=== PATIENT | female | born 1955 | race Caucasian/White ===

== ENCOUNTER 2020-12-24 19:51 | Inpatient (IN) | payer OTHER, SELFPAY ==
[2020-12-24] VITALS (30 sets, daily range): BP systolic 90–188; BP diastolic 47–128; PULSE 80–137; RESP 12–35; TEMP 36.3–36.5; O2SAT 90–100
--- NOTE | ~2020-12-24 | CT_ITS ---
EXAMINATION: CT diagnostic chest wo con DATE: 12/25/2020 03:49 INDICATION: SOB TECHNIQUE: Computed tomography (CT) of the chest was performed without intravenous contrast. Addition al 3D reconstructions utilizing coronal maximum intensity projection (MIP) were performed. Automated exposure control and iterative reconstruction technique were employed. The dose-length product was 76 8.26 mGy-cm. COMPARISON: None FINDINGS: Small bilateral pleural effusions with dependent compressive atelectasis in the bilateral lower lobes .. Subtle bilateral scattered groundglass opacities which could represent additional atelectasis vers us mild pulmonary edema. Cardiomegaly. Small amount of scattered atherosclerotic coronary artery calc ification. There is also aortic valve and mitral annular calcification. No pericardial effusion. 8 mm low-attenuation likely cystic right thyroid nodule with peripheral punctate calcification. No pathol ogically enlarged thoracic lymphadenopathy. 1.3 x 0.7 cm right thyroid nodule statistically most like ly to represent an adenoma. Mild thoracic dextrocurvature with severe spondylosis. Dense bone island at the T4 vertebral body. IMPRESSION: 1. Mild bilateral groundglass opacities which could represent atelectasis or mild pulmonary edema. 2. Small bilateral pleural effusions. 3. Cardiomegaly. Reviewed, dictated and finalized at location A. IMPRESSION: 1. Mild bilateral groundglass opacities which could represent atelectasis or mi ld pulmonary edema. 2. Small bilateral pleural effusions. 3. Cardiomegaly.
--- NOTE | ~2020-12-24 | XR_ITS ---
XR chest 1V portable 12/24/2020 20:30 Indication: Shortness of breath Procedure: AP portable chest Comparison: No prior studies for comparison. Findings: Diffuse bilateral airspace disease. Heart size normal. No significant pleural effusion or p neumothorax. Impression: 1: Diffuse bilateral airspace disease which may represent edema or pneumonia. Reviewed, dictated and finalized at location A. Impression: 1: Diffuse bilateral airspace disease which may represent edema or pneumonia.
--- NOTE | ~2020-12-24 | CT_ITS ---
EXAMINATION: CT brain wo con DATE: 12/25/2020 03:49 INDICATION: Altered mental status. Recent fall. TECHNIQUE: Computed tomography (CT) of the head was performed without intravenous contrast. The dose- length product was 681.00 mGy-cm. Automated exposure control and iterative reconstruction technique w ere employed. COMPARISON: None FINDINGS: Generalized atrophy. There are scattered mild periventricular and subcortical white matter changes, most likely related to small vessel ischemic disease (microangiopathy). No acute intracrania l hemorrhage, infarction, mass or mass effect. No ventriculomegaly or midline shift. Basilar cisterns are patent paranasal sinuses and mastoids are pneumatized. IMPRESSION: 1. No acute intracranial abnormality. 2: Chronic age-related findings. Reviewed, dictated and finalized at location A.
[2020-12-24] MEDS: IPRATROPIUM BR 0.02% INH SOLN 0.5 MG/2.5 ML VIAL 1.5 MG INHALATION (20:06)
--- NOTE | 2020-12-24 20:07 | PC.NURSE ---
bipap placed per respiratory at 16/8, rate 14 @ 50%. Preparing to initiate udt inline.
[2020-12-24 20:21] LABS: Basophils Absolute Auto 0.1 K/mm3 (0.0-0.1); Basophils Percent Auto 0.7 % (0.2-1.2); Hematocrit 40.9 % (37.0-47.0); Hemoglobin 13.1 g/dL (12.0-15.0); Immature Granulocyte Absolute 0.13 K/mm3 (0.00-0.031); Immature Granulocyte Percent A 0.7 % (0-0.5); Lymphocytes Percent Auto 16.4 % (18.3-44.2); Mean Corpuscular Hemoglobin 26.5 pg (26-34); Mean Corpuscular Volume 82.8 fl (80-100); Mean Platelet Volume 11.2 fl (7.4-10.4); Monocytes Absolute Auto 1.1 K/mm3 (0.1-0.6); Monocytes Percent Auto 6.4 % (2.6-8.5); Neutrophils Absolute Auto 13.4 K/mm3 (1.3-6.7); Neutrophils Percent Auto 75.8 % (45.5-73.1); Platelet Count Result 476 k/mm3 (150-375); Red Blood Count 4.94 M/mm3 (4.2-5.4); Red Cell Distribution Width 16.3 % (11.5-14.5); White Blood Count 17.7 K/mm3 (4.5-10.0)
[2020-12-24 21:00] LABS: Prothrombin Time 14.2 Seconds (11.1-14.7)
[2020-12-24 21:02] LABS: Partial Thromboplastin Time 29.5 SECONDS (22.3-36.8)
[2020-12-24 21:05] LABS: Anion Gap 10 mmol/L (8-16); Blood Urea Nitrogen 12 mg/dL (7-17); Calcium 8.7 mg/dL (8.4-10.2); Carbon Dioxide 28 mmol/L (22-30); Chloride 96 mmol/L (98-107); Estimated Glomerular Filt Rate > 60; Glucose 216 mg/dL (65-105); Potassium 3.5 mmol/L (3.4-5.0); Sodium 134 mmol/L (137-145)
[2020-12-24 21:07] LABS: Lactic Acid Reflex 1.4 mmol/L (0.7-2.1)
--- NOTE | 2020-12-24 21:07 | ED.SOB ---
HPI - SOB/Dyspnea General Chief Complaint: Shortness of Breath/Dyspnea Stated Complaint: 2nd covid shot yesterday not feeling good yet Time Seen by Provider: 12/24/20 19:54 History of Present Illness HPI Narrative: Patient is a 65-year-old female who presents from her assisted living with shortness of breath. Staff unsure when patient dyspnea began but patient reports this was sudden onset today. She has history of COPD as well as CHF. No fevers or chills or sweats. Denies productive cough but has had a cough. Has not found any alleviating factors. No chest pain or chest pressure. Patient has no new edema in her lower extremities. Patient received her second Covid vaccination yesterday. Related Data Home Medications Medication Instructions Recorded Confirmed Humalog U-100 Insulin See Rx Instructions .ROUTE .COMPLEX 12/24/20 12/25/20 Lantus Solostar U-100 Insulin 50 units SUBCUT DAILY 12/24/20 12/25/20 albuterol sulfate [ProAir HFA] See Rx Instructions .ROUTE 12/24/20 12/25/20 .COMPLEX PRN alprazolam 1 mg PO BID PRN 12/24/20 12/25/20 atenolol 25 mg PO DAILY 12/24/20 12/24/20 atorvastatin 40 mg PO HS 12/24/20 12/25/20 clopidogrel 75 mg PO DAILY 12/24/20 12/25/20 furosemide 80 mg PO DAILY 12/24/20 12/25/20 gabapentin 800 mg PO TID 12/24/20 12/25/20 lisinopril 2.5 mg PO DAILY 12/24/20 12/25/20 losartan 100 mg PO DAILY 12/24/20 12/24/20 methocarbamol 1,500 mg PO TID PRN 12/24/20 12/25/20 morphine 15 mg PO Q6H PRN 12/24/20 12/25/20 morphine [MS Contin] 30 mg PO Q12H 12/24/20 12/24/20 nystatin See Rx Instructions .ROUTE .COMPLEX 12/24/20 12/25/20 venlafaxine [Effexor XR] 112.5 mg PO DAILY 12/24/20 12/25/20 gabapentin 400 mg PO HS 12/25/20 12/25/20 pantoprazole 40 mg PO QAM 12/25/20 12/25/20 Allergies Allergy/AdvReac Type Severity Reaction Status Date / Time metformin Allergy Unknown Verified 12/24/20 21:11 Sulfa (Sulfonamide Allergy Unknown Verified 12/24/20 21:11 Antibiotics) Review of Systems Review of Systems: All systems reviewed & are unremarkable except as noted in HPI and below Constitutional: Constitutional: Denies chills, Denies fever(s) and Reports weakness ENT: Denies nasal congestion and Denies sore throat Cardiovascular: Cardiovascular: Denies chest pain, Denies rapid heart rate and Denies radiating jaw, neck or arm pain Respiratory: Respiratory: Reports cough, Reports dyspnea and Reports wheezing Gastrointestinal: Gastrointestinal: Denies abdominal pain, Denies nausea and Denies vomiting PMFSH Past Medical History Medical History (Updated 12/25/20 @ 04:59 by Srinivas Vergara MD) Chronic pain COPD (chronic obstructive pulmonary disease) Depression Essential hypertension Fibromyalgia GERD (gastroesophageal reflux disease) Hyperlipidemia Insulin dependent diabetes mellitus Peripheral neuropathy Systolic CHF Surgical History Surgical History (Updated 12/25/20 @ 02:07 by Cassia Sanderson DO) S/P AKA (above knee amputation) bilateral Family History Family History Other Unknown family medical history Social History Social History (Updated 12/25/20 @ 02:27 by Cassia Sanderson DO) Social History: She resides at [facility]. Primary care provider: Yamileth Perez NP Code status: Full code (per retirement records) Surrogate decision maker: Ariana Addison (daughter) Smoking status: Unknown if ever smoked Alcohol intake: never Substance use: never Gender identity (if verbalized by the patient): Female Spiritual care concerns: No Exam Narrative: Exam Narrative: GENERAL: Ill-appearing, well-nourished, and in moderate distress. HEAD: Normocephalic, atraumatic. EYES: PERRL and EOMI. ENT: Mucous membranes moist. CHEST: Diminished air movement with coarse lung sounds and expiratory wheezing. Moderate respiratory distress. HEART: Tachycardic and regular. Normal peripheral pulses. ABDO
--- NOTE | 2020-12-24 21:09 | PC.NURSE ---
Pt states is feeling much better at present.
[2020-12-24 21:15] LABS: NT Pro B Type Natriuretic Pept 13600 pg/mL (5-100)
[2020-12-24 21:24] LABS: Glucose Point of Care 231 mg/dl (65-105)
--- NOTE | 2020-12-24 21:46 | PC.NURSE ---
bipap pressures decreased to 12/6 per v.oTorres Vergara.
--- NOTE | 2020-12-24 21:48 | ECG_ITS ---
Measurements Intervals [place] Rate: 131 P: 62 UT: 130 QRS: 14 QRSD: 98 T: 84 QT: 363 QTc: 536 Interpretive Statements SINUS TACHYCARDIA LOW QRS VOLTAGE IN PRECORDIAL LEADS [QRS DEFLECTION < 1.0 mV IN CHEST LEADS] NONSPECIFIC ST & T-WAVE ABNORMALITY- INF/HIGH LAT LEADS BASELINE ARTIFACT- I, II, III, AVR, AVL, AVF, V1-V6 ABNORMAL ECG Electronically Signed On 12-25-2020 8:19:52 CDT by Yousuf Villasenor D.O.
[2020-12-24] MEDS: FUROSEMIDE INJ 40 MG/4 ML VIAL IV PUSH (21:56)
--- NOTE | 2020-12-24 22:05 | PC.NURSE ---
Bipap pressures again decreased to 10/5.
[2020-12-24 22:22] LABS: Alveolar/Arterial O2 Gradient 177.8 mmHg; Base Excess ABG 2.9 mEq/l (+/-2.0); Carboxyhemoglobin 0.3 % THb (0-2.0); Fractional Inspired Oxygen 40 %; HCO3 ABG 27.2 mEq/l (22.0-26.0); Methemoglobin ABG 0.4 %THb (0-1.5); Oxygen Saturation ABG 92.3 % (95.0-100.0); Oxyhemoglobin 90.3 % THb (90.0-100.0); PCO2 ABG 40.4 mmHg (35.0-45.0); PO2 ABG 60.9 mmHg (80.0-100.0); PO2 FiO2 Ratio Arterial Blood 1.52 %; Total Hemoglobin 12.6 g/dL (12.0-18.0); pH ABG 7.446 (7.350-7.450)
[2020-12-24 22:23] LABS: Device NON-INVASIVE VENT; Modified Allen's Test Pass; Non-Invasive Expiratory Pressure 5 CMH2O; Non-Invasive Inspiratory Pressure 10 CMH2O; Non-Invasive Vent Rate 14 /MIN; Site Drawn RIGHT RADIAL
[2020-12-25] VITALS (28 sets, daily range): BP systolic 91–148; BP diastolic 48–54; PULSE 77–130; RESP 18–24; TEMP 36.4–38.3; O2SAT 95–98
--- NOTE | 2020-12-25 | ADMGEN ---
This patient, Isabel Jorgensen, was admitted to IMU Room 205-02 on 12/24/2020 at 2335. Patient/family oriented to hospital policies and general routines including ID bracelet, bed and alarms, visiting hours, pain management, procedures, bathroom and other care routines, personal items, smoking policy, room service/diet, and visiting hours. Information on how to activate the Rapid Response Team has been discussed. Patient/Family are encouraged to report perceived risks to care and to ask questions if they do not understand what they are told or what they should do.
[2020-12-25 00:23] LABS: Troponin I 0.466 ng/mL (0.000-0.034)
--- NOTE | 2020-12-25 00:53 | PM.IMHP ---
H&P: HPI History of Present Illness Date/Time: 12/25/20 00:53 Chief Complaint: ?I can't breathe? Narrative: 65-year-old female with past medical history of insulin-dependent diabetes, bilateral [id number] amputations, systolic congestive heart failure, COPD and coronary artery disease who presented to the ER via EMS from [facility] due to shortness of breath. Source of information is assisted living records and ER records. Patient is alert oriented to person, place and month but will not stay awake long enough to answer other questions. The patient arrived to the ER in overt respiratory distress. She was found at home with oxygen saturations in the mid 70s. At the time of arrival to the ER the patient had a non-rebreather in place and was satting 89%. She had labored respirations with wheezing and rhonchi. The patient reported that her symptoms had started in the morning and acutely worsened before EMS was called. She reported to the ER staff that she was having a cough but her cough was nonproductive. At the time of my evaluation the patient's skin with hot to touch and she was diaphoretic. A temperature checked at that time demonstrated a fever of 100.9. The patient's daughter reported that she had taken the patient to get her 2nd Covid vaccine on . The patient fell during that time in patient was taken to urgent care. The daughter was unable to stay with the patient in asked his sister living staff to keep an eye on the patient. The patient is unable to tell me if she was having any dysuria or urinary symptoms. The patient was evidently incontinent of urine down in the ER. The patient told nursing staff that she usually transfers herself to her wheelchair and makes it to her bathroom without assistance. Since the patient is arrived on the medical floor she has become more encephalopathic and more difficult to arouse. When not on BiPAP patient has had episodes of witnessed apnea. She denies a history of obstructive sleep apnea. The patient is intermittently answering questions but at times she answers the same question with opposite responses. She has no obvious evidence of head trauma. Review of Systems Review of Systems: ROS unobtainable: Yes unobtainable due to mental status [facility] Past Medical History Medical History (Updated 12/25/20 @ 02:41 by Cassia Sanderson DO) Chronic pain COPD (chronic obstructive pulmonary disease) Depression Essential hypertension Fibromyalgia GERD (gastroesophageal reflux disease) Hyperlipidemia Insulin dependent diabetes mellitus Peripheral neuropathy Systolic CHF Surgical History Surgical History (Updated 12/25/20 @ 02:07 by Cassia Sanderson DO) S/P AKA (above knee amputation) bilateral Family History Family History Other Unknown family medical history Social History Social History (Updated 12/25/20 @ 02:27 by Cassia Sanderson DO) Social History: She resides at [facility]. Primary care provider: Yamileth Perez NP Code status: Full code (per penitentiary records) Surrogate decision maker: Ariana Addison (daughter) Smoking status: Unknown if ever smoked Alcohol intake: never Substance use: never Gender identity (if verbalized by the patient): Female Spiritual care concerns: No Meds Home Medications and Allergies Home Medications Medication Instructions Recorded Confirmed Type Humalog U-100 Insulin See Rx Instructions .ROUTE .COMPLEX 12/24/20 12/25/20 History Lantus Solostar U-100 Insulin 50 units SUBCUT DAILY 12/24/20 12/25/20 History albuterol sulfate [ProAir HFA] See Rx Instructions .ROUTE 12/24/20 12/25/20 History .COMPLEX PRN alprazolam 1 mg PO BID PRN 12/24/20 12/25/20 History atenolol 25 mg PO DAILY 12/24/20 12/24/20 History atorvastatin 40 mg PO HS 12/24/20 12/25/20 History clopidogrel 75 mg PO DAILY 12/24/20 12/25/20 His
[2020-12-25 01:52] LABS: Glucose Point of Care 242 mg/dl (65-105)
[2020-12-25 02:42] LABS: D Dimer 1.41 ug/mL (<0.48)
--- NOTE | 2020-12-25 02:45 | PC.NURSE ---
Nurse called emergency contact listed Daughter (Ariana Addison) and was unable to reach and left message for consent for Ct with contrast due to patient to drowsy to answer questions. Nurse was also unable to get a second contact from [facility].
[2020-12-25 02:57] LABS: Bacteria Urine Trace /hpf; Mucus Urine Rare /lpf; Squamous Epithelial Cell Urine Rare /hpf (Few); WBC Urine 0-3 /hpf
[2020-12-25 03:01] LABS: Color Urine Yellow (Yellow)
[2020-12-25 03:02] LABS: Appearance Urine Clear (Clear); Glucose Urine UA Negative (Negative); Protein Urine 3+ mg/dL (Negative); Specific Grav Ur 1.025 (1.001-1.035)
[2020-12-25 03:04] LABS: Add Urine Microscopic? YES
[2020-12-25 03:17] LABS: Bilirubin Urine Negative (Negative)
[2020-12-25 03:18] LABS: Ketones Urine Negative (Negative)
[2020-12-25 03:19] LABS: Leukocyte Esterase Ur Negative LEU/UL (Negative); Nitrate Urine Negative (Negative)
[2020-12-25 03:24] LABS: Troponin I 0.583 ng/mL (0.000-0.034)
[2020-12-25 03:26] LABS: Blood Urine 1+ (Negative); Urobilinogen Urine 0.2 mg/dL (<2.0)
--- NOTE | 2020-12-25 03:30 | PC.NURSE ---
Nurse took patient down via bed to cT scan and back to room 205-1.
[2020-12-25] MEDS: ENOXAPARIN 80 MG/0.8 ML SYRINGE 75 MG SUB-Q ×2 (04:52→16:08)
[2020-12-25 05:52] LABS: Basophils Absolute Auto 0.1 K/mm3 (0.0-0.1); Basophils Percent Auto 0.6 % (0.2-1.2); Eosinophils Absolute Auto 0.4 K/mm3 (0-0.3); Eosinophils Percent Auto 4.3 % (0-4.4); Hematocrit 34.8 % (37.0-47.0); Immature Granulocyte Absolute 0.05 K/mm3 (0.00-0.031); Immature Granulocyte Percent A 0.6 % (0-0.5); Lymphocytes Absolute Auto 1.14 K/mm3 (0.9-3.2); Lymphocytes Percent Auto 12.8 % (18.3-44.2); Mean Corpuscular HGB Conc 31.6 g/dl (32-36); Mean Corpuscular Hemoglobin 26.1 pg (26-34); Mean Corpuscular Volume 82.7 fl (80-100); Mean Platelet Volume 9.8 fl (7.4-10.4); Monocytes Absolute Auto 0.7 K/mm3 (0.1-0.6); Monocytes Percent Auto 8.2 % (2.6-8.5); Neutrophils Absolute Auto 6.6 K/mm3 (1.3-6.7); Neutrophils Percent Auto 73.5 % (45.5-73.1); Platelet Count Result 222 k/mm3 (150-375); Red Blood Count 4.21 M/mm3 (4.2-5.4); Red Cell Distribution Width 16.2 % (11.5-14.5); White Blood Count 8.9 K/mm3 (4.5-10.0)
[2020-12-25 06:01] LABS: Hemoglobin A1C 10.2 % (<5.7)
[2020-12-25 06:02] LABS: Alanine Aminotransferase 17 U/L (4-35); Albumin Level 3.1 g/dL (3.5-5.1); Alkaline Phosphatase 158 U/L (38-126); Anion Gap 7 mmol/L (8-16); Aspartate Amino Transferase 28 U/L (14-36); Bilirubin,Total 0.5 mg/dL (0.2-1.3); Blood Urea Nitrogen 16 mg/dL (7-17); Calcium 8.1 mg/dL (8.4-10.2); Carbon Dioxide 31 mmol/L (22-30); Chloride 97 mmol/L (98-107); Estimated Glomerular Filt Rate > 60; Glucose 256 mg/dL (65-105); Potassium 3.2 mmol/L (3.4-5.0); Sodium 135 mmol/L (137-145)
[2020-12-25 06:17] LABS: Troponin I 0.503 ng/mL (0.000-0.034)
[2020-12-25 07:39] LABS: Glucose Point of Care 285 mg/dl (65-105)
[2020-12-25] MEDS: IPRATROPIUM BR 0.02% INH SOLN 0.5 MG/2.5 ML VIAL INHALATION ×3 (07:56→21:20)
[2020-12-25] MEDS: MORPHINE SULFATE (*CRX) 30 MG TABCR PO ×2 (08:24→20:56)
[2020-12-25] MEDS: ALPRAZolam (*CRX) 0.5 MG TABLET 1 MG PO ×2 (08:24→20:56)
[2020-12-25] MEDS: FUROSEMIDE INJ 40 MG/4 ML VIAL IV PUSH ×2 (08:25→16:07)
[2020-12-25] MEDS: methocarbamoL 750 MG TABLET 1500 MG PO ×2 (08:25→22:15)
[2020-12-25] MEDS: INSULIN GLARGINE (*BKC) 100 UNITS/ML 50 UNITS SUB-Q (08:27)
[2020-12-25] MEDS: INSULIN ASPART (*BKC) 100 UNITS/ML SUB-Q (08:28)
[2020-12-25] MEDS: INSULIN ASPART (*BKC) 100 UNITS/ML 6 UNITS SUB-Q ×2 (08:29→11:52)
[2020-12-25] MEDS: PANTOPRAZOLE 40 MG TABLET PO (11:46)
[2020-12-25] MEDS: LOSARTAN POTASSIUM 100 MG TABLET PO (11:46)
[2020-12-25] MEDS: atenoloL 25 MG TABLET PO (11:46)
[2020-12-25] MEDS: CLOPIDOGREL BISULFATE 75 MG TABLET PO (11:46)
[2020-12-25] MEDS: GABAPENTIN 400 MG CAPSULE 800 MG PO ×3 (11:46→18:53)
[2020-12-25] MEDS: MORPHINE SULFATE (*CRX) 15 MG TAB IR PO ×3 (11:46→22:15)
[2020-12-25 12:11] LABS: Glucose Point of Care 163 mg/dl (65-105)
--- NOTE | 2020-12-25 14:35 | PM.IMPN ---
Progress Note: A&P Assessment and Plan (1) Sepsis: Qualifiers: Sepsis type: sepsis due to unspecified organism Sepsis acute organ dysfunction status: with acute organ dysfunction Severe sepsis acute organ dysfunction type: acute respiratory failure Acute respiratory failure type: with hypoxia Severe sepsis shock status: without septic shock Qualified Code(s): A41.9 - Sepsis, unspecified organism; R65.20 - Severe sepsis without septic shock; J96.01 - Acute respiratory failure with hypoxia Code(s): A41.9 - Sepsis, unspecified organism Status: Acute Assessment and Plan: ALTERED MENTAL STATUS LIKELY PNEUMONIA SOURCE OF INFECTION Ruling out COVID-19 Currently on ceftriaxone and Zithromax Await cultures (2) Acute respiratory failure with hypoxia: Code(s): J96.01 - Acute respiratory failure with hypoxia Status: Acute Assessment and Plan: SUPPLEMENTAL OXYGEN NEEDED Patient was on room air at the time of my visit Supportive care BiPAP p.r.n. (3) Elevated troponin: Code(s): R77.8 - Other specified abnormalities of plasma proteins Status: Acute Assessment and Plan: LIKELY TO BE TYPE 2 [place] (4) Type 2 diabetes mellitus with hyperglycemia: Qualifiers: Diabetes mellitus penitentiary insulin use: with penitentiary use Qualified Code(s): E11.65 - Type 2 diabetes mellitus with hyperglycemia; Z79.4 - skilled nursing (current) use of insulin Code(s): E11.65 - Type 2 diabetes mellitus with hyperglycemia Status: Acute Assessment and Plan: INSULIN SLIDING SCALE NEEDED CONTINUE LANTUS (5) Witnessed apneic spells: Code(s): R06.81 - Apnea, not elsewhere classified Status: Acute Assessment and Plan: BIPAP AT NIGHTTIME Additional Plan The patient presented with acute respiratory failure to the ER. Initially given her sudden onset of respiratory symptoms and history of CHF it was felt that she likely had flash pulmonary edema. Patient was placed on BiPAP given Lasix and admitted to the IMU. However after arrival to the IMU the patient spiked a fever of 100.9. Subsequently blood cultures and UA and urine culture have been ordered. The patient's fever could simply be due to receiving the 2nd Covid vaccine 24 hours ago however currently she meet sepsis criteria and will be treated as such. Patient's abnormal x-ray could be due to pulmonary edema versus pneumonia. The patient received Lasix in the ER. Will continue 40 of Lasix IV b.i.d.. Will place Gómez catheter for accurate I&O's as the patient is incontinent. Will check daily weights. The patient will remain on BiPAP especially given witnessed episodes of apnea. There is no evidence of CO2 retention on her ABG. A stat D-dimer was obtained which was elevated. I wanted to obtain a CT of the chest but the patient's family did not answer the phone to give consent. Patient will be treated with empiric Lovenox therapy. Will still obtain CT of the chest without contrast to further delineate the patient's lung pathology. Patient will be started on empiric antibiotic therapy with Rocephin and azithromycin. Given her leukocytosis bacterial pneumonia is suspected more than COVID. The patient has already received her 2nd Covid vaccine within the last 24 hours. Diuretic lesion may not have a complete immune response to Covid get. Will check COVID PCR and placed on isolation. The patient's fever could simply be due to immunization reaction. Given her history of COPD will place patient on scheduled nebulizer treatments. Patient's elevated troponin could be due to non STEMI verses type 2 infarct due to acute hypoxic event. Will monitor serial troponins. Will check echocardiogram in a.m. given the patient's significant murmur. Will continue b.i.d. IV Lasix. Patient's glucoses are running in the 200s. Will resume the patient's home Lantus and had mealtime bolus insulin and sliding scale insulin. Accu-Mally
[2020-12-25 18:14] LABS: SARS-CoV-2 RNA PCR Negative
[2020-12-25 18:53] LABS: Glucose Point of Care 73 mg/dl (65-105)
[2020-12-25 20:20] LABS: Glucose Point of Care 229 mg/dl (65-105)
[2020-12-25] MEDS: ATORVASTATIN 40 MG TABLET PO (20:54)
[2020-12-25] MEDS: GABAPENTIN 400 MG CAPSULE PO (20:55)
--- NOTE | 2020-12-25 22:41 | ECG_ITS ---
Measurements Intervals [place] Rate: 131 P: [place]: 0 QRS: 10 QRSD: 93 T: 124 QT: 301 QTc: 446 Interpretive Statements SINUS RHYTHM SHORT RUNS OF ATRIAL TACHYCARDIA NONSPECIFIC ST & T-WAVE ABNORMALITY- ANTEROLAT/HIGH LAT LEADS BASELINE ARTIFACT- III, AVF, V5 ABNORMAL ECG Electronically Signed On 12-26-2020 8:49:36 CDT by Yousuf Villasenor D.O.
[2020-12-26] VITALS (22 sets, daily range): BP systolic 90–136; BP diastolic 50–67; PULSE 77–156; RESP 16–20; TEMP 35.9–36.6; O2SAT 92–100
--- NOTE | 2020-12-26 | ECHO_ITS ---
Patient Info Name: Isabel Jorgensen Age: 65 years : 1955 Gender: Female Ht: 48 in Wt: 165 lbs BSA: 1.66 m2 HR: 100 bpm BP: 148 / 49 mmHg Heart Rhythm: Sinus Rhythm Technical Quality: Good Exam Date: 12/26/2020 8:18 AM Exam Location: [facility] Patient Status: Inpatient Admit Date: 12/25/2020 Staff Ordering Physician: Cassia Sanderson DO Pen Ruler Operator: Sravan Dixon RDCS, RT Attending Provider: Cassia Sanderson DO Referring Physician: Maria E JONES; Exam Type: CA echo doppler color flow Study Info Indications R01.1 - Cardiac murmur, unspecified Complete two-dimensional, color flow and Doppler transthoracic echocardiogram is performed. Summary 1. Complete two-dimensional, color flow and Doppler transthoracic echocardiogram is performed. 2. Left ventricular chamber dimension is mildly enlarged. 3. Left ventricular systolic function is moderately reduced, estimated at 35-40%. 4. There is severely increased left ventricular wall thickness. 5. The left ventricular diastolic function is grade I diastolic dysfunction. 6. Left atrial chamber dimension is mildly enlarged. 7. There is mild mitral valve regurgitation. Left Ventricle Left ventricular chamber dimension is mildly enlarged. Left ventricular systolic function is moderately reduced, estimated at 35-40%. There is severely increased left ventricular wall thickness. The left ventricular diastolic function is grade I diastolic dysfunction. Right Ventricle Right ventricular chamber dimension is normal. Right ventricular systolic function is normal. Left Atria Left atrial chamber dimension is mildly enlarged. Right Atria Right atrial chamber dimension is normal. Atrial Septum Intact interatrial septum visualized by color flow imaging. Aortic Valve The aortic valve is trileaflet. There is mild aortic valve sclerosis. There is no aortic valve stenosis. There is trace aortic valve regurgitation. Pulmonic Valve The pulmonic valve is normal. There is no pulmonic valve stenosis. There is trace pulmonic regurgitation. Mitral Valve The mitral valve has calcified annulus. There is no mitral valve stenosis. There is mild mitral valve regurgitation. Tricuspid Valve The tricuspid valve leaflets are normal. There is no significant tricuspid valve stenosis. There is trace tricuspid valve regurgitation. Pericardium/Pleural The pericardium appears normal. There is trivial pericardial effusion. Inferior Vena Cava Dilated inferior vena cava with <50% collapse upon inspiration consistent with elevated right atrial pressure, 15 mmHg. Aorta The aortic root size at the sinus of Valsalva is normal. The prox ascending aorta size is normal. There is mild aortic atherosclerosis. Left Ventricular Outflow Tract Name Value Normal LVOT 2D LVOT Diameter 2.2 cm LVOT Doppler LVOT Peak Gradient 2 mmHg LVOT Mean Gradient 1 mmHg LVOT VTI 15 cm LVOT VTI/AV VTI Ratio 0.5 LVOT Stroke Volume
[2020-12-26] MEDS: HYDROcodone/acetaminophen (*CRX) 5-325 MG TABLET 1 TAB PO (01:21)
[2020-12-26] MEDS: IPRATROPIUM BR 0.02% INH SOLN 0.5 MG/2.5 ML VIAL INHALATION ×4 (02:12→20:46)
[2020-12-26] MEDS: MORPHINE SULFATE (*CRX) 15 MG TAB IR PO ×3 (04:09→20:30)
[2020-12-26] MEDS: ENOXAPARIN 80 MG/0.8 ML SYRINGE 75 MG SUB-Q ×2 (04:10→17:18)
[2020-12-26 09:05] LABS: Glucose Point of Care 254 mg/dl (65-105)
--- NOTE | 2020-12-26 09:12 | PM.IMPN ---
Progress Note: A&P Assessment and Plan (1) Sepsis: Qualifiers: Sepsis type: sepsis due to unspecified organism Sepsis acute organ dysfunction status: with acute organ dysfunction Severe sepsis acute organ dysfunction type: acute respiratory failure Acute respiratory failure type: with hypoxia Severe sepsis shock status: without septic shock Qualified Code(s): A41.9 - Sepsis, unspecified organism; R65.20 - Severe sepsis without septic shock; J96.01 - Acute respiratory failure with hypoxia Code(s): A41.9 - Sepsis, unspecified organism Status: Acute Assessment and Plan: ALTERED MENTAL STATUS LIKELY PNEUMONIA SOURCE OF INFECTION Ruling out COVID-19 Currently on ceftriaxone and Zithromax Await cultures (2) Acute respiratory failure with hypoxia: Code(s): J96.01 - Acute respiratory failure with hypoxia Status: Acute Assessment and Plan: SUPPLEMENTAL OXYGEN NEEDED Patient remains on room air at the time of my visit Supportive care BiPAP p.r.n. (3) Elevated troponin: Code(s): R77.8 - Other specified abnormalities of plasma proteins Status: Acute Assessment and Plan: LIKELY TO BE TYPE 2 [place], but pt vasculopath consult cardio (4) Type 2 diabetes mellitus with hyperglycemia: Qualifiers: Diabetes mellitus shelter insulin use: with shelter use Qualified Code(s): E11.65 - Type 2 diabetes mellitus with hyperglycemia; Z79.4 - retirement (current) use of insulin Code(s): E11.65 - Type 2 diabetes mellitus with hyperglycemia Status: Acute Assessment and Plan: INSULIN SLIDING SCALE NEEDED CONTINUE LANTUS (5) Witnessed apneic spells: Code(s): R06.81 - Apnea, not elsewhere classified Status: Acute Assessment and Plan: BIPAP AT NIGHTTIME Additional Plan The patient presented with acute respiratory failure to the ER. Initially given her sudden onset of respiratory symptoms and history of CHF it was felt that she likely had flash pulmonary edema. Patient was placed on BiPAP given Lasix and admitted to the IMU. However after arrival to the IMU the patient spiked a fever of 100.9. Subsequently blood cultures and UA and urine culture have been ordered. The patient's fever could simply be due to receiving the 2nd Covid vaccine 24 hours ago however currently she meet sepsis criteria and will be treated as such. Patient's abnormal x-ray could be due to pulmonary edema versus pneumonia. The patient received Lasix in the ER. Will continue 40 of Lasix IV b.i.d.. Will place Gómez catheter for accurate I&O's as the patient is incontinent. Will check daily weights. The patient will remain on BiPAP especially given witnessed episodes of apnea. There is no evidence of CO2 retention on her ABG. A stat D-dimer was obtained which was elevated. I wanted to obtain a CT of the chest but the patient's family did not answer the phone to give consent. Patient will be treated with empiric Lovenox therapy. Will still obtain CT of the chest without contrast to further delineate the patient's lung pathology. Patient will be started on empiric antibiotic therapy with Rocephin and azithromycin. Given her leukocytosis bacterial pneumonia is suspected more than COVID. The patient has already received her 2nd Covid vaccine within the last 24 hours. Diuretic lesion may not have a complete immune response to Covid get. Will check COVID PCR and placed on isolation. The patient's fever could simply be due to immunization reaction. Given her history of COPD will place patient on scheduled nebulizer treatments. Patient's elevated troponin could be due to non STEMI verses type 2 infarct due to acute hypoxic event. Will monitor serial troponins. Will check echocardiogram in a.m. given the patient's significant murmur. Will continue b.i.d. IV Lasix. Patient's glucoses are running in the 200s. Will resume the patient's home Lantus and had mealtime bolus ins
[2020-12-26] MEDS: INSULIN GLARGINE (*BKC) 100 UNITS/ML 50 UNITS SUB-Q (09:19)
[2020-12-26] MEDS: INSULIN ASPART (*BKC) 100 UNITS/ML SUB-Q (09:20)
[2020-12-26] MEDS: INSULIN ASPART (*BKC) 100 UNITS/ML 6 UNITS SUB-Q (09:20)
[2020-12-26] MEDS: MORPHINE SULFATE (*CRX) 30 MG TABCR PO ×2 (09:21→20:30)
[2020-12-26] MEDS: ALPRAZolam (*CRX) 0.5 MG TABLET 1 MG PO ×2 (09:21→20:31)
[2020-12-26] MEDS: METOPROLOL TARTRATE INJ 5 MG/5 ML VIAL IV PUSH (09:21)
[2020-12-26] MEDS: GABAPENTIN 400 MG CAPSULE 800 MG PO ×3 (09:22→17:16)
[2020-12-26] MEDS: PANTOPRAZOLE 40 MG TABLET PO (09:22)
[2020-12-26] MEDS: CLOPIDOGREL BISULFATE 75 MG TABLET PO (09:22)
[2020-12-26] MEDS: methocarbamoL 750 MG TABLET 1500 MG PO ×2 (09:22→20:29)
[2020-12-26 09:51] LABS: Basophils Absolute Auto 0.1 K/mm3 (0.0-0.1); Basophils Percent Auto 1.2 % (0.2-1.2); Eosinophils Absolute Auto 0.1 K/mm3 (0-0.3); Eosinophils Percent Auto 2.5 % (0-4.4); Hematocrit 31.8 % (37.0-47.0); Hemoglobin 9.9 g/dL (12.0-15.0); Immature Granulocyte Absolute 0.02 K/mm3 (0.00-0.031); Immature Granulocyte Percent A 0.4 % (0-0.5); Lymphocytes Absolute Auto 1.54 K/mm3 (0.9-3.2); Mean Corpuscular HGB Conc 31.1 g/dl (32-36); Mean Corpuscular Hemoglobin 25.9 pg (26-34); Mean Corpuscular Volume 83.2 fl (80-100); Mean Platelet Volume 10.4 fl (7.4-10.4); Monocytes Absolute Auto 0.6 K/mm3 (0.1-0.6); Monocytes Percent Auto 11.2 % (2.6-8.5); Neutrophils Absolute Auto 3.3 K/mm3 (1.3-6.7); Neutrophils Percent Auto 57.7 % (45.5-73.1); Platelet Count Result 215 k/mm3 (150-375); Red Blood Count 3.82 M/mm3 (4.2-5.4); Red Cell Distribution Width 16.2 % (11.5-14.5); White Blood Count 5.7 K/mm3 (4.5-10.0)
--- NOTE | 2020-12-26 10:02 | PM.CNCAR ---
Assessment and Plan Additional Plan this is a 65-year-old lady presenting after falling in the parking lot outside of [facility] and then reporting some dyspnea. She just earlier than this received her 2nd Coronavirus shot and also had a low-grade fever upon arrival here. She is not reporting any obvious cardiac symptoms but was given the diagnosis of congestive heart failure and has been given some IV furosemide. Her cardiac rhythm is interesting in that she has obvious sinus beats alternating with a rapid atrial tachycardia in the setting am not sure that this is atrial fibrillation. She has received some intravenous metoprolol a short time ago which seems appropriate in this situation. There is also some discrepancy in the history in that she was reported on the admission notes is having a history of congestive heart failure although the patient seems to have no recollection of that at this time. This morning I would recommend transitioning her from atenolol to a moderate dose of oral metoprolol. An echocardiogram has been requested which is appropriate and at this time I am not going to recommend systemic anticoagulation as I am not sure that this is atrial fibrillation. Since her blood pressure is been a little bit soft this morning I am going to stop her vasodilators for the time being, her echocardiogram will be reviewed and further recommendations will be forthcoming the response to a metoprolol and review of her ultrasound. given the history that I received in her room I do not think it is obvious that she is presenting with congestive heart failure since that does not appear to be the symptoms complex that was reported upon admission. Josiah Dejesus MD [facility] History of Present Illness History of Present Illness Consult date/time: 12/26/20 10:02 Reason For Visit: Acute Respiratory Failure, CHF Exacerbation Narrative: this is a 65-year-old woman we are consulted to see this morning by the hospitalist because of congestive heart failure, atrial fibrillation, elevated troponin. The patient is unknown to me prior to this encounter she is seated in room 205 bed to a and appears to be comfortable and does not offer any complaints currently. 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 She states she was in her usual state of reasonable health otherwise when yesterday she was out getting her 2nd cano virus vaccine and when she came back to her assisted living facility she had a fall in the parking lot. She is a double amputee and was transferring from the car to her wheelchair and somewhere in that situation she had a fall on to the parking lot. She was helped up into the wheelchair and into the assisted living facility. When she will arrive she was reporting some shortness of breath this staff was assessed her condition and I am a bit appears had her transported to the emergency room for further evaluation. She was not reporting any sense of chest pain pressure or heaviness. She has not been having any orthopnea or PND leading up to this. She has no sense of palpitations or history of syncope. The patient tells me that she is not aware of any history of previous cardiac problems although it says in the chart that she has a history of congestive heart failure. The patient is unaware of this. She states she has a history of diabetes as I mentioned above hypertension and dyslipidemia which are being managed by her primary physician. Upon arrival here she did have a temperature of 100.5? as well. The patient is in IMU on telemetry she has an interesting cardiac rhythm were she will have 1 or 2 sinus beats followed by rapid atrial tachycardia that seems to be interpreted as atrial fibrillation with RVR. Patient has been receiving some intravenous metoprolol this morning at times she has obvious sinus complexes fo
[2020-12-26 10:04] LABS: Anion Gap 6 mmol/L (8-16); Blood Urea Nitrogen 25 mg/dL (7-17); Calcium 7.9 mg/dL (8.4-10.2); Carbon Dioxide 33 mmol/L (22-30); Chloride 95 mmol/L (98-107); Estimated Glomerular Filt Rate > 60; Glucose 234 mg/dL (65-105); Magnesium 1.8 mg/dL (1.6-2.3); Potassium 2.9 mmol/L (3.4-5.0); Sodium 134 mmol/L (137-145)
[2020-12-26] MEDS: METOPROLOL TARTRATE 25 MG TABLET PO ×2 (11:37→20:30)
[2020-12-26] MEDS: FUROSEMIDE INJ 40 MG/4 ML VIAL IV PUSH ×2 (11:37→17:16)
[2020-12-26 12:34] LABS: Glucose Point of Care 115 mg/dl (65-105)
[2020-12-26 14:47] LABS: Glucose Point of Care 61 mg/dl (65-105)
[2020-12-26] MEDS: POTASSIUM CHLORIDE 20 MEQ TABLET.ER PO (17:16)
[2020-12-26 17:34] LABS: Glucose Point of Care 118 mg/dl (65-105)
[2020-12-26 20:10] LABS: Glucose Point of Care 181 mg/dl (65-105)
[2020-12-26] MEDS: ACETAMINOPHEN 325 MG TABLET 650 MG PO (20:30)
[2020-12-26] MEDS: GABAPENTIN 400 MG CAPSULE PO (20:31)
[2020-12-26] MEDS: ATORVASTATIN 40 MG TABLET PO (20:31)
[2020-12-27] VITALS (20 sets, daily range): BP systolic 115–135; BP diastolic 55–95; PULSE 70–89; RESP 12–20; TEMP 36.5–36.8; O2SAT 94–98
[2020-12-27] MEDS: IPRATROPIUM BR 0.02% INH SOLN 0.5 MG/2.5 ML VIAL INHALATION ×4 (02:14→17:53)
[2020-12-27] MEDS: MORPHINE SULFATE (*CRX) 15 MG TAB IR PO ×3 (02:40→18:29)
[2020-12-27 04:40] LABS: Basophils Absolute Auto 0.1 K/mm3 (0.0-0.1); Basophils Percent Auto 1.1 % (0.2-1.2); Eosinophils Absolute Auto 0.3 K/mm3 (0-0.3); Eosinophils Percent Auto 5.6 % (0-4.4); Immature Granulocyte Absolute 0.02 K/mm3 (0.00-0.031); Immature Granulocyte Percent A 0.4 % (0-0.5); Lymphocytes Absolute Auto 1.96 K/mm3 (0.9-3.2); Lymphocytes Percent Auto 34.6 % (18.3-44.2); Mean Corpuscular HGB Conc 30.3 g/dl (32-36); Mean Corpuscular Hemoglobin 25.9 pg (26-34); Mean Corpuscular Volume 85.5 fl (80-100); Monocytes Absolute Auto 0.6 K/mm3 (0.1-0.6); Monocytes Percent Auto 10.1 % (2.6-8.5); Neutrophils Absolute Auto 2.7 K/mm3 (1.3-6.7); Neutrophils Percent Auto 48.2 % (45.5-73.1); Platelet Count Result 235 k/mm3 (150-375); Red Blood Count 3.86 M/mm3 (4.2-5.4); Red Cell Distribution Width 16.2 % (11.5-14.5); White Blood Count 5.7 K/mm3 (4.5-10.0)
[2020-12-27] MEDS: ENOXAPARIN 80 MG/0.8 ML SYRINGE 75 MG SUB-Q ×2 (04:56→16:06)
[2020-12-27] MEDS: methocarbamoL 750 MG TABLET 1500 MG PO ×2 (04:56→18:29)
[2020-12-27 04:58] LABS: Anion Gap 8 mmol/L (8-16); Blood Urea Nitrogen 25 mg/dL (7-17); CRP 3.8 mg/dL (<1.0); Calcium 8.5 mg/dL (8.4-10.2); Carbon Dioxide 31 mmol/L (22-30); Chloride 93 mmol/L (98-107); Estimated Glomerular Filt Rate 50; Glucose 248 mg/dL (65-105); Magnesium 1.9 mg/dL (1.6-2.3); Potassium 4.1 mmol/L (3.4-5.0); Sodium 132 mmol/L (137-145)
[2020-12-27 05:35] LABS: Atypical Lymphocytes Present; Platelet Estimate Adequate (Adequate)
[2020-12-27 07:52] LABS: Glucose Point of Care 173 mg/dl (65-105)
[2020-12-27] MEDS: FUROSEMIDE INJ 40 MG/4 ML VIAL IV PUSH (09:12)
[2020-12-27] MEDS: CLOPIDOGREL BISULFATE 75 MG TABLET PO (09:13)
[2020-12-27] MEDS: METOPROLOL TARTRATE 25 MG TABLET PO (09:13)
[2020-12-27] MEDS: GABAPENTIN 400 MG CAPSULE 800 MG PO ×3 (09:13→16:05)
[2020-12-27] MEDS: POTASSIUM CHLORIDE 20 MEQ TABLET.ER PO ×2 (09:13→16:06)
[2020-12-27] MEDS: MORPHINE SULFATE (*CRX) 30 MG TABCR PO (09:13)
[2020-12-27] MEDS: PANTOPRAZOLE 40 MG TABLET PO (09:13)
[2020-12-27] MEDS: ALPRAZolam (*CRX) 0.5 MG TABLET 1 MG PO (09:13)
[2020-12-27] MEDS: INSULIN ASPART (*BKC) 100 UNITS/ML 6 UNITS SUB-Q (09:14)
[2020-12-27] MEDS: INSULIN GLARGINE (*BKC) 100 UNITS/ML 50 UNITS SUB-Q (09:15)
[2020-12-27 11:43] LABS: Glucose Point of Care 82 mg/dl (65-105)
--- NOTE | 2020-12-27 13:36 | PM.PNCARD ---
Progress Note: A&P Assessment and Plan (1) Systolic CHF: Code(s): I50.20 - Unspecified systolic (congestive) heart failure Status: Inactive Assessment and Plan: Her presentation to the hospital is a little unclear but apparently she was having shortness of breath following fall from her wheelchair. Patient admitted with CHF diagnosis and started on IV diuresis but no prior records available to confirm that diagnosis. Echocardiogram yesterday showed moderately reduced systolic function with an EF of 35 - 40%, severely increased left ventricular wall thickness, grade I LV diastolic dysfunction, mild MR. Patient is unaware of any prior heart failure diagnosis. According to the patient's daughter, she did have an echo last year at an outside hospital (possibly [facility]), but does not think she had a left heart cath at that time. Discussed with patient that if her reduced EF is a new finding, we would consider ischemic evaluation. The patient states that she is not interested in invasive testing at this time and would like to proceed with medical management. Awaiting records outside hospital specifically echocardiogram other cardiac workup that may have been completed at that time. Current plan to have the patient follow up as an outpatient and possibility of left heart catheterization can be discussed and/or coordinator that time. In the interim we will start the patient on Entresto. Will also transition her Lasix from IV to oral at a decreased dose as she appears adequately diuresed and had a slight increase in her creatinine. Subjective Date/time seen: 12/27/20 13:36 Interval history: Cardiology follow up for CHF Date of service 12/27/2020: The patient is sitting comfortably in bed today does not have any complaints of any kind. She denies any shortness of breath, chest pain, palpitations. She states that she feels very well and is ready to go home today. Review of Systems Constitutional: Constitutional: Reports no additional constitutional complaints Eyes: Eyes: Reports no additional eye complaints ENT: Reports system reviewed and no additional complaints, except as documented Cardiovascular: Cardiovascular: Reports as per HPI and Reports dyspnea Respiratory: Respiratory: Reports dyspnea Gastrointestinal: Gastrointestinal: Reports no additional gastrointestinal complaints Musculoskeletal: Musculoskeletal: Reports no additional musculoskeletal complaints Integumentary/Breasts: Skin/Breast: Reports system reviewed and no additional complaints, except as docu Neurologic: Reports system reviewed and no additional complaints, except as documented Hematologic/Lymphatic: Hematologic/Lymphatic: Reports no additional hematologic/lymphatic complaints Allergic/Immunologic: Allergic/Immunologic: Reports no additional allergic/immunologic complaints Exam Narrative: Exam Narrative: female sitting comfortably in bed. Lower extremity amputee. Alert and oriented, poor memory. Appears older than stated age. Const: General: comfortable and no acute distress HENMT: Mouth: Yes moist mucous membranes Eyes: Sclera: sclerae normal Pupils: Equal, round and reactive pupils present Neck: Neck: supple and no JVD Resp: Effort & Inspection: normal respiratory effort Auscultation: crackles (fine) diffuse Cardio: Rate: regular rate Heart sounds: Murmur heart sound present (II/) systolic Other: has frequent bigeminy GI: GI Palp: Yes Soft to palpation Auscultation: normal bowel sounds Skin: General skin exam: normal color Neuro: Cranial nerves: Yes Equal, round and reactive pupils present Cognition (Neuro): normal cognition Speech: normal speech Extrem: Other: Bilateral lower extremity amputee Psych: Affect: normal affect Objective Data Vital Signs Vital Signs: Vital Signs - 24 hr 12/26/20 14:00 12/26/20 15:29 12/26/20 15:37 Temperature Pulse Rate 124 H 119
--- NOTE | 2020-12-27 16:00 | PM.DS ---
DS: Admitting Diagnosis Admitting Diagnosis Admitting Diagnosis: (1) Sepsis: Qualifiers: Acute respiratory failure type: with hypoxia Sepsis acute organ dysfunction status: with acute organ dysfunction Sepsis type: sepsis due to unspecified organism Severe sepsis acute organ dysfunction type: acute respiratory failure Severe sepsis shock status: without septic shock Qualified Code(s): A41.9 - Sepsis, unspecified organism; R65.20 - Severe sepsis without septic shock; J96.01 - Acute respiratory failure with hypoxia Code(s): A41.9 - Sepsis, unspecified organism Status: Acute (2) Acute respiratory failure with hypoxia: Code(s): J96.01 - Acute respiratory failure with hypoxia Status: Acute (3) Elevated troponin: Code(s): R77.8 - Other specified abnormalities of plasma proteins Status: Acute (4) Type 2 diabetes mellitus with hyperglycemia: Qualifiers: Diabetes mellitus mcc insulin use: with manager intermediate use Qualified Code(s): E11.65 - Type 2 diabetes mellitus with hyperglycemia; Z79.4 - manager intermediate (current) use of insulin Code(s): E11.65 - Type 2 diabetes mellitus with hyperglycemia Status: Acute (5) Witnessed apneic spells: Code(s): R06.81 - Apnea, not elsewhere classified Status: Acute DS: Discharge Diagnosis Discharge Diagnosis (1) Sepsis: Qualifiers: Sepsis type: sepsis due to unspecified organism Sepsis acute organ dysfunction status: with acute organ dysfunction Severe sepsis acute organ dysfunction type: acute respiratory failure Acute respiratory failure type: with hypoxia Severe sepsis shock status: without septic shock Qualified Code(s): A41.9 - Sepsis, unspecified organism; R65.20 - Severe sepsis without septic shock; J96.01 - Acute respiratory failure with hypoxia Code(s): A41.9 - Sepsis, unspecified organism Status: Acute (2) Witnessed apneic spells: Code(s): R06.81 - Apnea, not elsewhere classified Status: Acute (3) Acute respiratory failure with hypoxia: Code(s): J96.01 - Acute respiratory failure with hypoxia Status: Acute (4) Type 2 diabetes mellitus with hyperglycemia: Qualifiers: Diabetes mellitus mcc insulin use: with mcc use Qualified Code(s): E11.65 - Type 2 diabetes mellitus with hyperglycemia; Z79.4 - snf (current) use of insulin Code(s): E11.65 - Type 2 diabetes mellitus with hyperglycemia Status: Acute (5) Elevated troponin: Code(s): R77.8 - Other specified abnormalities of plasma proteins Status: Acute (6) Flash pulmonary edema: Code(s): J81.0 - Acute pulmonary edema Status: Acute (7) Systolic heart failure: Code(s): I50.20 - Unspecified systolic (congestive) heart failure Status: Acute (8) PNA (pneumonia): Code(s): J18.9 - Pneumonia, unspecified organism Status: Acute DS: Summary Hospital Course Reason for hospitalization: fall from wheelchair SOB Hospital Course: 65 yo F w known systolic HF presented to ER w c/o weakness and SOB that resulted in a fall from her wheelchair. Pt was found to have flash pulmonary edema and acute exacerbation of her CHF. She had a benign clinical course and was efficiently diuresed under consult with Cardiology. Pt is discharged back to her NH facility in stable condition. She is given abx at discharge to treat PNA, as this was the admitting physicians diagnosis, and has been started on Entresto. First dose received in hospital and card provided to her pending insurance authorization. Time Spent with Patient Time attestation: Total time spent providing and/or coordinating discharge services: >35min Exam Narrative: Exam Narrative: LAYING IN BED Const: General: comfortable, ill appearing and other (BILATERAL AKA) Nutritional Appearance: obese Orientation/consciousness: patient oriented x3 HENMT: Head: normocephalic Ears: hearing gr
[2020-12-27 16:20] LABS: Glucose Point of Care 130 mg/dl (65-105)
== END 2020-12-27 19:30 | DRG 871 ==
LOC: ANHED 22:16 → ANHIMU 22:28
PROVIDERS: Admitting Provider Internal Medicine; Emergency Provider Emergency Medicine; PCP Nurse Practitioner Adult Health; Visit Provider Hospitalist
DX: A41.9 Sepsis, unspecified organism (principal); J96.01 Acute respiratory failure with hypoxia; I50.23 Acute on chronic systolic (congestive) heart failure; J18.9 Pneumonia, unspecified organism; J44.0 Chronic obstructive pulmonary disease with (acute) lower respiratory infection; R65.20 Severe sepsis without septic shock; Z20.822 Contact with and (suspected) exposure to COVID-19; R77.8 Other specified abnormalities of plasma proteins; I11.0 Hypertensive heart disease with heart failure; R06.81 Apnea, not elsewhere classified; E11.42 Type 2 diabetes mellitus with diabetic polyneuropathy; E11.65 Type 2 diabetes mellitus with hyperglycemia; K21.9 Gastro-esophageal reflux disease without esophagitis; M79.7 Fibromyalgia; E78.5 Hyperlipidemia, unspecified; W05.0XXA Fall from non-moving wheelchair, initial encounter; Z79.4 Long term (current) use of insulin; Z79.899 Other long term (current) drug therapy; Z89.612 Acquired absence of left leg above knee; Z89.611 Acquired absence of right leg above knee
CPT/HCPCS: 36415; 36600; 70450; 71045; 71250; 80048; 80053; 81001; 82375; 82805; 82948; 83036; 83050; 83605; 83735; 83880; 84484; 85025; 85380; 85610; 85730; 86140; 87040; 93005; 93306; 94640; 96374; 99291; A9270; C9803; J0456; J0696; J1650; J1815; J1940; J3480; U0003; U0005

== ENCOUNTER 2021-03-02 03:27 | Inpatient (IN) | payer OTHER, SELFPAY ==
[2021-03-02] VITALS (28 sets, daily range): BP systolic 95–171; BP diastolic 47–120; PULSE 77–100; RESP 12–34; TEMP 36.6–36.8; O2SAT 95–100; BMI 30.6
--- NOTE | ~2021-03-02 | XR_ITS ---
EXAMINATION: XR chest 2V DATE: 03/04/2021 15:20 INDICATION: Congestive heart failure TECHNIQUE: frontal and lateral views of the chest were obtained. COMPARISON: Chest radiograph dated 03/02/2021 FINDINGS: Mild residual interstitial pattern at the lung bases with resolution in the mid and upper lung zones consistent with improving now minimal basilar pulmonary edema. No pneumothorax or pleural effusion. B orderline heart size accounting for AP technique. Severe thoracic spondylosis. IMPRESSION: 1. Improvement in now minimal bibasilar pulmonary edema versus less likely atelectasis or pneumonia. Reviewed, dictated and finalized at location A. IMPRESSION: 1. Improvement in now minimal bibasilar pulmonary edema versus less likely atel ectasis or pneumonia.
--- NOTE | ~2021-03-02 | XR_ITS ---
XR chest 1V portable 03/02/2021 04:26 Indication: Respiratory failure Procedure: AP portable chest Comparison: Comparison to multiple prior studies sequentially, with oldest reviewed study dated 12/24. Findings: Cardiomegaly with mild interstitial edema. No pleural effusion or pneumothorax. There is a catheter overlying the right chest. No acute osseous abnormality. Impression: 1: Cardiomegaly with mild interstitial edema. Pneumonia less favored. Reviewed, dictated and finalized at location A. Impression: 1: Cardiomegaly with mild interstitial edema. Pneumonia less favored.
--- NOTE | 2021-03-02 03:26 | ECG_ITS ---
Measurements Intervals [place] Rate: 93 P: 39 IN: 132 QRS: 33 QRSD: 102 T: 93 QT: 382 QTc: 476 Interpretive Statements SINUS RHYTHM POSSIBLE LEFT ATRIAL ENLARGEMENT DELAYED PRECORDIAL R/S TRANSITION NONSPECIFIC ST & T-WAVE ABNORMALITY- DIFFUSE LEADS BASELINE WANDER- I, III, AVL BORDERLINE ECG Electronically Signed On 03-02-2021 8:07:18 CDT by Yousuf Villasenor D.O.
--- NOTE | 2021-03-02 03:31 | ED.SOB ---
HPI - SOB/Dyspnea General Chief Complaint: Shortness of Breath/Dyspnea Stated Complaint: Sob History of Present Illness HPI Narrative: 65 yo female brought in by EMS for respiratory distress. She was reportedly found unresponsive. EMS began to assist with ventilation and mental status improved. She arrives still in respiratory distress. Histroy limited by medical condition. Related Data Home Medications Medication Instructions Recorded Confirmed Humalog U-100 Insulin See Rx Instructions .ROUTE .COMPLEX 12/24/20 12/25/20 Lantus Solostar U-100 Insulin 50 units SUBCUT DAILY 12/24/20 12/25/20 albuterol sulfate [ProAir HFA] See Rx Instructions .ROUTE 12/24/20 12/25/20 .COMPLEX PRN alprazolam 1 mg PO BID PRN 12/24/20 12/25/20 atorvastatin 40 mg PO HS 12/24/20 12/25/20 clopidogrel 75 mg PO DAILY 12/24/20 12/25/20 gabapentin 800 mg PO TID 12/24/20 12/25/20 methocarbamol 1,500 mg PO TID PRN 12/24/20 12/25/20 morphine 15 mg PO Q6H PRN 12/24/20 12/25/20 morphine [MS Contin] 30 mg PO Q12H 12/24/20 12/24/20 nystatin See Rx Instructions .ROUTE .COMPLEX 12/24/20 12/25/20 venlafaxine [Effexor XR] 112.5 mg PO DAILY 12/24/20 12/25/20 gabapentin 400 mg PO HS 12/25/20 12/25/20 pantoprazole 40 mg PO QAM 12/25/20 12/25/20 Allergies Allergy/AdvReac Type Severity Reaction Status Date / Time metformin Allergy Unknown Verified 03/02/21 03:42 Sulfa (Sulfonamide Allergy Unknown Verified 03/02/21 03:42 Antibiotics) Review of Systems Review of Systems: ROS unobtainable: Yes unobtainable due to medical condition and unobtainable due to mental status PMFSH Past Medical History Medical History Chronic pain COPD (chronic obstructive pulmonary disease) Depression Essential hypertension Fibromyalgia GERD (gastroesophageal reflux disease) Hyperlipidemia Insulin dependent diabetes mellitus Peripheral neuropathy Systolic CHF Surgical History Surgical History (Updated 12/25/20 @ 02:07 by Cassia Sanderson DO) S/P AKA (above knee amputation) bilateral Family History Family History (Updated 12/25/20 @ 07:59 by Anisa Joyner RN) Mother Lung cancer Father Heart disease Other Unknown family medical history Social History Social History (Updated 12/25/20 @ 02:27 by Cassia Sanderson DO) Social History: She resides at [facility]. Primary care provider: Yamileth Perez NP Code status: Full code (per alf records) Surrogate decision maker: Ariana Addison (daughter) Smoking packs per day: 0.5 Smoking cigarettes per day: 10.0 Years smoked: 50 Smoking pack-years: 25.00 Smoking status: Unknown if ever smoked Tobacco type: cigarettes Alcohol intake: never Substance use: never Gender identity (if verbalized by the patient): Female Spiritual care concerns: No Exam Const: General: ill appearing acutely Other: Severe respiratory distress. obtunded. HENMT: Head: normal to inspection Eyes: Pupils: Equal, round and reactive pupils present Neck: Neck: normal visual inspection Resp: Effort & Inspection: tachypneic Auscultation: crackles, wheezes and diminished lung sounds Cardio: Rate: regular rate Rhythm: regular rhythm GI: GI Palp: Yes Soft to palpation Skin: General skin exam: pallor Other: diaphoretic Neuro: Other: arousable to voice Extrem: Other: bilateral AKA Course Vital Signs Vital signs: Vital Signs Temperature 36.8 C 03/02/21 03:25 Pulse Rate 97 03/02/21 03:25 Respiratory Rate 34 H 03/02/21 03:25 Blood Pressure 159/120 H 03/02/21 03:25 Pulse Oximetry 100 03/02/21 03:25 Temperature 36.8 C 03/02/21 03:25 Pulse Rate 96 03/02/21 06:33 Respiratory Rate 26 H 03/02/21 06:33 Blood Pressure 152/64 H 03/02/21 06:33 Pulse Oximetry 98 03/02/21 06:33 MDM - SOB/Dyspnea MDM Narrative Medical decision making narrative: Severe respiratory distress.
[2021-03-02 03:34] LABS: Glucose Point of Care 407 mg/dl (65-105)
[2021-03-02] MEDS: ALBUTEROL SULFATE NEB 2.5 MG/0.5 ML INH 10 MG INHALATION (03:36)
[2021-03-02] MEDS: IPRATROPIUM BR 0.02% INH SOLN 0.5 MG/2.5 ML VIAL 1 MG INHALATION (03:36)
[2021-03-02 03:58] LABS: Basophils Absolute Auto 0.2 K/mm3 (0.0-0.1); Basophils Percent Auto 0.9 % (0.2-1.2); Eosinophils Absolute Auto 0.5 K/mm3 (0-0.3); Eosinophils Percent Auto 2.6 % (0-4.4); Hematocrit 45.7 % (37.0-47.0); Hemoglobin 13.2 g/dL (12.0-15.0); Immature Granulocyte Absolute 0.12 K/mm3 (0.00-0.031); Immature Granulocyte Percent A 0.7 % (0-0.5); Lymphocytes Absolute Auto 7.23 K/mm3 (0.9-3.2); Lymphocytes Percent Auto 42.4 % (18.3-44.2); Mean Corpuscular HGB Conc 28.9 g/dl (32-36); Mean Corpuscular Hemoglobin 24.6 pg (26-34); Mean Corpuscular Volume 85.1 fl (80-100); Mean Platelet Volume 9.9 fl (7.4-10.4); Monocytes Absolute Auto 0.9 K/mm3 (0.1-0.6); Monocytes Percent Auto 5.2 % (2.6-8.5); Neutrophils Absolute Auto 8.2 K/mm3 (1.3-6.7); Neutrophils Percent Auto 48.2 % (45.5-73.1); Platelet Count Result 510 k/mm3 (150-375); Red Blood Count 5.37 M/mm3 (4.2-5.4); Red Cell Distribution Width 15.9 % (11.5-14.5); White Blood Count 17.1 K/mm3 (4.5-10.0)
[2021-03-02 03:59] LABS: Alveolar/Arterial O2 Gradient 365.3 mmHg; Base Excess ABG -0.7 mEq/l (+/-2.0); Fractional Inspired Oxygen 100 %; HCO3 ABG 26.1 mEq/l (22.0-26.0); Oxygen Content ABG 18.7 %vol (16.0-22.0); Oxygen Saturation ABG 99.6 % (95.0-100.0); Oxyhemoglobin 95.2 % THb (90.0-100.0); PCO2 ABG 52.2 mmHg (35.0-45.0); PO2 ABG 295.5 mmHg (80.0-100.0); PO2 FiO2 Ratio Arterial Blood 2.95 %; Total Hemoglobin 13.4 g/dL (12.0-18.0); pH ABG 7.317 (7.350-7.450)
[2021-03-02 04:00] LABS: Device NON-INVASIVE VENT; Modified Allen's Test Pass; Site Drawn LEFT RADIAL
[2021-03-02 04:01] LABS: Non-Invasive Expiratory Pressure 10 CMH2O; Non-Invasive Inspiratory Pressure 20 CMH2O; Non-Invasive Vent Rate 14 /MIN
[2021-03-02 04:08] LABS: INR 0.9; Prothrombin Time 12.3 Seconds (11.1-14.7)
[2021-03-02 04:09] LABS: Hypochromasia 1+ (NORMAL); Ovalocytes 1+ (NORMAL); Partial Thromboplastin Time 27.2 SECONDS (22.3-36.8); Platelet Estimate Increased (Adequate)
[2021-03-02 04:15] LABS: Alanine Aminotransferase 14 U/L (4-35); Albumin Level 4.1 g/dL (3.5-5.1); Alkaline Phosphatase 204 U/L (38-126); Anion Gap 10 mmol/L (8-16); Aspartate Amino Transferase 18 U/L (14-36); Bilirubin,Total 0.3 mg/dL (0.2-1.3); Blood Urea Nitrogen 10 mg/dL (7-17); Calcium 9.2 mg/dL (8.4-10.2); Carbon Dioxide 28 mmol/L (22-30); Chloride 103 mmol/L (98-107); Estimated Glomerular Filt Rate > 60; Glucose 433 mg/dL (65-110); Potassium 3.3 mmol/L (3.4-5.0); Sodium 141 mmol/L (137-145)
[2021-03-02 04:16] LABS: Lactic Acid Reflex 4.6 mmol/L (0.7-2.1)
[2021-03-02 04:22] LABS: NT Pro B Type Natriuretic Pept 4670 pg/mL (5-100)
[2021-03-02] MEDS: methylPREDNISolone SOD SUCC 125 MG VIAL IV PUSH (04:25)
[2021-03-02] MEDS: MAGNESIUM SULF 2 GM/WATER 50ML 2 GM/50 ML BAG IVPB (04:25)
[2021-03-02] MEDS: FUROSEMIDE INJ 40 MG/4 ML VIAL IV PUSH ×2 (04:26→18:25)
[2021-03-02] MEDS: SODIUM CHLORIDE 0.9% IV 1,000 ML 999 ML IV CONT (04:33)
[2021-03-02 04:47] LABS: Add Urine Microscopic? YES; Appearance Urine Clear (Clear); Bilirubin Urine Negative (Negative); Blood Urine Negative (Negative); Color Urine Yellow (Yellow); Glucose Urine UA 3+ mg/dL (Negative); Ketones Urine Negative (Negative); Leukocyte Esterase Ur Negative LEU/UL (Negative); Mucus Urine Rare /lpf; Nitrate Urine Negative (Negative); Protein Urine 3+ mg/dL (Negative); Specific Grav Ur 1.016 (1.001-1.035); Squamous Epithelial Cell Urine Rare /hpf (Few); Urobilinogen Urine Negative mg/dL (<2.0); WBC Urine 0-3 /hpf
[2021-03-02] MEDS: INSULIN HUMAN REGULAR (*BKC) 100 UNITS/ML 10 UNITS IV PUSH (06:30)
[2021-03-02 06:56] LABS: Reflex Lactic Acid Yes or No Add Lactic
--- NOTE | 2021-03-02 07:30 | PC.NURSE ---
CALLED TWICE TO GIVE REPORT ,AWAITING FOR IMU TO CALL BACK FOR REPORT.
--- NOTE | 2021-03-02 08:08 | ADMGEN ---
This patient, Isabel Jorgensen, was admitted to IMU Room 200-01. Patient/family oriented to hospital policies and general routines including ID bracelet, bed and alarms, visiting hours, pain management, procedures, bathroom and other care routines, personal items, smoking policy, room service/diet, and visiting hours. Information on how to activate the Rapid Response Team has been discussed. Patient/Family are encouraged to report perceived risks to care and to ask questions if they do not understand what they are told or what they should do.
[2021-03-02 08:26] LABS: Glucose Point of Care 357 mg/dl (65-105)
--- NOTE | 2021-03-02 08:59 | PM.IMHP ---
H&P: HPI History of Present Illness Date/Time: 03/02/21 08:59 Chief Complaint: Shortness of breath with altered mental status Narrative: Guillermo patient is a resident of [facility]. Was found by staff to be confused and poorly responsive [place] brought to emergency department by EMS with noninvasive ventilation. Her catheter was abnormal. White count was elevated. Improved with diuresis antibiotics and 1 dose of steroids. Patient has poor recollection of these events. Currently she is feeling better. Only complaint is her chronic pain. She does use chronic extended-release and immediate release morphine as well as p.r.n. benzodiazepines (Xanax). And last discharge patient was to be taking Entresto and metoprolol. Her pharmacy records indicate the metoprolol was filled since discharge but Entresto was not. Medication list sent by the [facility] living facility has neither medication listed. Review of Systems Review of Systems: All systems reviewed & are unremarkable except as noted in HPI and below PMFSH Past Medical History Medical History Chronic pain COPD (chronic obstructive pulmonary disease) Depression Essential hypertension Fibromyalgia GERD (gastroesophageal reflux disease) Hyperlipidemia Insulin dependent diabetes mellitus Peripheral neuropathy Systolic CHF Surgical History Surgical History S/P AKA (above knee amputation) bilateral Family History Family History Mother Lung cancer Father Heart disease Other Unknown family medical history Social History Social History Social History: She resides at [facility]. Primary care provider: Yamileth Perez NP Code status: Full code (per senior care records) Surrogate decision maker: Ariana Addison (daughter) Smoking packs per day: 1 Smoking cigarettes per day: 20.0 Years smoked: 40 Smoking pack-years: 40.00 Smoking status: Current every day smoker Tobacco type: cigarettes Alcohol intake: never Substance use: never Living arrangements: assisted living Gender identity (if verbalized by the patient): Female Spiritual care concerns: No Meds Home Medications and Allergies Home Medications Medication Instructions Recorded Confirmed Type Humalog U-100 Insulin See Rx Instructions .ROUTE .COMPLEX 12/24/20 03/02/21 History Lantus Solostar U-100 Insulin 50 units SUBCUT DAILY 12/24/20 03/02/21 History albuterol sulfate [ProAir HFA] 2 puff INHALATION Q6H PRN 12/24/20 03/02/21 History alprazolam 1 mg PO BID PRN 12/24/20 03/02/21 History atorvastatin 40 mg PO HS 12/24/20 03/02/21 History clopidogrel 75 mg PO DAILY 12/24/20 03/02/21 History gabapentin 800 mg PO TID 12/24/20 03/02/21 History methocarbamol 1,500 mg PO TID PRN 12/24/20 03/02/21 History morphine 15 mg PO Q6H PRN 12/24/20 03/02/21 History morphine [MS Contin] 30 mg PO Q12H 12/24/20 03/02/21 History nystatin See Rx Instructions .ROUTE .COMPLEX 12/24/20 03/02/21 History venlafaxine [Effexor XR] 112.5 mg PO DAILY 12/24/20 03/02/21 History gabapentin 400 mg PO HS 12/25/20 03/02/21 History pantoprazole 40 mg PO QAM 12/25/20 03/02/21 History atenolol 25 mg PO DAILY 03/02/21 03/02/21 History furosemide 80 mg PO DAILY 03/02/21 03/02/21 History Allergies Allergy/AdvReac Type Severity Reaction Status Date / Time metformin Allergy Unknown Verified 03/02/21 03:42 Sulfa (Sulfonamide Allergy Unknown Verified 03/02/21 03:42 Antibiotics) Vital Signs Vital Signs - 24 hr 03/02/21 03:25 03/02/21 03:39 03/02/21 03:46 Temperature 98.3 F Pulse Rate 97 Respiratory Rate 34 H Blood Pressure 159/120 H 138/73 Pulse Oximetry 100 100 03/02/21 04:09 03/02/21 04:43 03/02/21 04:56 Temperature Pulse Rate 87
[2021-03-02] MEDS: IPRATROPIUM BR 0.02% INH SOLN 0.5 MG/2.5 ML VIAL INHALATION ×3 (09:07→21:08)
[2021-03-02] MEDS: ALBUTEROL SULFATE NEB 2.5 MG/0.5 ML INH 5 MG INHALATION ×3 (09:07→21:07)
[2021-03-02] MEDS: CLOPIDOGREL BISULFATE 75 MG TABLET PO (11:54)
[2021-03-02] MEDS: VENLAFAXINE HCL XR 75 MG CAP.ER.24H PO (11:55)
[2021-03-02] MEDS: VENLAFAXINE HCL XR 37.5 MG CAP PO (11:55)
[2021-03-02] MEDS: MORPHINE SULFATE (*CRX) 15 MG TAB IR PO ×2 (11:56→18:28)
[2021-03-02] MEDS: SACUBITRIL/VALSARTAN 49-51 MG TABLET 1 TABLET PO ×2 (11:56→21:51)
[2021-03-02] MEDS: PANTOPRAZOLE 40 MG TABLET PO (11:56)
[2021-03-02] MEDS: GABAPENTIN 400 MG CAPSULE 800 MG PO ×3 (11:57→18:25)
[2021-03-02 12:24] LABS: Glucose Point of Care 443 mg/dl (65-105)
[2021-03-02 12:51] LABS: Magnesium 1.9 mg/dL (1.6-2.3)
[2021-03-02] MEDS: INSULIN ASPART (*BKC) 100 UNITS/ML SUB-Q ×2 (13:37→19:10)
[2021-03-02] MEDS: INSULIN GLARGINE (*BKC) 100 UNITS/ML 30 UNITS SUB-Q (13:38)
[2021-03-02] MEDS: ENOXAPARIN 40 MG/0.4 ML SYRINGE SUB-Q (14:01)
[2021-03-02] MEDS: MORPHINE SULFATE (*CRX) 30 MG TABCR PO ×2 (14:01→21:51)
[2021-03-02 16:07] LABS: Glucose Point of Care 438 mg/dl (65-105)
[2021-03-02] MEDS: METOPROLOL SUCCINATE EXT REL 50 MG TABCR PO (18:27)
[2021-03-02 21:32] LABS: Glucose Point of Care 353 mg/dl (65-105)
[2021-03-02] MEDS: ATORVASTATIN 40 MG TABLET PO (21:50)
[2021-03-02] MEDS: INSULIN ASPART (*BKC) 100 UNITS/ML 6 UNITS SUB-Q (23:04)
[2021-03-03] VITALS (25 sets, daily range): BP systolic 102–128; BP diastolic 33–82; PULSE 42–88; RESP 18–27; TEMP 36.5–36.8; O2SAT 94–100
[2021-03-03] MEDS: MORPHINE SULFATE (*CRX) 15 MG TAB IR PO ×4 (01:01→17:49)
[2021-03-03 01:54] LABS: Glucose Point of Care 193 mg/dl (65-105)
[2021-03-03] MEDS: IPRATROPIUM BR 0.02% INH SOLN 0.5 MG/2.5 ML VIAL INHALATION ×4 (01:59→20:34)
[2021-03-03] MEDS: ALBUTEROL SULFATE NEB 2.5 MG/0.5 ML INH 5 MG INHALATION ×4 (01:59→20:34)
[2021-03-03 05:43] LABS: Hematocrit 36.8 % (37.0-47.0); Hemoglobin 11.1 g/dL (12.0-15.0); Mean Corpuscular HGB Conc 30.2 g/dl (32-36); Mean Corpuscular Hemoglobin 24.9 pg (26-34); Mean Corpuscular Volume 82.5 fl (80-100); Mean Platelet Volume 9.9 fl (7.4-10.4); Platelet Count Result 351 k/mm3 (150-375); Red Blood Count 4.46 M/mm3 (4.2-5.4); Red Cell Distribution Width 15.9 % (11.5-14.5); White Blood Count 14.4 K/mm3 (4.5-10.0)
[2021-03-03 06:07] LABS: Anion Gap 6 mmol/L (8-16); Blood Urea Nitrogen 17 mg/dL (7-17); Calcium 8.5 mg/dL (8.4-10.2); Carbon Dioxide 29 mmol/L (22-30); Chloride 101 mmol/L (98-107); Estimated CRCL calculation 75 ml/min; Estimated Glomerular Filt Rate > 60; Glucose 175 mg/dL (65-110); Magnesium 1.8 mg/dL (1.6-2.3); Potassium 3.4 mmol/L (3.4-5.0); Sodium 136 mmol/L (137-145)
[2021-03-03] MEDS: INSULIN GLARGINE (*BKC) 100 UNITS/ML 30 UNITS SUB-Q (08:33)
[2021-03-03] MEDS: INSULIN ASPART (*BKC) 100 UNITS/ML SUB-Q ×2 (08:36→14:35)
[2021-03-03 09:11] LABS: Glucose Point of Care 215 mg/dl (65-105)
[2021-03-03] MEDS: MORPHINE SULFATE (*CRX) 30 MG TABCR PO ×2 (09:27→21:31)
[2021-03-03] MEDS: POTASSIUM CHLORIDE 20 MEQ TABLET 40 MEQ PO (09:27)
[2021-03-03] MEDS: CLOPIDOGREL BISULFATE 75 MG TABLET PO (09:28)
[2021-03-03] MEDS: GABAPENTIN 400 MG CAPSULE 800 MG PO ×3 (09:28→17:40)
[2021-03-03] MEDS: ENOXAPARIN 40 MG/0.4 ML SYRINGE SUB-Q (09:30)
[2021-03-03] MEDS: FUROSEMIDE INJ 40 MG/4 ML VIAL IV PUSH ×2 (09:30→17:41)
[2021-03-03] MEDS: lisinopriL 10 MG TABLET PO (09:31)
[2021-03-03] MEDS: PANTOPRAZOLE 40 MG TABLET PO (09:31)
[2021-03-03] MEDS: VENLAFAXINE HCL XR 75 MG CAP.ER.24H PO (09:32)
[2021-03-03] MEDS: SPIRONOLACTONE 25 MG TABLET PO (09:32)
[2021-03-03] MEDS: VENLAFAXINE HCL XR 37.5 MG CAP PO (09:32)
--- NOTE | 2021-03-03 09:57 | P.PNIM_ITS ---
Progress Note: A&P Assessment and Plan (1) Acute respiratory failure with hypoxia and hypercarbia: Code(s): J96.01 - Acute respiratory failure with hypoxia; J96.02 - Acute respiratory failure with hypercapnia Status: Acute Assessment and Plan: * Differential diagnosis includes acute on chronic systolic congestive heart failure and community-acquired pneumonia, although the former seems more likely * 8/ PM weaned from BIPAP to NC * Follow-up sats (unable to get f/u ABG 03/02) * Wean oxygen as possible * Continue azithromycin, ceftriaxone (day 2), diuresis and reassess. * Procalcitonin ordered 03/02 but cancelled by background daemon * 03/04: Repeat CXR (2) Systolic heart failure: Qualifiers: Heart failure chronicity: acute on chronic Qualified Code(s): I50.23 - Acute on chronic systolic (congestive) heart failure Code(s): I50.20 - Unspecified systolic (congestive) heart failure Status: Acute Assessment and Plan: * Furosemide 40 mg IV q.12 hours * Metoprolol succinate 50 mg daily and lisinopril 10mg daily (due to soft BP) and spironolactone * Oxygen and respiratory support as above * Frequent PVC's on tele, mag and K addressed * To medical floor with tele * ON SCHEDULE FOR ELECTIVE LEFT HEART CATH BY DR. EVERETT AT 10 AM 03/04; D/W DR. WALKER AND HE WILL NOTIFY DR. EVERETT OF HER ADMISSION SO THAT HE CAN DETERMINE WHETHER TO PROCEED (patient is aware) (3) Type 2 diabetes mellitus with hyperglycemia: Qualifiers: Diabetes mellitus senior living insulin use: with long term care pharmacist use Qualified Code(s): E11.65 - Type 2 diabetes mellitus with hyperglycemia; Z79.4 - [facility] (current) use of insulin Code(s): E11.65 - Type 2 diabetes mellitus with hyperglycemia Status: Acute Assessment and Plan: * Continue basal and sliding scale insulin with hypoglycemic protocol and diabetic diet (4) Hypokalemia: Code(s): E87.6 - Hypokalemia Status: Acute Assessment and Plan: * Likely due to chronic diuretic use in spite of ACEI and ARB use * P.o. supplementation as well as supplement mag * Follow-up lab Subjective Date/time seen: 03/03/21 09:57 Interval history: Admitted 03/02 with CHF. She was unable to get Entresto as ouptpatient due to insurance 03/03 visit: Feels much better. No sob at rest. No chest pain. Tolerated diet. Off bipap and on nasal cannula. Review of Systems Review of Systems: All systems reviewed & are unremarkable except as noted in HPI and below Exam Narrative: HEENT: PERRL, sclerae nonicteric, pharyngeal mucosa pink and intact NECK: No JVD, adenopathy, or thyromegaly CHEST: Decreased BS. Normal effort. HEART: NL S1/S2, regular, no murmur ABDOMEN: BS+, soft, nontender, no mass, no bruits EXTREMITIES: No cyanosis, edema, or clubbing. Bilateral BKA amputations. NEUROLOGIC: CN intact and symmetric to inspection. MUSCULOSKELETAL: Tone and strength symmetric. PSYCH: Alert. Oriented to person, place, and time (month, year). Objective Data Vital Signs Vital Signs: Vital Signs - 24 hr 03/02/21 10:00 03/02/21 12:00 03/02/21 13:24 Temperature 98.2 F Pulse Rate 95 92 92 Respiratory Rate 14 16 Blood Pressure 171/82 H Pulse Oximetry 100 03/02/21 13:32 03/02/21 14:00 03/02/21 16:00 Temperature 98.2 F Pulse Rate 90 98 93 Respiratory Rate 16 14 Blood Pressure 113/4
--- NOTE | 2021-03-03 09:57 | PM.IMPN ---
Progress Note: A&P Assessment and Plan (1) Acute respiratory failure with hypoxia and hypercarbia: Code(s): J96.01 - Acute respiratory failure with hypoxia; J96.02 - Acute respiratory failure with hypercapnia Status: Acute Assessment and Plan: Differential diagnosis includes acute on chronic systolic congestive heart failure and community-acquired pneumonia, although the former seems more likely 8/7 PM weaned from BIPAP to NC Follow-up sats (unable to get f/u ABG 03/02) Wean oxygen as possible Continue azithromycin, ceftriaxone (day 2), diuresis and reassess. Procalcitonin ordered 03/02 but cancelled by background daemon 03/04: Repeat CXR (2) Systolic heart failure: Qualifiers: Heart failure chronicity: acute on chronic Qualified Code(s): I50.23 - Acute on chronic systolic (congestive) heart failure Code(s): I50.20 - Unspecified systolic (congestive) heart failure Status: Acute Assessment and Plan: Furosemide 40 mg IV q.12 hours Metoprolol succinate 50 mg daily and lisinopril 10mg daily (due to soft BP) and spironolactone Oxygen and respiratory support as above Frequent PVC's on tele, mag and K addressed To medical floor with tele ON SCHEDULE FOR ELECTIVE LEFT HEART CATH BY DR. EVERETT AT 10 AM 03/04; D/W DR. WALKER AND HE WILL NOTIFY DR. EVERETT OF HER ADMISSION SO THAT HE CAN DETERMINE WHETHER TO PROCEED (patient is aware) (3) Type 2 diabetes mellitus with hyperglycemia: Qualifiers: Diabetes mellitus jail insulin use: with jail use Qualified Code(s): E11.65 - Type 2 diabetes mellitus with hyperglycemia; Z79.4 - long-term (current) use of insulin Code(s): E11.65 - Type 2 diabetes mellitus with hyperglycemia Status: Acute Assessment and Plan: Continue basal and sliding scale insulin with hypoglycemic protocol and diabetic diet (4) Hypokalemia: Code(s): E87.6 - Hypokalemia Status: Acute Assessment and Plan: Likely due to chronic diuretic use in spite of ACEI and ARB use P.o. supplementation as well as supplement mag Follow-up lab Subjective Date/time seen: 03/03/21 09:57 Interval history: Admitted 03/02 with CHF. She was unable to get Entresto as ouptpatient due to insurance 03/03 visit: Feels much better. No sob at rest. No chest pain. Tolerated diet. Off bipap and on nasal cannula. Review of Systems Review of Systems: All systems reviewed & are unremarkable except as noted in HPI and below Exam Narrative: HEENT: PERRL, sclerae nonicteric, pharyngeal mucosa pink and intact NECK: No JVD, adenopathy, or thyromegaly CHEST: Decreased BS. Normal effort. HEART: NL S1/S2, regular, no murmur ABDOMEN: BS+, soft, nontender, no mass, no bruits EXTREMITIES: No cyanosis, edema, or clubbing. Bilateral BKA amputations. NEUROLOGIC: CN intact and symmetric to inspection. MUSCULOSKELETAL: Tone and strength symmetric. PSYCH: Alert. Oriented to person, place, and time (month, year). Objective Data Vital Signs Vital Signs: Vital Signs - 24 hr 03/02/21 10:00 03/02/21 12:00 03/02/21 13:24 Temperature 98.2 F Pulse Rate 95 92 92 Respiratory Rate 14 16 Blood Pressure 171/82 H Pulse Oximetry 100 03/02/21 13:32 03/02/21 14:00 03/02/21 16:00 Temperature 98.2 F Pulse Rate 90 98 93 Respiratory Rate 16 14 Blood Pressure 113/47 L Pulse Oximetry 100 03/02/21 18:00 03/02/21 18:27 03/02/21 20:00 Temperature 98.3 F Pulse Rate 90 90 85 Respiratory Rate 16 Blood Pressure 95/60 L Pulse Oximetry 100 03/02/21 21:09 03/02/21 21:18 03/02/21 21:49 Temperature Pulse Rate 84 85 Respiratory Rate 15 13 Blood Pressure 123/64 Pulse Oximetry 100 03/02/21 22:00 03/03/21 00:00 03/03/21 01:56 Temperature 98.3 F Pulse Rate 77 77 75 Respiratory Rate 24 H Blood Pressure 114/33 L Pulse Oximetry 100 03/03/21 02:00 03/03/21 02:08 03/03/21 03:20 Temperature 9
--- NOTE | 2021-03-03 11:09 | PC.NURSE ---
Card[facility] Services flyer was given to patient in admission folder.
[2021-03-03 12:28] LABS: Glucose Point of Care 212 mg/dl (65-105)
[2021-03-03] MEDS: MAGNESIUM SULF 2 GM/WATER 50ML 2 GM/50 ML BAG IVPB (12:47)
--- NOTE | 2021-03-03 15:56 | ADMGEN ---
This patient, Isabel Jorgensen, was admitted to [facility] Surg Room 321-01. Patient/family oriented to hospital policies and general routines including ID bracelet, bed and alarms, visiting hours, pain management, procedures, bathroom and other care routines, personal items, smoking policy, room service/diet, and visiting hours. Information on how to activate the Rapid Response Team has been discussed. Patient/Family are encouraged to report perceived risks to care and to ask questions if they do not understand what they are told or what they should do.
[2021-03-03 17:33] LABS: Glucose Point of Care 169 mg/dl (65-105)
[2021-03-03] MEDS: METOPROLOL SUCCINATE EXT REL 50 MG TABCR PO (17:41)
[2021-03-03] MEDS: ATORVASTATIN 40 MG TABLET PO (21:31)
[2021-03-03 22:13] LABS: Glucose Point of Care 267 mg/dl (65-105)
[2021-03-04] VITALS (12 sets, daily range): BP systolic 106–126; BP diastolic 44–67; PULSE 69–80; RESP 16–20; TEMP 35.7–36.4; O2SAT 93–98
[2021-03-04] MEDS: MORPHINE SULFATE (*CRX) 15 MG TAB IR PO ×3 (00:11→12:43)
[2021-03-04] MEDS: IPRATROPIUM BR 0.02% INH SOLN 0.5 MG/2.5 ML VIAL INHALATION ×3 (02:46→23:50)
[2021-03-04] MEDS: ALBUTEROL SULFATE NEB 2.5 MG/0.5 ML INH 5 MG INHALATION ×3 (02:46→23:50)
[2021-03-04 06:47] LABS: Hematocrit 40.6 % (37.0-47.0); Mean Corpuscular HGB Conc 29.6 g/dl (32-36); Mean Corpuscular Hemoglobin 24.5 pg (26-34); Mean Platelet Volume 9.9 fl (7.4-10.4); Platelet Count Result 359 k/mm3 (150-375); Red Blood Count 4.89 M/mm3 (4.2-5.4); Red Cell Distribution Width 16.1 % (11.5-14.5); White Blood Count 10.7 K/mm3 (4.5-10.0)
[2021-03-04 06:57] LABS: Anion Gap 9 mmol/L (8-16); Blood Urea Nitrogen 22 mg/dL (7-17); Calcium 8.7 mg/dL (8.4-10.2); Carbon Dioxide 27 mmol/L (22-30); Chloride 97 mmol/L (98-107); Estimated CRCL calculation 74 ml/min; Estimated Glomerular Filt Rate > 60; Glucose 186 mg/dL (65-110); Potassium 3.9 mmol/L (3.4-5.0); Sodium 133 mmol/L (137-145)
[2021-03-04] MEDS: FUROSEMIDE INJ 40 MG/4 ML VIAL IV PUSH ×2 (08:49→16:54)
[2021-03-04] MEDS: VENLAFAXINE HCL XR 37.5 MG CAP PO (08:49)
[2021-03-04] MEDS: GABAPENTIN 400 MG CAPSULE 800 MG PO ×3 (08:49→16:54)
[2021-03-04] MEDS: ENOXAPARIN 40 MG/0.4 ML SYRINGE SUB-Q (08:50)
[2021-03-04] MEDS: SPIRONOLACTONE 25 MG TABLET PO (08:50)
[2021-03-04] MEDS: lisinopriL 10 MG TABLET PO (08:50)
[2021-03-04] MEDS: INSULIN GLARGINE (*BKC) 100 UNITS/ML 30 UNITS SUB-Q (08:50)
[2021-03-04] MEDS: PANTOPRAZOLE 40 MG TABLET PO (08:50)
[2021-03-04] MEDS: MORPHINE SULFATE (*CRX) 30 MG TABCR PO ×2 (08:50→21:21)
[2021-03-04] MEDS: VENLAFAXINE HCL XR 75 MG CAP.ER.24H PO (08:50)
[2021-03-04] MEDS: CLOPIDOGREL BISULFATE 75 MG TABLET PO (08:50)
[2021-03-04 09:48] LABS: Procalcitonin 0.2 ng/mL
--- NOTE | 2021-03-04 10:06 | PM.CNCAR ---
Assessment and Plan Additional Plan This is a 65-year-old lady with diabetes dyslipidemia and bilateral lower extremity amputations. She was found to couple of months ago to have systolic left ventricular dysfunction and was admitted with another decompensation and CHF over the weekend. She has improved with medical treatment and seems to be fairly well compensated this morning. Obviously I became aware that she was admitted when I came in this morning and she was scheduled as an outpatient for left heart catheterization this morning. The patient short time ago finished eating her breakfast tray so she is no longer NPO for a procedure today. She also has pressing a preference/desire to have this procedure done from the radial artery approach given bilateral amputee condition. I would recommend continuing her present medical regimen if she is doing well probably shift her to oral furosemide and I will anticipate bringing her to the laborer electroplating on Thursday. One of my partners could potentially do this case tomorrow but the patient expresses desire for me to handle this personally. Josiah Dejesus MD [facility] History of Present Illness History of Present Illness Consult date/time: 03/04/21 10:06 Consult reason: congestive heart failure Reason For Visit: Acute respiratory failure Narrative: This is a 65-year-old woman who I have seen in the hospital here about 2 months ago with concerns regarding left ventricular systolic dysfunction and the possibility of intermittent atrial fibrillation. She was treated medically a.m. was improved and was discharged. The patient has no previous history of known cardiac problems prior to that and is a chronically ill woman with diabetes and a bilateral above the knee amputee who lives in a assisted living facility. Following discharge the patient has been seen a couple of times in my office by the nurse practitioner and she was felt to be stable clinically and a catheterization was scheduled to determine if she has ischemic left ventricular systolic dysfunction. The patient found to have an ejection fraction of 35-40% by echo when she was in the hospital in December. She was discharged from that hospitalization on a medical regimen consisting of diuretics, metoprolol and Entresto. Apparently that was not taken because her insurance would not approve the Entresto and she was for some reason not taking the metoprolol either. She was hospitalized here over the weekend with shortness of breath and felt to have a CHF decompensation. She was then treated medically again with furosemide she has been placed on metoprolol and now on lisinopril she seems to be much better and is no longer short of breath. As it happened she was on the schedule this morning for an outpatient catheterization as I detailed above. When I found she was admitted I came down to see her and assess her condition. She offers no other complaints and is expressing significant anxiety about having an invasive cardiac procedure performed. Because of her condition is a double amputee she has also expressing concern about having this procedure done from a radial artery approach. She finished her breakfast tray a short time ago. Review of Systems Constitutional: Constitutional: Reports no additional constitutional complaints Eyes: Eyes: Reports no additional eye complaints ENT: Reports system reviewed and no additional complaints, except as documented Cardiovascular: Cardiovascular: Reports no additional cardiovascular complaints Respiratory: Respiratory: Reports dyspnea Gastrointestinal: Gastrointestinal: Reports no additional gastrointestinal complaints Musculoskeletal: Musculoskeletal: Reports no additional musculoskeletal complaints Neurologic: Reports system reviewed and no additional complaints, except as documented Psychiatric: Psychiatric: Reports anxiety Endocrine: Endocrine: Reports no additional endocrine complaints Hematologic/Lymphatic:
[2021-03-04 10:50] LABS: Glucose Point of Care 144 mg/dl (65-105)
[2021-03-04 14:10] LABS: Glucose Point of Care 177 mg/dl (65-105)
[2021-03-04] MEDS: ALPRAZolam (*CRX) 0.5 MG TABLET 1 MG PO ×2 (14:12→22:10)
[2021-03-04] MEDS: METOPROLOL SUCCINATE EXT REL 50 MG TABCR PO (16:54)
[2021-03-04 17:16] LABS: Glucose Point of Care 227 mg/dl (65-105)
[2021-03-04] MEDS: INSULIN ASPART (*BKC) 100 UNITS/ML SUB-Q (17:44)
--- NOTE | 2021-03-04 18:14 | PM.IMPN ---
Progress Note: A&P Assessment and Plan (1) Systolic heart failure: Qualifiers: Heart failure chronicity: acute on chronic Qualified Code(s): I50.23 - Acute on chronic systolic (congestive) heart failure Code(s): I50.20 - Unspecified systolic (congestive) heart failure Status: Acute Assessment and Plan: Continue diuresis Lasix 40 mg IV b.i.d. while hypoxic -at home on beta-bobby lisinopril and spironolactone -repeating Mag and K as needed -left heart catheterization scheduled for Thursday with Dr. Dejesus -on Plavix, Lipitor (2) Hypokalemia: Code(s): E87.6 - Hypokalemia Status: Acute Assessment and Plan: Replete as needed secondary to diuresis likely (3) Acute respiratory failure with hypoxia and hypercarbia: Code(s): J96.01 - Acute respiratory failure with hypoxia; J96.02 - Acute respiratory failure with hypercapnia Status: Acute Assessment and Plan: Weaning oxygen as tolerated, down to 2 L. (4) PNA (pneumonia): Qualifiers: Pneumonia type: due to unspecified organism Laterality: bilateral Lung location: unspecified part of lung Qualified Code(s): J18.9 - Pneumonia, unspecified organism Code(s): J18.9 - Pneumonia, unspecified organism Status: Acute Assessment and Plan: Continue for treating for community-acquired pneumonia Rocephin azithromycin day 3 Additional Plan -continue home gabapentin -Xanax for anxiety Diet: Diabetic diet DVT prophylaxis: On Lovenox GI prophylaxis: Protonix Code status: Full code Disposition: Plan for heart catheterization on Thursday, PT OT Time Spent With Patient Time with patient: 25 - 35 minutes Subjective Date/time seen: 03/04/21 18:14 Patient seen examined. Patient will plan to have left heart catheterization on Thursday with Dr. Dejesus. We are continuing diuresis and antibiotics for initially presenting with leukocytosis and fluid overload. Patient will to work with physical therapy. Patient appeared comfortable on 2 L of oxygen. Patient denies fever, chills, nausea, vomiting, diarrhea, chest pain, abdominal pain. She endorses dyspnea. Review of Systems Review of Systems: All systems reviewed & are unremarkable except as noted in HPI and below Exam Narrative: - GENERAL: Pleasant woman breathing comfortably on 2 L oxygen no acute distress - EYES: EOMI. Anicteric. - HENT: Moist mucous membranes. - LUNGS: Clear to auscultation bilaterally, no wheezing, rhonchi, or rales. Diminished at bases. - CARDIOVASCULAR: Regular rate and rhythm. No murmur. No JVD. - ABDOMEN: Soft, non-tender and non-distended. No palpable masses. - EXTREMITIES: No pretibial edema, bilateral amputation lower extremity BKA. Left stump has a dry wound does not appear to be acutely infected - NEUROLOGIC: No focal neurological deficits. CN II-XII grossly intact. - PSYCHIATRIC: Awake, Alert and oriented x 3. Appropriate mood and affect. - SKIN: Lesion as above. Warm. - LYMPH: No cervical lymphadenopathy. Objective Data Vital Signs Vital Signs: Vital Signs - 24 hr 03/03/21 18:37 03/03/21 20:35 03/03/21 20:38 Temperature Pulse Rate 72 76 82 Respiratory Rate 20 18 Blood Pressure Pulse Oximetry 95 03/03/21 22:00 03/03/21 22:37 03/04/21 00:00 Temperature 36.5 C Pulse Rate 42 L 74 79 Respiratory Rate 20 Blood Pressure 128/58 L Pulse Oximetry 96 03/04/21 02:46 03/04/21 02:56 03/04/21 04:00 Temperature Pulse Rate 75 76 75 Respiratory Rate 20 20 Blood Pressure Pulse Oximetry 03/04/21 08:00 03/04/21 08:18 03/04/21 08:25 Temperature Pulse Rate 70 78 76 Respiratory Rate 16 16 Blood Pressure Pulse Oximetry 97 93 03/04/21 12:00 03/04/21 16:00 03/04/21 16:54 Temperature 35.7 C L 35.7 C L Pulse Rate 70 70 70 Respiratory Rate 16 18 Blood Pressure 106/44 L 126/67 Pulse Oximetry 97 95 Intake/Output Intake/Output: Intake & Output
[2021-03-04] MEDS: ATORVASTATIN 40 MG TABLET PO (21:21)
--- NOTE | 2021-03-04 23:50 | PCRCNOTE ---
Window of time for administration has passed. See next scheduled administration.
[2021-03-05] VITALS (11 sets, daily range): BP systolic 101–108; BP diastolic 48–53; PULSE 64–80; RESP 16–18; TEMP 36.1–36.7; O2SAT 94–100
[2021-03-05] MEDS: IPRATROPIUM BR 0.02% INH SOLN 0.5 MG/2.5 ML VIAL INHALATION (02:24)
[2021-03-05] MEDS: ALBUTEROL SULFATE NEB 2.5 MG/0.5 ML INH 5 MG INHALATION (02:24)
[2021-03-05] MEDS: MORPHINE SULFATE (*CRX) 15 MG TAB IR PO ×2 (05:56→17:09)
[2021-03-05 06:21] LABS: Hemoglobin 11.4 g/dL (12.0-15.0); Mean Corpuscular HGB Conc 30.8 g/dl (32-36); Mean Corpuscular Hemoglobin 25.1 pg (26-34); Mean Corpuscular Volume 81.3 fl (80-100); Mean Platelet Volume 10.1 fl (7.4-10.4); Platelet Count Result 343 k/mm3 (150-375); Red Blood Count 4.55 M/mm3 (4.2-5.4); Red Cell Distribution Width 15.9 % (11.5-14.5); White Blood Count 8.6 K/mm3 (4.5-10.0)
[2021-03-05 06:22] LABS: Anion Gap 5 mmol/L (8-16); Blood Urea Nitrogen 29 mg/dL (7-17); Calcium 8.9 mg/dL (8.4-10.2); Carbon Dioxide 30 mmol/L (22-30); Chloride 101 mmol/L (98-107); Estimated CRCL calculation 65 ml/min; Estimated Glomerular Filt Rate > 60; Glucose 157 mg/dL (65-110); Potassium 4.2 mmol/L (3.4-5.0); Sodium 136 mmol/L (137-145)
[2021-03-05 08:31] LABS: Glucose Point of Care 182 mg/dl (65-105)
[2021-03-05] MEDS: ENOXAPARIN 40 MG/0.4 ML SYRINGE SUB-Q (08:51)
[2021-03-05] MEDS: FUROSEMIDE INJ 40 MG/4 ML VIAL IV PUSH (08:52)
[2021-03-05] MEDS: SPIRONOLACTONE 25 MG TABLET PO (08:52)
[2021-03-05] MEDS: VENLAFAXINE HCL XR 75 MG CAP.ER.24H PO (08:52)
[2021-03-05] MEDS: MORPHINE SULFATE (*CRX) 30 MG TABCR PO ×2 (08:52→21:38)
[2021-03-05] MEDS: VENLAFAXINE HCL XR 37.5 MG CAP PO (08:52)
[2021-03-05] MEDS: PANTOPRAZOLE 40 MG TABLET PO (08:52)
[2021-03-05] MEDS: lisinopriL 10 MG TABLET PO (08:52)
[2021-03-05] MEDS: GABAPENTIN 400 MG CAPSULE 800 MG PO ×3 (08:52→17:09)
[2021-03-05] MEDS: INSULIN GLARGINE (*BKC) 100 UNITS/ML 30 UNITS SUB-Q (08:53)
--- NOTE | 2021-03-05 09:51 | PCOTNOTE ---
Attempted OT evaluation, patient declined at this time reporting wanting to finish breakfast before working with therapy, will follow and attempt at later time.
--- NOTE | 2021-03-05 10:47 | PM.IMPN ---
Progress Note: A&P Assessment and Plan (1) Acute respiratory failure with hypoxia and hypercarbia: Code(s): J96.01 - Acute respiratory failure with hypoxia; J96.02 - Acute respiratory failure with hypercapnia Status: Acute Assessment and Plan: Likely secondary to fluid overload, resolved. Patient is on 2 L q.h.s. and uses CPAP at night normally at home. She will be transitioned back to her home Lasix regimen. She will be completing her antibiotic course tomorrow which she was given because of significant leukocytosis with the dyspnea and possible infiltrates (2) Hypokalemia: Code(s): E87.6 - Hypokalemia Status: Acute Assessment and Plan: Repleted (3) PNA (pneumonia): Qualifiers: Pneumonia type: due to unspecified organism Laterality: bilateral Lung location: unspecified part of lung Qualified Code(s): J18.9 - Pneumonia, unspecified organism Code(s): J18.9 - Pneumonia, unspecified organism Status: Acute Assessment and Plan: Community-acquired pneumonia, today is day 4 of Rocephin azithromycin, white blood cell count normalized, afebrile, no sputum production, significant clinical improvement. Patient will complete 5 days tomorrow to complete antibiotic course. Breathing treatments as needed (4) Systolic heart failure: Qualifiers: Heart failure chronicity: acute on chronic Qualified Code(s): I50.23 - Acute on chronic systolic (congestive) heart failure Code(s): I50.20 - Unspecified systolic (congestive) heart failure Status: Acute Assessment and Plan: Diuresed appropriately with IV Lasix, will transition patient back to home Lasix regimen. She has been weaned off to room air this morning, 2 L q.h.s.. (5) Sepsis: Qualifiers: Sepsis type: sepsis due to unspecified organism Sepsis acute organ dysfunction status: with acute organ dysfunction Severe sepsis acute organ dysfunction type: acute respiratory failure Acute respiratory failure type: with hypoxia Severe sepsis shock status: without septic shock Qualified Code(s): A41.9 - Sepsis, unspecified organism; R65.20 - Severe sepsis without septic shock; J96.01 - Acute respiratory failure with hypoxia Code(s): A41.9 - Sepsis, unspecified organism Status: Acute Assessment and Plan: Resolved, secondary pneumonia (6) Elevated troponin: Code(s): R77.8 - Other specified abnormalities of plasma proteins Status: Acute Assessment and Plan: History of elevated troponin, patient was planned to have a left heart catheterization this week. Dr. Dejesus will do procedure tomorrow, will keep NPO midnight. Patient is on statin, beta-bobby, ADONAY-inhibitor, Plavix. (7) Type 2 diabetes mellitus with hyperglycemia: Qualifiers: Diabetes mellitus intermediate teacher insulin use: with intermediate teacher use Qualified Code(s): E11.65 - Type 2 diabetes mellitus with hyperglycemia; Z79.4 - nursing home (current) use of insulin Code(s): E11.65 - Type 2 diabetes mellitus with hyperglycemia Status: Acute Assessment and Plan: Diabetic diet, sliding-scale insulin, hypoglycemia protocol, Accu-Cheks a.c. HS Additional Plan -continue home gabapentin -Xanax for anxiety Diet: Diabetic diet, NPO at midnight for left heart catheterization tomorrow DVT prophylaxis: On Lovenox GI prophylaxis: Protonix Code status: Full code Disposition: Left heart catheterization tomorrow, PT OT patient may be discharged soon Time Spent With Patient Time with patient: 25 - 35 minutes Subjective Date/time seen: 03/05/21 10:47 patient examined she is doing very well today. She has been weaned off her oxygen just on 2 L q.h.s.. I thing at home she may use CPAP. Today is day 4 of antibiotics, patient will complete 5 days of Rocephin azithromycin just to complete antibiotic course for community-acquired pneumonia as she had significant leukocytosis on admission. Otherwise
[2021-03-05] MEDS: CLOPIDOGREL BISULFATE 75 MG TABLET PO (11:24)
[2021-03-05 11:35] LABS: Glucose Point of Care 168 mg/dl (65-105)
[2021-03-05] MEDS: METOPROLOL SUCCINATE EXT REL 50 MG TABCR PO (17:09)
[2021-03-05 17:15] LABS: Glucose Point of Care 199 mg/dl (65-105)
[2021-03-05] MEDS: ATORVASTATIN 40 MG TABLET PO (21:38)
[2021-03-05] MEDS: ALPRAZolam (*CRX) 0.5 MG TABLET 1 MG PO (21:45)
[2021-03-05 22:30] LABS: Glucose Point of Care 218 mg/dl (65-105)
[2021-03-06] VITALS (19 sets, daily range): BP systolic 115–154; BP diastolic 46–74; PULSE 70–90; RESP 11–18; TEMP 35.8–37.3; O2SAT 91–100
[2021-03-06] MEDS: MORPHINE SULFATE (*CRX) 15 MG TAB IR PO ×2 (02:17→15:30)
[2021-03-06 06:38] LABS: Hematocrit 36.7 % (37.0-47.0); Hemoglobin 11.2 g/dL (12.0-15.0); Mean Corpuscular HGB Conc 30.5 g/dl (32-36); Mean Corpuscular Hemoglobin 24.7 pg (26-34); Mean Corpuscular Volume 80.8 fl (80-100); Platelet Count Result 332 k/mm3 (150-375); Red Blood Count 4.54 M/mm3 (4.2-5.4); Red Cell Distribution Width 15.9 % (11.5-14.5); White Blood Count 9.1 K/mm3 (4.5-10.0)
[2021-03-06 06:53] LABS: Anion Gap 9 mmol/L (8-16); Blood Urea Nitrogen 28 mg/dL (7-17); Calcium 8.7 mg/dL (8.4-10.2); Carbon Dioxide 29 mmol/L (22-30); Chloride 96 mmol/L (98-107); Estimated CRCL calculation 75 ml/min; Estimated Glomerular Filt Rate > 60; Glucose 103 mg/dL (65-110); Potassium 3.9 mmol/L (3.4-5.0); Sodium 134 mmol/L (137-145)
--- NOTE | 2021-03-06 06:57 | WPDMODSED ---
Moderate Sedation Note-Pt Data Patient Data Diagnosis: CONGESTIVE HEART FAILURE WITH LEFT VENTRICULAR SYSTOLIC DYSFUNCTION Present Complaint: no complaints this morning Procedure to be performed/Plan: left heart catheterization Allergies Allergy/AdvReac Type Severity Reaction Status Date / Time metformin Allergy Unknown Verified 03/02/21 03:42 Sulfa (Sulfonamide Allergy Unknown Verified 03/02/21 03:42 Antibiotics) Home Medications Medication Instructions Recorded Confirmed Type Humalog U-100 Insulin See Rx Instructions .ROUTE .COMPLEX 12/24/20 03/02/21 History Lantus Solostar U-100 Insulin 50 units SUBCUT DAILY 12/24/20 03/02/21 History albuterol sulfate [ProAir HFA] 2 puff INHALATION Q6H PRN 12/24/20 03/02/21 History alprazolam 1 mg PO BID PRN 12/24/20 03/02/21 History atorvastatin 40 mg PO HS 12/24/20 03/02/21 History clopidogrel 75 mg PO DAILY 12/24/20 03/02/21 History gabapentin 800 mg PO TID 12/24/20 03/02/21 History methocarbamol 1,500 mg PO TID PRN 12/24/20 03/02/21 History morphine 15 mg PO Q6H PRN 12/24/20 03/02/21 History morphine [MS Contin] 30 mg PO Q12H 12/24/20 03/02/21 History nystatin See Rx Instructions .ROUTE .COMPLEX 12/24/20 03/02/21 History venlafaxine [Effexor XR] 112.5 mg PO DAILY 12/24/20 03/02/21 History gabapentin 400 mg PO HS 12/25/20 03/02/21 History pantoprazole 40 mg PO QAM 12/25/20 03/02/21 History atenolol 25 mg PO DAILY 03/02/21 03/02/21 History furosemide 80 mg PO DAILY 03/02/21 03/02/21 History Current Medications: Active Medications Albuterol (Albuterol Sulfate Neb 2.5 Mg/0.5 Ml Inh) 5 mg INHALATION Q6HRT PRN PRN Reason: shortness of breath Alprazolam (Alprazolam (*Crx) 0.5 Mg Tablet) 1 mg PO BID PRN PRN Reason: Anxiety Last Admin: 03/05/21 21:45 Dose: 1 mg Documented by: Atorvastatin Calcium (Atorvastatin 40 Mg Tablet) 40 mg PO HS [facility] Last Admin: 03/05/21 21:38 Dose: 40 mg Documented by: Clopidogrel Bisulfate (Clopidogrel Bisulfate 75 Mg Tablet) 75 mg PO DAILY [facility] Last Admin: 03/05/21 11:24 Dose: 75 mg Documented by: Dextrose (Dextrose 50% 25 Gm/50 Ml Syringe) 12.5 gm IV PUSH PRN PRN; Protocol PRN Reason: Hypoglycemia Enoxaparin Sodium (Enoxaparin 40 Mg/0.4 Ml Syringe) 40 mg SUB-Q DAILY [facility] Last Admin: 03/05/21 08:51 Dose: 40 mg Documented by: Furosemide (Furosemide 40 Mg Tablet) 80 mg PO DAILY [facility] Gabapentin (Gabapentin 400 Mg Capsule) 800 mg PO TID [facility] Last Admin: 03/05/21 17:09 Dose: 800 mg Documented by: Glucagon (Glucagon For Inj 1 Mg Vial) 1 mg IM PRN PRN; Protocol PRN Reason: Hypoglycemia Glucose (Glucose Oral Gel 15 Gm Of Glucse In 37.5 Gm Tube) 15 gm PO PRN PRN; Protocol PRN Reason: Hypoglycemia Ceftriaxone Sodium/Dextrose (Rocephin 1 Gm/D5w 50 Ml) 1 gm in 50 mls @ 100 mls/hr IVPB Q24H [facility] Last Admin: 03/06/21 05:24 Dose: 100 mls/hr Documented by: Azithromycin (Zithromax) 500 mg in 250 mls @ 250 mls/hr IVPB Q24H [facility] Last Admin: 03/06/21 06:29 Dose: 250 mls/hr Documented by: Dextrose (Dextrose 5% 1,000 Ml) 1,000 mls @ 100 mls/hr IVPB PRN PRN; Protocol PRN Reason: Hypoglycemia Insulin Aspart (Insulin Aspart (*Bkc) 100 Units/Ml) 4 - 8 units SUB-Q TIDWM [facility]; Protocol Last Admin: 03/05/21 17:14 Dose: Not Given Documented by: Insulin Glargine (Insulin Glargine (*Bkc) 100 Units/Ml) 30 units SUB-Q DAILY [facility] Stop: 04/02/21 09:01 Last Admin: 03/05/21 08:53 Dose: 30 units Documented by: Ipratropium Fowler (Ipratropium Br 0.02% Inh Soln 0.5 Mg/2.5 Ml Vial) 0.5 mg INHALATION Q6HRT PRN PRN Reason: shortness of breath Lisinopril (Lisinopril 10 Mg Tablet) 10 mg PO DAILY [facility] Last Admin: 03/05/21 08:52 Dose: 10 mg Documented by: Metoprolol Succinate (Metoprolol Succinate Ext Rel 50 Mg Tabcr) 50 mg PO QPM [facility] Last Admin: 03/05/21 17:09 Dose: 50 mg Documented by: Miconazole Nitrate (Miconazole Nitrate 2% Cream 30 Gm Tube) 1 applic TOPICAL BID PRN PRN Reason: Irritation Morphine Sulfate (Morphine Sulfate (*Crx) 15 Mg Tab Ir)
--- NOTE | 2021-03-06 08:24 | WPDCARDPROC ---
Cardiac Cath Procedure Note Date of procedure:: 03/06/21 Performing physician:: Josiah Dejesus MD Indication:: recently diagnosed left ventricular systolic dysfunction with CHF diabetes bilateral above the knee amputation Brief clinical history:: this is a 65-year-old diabetic patient was of bilateral AKA and recently was found to have some congestive heart failure and left ventricular systolic dysfunction. To rule out ischemic basis to this cardiomyopathy an angiogram has been recommended. Because of the bilateral AKAs a radial approach is being performed Procedure Procedure performed:: coronary angiography Sedation/Medication given:: fentanyl 50 mg Versed 4 mg case start time 7:24 a.m. case end time 8:19 a.m. sedation provided by Raegan Harley RN, trained observer Access site:: right radial artery Estimated blood loss:: less than 20 cc Procedure note:: patient was brought to the cardiac catheterization lab in the postabsorptive state. The right wrist was prepped and draped in the usual sterile fashion. Anesthesia was provided over the radial artery pulse with 1% lidocaine. Using a micro puncture needle the radial artery was punctured and a 6 Salvadorean glide sheath was placed into the radial artery. After Vascular access the patient received 4000 units of systemic heparin and in the arterial sheath received 200 mcg of nitroglycerin and 5 mg of verapamil. Following this coronary angiography was carried out. I used a Zackery catheter to engage inject the left coronary artery. The Zackery catheter was difficult to engage the right coronary artery selectively I then used a 5 Salvadorean WRP catheter for this. Following this the cineangiograms were reviewed and the case was terminated. the catheter was removed the radial artery catheter was flushed and patient was taken to the holding area with the TR band in place. Findings:: central aortic pressure is 166/78. The left main coronary artery is nicely patent. The LAD is a moderate caliber artery extending down to around the apex the LAD and its branches have modest luminal irregularities but no significant atherosclerosis is identified. The circumflex is a small to medium caliber artery giving rise to the marginal branches. Similarly there are minimal luminal irregularities noted in the OM branch of the circumflex but no angiographically significant disease is identified. The right coronary artery is large caliber and dominant to the posterior circulation the right coronary artery appears to be smooth and free of atherosclerosis. Conclusion:: 1. Right coronary dominant circulation with no significant coronary artery disease. Patient's left ventricular systolic dysfunction appears to be not ischemically mediated based on these findings. Josiah Dejesus MD FACC
--- NOTE | 2021-03-06 11:56 | SUR.PHASEII ---
Pt arrived to chest pain center post cath with TR Band intact to right radial artery. Started to release air at 0905. 2-3 ml every 5-7 minutes. Air completely removed by 0945. TR Band removed and dry sterile dressing with tegaderm applied at 1045. Arm board to right arm remains in place. No signs of bleeding or hematoma. Report called to [facility]. Pt sleeping, VSS. Spoke with daughter over phone with update.
[2021-03-06] MEDS: VENLAFAXINE HCL XR 75 MG CAP.ER.24H PO (12:21)
[2021-03-06] MEDS: PANTOPRAZOLE 40 MG TABLET PO (12:21)
[2021-03-06] MEDS: SPIRONOLACTONE 25 MG TABLET PO (12:21)
[2021-03-06] MEDS: FUROSEMIDE 40 MG TABLET 80 MG PO (12:21)
[2021-03-06] MEDS: lisinopriL 10 MG TABLET PO (12:21)
[2021-03-06] MEDS: GABAPENTIN 400 MG CAPSULE 800 MG PO ×3 (12:21→21:33)
[2021-03-06] MEDS: VENLAFAXINE HCL XR 37.5 MG CAP PO (12:21)
[2021-03-06] MEDS: MORPHINE SULFATE (*CRX) 30 MG TABCR PO ×2 (12:25→21:33)
[2021-03-06 12:32] LABS: Glucose Point of Care 94 mg/dl (65-105)
[2021-03-06] MEDS: INSULIN GLARGINE (*BKC) 100 UNITS/ML 20 UNITS SUB-Q (13:10)
[2021-03-06] MEDS: ENOXAPARIN 40 MG/0.4 ML SYRINGE SUB-Q (15:24)
[2021-03-06] MEDS: CLOPIDOGREL BISULFATE 75 MG TABLET PO (15:24)
[2021-03-06] MEDS: SODIUM CHLORIDE 0.9% IV 1,000 ML 125 ML IV CONT (15:24)
[2021-03-06] MEDS: ALPRAZolam (*CRX) 0.5 MG TABLET 1 MG PO (17:53)
[2021-03-06] MEDS: METOPROLOL SUCCINATE EXT REL 50 MG TABCR PO (17:53)
[2021-03-06 18:22] LABS: Glucose Point of Care 170 mg/dl (65-105)
--- NOTE | 2021-03-06 18:56 | PM.IMPN ---
Progress Note: A&P Assessment and Plan (1) Acute respiratory failure with hypoxia and hypercarbia: Code(s): J96.01 - Acute respiratory failure with hypoxia; J96.02 - Acute respiratory failure with hypercapnia Status: Acute (2) PNA (pneumonia): Qualifiers: Pneumonia type: due to unspecified organism Laterality: bilateral Lung location: unspecified part of lung Qualified Code(s): J18.9 - Pneumonia, unspecified organism Code(s): J18.9 - Pneumonia, unspecified organism Status: Acute (3) Systolic heart failure: Qualifiers: Heart failure chronicity: acute on chronic Qualified Code(s): I50.23 - Acute on chronic systolic (congestive) heart failure Code(s): I50.20 - Unspecified systolic (congestive) heart failure Status: Acute (4) Sepsis: Qualifiers: Sepsis type: sepsis due to unspecified organism Sepsis acute organ dysfunction status: with acute organ dysfunction Severe sepsis acute organ dysfunction type: acute respiratory failure Acute respiratory failure type: with hypoxia Severe sepsis shock status: without septic shock Qualified Code(s): A41.9 - Sepsis, unspecified organism; R65.20 - Severe sepsis without septic shock; J96.01 - Acute respiratory failure with hypoxia Code(s): A41.9 - Sepsis, unspecified organism Status: Acute (5) Type 2 diabetes mellitus with hyperglycemia: Qualifiers: Diabetes mellitus intermodal customer service insulin use: with group home use Qualified Code(s): E11.65 - Type 2 diabetes mellitus with hyperglycemia; Z79.4 - exterminator 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 (current) use of insulin Code(s): E11.65 - Type 2 diabetes mellitus with hyperglycemia Status: Acute Additional Plan Patient completed antibiotics for pneumonia/sepsis Was an 80 mg daily of Lasix and will be discharged on the same when ready Status post cardiac catheterization today Plan to be discharged tomorrow Subjective Date/time seen: 03/06/21 18:56 65-year-old female with past medical history significant for type 2 diabetes mellitus, heart failure with reduced ejection fraction, chronic hypoxic respiratory failure on 2 L of oxygen, depression anxiety, hypertension and hyperlipidemia presented with confusion and less responsiveness. She was managed as a case of CHF exacerbation in addition to sepsis secondary to pneumonia. She completed 5 days of antibiotics for her pneumonia. She was also followed by Cardiology and cardiac catheterization was performed while in house, this was planned for as outpatient however patient was admitted during that time it was planned. She continued to improve and is possibly going to be discharge in the morning. Review of Systems Review of Systems: A 10 point review of system was conducted which was otherwise negative Exam Const: General: cooperative HENMT: Head: normal to inspection Mouth: Yes Normal oral and palatal mucosa present Eyes: General: appearance normal, both eyes and all related structures Resp: Effort & Inspection: normal respiratory effort Cardio: Jugular venous distension: no JVD GI: Inspection: normal to inspection : General: Yes bimanual renal exam normal bilaterally Back/Spine/Pelvis: Back: no CVA tenderness Skin: General skin exam: normal color, no rashes or lesions noted, elasticity normal and turgor normal Neuro: General: oriented to person Objective Data Vital Signs Vital Signs: Vital Signs - 24 hr 03/05/21 20:00 03/05/21 21:51 03/06/21 00:00 Temperature 97.0 F L Pulse Rate 74 74 86 Respiratory Rate 18 Blood Pressure 105/51 L Pulse Oximetry 100 03/06/21 04:00 03/06/21 06:00 03/06/21 12:10 Temperature 97.1 F L 98.2 F Pulse Rate 86 75 72 Respiratory Rate 18 16 Blood Pressure 115/70 131/52 L Pulse Oximetry 96 96 03/06/21 14:00 03/06/21 16:00 03/06/21 17:53 Temperature 97.4 F L Pulse Rate 83 90 87 Respiratory Rate 16 Blood Pressure 127/46 L Pulse Oximetry 95
[2021-03-06] MEDS: ATORVASTATIN 40 MG TABLET PO (21:33)
[2021-03-06 23:02] LABS: Glucose Point of Care 229 mg/dl (65-105)
[2021-03-07] VITALS: BP 121/54; PULSE 76; RESP 20; TEMP 36.8; O2SAT 94
[2021-03-07] MEDS: MORPHINE SULFATE (*CRX) 15 MG TAB IR PO ×3 (01:37→16:53)
[2021-03-07 04:00] VITALS: BP 125/68; PULSE 77; RESP 19; TEMP 37.3; O2SAT 93
[2021-03-07 07:16] LABS: Hematocrit 37.1 % (37.0-47.0); Hemoglobin 10.8 g/dL (12.0-15.0); Mean Corpuscular HGB Conc 29.1 g/dl (32-36); Mean Corpuscular Hemoglobin 24.5 pg (26-34); Mean Corpuscular Volume 84.3 fl (80-100); Platelet Count Result 304 k/mm3 (150-375); White Blood Count 8.9 K/mm3 (4.5-10.0)
[2021-03-07 07:34] LABS: Alanine Aminotransferase 7 U/L (4-35); Albumin Level 3.2 g/dL (3.5-5.1); Alkaline Phosphatase 129 U/L (38-126); Anion Gap 6 mmol/L (8-16); Aspartate Amino Transferase 12 U/L (14-36); Bilirubin,Total < 0.1 mg/dL (0.2-1.3); Blood Urea Nitrogen 19 mg/dL (7-17); Calcium 8.5 mg/dL (8.4-10.2); Carbon Dioxide 31 mmol/L (22-30); Chloride 97 mmol/L (98-107); Estimated CRCL calculation 74 ml/min; Estimated Glomerular Filt Rate > 60; Glucose 112 mg/dL (65-110); Potassium 3.7 mmol/L (3.4-5.0); Sodium 134 mmol/L (137-145)
[2021-03-07] MEDS: VENLAFAXINE HCL XR 75 MG CAP.ER.24H PO (08:23)
[2021-03-07] MEDS: VENLAFAXINE HCL XR 37.5 MG CAP PO (08:23)
[2021-03-07] MEDS: SPIRONOLACTONE 25 MG TABLET PO (08:23)
[2021-03-07] MEDS: FUROSEMIDE 40 MG TABLET 80 MG PO (08:23)
[2021-03-07] MEDS: CLOPIDOGREL BISULFATE 75 MG TABLET PO (08:23)
[2021-03-07] MEDS: lisinopriL 10 MG TABLET PO (08:23)
[2021-03-07] MEDS: PANTOPRAZOLE 40 MG TABLET PO (08:23)
[2021-03-07] MEDS: GABAPENTIN 400 MG CAPSULE 800 MG PO ×3 (08:23→16:54)
[2021-03-07] MEDS: ENOXAPARIN 40 MG/0.4 ML SYRINGE SUB-Q (08:24)
[2021-03-07] MEDS: MORPHINE SULFATE (*CRX) 30 MG TABCR PO (08:27)
[2021-03-07] MEDS: INSULIN GLARGINE (*BKC) 100 UNITS/ML 30 UNITS SUB-Q (08:27)
[2021-03-07 08:40] LABS: Glucose Point of Care 172 mg/dl (65-105)
[2021-03-07 09:00] VITALS: BP 107/48; PULSE 68; RESP 18; TEMP 35.8; O2SAT 94
[2021-03-07 11:58] LABS: Glucose Point of Care 225 mg/dl (65-105)
[2021-03-07 12:03] VITALS: BP 133/56; PULSE 65; RESP 16; TEMP 35.7; O2SAT 92
[2021-03-07] MEDS: INSULIN ASPART (*BKC) 100 UNITS/ML SUB-Q (12:26)
[2021-03-07 16:00] VITALS: PULSE 80
--- NOTE | 2021-03-07 16:08 | PM.DS ---
DS: Admitting Diagnosis Admitting Diagnosis AMS DS: Discharge Diagnosis Discharge Diagnosis (1) Hypokalemia: Code(s): E87.6 - Hypokalemia Status: Acute (2) Acute respiratory failure with hypoxia and hypercarbia: Code(s): J96.01 - Acute respiratory failure with hypoxia; J96.02 - Acute respiratory failure with hypercapnia Status: Acute (3) PNA (pneumonia): Qualifiers: Pneumonia type: due to unspecified organism Laterality: bilateral Lung location: unspecified part of lung Qualified Code(s): J18.9 - Pneumonia, unspecified organism Code(s): J18.9 - Pneumonia, unspecified organism Status: Acute (4) Systolic heart failure: Qualifiers: Heart failure chronicity: acute on chronic Qualified Code(s): I50.23 - Acute on chronic systolic (congestive) heart failure Code(s): I50.20 - Unspecified systolic (congestive) heart failure Status: Acute (5) Sepsis: Qualifiers: Sepsis type: sepsis due to unspecified organism Sepsis acute organ dysfunction status: with acute organ dysfunction Severe sepsis acute organ dysfunction type: acute respiratory failure Acute respiratory failure type: with hypoxia Severe sepsis shock status: without septic shock Qualified Code(s): A41.9 - Sepsis, unspecified organism; R65.20 - Severe sepsis without septic shock; J96.01 - Acute respiratory failure with hypoxia Code(s): A41.9 - Sepsis, unspecified organism Status: Acute (6) Witnessed apneic spells: Code(s): R06.81 - Apnea, not elsewhere classified Status: Acute (7) Acute respiratory failure with hypoxia: Code(s): J96.01 - Acute respiratory failure with hypoxia Status: Acute (8) Type 2 diabetes mellitus with hyperglycemia: Qualifiers: Diabetes mellitus residential insulin use: with residential use Qualified Code(s): E11.65 - Type 2 diabetes mellitus with hyperglycemia; 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 Code(s): E11.65 - Type 2 diabetes mellitus with hyperglycemia Status: Acute (9) Elevated troponin: Code(s): R77.8 - Other specified abnormalities of plasma proteins Status: Acute (10) Flash pulmonary edema: Code(s): J81.0 - Acute pulmonary edema Status: Acute DS: Summary Hospital Course Reason for hospitalization: Altered mental status CHF exacerbation Pneumonia Sepsis Hospital Course: 65-year-old female with past medical history significant for type 2 diabetes mellitus, heart failure with reduced ejection fraction, chronic hypoxic respiratory failure on 2 L of oxygen, depression anxiety, hypertension and hyperlipidemia presented with confusion and less responsiveness. She was managed as a case of CHF exacerbation in addition to sepsis secondary to pneumonia. She completed 5 days of antibiotics for her pneumonia. She was also followed by Cardiology and cardiac catheterization was performed while in house, this was planned for as outpatient however patient was admitted during that time it was planned. She continued to improve and is going to be discharge in today 03/07 with OP Cardiology follow up. Time Spent with Patient Time attestation: Total time spent providing and/or coordinating discharge services: Greater than 30 minute Exam Narrative: Const General: cooperative Head: normal to inspection Mouth: Yes Normal oral and palatal mucosa present Eyes General: appearance normal, both eyes and all related structures Resp Effort & Inspection: normal respiratory effort Cardio Jugular venous distension: no JVD GI Inspection: normal to inspection General: Yes bimanual renal exam normal bilaterally Back/Spine/Pelvis Back: no CVA tenderness Skin General skin exam: normal color, no rashes or lesions noted, elasticity normal and turgor normal Neuro General: oriented to person DS: Data Data Completed and Pending Labs on day of discharge: Labs from last 24 hours 0
[2021-03-07] MEDS: METOPROLOL SUCCINATE EXT REL 50 MG TABCR PO (16:53)
[2021-03-07 18:24] LABS: Glucose Point of Care 120 mg/dl (65-105)
== END 2021-03-07 19:00 | DRG 720 ==
LOC: ANHED 04:04 → ANHIMU 06:48 → ANH3MEDSUR 03-04 19:52 → ANHIMU 03-11 15:02
PROVIDERS: Internal Medicine; Specialist; Admitting Provider Internal Medicine; Emergency Provider Emergency Medicine; PCP Nurse Practitioner Adult Health; Visit Provider Internal Medicine
PROC: 4A023N7 Measurement of Cardiac Sampling and Pressure, Left Heart, Percutaneous Approach (ICD-10-PCS; CPT 93454; principal; 2021-03-06 07:00)
DX: A41.9 Sepsis, unspecified organism; J96.21 Acute and chronic respiratory failure with hypoxia; J96.02 Acute respiratory failure with hypercapnia; I50.23 Acute on chronic systolic (congestive) heart failure; K21.9 Gastro-esophageal reflux disease without esophagitis; E78.5 Hyperlipidemia, unspecified; F17.210 Nicotine dependence, cigarettes, uncomplicated; E11.65 Type 2 diabetes mellitus with hyperglycemia; E87.6 Hypokalemia; E11.42 Type 2 diabetes mellitus with diabetic polyneuropathy; I11.0 Hypertensive heart disease with heart failure; J81.0 Acute pulmonary edema; R06.81 Apnea, not elsewhere classified; J44.0 Chronic obstructive pulmonary disease with (acute) lower respiratory infection; J18.9 Pneumonia, unspecified organism; F32.9 Major depressive disorder, single episode, unspecified; F41.9 Anxiety disorder, unspecified; R65.20 Severe sepsis without septic shock; R77.8 Other specified abnormalities of plasma proteins; G89.29 Other chronic pain; Z79.4 Long term (current) use of insulin; Z79.899 Other long term (current) drug therapy; Z89.612 Acquired absence of left leg above knee; Z89.611 Acquired absence of right leg above knee; Z99.81 Dependence on supplemental oxygen
CPT/HCPCS: 36415; 36600; 71045; 71046; 80048; 80053; 81001; 82805; 82948; 83605; 83735; 83880; 84145; 84484; 85025; 85027; 85610; 85730; 87040; 93005; 93454; 94002; 94003; 94640; 96365; 96375; 97161; 97165; 99285; A9270; J0456; J0696; J1644; J1650; J1815; J1940; J2250; J2930; J3010; J3475; J7030; J7040

== ENCOUNTER 2021-07-08 19:33 | Inpatient (IN) | payer OTHER, SELFPAY ==
[2021-07-08] VITALS (13 sets, daily range): BP systolic 73–94; BP diastolic 49–65; PULSE 83–107; RESP 12–22; TEMP 36.8; O2SAT 94–100
--- NOTE | ~2021-07-08 | US_ITS ---
EXAMINATION: US renal BI EXAM DATE: 07/09/2021 13:50 INDICATION: Acute kidney insufficiency. TECHNIQUE: Multiple grayscale and Doppler images of the kidneys were obtained (by a technologist who performed the scan) and subsequently reviewed. There is no prior study for comparison. FINDINGS: Right kidney: There is normal contour and echogenicity. It measures 8.3 x 4.5 x 5.5 centimeters. Th ere are no focal renal lesions identified. There is no hydronephrosis. Left kidney: There is normal contour and echogenicity. It measures 8.8 x 4.6 x 4.8 centimeters. The re are no focal renal lesions identified. There is no hydronephrosis. Bladder unremarkable. IMPRESSION: 1. Mild bilateral renal atrophy. 2. No hydronephrosis. Reviewed, dictated and finalized at location B. TECHNICIAN
--- NOTE | ~2021-07-08 | XR_ITS ---
EXAMINATION: XR chest 2V 07/08/2021 23:41 INDICATION: Hypotension PROCEDURE: 2 view chest COMPARISON: 03/04/2021 FINDINGS: The lungs are clear. The cardiomediastinal silhouette is within normal limits. There are no pleural effusions. There is no pneumothorax suspected. IMPRESSION: 1: NO ACUTE CARDIOPULMONARY DISEASE. Reviewed, dictated and finalized at location A. IX DRIER TENDER
--- NOTE | ~2021-07-08 | CT_ITS ---
EXAMINATION: CT abdomen pelvis wo con DATE: 07/08/2021 21:51 INDICATION: Diarrhea for 2 days TECHNIQUE: Computed tomography (CT) of the abdomen and pelvis was performed without intravenous contr ast. The dose-length product was 1434.08 mGy-cm. Automated exposure control and iterative reconstruct ion technique were employed. COMPARISON: None. FINDINGS: Lung bases are unremarkable. No significant pleural or pericardial effusion. There are air- fluid levels throughout the small bowel and colon. No obstruction. There are pancreatic calcification s, consistent with chronic pancreatitis. There is a 1.5 cm right adrenal nodule, statistically likely benign. The spleen, liver, left adrenal gland and kidneys are unremarkable. There are endovascular s tents in the iliac arteries. No evidence for aneurysm. There are bilateral hip arthroplasties. There is severe lumbar spondylosis with levoscoliosis. IMPRESSION: 1. Diffuse air fluid levels throughout the small bowel and colon, suspicious for enterocolitis. No ob struction. 2: Right adrenal nodule measuring 1.5 cm, likely benign. 3: Chronic pancreatitis. Reviewed, dictated and finalized at location A. RITY TECH IMPRESSION: 1. Diffuse air fluid levels throughout the small bowel and colon, suspicious fo r enterocolitis. No obstruction. 2: Right adrenal nodule measuring 1.5 cm, likely benign. 3: Chronic pancreatitis.
--- NOTE | 2021-07-08 20:25 | ED.NAVMDI ---
HPI - Nausea/Vomiting/Diarrhea General Chief complaint: Nausea/Vomiting/Diarrhea <Uriel Borden MD - Last Filed: 07/09/21 12:17> Stated complaint: diarrhea <Uriel Borden MD - Last Filed: 07/09/21 12:17> Time Seen by Provider: 07/08/21 19:36 <Uriel Borden MD - Last Filed: 07/09/21 12:17> Source: patient <Uriel Borden MD - Last Filed: 07/09/21 12:17> Mode of arrival: EMS <Uriel Borden MD - Last Filed: 07/09/21 12:17> Limitations: clinical condition <Uriel Borden MD - Last Filed: 07/09/21 12:17> History of Present Illness HPI Narrative: 65-year-old female Patient presents from SNF and complains of diarrhea for 2 days along with a poor appetite She says everything she eats goes right through No abdominal pain No blood in the stools No recent antibiotic use Has not been vomiting No fever No pain or burning with urination and no hematuria She has diabetes but is not sure how her sugars have been running <Uriel Borden MD - Last Filed: 07/09/21 12:17> Related Data Home medications: Home Medications Medication Instructions Recorded Confirmed Humalog U-100 Insulin See Rx Instructions .ROUTE .COMPLEX 12/24/20 07/09/21 Lantus Solostar U-100 Insulin 50 units SUBCUT DAILY 12/24/20 07/09/21 albuterol sulfate [ProAir HFA] 2 puff INHALATION Q6H PRN 12/24/20 03/02/21 alprazolam 1 mg PO BID PRN 12/24/20 07/09/21 atorvastatin 40 mg PO HS 12/24/20 07/09/21 clopidogrel 75 mg PO DAILY 12/24/20 07/09/21 methocarbamol 1,500 mg PO TID PRN 12/24/20 03/02/21 morphine 15 mg PO Q6H PRN 12/24/20 03/02/21 morphine [MS Contin] 30 mg PO Q12H 12/24/20 07/09/21 nystatin See Rx Instructions .ROUTE .COMPLEX 12/24/20 03/02/21 gabapentin 400 mg PO HS 12/25/20 03/02/21 pantoprazole 40 mg PO QAM 12/25/20 07/09/21 atenolol 25 mg PO DAILY 03/02/21 03/02/21 empagliflozin [Jardiance] mg 07/09/21 pantoprazole PO 07/09/21 triamcinolone acetonide applic TOPICAL 07/09/21 <Uriel Borden MD - Last Filed: 07/09/21 12:17> Allergies/Adverse reactions: Allergies Allergy/AdvReac Type Severity Reaction Status Date / Time metformin Allergy Unknown Verified 07/08/21 19:48 Sulfa (Sulfonamide Allergy Unknown Verified 07/08/21 19:48 Antibiotics) <Uriel Borden MD - Last Filed: 07/09/21 12:17> Review of Systems Review of Systems: All systems reviewed & are unremarkable except as noted in HPI and below <Uriel Borden MD - Last Filed: 07/09/21 12:17> Constitutional: Constitutional: Reports no additional constitutional complaints, Denies chills, Reports fatigue, Denies fever(s), Denies headache(s) and Reports weakness <Uriel Borden MD - Last Filed: 07/09/21 12:17> Eyes: Eyes: Reports no additional eye complaints and Denies change in vision <Uriel Borden MD - Last Filed: 07/09/21 12:17> ENT: Denies headache(s) and Denies sore throat <Uriel Borden MD - Last Filed: 07/09/21 12:17> Cardiovascular: Cardiovascular: Denies chest pain and Denies dyspnea <Uriel Borden MD - Last Filed: 07/09/21 12:17> Respiratory: Respiratory: Denies cough and Denies dyspnea <Uriel Borden MD - Last Filed: 07/09/21 12:17> Gastrointestinal: Gastrointestinal: Denies abdominal pain, Reports diarrhea, Reports nausea and Denies vomiting <Uriel Borden MD - Last Filed: 07/09/21 12:17> Comments: Poor appetite <Uriel Borden MD - Last Filed: 07/09/21 12:17> Genitourinary: Genitourinary: Denies urinary frequency and Denies dysuria <Uriel Borden MD - Last Filed: 07/09/21 12:17> Musculoskeletal: Musculoskeletal: Reports back pain, Reports myalgias, Denies deformity and Denies numbness <Uriel Borden MD - Last Filed: 07/09/21 12:17> Integumentary/Breasts: Skin/Breast: Denies rash and Denies wounds <Uriel Borden MD - Last Filed: 07/09/21 12:17> Neurologic: Denies headache(s), Denies focal weakness and Denies numbness <Uriel Borden MD - Last Filed: 07/09/21 12:17> Psychiatric: P
[2021-07-08 21:19] LABS: Basophils Absolute Auto 0.2 K/mm3 (0.0-0.1); Basophils Percent Auto 0.9 % (0.2-1.2); Eosinophils Absolute Auto 0.1 K/mm3 (0-0.3); Eosinophils Percent Auto 0.6 % (0-4.4); Hematocrit 50.6 % (37.0-47.0); Hemoglobin 15.9 g/dL (12.0-15.0); Immature Granulocyte Absolute 0.18 K/mm3 (0.00-0.031); Immature Granulocyte Percent A 1.1 % (0-0.5); Immature Platelet Fraction Pct 3.1 % (0.9-11.2); Lymphocytes Absolute Auto 2.85 K/mm3 (0.9-3.2); Lymphocytes Percent Auto 16.8 % (18.3-44.2); Mean Corpuscular HGB Conc 31.4 g/dl (32-36); Mean Corpuscular Hemoglobin 27.3 pg (26-34); Mean Corpuscular Volume 86.9 fl (80-100); Mean Platelet Volume 9.6 fl (7.4-10.4); Monocytes Absolute Auto 0.8 K/mm3 (0.1-0.6); Neutrophils Absolute Auto 12.8 K/mm3 (1.3-6.7); Neutrophils Percent Auto 75.6 % (45.5-73.1); Platelet Count Result 523 k/mm3 (150-375); Red Blood Count 5.82 M/mm3 (4.2-5.4); Red Cell Distribution Width 20.4 % (11.5-14.5); White Blood Count 16.9 K/mm3 (4.5-10.0)
[2021-07-08 21:26] LABS: Lactic Acid Reflex 2.1 mmol/L (0.7-2.1)
[2021-07-08 21:30] LABS: Platelet Estimate Increased (Adequate)
[2021-07-08] MEDS: LACTATED RINGERS 1,000 ML 999 ML IV CONT ×2 (21:31→22:45)
--- NOTE | 2021-07-08 21:46 | PC.NURSE ---
off floor to CT scaN
--- NOTE | 2021-07-08 21:59 | PC.NURSE ---
phlebotomy at bedside.
[2021-07-08 23:10] LABS: Alanine Aminotransferase 12 U/L (4-35); Albumin Level 4.3 g/dL (3.5-5.1); Alkaline Phosphatase 220 U/L (38-126); Anion Gap 15 mmol/L (8-16); Aspartate Amino Transferase 15 U/L (14-36); Bilirubin,Total 0.6 mg/dL (0.2-1.3); Blood Urea Nitrogen 26 mg/dL (7-17); Calcium 9.7 mg/dL (8.4-10.2); Carbon Dioxide 17 mmol/L (22-30); Chloride 108 mmol/L (98-107); Estimated CRCL calculation 22 ml/min; Estimated Glomerular Filt Rate 22; Glucose 181 mg/dL (65-110); Lipase 150 U/L (23-300); Potassium 4.1 mmol/L (3.4-5.0); Sodium 140 mmol/L (137-145)
--- NOTE | 2021-07-08 23:19 | PC.NURSE ---
Dr Veloz aware of low BP and patient pain. Cannot have patient's baseline narcotics due to low BP. MD to order IV tylenol and a third liter of IVF. Pt refusing straight cath until pain is better managed.
--- NOTE | 2021-07-08 23:34 | PC.NURSE ---
Pt to XY at this time
--- NOTE | 2021-07-08 23:59 | PC.NURSE ---
Pt refusing straight catheter, unable to provide urine sample at this time. This RN expresses need to obtain sample for pt care, verbalized understanding.
[2021-07-09] VITALS (77 sets, daily range): BP systolic 58–122; BP diastolic 31–92; PULSE 75–100; RESP 10–25; TEMP 36.4–36.8; O2SAT 81–100
[2021-07-09] MEDS: SODIUM CHLORIDE 0.9% IV 1,000 ML 999 ML IV CONT ×3 (00:01→06:41)
[2021-07-09 00:14] LABS: Reflex Lactic Acid Yes or No Add Lactic
--- NOTE | 2021-07-09 00:39 | PM.IMHP ---
H&P: HPI History of Present Illness Date/Time: 07/09/21 00:39 Chief Complaint: Nausea vomiting and diarrhea. Narrative: This is a 65-year-old female with past medical history significant for chronic obstructive pulmonary disease, hypertension, fibromyalgia, GERD, insulin-dependent diabetes mellitus, peripheral neuropathy, bilateral AKA, wheelchair-bound, tobacco dependence, peripheral vascular disease, systolic congestive heart failure ejection fraction calculated at 35 to 40%, diastolic heart failure grade I. Recent left heart catheterization with no coronary artery disease. Patient resides at a nursing she was brought in for evaluation after patient has been having nausea ,vomiting and profuse diarrhea for the last 2 days or so. Patient denies any cough, any shortness of breath, any sputum production, states that everything she eats goes right through her and has not been able to eat for the last 2 days. Patient was found to have a systolic blood pressure in the 90s her temp was 98? and she was saturating 100% on room air. Preliminary workup was significant for hemoglobin of 15.9 hematocrit of 50 platelet count upwards of 500,000 a chemistry panel showed a BUN 26 creatinine of 2.2. A CT of abdomen and pelvis was significant for diffuse air fluid levels throughout the small bowel and colon, suspicious for enterocolitis, no obstruction,right adrenal nodule measuring 1.5 cm, likely benign,chronic pancreatitis. A chest x-ray was clear. Patient has been admitted for further evaluation, management and treatment. Review of Systems Review of Systems: Nausea vomiting diarrhea abdominal pain for 2 days or so unable to eat any food in the last 2 days. Constitutional: Constitutional: Denies chills, Denies fatigue, Denies fever(s), Denies malaise and Reports poor appetite Eyes: Eyes: Denies change in vision ENT: Denies dysphagia, Reports dry mouth, Denies nasal congestion, Denies nasal discharge and Denies odynophagia Cardiovascular: Cardiovascular: Denies radiating jaw, neck or arm pain, Denies palpitations, Denies dyspnea on exertion, Denies orthopnea and Denies paroxysmal nocturnal dyspnea Respiratory: Respiratory: Denies cough and Denies excessive phlegm production Gastrointestinal: Gastrointestinal: Reports abdominal pain, Denies dyspepsia, Denies heartburn, Reports diarrhea, Reports nausea and Reports vomiting Genitourinary: Genitourinary: Denies dysuria and Denies flank pain Musculoskeletal: Comments: Bilateral AKA Integumentary/Breasts: Skin/Breast: Denies rash and Denies wounds Neurologic: Denies focal weakness and Denies Sensory deficit (Neuro) Psychiatric: Psychiatric: Reports no additional psychiatric complaints and Reports as per HPI Endocrine: Endocrine: Denies polyphagia, Denies polydipsia and Denies polyuria Hematologic/Lymphatic: Hematologic/Lymphatic: Reports no additional hematologic/lymphatic complaints and Reports as per HPI Allergic/Immunologic: Allergic/Immunologic: Reports no additional allergic/immunologic complaints and Reports as per HPI PENDING SALE TO [facility] Past Medical History Medical History (Updated 07/09/21 @ 04:00 by Obed Kramer MD) Chronic pain COPD (chronic obstructive pulmonary disease) Depression Essential hypertension Fibromyalgia GERD (gastroesophageal reflux disease) Hyperlipidemia Insulin dependent diabetes mellitus Peripheral neuropathy Systolic CHF Surgical History Surgical History (Updated 07/09/21 @ 04:00 by Obed Kramer MD) S/P AKA (above knee amputation) bilateral Family History Family History Mother Lung cancer Father Heart disease Other Unknown family medical history Social History Social History Social History: She resides at [facility]. Primary care provider: Yamileth Perez NP Code status: Full code (per [facility] records) Surrogate d
[2021-07-09 01:21] LABS: Lactic Acid 1.5 mmol/L (0.7-2.1)
[2021-07-09] MEDS: metroNIDAZOLE 500 MG/ISO 100ML 500 MG/100 ML BAG 100 MG IVPB ×4 (02:32→20:24)
[2021-07-09] MEDS: SODIUM CHLORIDE 0.9% IV 1,000 ML 125 ML IV CONT ×2 (03:44→17:24)
--- NOTE | 2021-07-09 06:03 | PC.NURSE ---
VRBO 1 L NS 999 ml/hr per Dr. Kramer
--- NOTE | 2021-07-09 08:16 | PC.NURSE ---
Spoke to Ann, made aware of fluctuating blood pressures, 3L IVF infused and 2 more liters infusing. Also made aware pt. alert and oriented. Central line and vasopressors discussed. No orders received at this time.
[2021-07-09 08:23] LABS: Estimated CRCL calculation 26 ml/min; Estimated Glomerular Filt Rate 28
[2021-07-09] MEDS: MIDODRINE HCL 10 MG TABLET PO (09:44)
--- NOTE | 2021-07-09 11:20 | WPDCNINT ---
Assessment and Plan Assessment and plan (1) Enterocolitis: Code(s): K52.9 - Noninfective gastroenteritis and colitis, unspecified Status: Acute Assessment and Plan: CT abdomen pelvis suggesting enterocolitis which could be C diff colitis I have discussed with internal medicine and recommended that antibiotics be changed to Flagyl cefepime and p.o. vancomycin to cover for Gram-negative rods and possible C diff Stool studies including C diff toxin is pending Patient is not having any nausea vomiting and wants to drink water and eat food which would be fine as long as she tolerates (2) Sepsis: Qualifiers: Sepsis type: sepsis due to unspecified organism Sepsis acute organ dysfunction status: with acute organ dysfunction Severe sepsis acute organ dysfunction type: acute respiratory failure Acute respiratory failure type: with hypoxia Severe sepsis shock status: without septic shock Qualified Code(s): A41.9 - Sepsis, unspecified organism; R65.20 - Severe sepsis without septic shock; J96.01 - Acute respiratory failure with hypoxia Code(s): A41.9 - Sepsis, unspecified organism Status: Acute Assessment and Plan: Patient met criteria for sepsis on presentation which is likely from enterocolitis Her lactic acid level is normal She has received adequate amount of IV fluids bolus and IV fluids will be continue Blood cultures have been sent and are pending C diff toxin is pending Antibiotics as above (3) Dehydration: Code(s): E86.0 - Dehydration Status: Acute Assessment and Plan: IV fluids (4) Hypotension due to hypovolemia: Code(s): I95.89 - Other hypotension; E86.1 - Hypovolemia Status: Acute Assessment and Plan: Patient received IV fluid bolus and her blood pressure is improved Her lactic acid is normal When I evaluated the patient her map was 90s with systolic above 100 I discussed with patient regarding potential need for vasopressors refer blood pressure dropped. I explained procedure of central line which may be needed in case she needs vasopressors. Patient absolutely refused central venous catheter. I offered her a 2nd and less than ideal option of PICC line which she finally agreed to. Obviously at this point patient does not need any vasopressors and does not need to come to ICU and can be managed on step-down unit. In case her blood pressure drops again, will transfer patient to ICU start her on Levophed.. Case discussed with internal medicine provider Mei (5) DRU (acute kidney injury): Code(s): N17.9 - Acute kidney failure, unspecified Status: Acute Assessment and Plan: Likely secondary to sepsis and hypotension Check renal ultrasound and CK level Creatinine already improving with IV fluids Monitor creatinine urine output and electrolytes Hospice Coordinator Consult Note Consult date: 07/09/21 HPI: Reason for consultation - Hypotension Isabel Jorgensen is a 65 year old female e with past medical history significant for chronic obstructive pulmonary disease, hypertension, fibromyalgia, GERD, insulin-dependent diabetes mellitus, peripheral neuropathy, bilateral AKA, wheelchair-bound, tobacco dependence, peripheral vascular disease, systolic congestive heart failure ejection fraction calculated at 35 to 40%, diastolic heart failure grade I. Recent left heart catheterization with no coronary artery disease. Patient resides at a nursing and she was brought in for yesterday for diarrhea for the last 2 days or so. Patient told me that she started having diarrhea 2 days ago and has been having multiple loose bowel movements which are brown in color over last 2 days. She denied any abdominal pain nausea vomiting chest pain shortness of breath or fever to me. She states that she has not had any fever and was not on any antibiotics recently. She denies taking any NSAIDs but does take morphine for her chronic pain. Review system was positive fo
[2021-07-09] MEDS: MORPHINE SULFATE (*CRX) 2 MG/ML INJ IV PUSH ×6 (11:53→22:23)
[2021-07-09] MEDS: VANCOMYCIN ORAL 125 MG/2.5 ML SYRUP PO ×2 (12:35→17:26)
[2021-07-09 13:36] LABS: Creatine Kinase 82 U/L (30-135)
--- NOTE | 2021-07-09 16:30 | PM.IMPN ---
Progress Note: A&P Assessment and Plan (1) Enterocolitis: Code(s): K52.9 - Noninfective gastroenteritis and colitis, unspecified Status: Acute Assessment and Plan: -CT abdomen pelvis suggesting enterocolitis which could be C diff colitis -Discussed with [employer] supervisor who recommends that antibiotics be changed to Flagyl cefepime and p.o. vancomycin to cover for Gram-negative rods and possible C diff -Stool studies including C diff toxin is pending -Patient is not having any nausea vomiting and wants to drink water and eat food which would be fine as long as she tolerates (2) Sepsis: Qualifiers: Sepsis type: sepsis due to unspecified organism Sepsis acute organ dysfunction status: with acute organ dysfunction Severe sepsis acute organ dysfunction type: acute respiratory failure Acute respiratory failure type: with hypoxia Severe sepsis shock status: without septic shock Qualified Code(s): A41.9 - Sepsis, unspecified organism; R65.20 - Severe sepsis without septic shock; J96.01 - Acute respiratory failure with hypoxia Code(s): A41.9 - Sepsis, unspecified organism Status: Acute Assessment and Plan: -Patient met criteria for sepsis on presentation which is likely from enterocolitis -Her lactic acid level is normal -She has received adequate amount of IV fluids bolus and IV fluids will be continue -Blood cultures have been sent and are pending -C diff toxin is pending -Antibiotics as above (3) Dehydration: Code(s): E86.0 - Dehydration Status: Acute Assessment and Plan: -IV fluids (4) Hypotension due to hypovolemia: Code(s): I95.89 - Other hypotension; E86.1 - Hypovolemia Status: Acute Assessment and Plan: -Patient received IV fluid bolus and her blood pressure is improved -Her lactic acid is normal -Was having soft pressures 90s/50s despite 4.5L bolus, asked [employer] tend[employer] supervisor to evaluate patient -When evaluated by [employer] tend[employer] supervisor her map was 90s with systolic above 100 -He discussed with patient regarding potential need for vasopressors if blood pressure dropped again. He explained procedure of central line which may be needed in case she needs vasopressors. Patient absolutely refused central venous catheter. He then offered her a second and less than ideal option of PICC line which she finally agreed to. -At this point patient does not need any vasopressors and does not need to go to ICU, will be closely monitored in IMU. In case her blood pressure drops again, will transfer patient to ICU start her on Levophed. -Will hold diuretics for now (5) DRU (acute kidney injury): Code(s): N17.9 - Acute kidney failure, unspecified Status: Acute Assessment and Plan: -Likely secondary to sepsis and hypotension -renal US mild bilateral renal atrophy -Creatinine already improving with IV fluids -Monitor creatinine urine output and electrolytes (6) Insulin dependent diabetes mellitus: Status: Acute Assessment and Plan: -Sliding scale, accuchecks, hypoglycemic protocol -Will possibly restart her Lantus but her blood sugar has been reasonably well controlled at this point without it, serum this morning was 181 Subjective Date/time seen: 07/09/21 07:30 Interval history: 65-year-old female with past medical history significant for chronic obstructive pulmonary disease, hypertension, fibromyalgia, GERD, insulin-dependent diabetes mellitus, peripheral neuropathy, bilateral AKA, wheelchair-bound, tobacco dependence, peripheral vascular disease, systolic congestive heart failure ejection fraction calculated at 35 to 40%, diastolic heart failure grade I. Recent left heart catheterization with no coronary artery disease. Admitted to hospital for colitis, possible C. Diff, and sepsis. I was called to patient's room early this morning due to low blood pressure. When I evaluated her she admitted to dizziness/lightheadn
[2021-07-09 17:10] LABS: Glucose Point of Care 133 mg/dl (65-105)
[2021-07-09 17:10] LABS: Glucose Point of Care 134 mg/dl (65-105)
[2021-07-09] MEDS: ENOXAPARIN 30 MG/0.3 ML SYRINGE SUB-Q (17:25)
--- NOTE | 2021-07-09 20:06 | ADMGEN ---
This patient, Isabel Jorgensen, was admitted to IMU Room 206-02 on 07/09/21 at 1543. Patient/family oriented to hospital policies and general routines including ID bracelet, bed and alarms, visiting hours, pain management, procedures, bathroom and other care routines, personal items, smoking policy, room service/diet, and visiting hours. Information on how to activate the Rapid Response Team has been discussed. Patient/Family are encouraged to report perceived risks to care and to ask questions if they do not understand what they are told or what they should do.
[2021-07-09] MEDS: ATORVASTATIN 40 MG TABLET PO (20:23)
[2021-07-09] MEDS: ALPRAZolam (*CRX) 0.5 MG TABLET 1 MG PO (20:23)
[2021-07-09] MEDS: GABAPENTIN 300 MG CAPSULE 600 MG PO (20:24)
[2021-07-09 20:25] LABS: Glucose Point of Care 138 mg/dl (65-105)
[2021-07-10] VITALS (12 sets, daily range): BP systolic 111–146; BP diastolic 43–91; PULSE 43–97; RESP 18–22; TEMP 36.1–36.6; O2SAT 97–100
[2021-07-10] MEDS: VANCOMYCIN ORAL 125 MG/2.5 ML SYRUP PO ×5 (00:35→23:26)
[2021-07-10] MEDS: MORPHINE SULFATE (*CRX) 2 MG/ML INJ IV PUSH ×5 (00:36→08:40)
[2021-07-10] MEDS: metroNIDAZOLE 500 MG/ISO 100ML 500 MG/100 ML BAG 100 MG IVPB ×4 (02:41→20:50)
[2021-07-10 05:48] LABS: Basophils Absolute Auto 0.1 K/mm3 (0.0-0.1); Eosinophils Absolute Auto 0.2 K/mm3 (0-0.3); Eosinophils Percent Auto 1.5 % (0-4.4); Hematocrit 37.4 % (37.0-47.0); Hemoglobin 11.3 g/dL (12.0-15.0); Immature Granulocyte Absolute 0.07 K/mm3 (0.00-0.031); Immature Granulocyte Percent A 0.6 % (0-0.5); Lymphocytes Absolute Auto 2.29 K/mm3 (0.9-3.2); Mean Corpuscular HGB Conc 30.2 g/dl (32-36); Mean Corpuscular Hemoglobin 27.4 pg (26-34); Mean Corpuscular Volume 90.8 fl (80-100); Mean Platelet Volume 9.7 fl (7.4-10.4); Monocytes Absolute Auto 0.8 K/mm3 (0.1-0.6); Monocytes Percent Auto 7.2 % (2.6-8.5); Neutrophils Percent Auto 69.7 % (45.5-73.1); Platelet Count Result 321 k/mm3 (150-375); Red Blood Count 4.12 M/mm3 (4.2-5.4); Red Cell Distribution Width 19.1 % (11.5-14.5); White Blood Count 11.4 K/mm3 (4.5-10.0)
[2021-07-10 06:20] LABS: Hemoglobin A1C 8.9 % (<5.7)
[2021-07-10] MEDS: GABAPENTIN 300 MG CAPSULE 600 MG PO ×3 (06:41→22:42)
[2021-07-10] MEDS: ENOXAPARIN 30 MG/0.3 ML SYRINGE SUB-Q (08:14)
[2021-07-10] MEDS: VENLAFAXINE HCL XR 75 MG CAP.ER.24H PO (08:15)
[2021-07-10] MEDS: CLOPIDOGREL BISULFATE 75 MG TABLET PO (08:15)
[2021-07-10] MEDS: PANTOPRAZOLE 40 MG TABLET PO (08:15)
[2021-07-10] MEDS: lisinopriL 10 MG TABLET PO (08:19)
[2021-07-10 08:20] LABS: Glucose Point of Care 101 mg/dl (65-105)
--- NOTE | 2021-07-10 08:55 | WPDGICN ---
Assessment and Plan Assessment and plan (1) Dehydration: Code(s): E86.0 - Dehydration Status: Acute Assessment and Plan: Patient admitted with dehydration on the basis of her diarrhea. She had hypotension at the time of presentation is improved with rehydration. Continued supportive care for now advised. (2) Enterocolitis: Code(s): K52.9 - Noninfective gastroenteritis and colitis, unspecified Status: Acute Assessment and Plan: Enterocolitis identified by CT scan suggest infectious etiology. Agree with stool cultures and broad-spectrum antibiotics. Air-fluid levels in the small bowel appeared to correlate with this finding. Await results of stool cultures and continue empiric antibiotics until this is accomplished. (3) Insulin dependent diabetes mellitus: Status: Acute (4) S/P AKA (above knee amputation) bilateral: Code(s): Z89.611 - Acquired absence of right leg above knee; Z89.612 - Acquired absence of left leg above knee Status: Acute (5) CHF (congestive heart failure): Code(s): I50.9 - Heart failure, unspecified Status: Acute (6) Pancreatic calcification: Code(s): K86.89 - Other specified diseases of pancreas Status: Acute Assessment and Plan: Pancreatic calcifications identified on CT scan. This that raises the suspicion of chronic pancreatitis. Patient has no history of pancreatitis in the past. If indeed she has chronic pancreatitis than pancreatic enzyme supplementation may be of some clinical benefit. She denies any ongoing diarrhea prior to her acute episode however. Stool for fecal elastase will be obtained to evaluate more thoroughly. Likely this is just a spurious finding however. GI Consult Note Consult date/time: 07/10/21 08:55 HPI: Isabel Jorgensen is a 65 year old female I am asked to see because of abnormal x-ray findings. Patient has an underlying history of COPD, hypertension, fibromyalgia, diabetes mellitus. She has bilateral above the knee amputations. Has been treated for congestive heart failure. Hospitalized for the same several months ago here at [facility]. Over the last 2-3 days she has had significant diarrhea associated with nausea and vomiting. For this reason she presented to the hospital. A CT scan was performed which raise the question of enterocolitis because of air-fluid levels throughout the small bowel. Calcifications in the pancreas were identified raising the question of chronic pancreatitis. Patient denies any significant alcohol intake. She has never been diagnosed with pancreatitis in the past. Her family history is noncontributory. Review of Systems Review of Systems: All systems reviewed & are unremarkable except as noted in HPI and below PMFSH Past Medical History Medical History (Updated 07/10/21 @ 08:58 by Uriel Young MD) Chronic pain COPD (chronic obstructive pulmonary disease) Depression Essential hypertension Fibromyalgia GERD (gastroesophageal reflux disease) Hyperlipidemia Insulin dependent diabetes mellitus Peripheral neuropathy Systolic CHF Surgical History Surgical History S/P AKA (above knee amputation) bilateral Family History Family History Mother Lung cancer Father Heart disease Other Unknown family medical history Social History Social History Social History: She resides at [facility]. Primary care provider: Yamileth Perez NP Code status: Full code (per retirement records) Surrogate decision maker: Ariana Addison (daughter) Smoking packs per day: 0.5 Smoking cigarettes per day: 10.0 Years smoked: 50 Smoking pack-years: 25.00 Smoking status: Current every day smoker Tobacco type: cigarettes Alcohol intake: never Substance use: never
[2021-07-10] MEDS: MORPHINE SULFATE (*CRX) 30 MG TABCR PO ×2 (10:08→20:50)
[2021-07-10 10:13] LABS: Alanine Aminotransferase 10 U/L (4-35); Albumin Level 3.1 g/dL (3.5-5.1); Alkaline Phosphatase 138 U/L (38-126); Anion Gap 13 mmol/L (8-16); Aspartate Amino Transferase 17 U/L (14-36); Bilirubin,Total 0.2 mg/dL (0.2-1.3); Blood Urea Nitrogen 21 mg/dL (7-17); Calcium 8.2 mg/dL (8.4-10.2); Carbon Dioxide 13 mmol/L (22-30); Chloride 114 mmol/L (98-107); Estimated CRCL calculation 45 ml/min; Estimated Glomerular Filt Rate 56; Glucose 101 mg/dL (65-110); Potassium 3.6 mmol/L (3.4-5.0); Sodium 140 mmol/L (137-145)
[2021-07-10 11:42] LABS: Glucose Point of Care 93 mg/dl (65-105)
[2021-07-10] MEDS: SILVERGEL (ELTA) 45 ML 1 APPLIC TOPICAL (12:07)
[2021-07-10] MEDS: SODIUM CHLORIDE 0.9% IV 1,000 ML 125 ML IV CONT (12:13)
[2021-07-10] MEDS: MORPHINE SULFATE (*CRX) 15 MG TAB IR PO (15:54)
[2021-07-10 17:13] LABS: Glucose Point of Care 160 mg/dl (65-105)
--- NOTE | 2021-07-10 17:40 | PM.IMPN ---
Progress Note: A&P Assessment and Plan (1) Enterocolitis: Code(s): K52.9 - Noninfective gastroenteritis and colitis, unspecified Status: Acute Assessment and Plan: -CT abdomen pelvis suggesting enterocolitis which could be C diff colitis -Discussed with supervisor customer records division who recommends that antibiotics be changed to Flagyl cefepime and p.o. vancomycin to cover for Gram-negative rods and possible C diff -Stool studies including C diff toxin is pending -Patient is not having any nausea vomiting and wants to drink water and eat food which would be fine as long as she tolerates (2) Sepsis: Qualifiers: Sepsis type: sepsis due to unspecified organism Sepsis acute organ dysfunction status: with acute organ dysfunction Severe sepsis acute organ dysfunction type: acute respiratory failure Acute respiratory failure type: with hypoxia Severe sepsis shock status: without septic shock Qualified Code(s): A41.9 - Sepsis, unspecified organism; R65.20 - Severe sepsis without septic shock; J96.01 - Acute respiratory failure with hypoxia Code(s): A41.9 - Sepsis, unspecified organism Status: Acute Assessment and Plan: -Patient met criteria for sepsis on presentation which is likely from enterocolitis -Her lactic acid level is normal -She has received adequate amount of IV fluids bolus and IV fluids will be continued -Blood cultures have been sent and are pending, no growth to date -C diff toxin is pending -Antibiotics as above (3) Dehydration: Code(s): E86.0 - Dehydration Status: Acute Assessment and Plan: -IV fluids (4) Hypotension due to hypovolemia: Code(s): I95.89 - Other hypotension; E86.1 - Hypovolemia Status: Acute Assessment and Plan: -Patient received IV fluid bolus and her blood pressure is improved -Her lactic acid is normal -Was having soft pressures 90s/50s despite 4.5L bolus, asked supervisor customer records division to evaluate patient -When evaluated by supervisor customer records division her map was 90s with systolic above 100 -He discussed with patient regarding potential need for vasopressors if blood pressure dropped again. He explained procedure of central line which may be needed in case she needs vasopressors. Patient absolutely refused central venous catheter. He then offered her a second and less than ideal option of PICC line which she finally agreed to. -At this point patient does not need any vasopressors and does not need to go to ICU, will be closely monitored in IMU. In case her blood pressure drops again, will transfer patient to ICU start her on Levophed. -Will hold diuretics for now -Pt now refusing PICC line, this order was canceled as her blood pressure has stabilized. (5) DRU (acute kidney injury): Code(s): N17.9 - Acute kidney failure, unspecified Status: Acute Assessment and Plan: -Likely secondary to sepsis and hypotension -renal US mild bilateral renal atrophy -Creatinine already improving with IV fluids -Monitor creatinine urine output and electrolytes (6) Insulin dependent diabetes mellitus: Status: Acute Assessment and Plan: -Sliding scale, accuchecks, hypoglycemic protocol -Will possibly restart her Lantus but her blood sugar has been reasonably well controlled at this point without it, serum this morning was 101 Subjective Date/time seen: 07/10/21 10:40 Interval history: 65-year-old female with past medical history significant for chronic obstructive pulmonary disease, hypertension, fibromyalgia, GERD, insulin-dependent diabetes mellitus, peripheral neuropathy, bilateral AKA, wheelchair-bound, tobacco dependence, peripheral vascular disease, systolic congestive heart failure ejection fraction calculated at 35 to 40%, diastolic heart failure grade I. Recent left heart catheterization with no coronary artery disease. Admitted to hospital for colitis, possible C. Diff, and sepsis. Pt is feeling much b
[2021-07-10] MEDS: ONDANSETRON INJ 4 MG/2 ML VIAL IV PUSH ×2 (17:55→23:07)
[2021-07-10] MEDS: ALPRAZolam (*CRX) 0.5 MG TABLET 1 MG PO (18:32)
[2021-07-10] MEDS: ATORVASTATIN 40 MG TABLET PO (20:50)
[2021-07-11] VITALS (29 sets, daily range): BP systolic 67–157; BP diastolic 37–93; PULSE 58–128; RESP 18–36; TEMP 35.9–37.3; O2SAT 88–100
[2021-07-11 00:16] LABS: Hematocrit 32.4 % (37.0-47.0); Hemoglobin 9.8 g/dL (12.0-15.0)
[2021-07-11 00:34] LABS: IFOB Positive Control Positive; Immunochemical Fecal Occult Bl Positive (N)
[2021-07-11] MEDS: PANTOPRAZOLE SODIUM IV 40 MG VIAL IV PUSH (00:35)
[2021-07-11] MEDS: metroNIDAZOLE 500 MG/ISO 100ML 500 MG/100 ML BAG 100 MG IVPB ×4 (03:38→20:19)
--- NOTE | 2021-07-11 03:45 | PC.NURSE ---
patient developed a gi bleed a little before midnight. dr hernandez was called and orders placed. she had 1 lg dark red stool at that time. patient has had 2 more since. h&h has been checked. dr gupta is aware and no further orders than what was given by dr hernandez. patient has been screeming out non-stop. patient is cursing and banging her call light on her bedside. patient is calling the director telemetry and telling her that we are not helping her. we are in the room every 5 to 10 min. sometimes more. she is angry because she can't have water. she was throwing up and was made npo. she is angry because she cannot have more pain meds at this time. patient has been made aware of what is going on. but wants someone in her room continuously, which she has stated. she calls out as soon as someone leaves the room. she demands things right away and does not give staff time to even walk to her room before she calls out again for the same thing. will continue to monitor patient and try to control her outburst. she is also angry that she cannot have her xanex. she is not due at this time.
[2021-07-11 04:27] LABS: Basophils Absolute Auto 0.1 K/mm3 (0.0-0.1); Eosinophils Percent Auto 0.2 % (0-4.4); Hematocrit 25.2 % (37.0-47.0); Hemoglobin 7.8 g/dL (12.0-15.0); Immature Granulocyte Absolute 0.16 K/mm3 (0.00-0.031); Immature Granulocyte Percent A 1.2 % (0-0.5); Lymphocytes Absolute Auto 2.36 K/mm3 (0.9-3.2); Lymphocytes Percent Auto 17.6 % (18.3-44.2); Mean Corpuscular Volume 90.3 fl (80-100); Mean Platelet Volume 10.2 fl (7.4-10.4); Monocytes Absolute Auto 0.7 K/mm3 (0.1-0.6); Monocytes Percent Auto 5.4 % (2.6-8.5); Neutrophils Percent Auto 74.6 % (45.5-73.1); Platelet Count Result 375 k/mm3 (150-375); Red Blood Count 2.79 M/mm3 (4.2-5.4); White Blood Count 13.4 K/mm3 (4.5-10.0)
[2021-07-11] MEDS: SODIUM CHLORIDE 0.9% IV 1,000 ML 999 ML IV CONT ×2 (04:30→05:30)
[2021-07-11 04:41] LABS: Alanine Aminotransferase 11 U/L (4-35); Albumin Level 2.6 g/dL (3.5-5.1); Alkaline Phosphatase 101 U/L (38-126); Anion Gap 13 mmol/L (8-16); Aspartate Amino Transferase 15 U/L (14-36); Bilirubin,Total 0.3 mg/dL (0.2-1.3); Blood Urea Nitrogen 22 mg/dL (7-17); Calcium 7.6 mg/dL (8.4-10.2); Carbon Dioxide 13 mmol/L (22-30); Chloride 118 mmol/L (98-107); Estimated CRCL calculation 55 ml/min; Estimated Glomerular Filt Rate > 60; Glucose 226 mg/dL (65-110); Potassium 4.2 mmol/L (3.4-5.0); Sodium 144 mmol/L (137-145)
[2021-07-11 05:28] LABS: INR 1.7; Prothrombin Time 19.3 Seconds (11.1-14.7)
--- NOTE | 2021-07-11 05:30 | PM.EVENT ---
Event Note Event Note Event Note: called for hypotension. she had large bloody bowel movment earlier today, vitals were stable. h and h came back at 9.5. another large bloody bowel movement again. bp in 60 systolic. IVF bolus ordered. bp improved to 80s to 90s. tachycardic in 120s. repeat h and h. start protonix gtt. patient alert and oriented x 3. Strict NPO. GI already on board. diagnosed C diff colitis. ttype and cross match 2 units prbc and transfuse stat. monitor h and H q6hrs. ivf resuscitation as ordered. hold lovenox and aspirin. check coagulation profile. newest h and h down to 7.8 platelet normal. INR slightly elevated at 1.7. will give vitamin K x 1. CCT 35 minutes
[2021-07-11] MEDS: SODIUM CHLORIDE 0.9% IV 1,000 ML 50 ML IV CONT (05:56)
[2021-07-11] MEDS: PHYTONADIONE ADULT INJ 10 MG in DEXTROSE 5% IN WATER 50 ML 100 MG IVPB (06:27)
[2021-07-11] MEDS: VANCOMYCIN ORAL 125 MG/2.5 ML SYRUP PO ×2 (06:27→18:28)
--- NOTE | 2021-07-11 06:38 | PC.NURSE ---
patient had a copious amt of liquid dark blood stool. patient started to become more confused. pale, restless. patients blood pressure was taken and was in the 60-systolic. rapid was called to get assistance fast and more hands on deck. ns bolus started and protonix gtt ordered. dr hernandez ordered more meds and labs. patients vitals and labs are charted. sitting with patient so she doesn't climb out of bed or fall out. blood ordered and patient crossmatched. waiting for blood.
[2021-07-11] MEDS: SODIUM CHLORIDE 0.9% IV 250 ML 999 ML IV CONT (07:02)
--- NOTE | 2021-07-11 07:19 | PC.NURSE ---
patient is sitting up and laying down repeatedly. patient is non-stop crying and talking. patient is constantly not letting anyone leave her. patient is having small liquid dark red stools. dr gupta is aware. still awaiting blood to give to patient.
--- NOTE | 2021-07-11 08:42 | PM.IMPN ---
Progress Note: A&P Assessment and Plan (1) Shock: Code(s): R57.9 - Shock, unspecified Status: Acute Assessment and Plan: Patient presented with nausea, vomiting and diarrhea and found to have enterocolitis. In the ED, she was noted to have shock with a blood pressure 73/49. She was fluid responsive. Hemoglobin was 15.9 to suggest hemoconcentration. She also had acute kidney injury related to dehydration. With IV hydration, blood pressure improved. It was felt that she had septic vs hypovolemic shock on presentation. Patient was refusing central line and PICC line. Overnight, patient's blood pressure dropped significantly associated with large bloody bowel movements. Hemoglobin has dropped to 7.8. His felt patient now has hypovolemic shock. She remains a full code. She is agreeable for PICC line in order has been placed. Will repeat lactic acid. Serial H&H. She is only on 50 mL an hour normal saline will increases to 100. EGD being planned if she remains stable. Will discuss with steam plant control room operator. Stop lisinopril. Hold MS Contin for now. 40 minutes spent on critical care time (2) GI bleed: Code(s): K92.2 - Gastrointestinal hemorrhage, unspecified Status: Acute Assessment and Plan: Patient developed multiple bloody bowel movements overnight. Hemoglobin was 15.9 on admission but suspect this was related to hemoconcentration. With IV fluids, hemoglobin did drop to 11.3 which is closer to her baseline. Overnight however her hemoglobin has dropped to 7.8 related to the acute blood loss anemia. Transfusion has been ordered and is pending. GI is aware with plans for EGD today. She is now on a Protonix drip. Check serial H&H after transfusion. Will notify steam plant control room operator. (3) Acute blood loss anemia: Code(s): D62 - Acute posthemorrhagic anemia Status: Acute Assessment and Plan: As above (4) Sepsis: Qualifiers: Acute respiratory failure type: with hypoxia Sepsis acute organ dysfunction status: with acute organ dysfunction Sepsis type: sepsis due to unspecified organism Severe sepsis acute organ dysfunction type: acute respiratory failure Severe sepsis shock status: without septic shock Qualified Code(s): A41.9 - Sepsis, unspecified organism; R65.20 - Severe sepsis without septic shock; J96.01 - Acute respiratory failure with hypoxia Code(s): A41.9 - Sepsis, unspecified organism Status: Acute Assessment and Plan: Patient met criteria for sepsis on presentation related to the enterocolitis. Stool indeterminate for C diff. Lactic acid was normal on admission. She did receive the appropriate amount fluid in the ED. Blood cultures are no growth to date. Continue current antibiotics. (5) Enterocolitis: Code(s): K52.9 - Noninfective gastroenteritis and colitis, unspecified Status: Acute Assessment and Plan: Patient presents with complaints of nausea, vomiting and diarrhea. CT abdomen pelvis suggesting enterocolitis. She was currently on IV Flagyl and cefepime. Oral vancomycin also has been added. Stool for C diff is indeterminate and has been sent off for PCR testing. The nausea and vomiting has resolved. White count better overall. Continue current treatment plan. (6) DRU (acute kidney injury): Code(s): N17.9 - Acute kidney failure, unspecified Status: Acute Assessment and Plan: Patient with a normal baseline renal function. BUN 26 and Cr 2.2 on admission. Likely secondary to sepsis and hypotension. Renal US showing mild bilateral renal atrophy. With IV fluids renal function has normalized. Acute kidney injury has resolved. Continue to monitor (7) Insulin dependent diabetes mellitus: Status: Acute Assessment and Plan: A1c 8.9. The patient's blood glucose was reviewed on 07/11 Glucose remains reasonably well controlled. Continue AccuCheks covering with sliding scale. Hypogl
[2021-07-11] MEDS: SODIUM CHLORIDE 0.9% IV 1,000 ML 100 ML IV CONT (09:13)
[2021-07-11 09:43] LABS: Hematocrit 16.8 % (37.0-47.0); Hemoglobin 5.1 g/dL (12.0-15.0)
--- NOTE | 2021-07-11 10:27 | PCOTNOTE ---
Attempted to see for evaluation. Per nurse report, pt. is receiving blood, not stable, and not appropriate for therapy at this time
[2021-07-11] MEDS: SODIUM BICARBONATE 8.4% 50 MEQ/50 ML SYRINGE IV PUSH (11:05)
[2021-07-11] MEDS: SILVERGEL (ELTA) 45 ML 1 APPLIC TOPICAL (11:07)
[2021-07-11 11:12] LABS: Magnesium 1.9 mg/dL (1.6-2.3)
--- NOTE | 2021-07-11 11:30 | PC.NURSE ---
Patient to GI lab via stretcher. Report given to MED Carlin.
--- NOTE | 2021-07-11 11:54 | WPDANESEPPF ---
Anes - Initial Pre Proc Eval Procedure: Operation Date: 07/11/21 13:00 Proposed Procedures p Esophagogastroduodenoscopy - Uriel Young MD Date/Time: 07/11/21 11:54 Surgeon: Monika Salas PA-C Pre Op Diagnosis: dehydration Patient Data Age: 65 Gender: F Height: 1.68 m Weight: 57.1 kg Last Vital Signs Temp 36.9 C 07/11/21 11:35 Pulse 120 H 07/11/21 11:35 Resp 20 07/11/21 11:35 BP 104/50 L 07/11/21 11:35 Pulse Ox 92 07/11/21 11:35 Allergies Allergy/AdvReac Type Severity Reaction Status Date / Time metformin Allergy Unknown Verified 07/08/21 19:48 Sulfa (Sulfonamide Allergy Unknown Verified 07/08/21 19:48 Antibiotics) Home Medications Medication Instructions Recorded Confirmed Type Humalog U-100 Insulin See Rx Instructions .ROUTE .COMPLEX 12/24/20 07/09/21 History Lantus Solostar U-100 Insulin 50 units SUBCUT DAILY 12/24/20 07/09/21 History albuterol sulfate [ProAir HFA] 2 puff INHALATION Q6H PRN 12/24/20 07/09/21 History alprazolam 1 mg PO BID PRN 12/24/20 07/09/21 History atorvastatin 40 mg PO HS 12/24/20 07/09/21 History clopidogrel 75 mg PO DAILY 12/24/20 07/09/21 History methocarbamol 1,500 mg PO TID PRN 12/24/20 07/09/21 History morphine 15 mg PO Q6H PRN 12/24/20 07/09/21 History morphine [MS Contin] 30 mg PO Q12H 12/24/20 07/09/21 History nystatin See Rx Instructions .ROUTE .COMPLEX 12/24/20 07/09/21 History gabapentin 800 mg PO TID 12/25/20 07/09/21 History pantoprazole 40 mg PO QAM 12/25/20 07/09/21 History atenolol 25 mg PO DAILY 03/02/21 07/09/21 History furosemide 80 mg PO DAILY 30 Days #60 tablet 03/07/21 07/09/21 Rx spironolactone 25 mg PO QAM 30 Days #30 tablet 03/07/21 07/09/21 Rx lisinopril 2.5 mg PO DAILY 07/09/21 07/09/21 History losartan 100 mg PO DAILY 07/09/21 07/09/21 History venlafaxine 112.5 mg PO DAILY 07/09/21 07/09/21 History Laboratory Tests 07/10/21 07/11/21 07/11/21 16:56 00:05 00:08 WBC RBC Hgb 9.8 g/dL L g/dL (12.0-15.0) Hct 32.4 % L % (37.0-47.0) MCV MCH MCHC RDW Plt Count MPV Immature Gran % (Auto) Neut % (Auto) Lymph % (Auto) Parker % (Auto) Eos % (Auto) Baso % (Auto) Lymph # (Auto) Parker # (Auto) Eos # (Auto) Baso # (Auto) Abs Immat Gran (auto) Absolute Neuts (auto) Absolute Nucleated RBC Nucleated RBC % PT INR Sodium Potassium Chloride Carbon Dioxide Anion Gap BUN Creatinine Estim Creat Clear Calc Estimated GFR Glucose POC Capillary Glucose 160 mg/dl H mg/dl (65-105) Calcium Magnesium Total Bilirubin AST ALT Alkaline Phosphatase Total Protein Albumin Stl Occult Blood (IFOB) Stool Pancreat Elastase Pending Blood Type Antibody Screen Crossmatch 07/11/21 07/11/21 07/11/21 00:08 04:11 04:16 WBC 13.4 K/mm3 H K/mm3 (4.5-10.0) RBC 2.79 M/mm3 L M/mm3 (4.2-5.4) Hgb 7.8 g/dL L g/dL (12.0-15.0) Hct 25.2 % L % (37.0-47.0) MCV 90.3 fl fl (80-100) MCH 28.0 pg pg (26-34) MCHC 31.0 g/dl L g/dl (32-36) RDW 19.0 % H % (11.5-14.5) Plt Count 375 k/mm3 k/mm3 (150-375) MPV 10.2 fl fl (7.4-10.4) Immature Gran % (Auto) 1.2 % H % (0-0.5) Neut % (Auto) 74.6 % H % (45.5-73.1) Lymph % (Auto) 17.6 % L % (18.3-44.2) Parker % (Auto) 5.4 % % (2.6-8.5) Eos % (Auto) 0.2 % % (0-4.
[2021-07-11] MEDS: LACTATED RINGERS 1,000 ML 150 ML IV CONT (12:09)
[2021-07-11] MEDS: LIDOCAINE HCL 1% PF INJ 5 ML VIAL INFILTRATE (13:15)
[2021-07-11] MEDS: EPINEPHrine INJ 1 MG/10 ML SYRINGE 0.15 MG XX (14:12)
--- NOTE | 2021-07-11 14:14 | WPDGIPROGNO ---
Progress Note: A&P Assessment and Plan (1) GI bleed: Code(s): K92.2 - Gastrointestinal hemorrhage, unspecified Status: Acute Assessment and Plan: GI bleeding throughout the ED evening morning appears rather significant. Hemoglobin 5.1 this morning. She has received 2units of packed cells subsequently. Now status post cautery of duodenal ulcer. Plan to transfuse to stable hemoglobin. Continue to monitor hemoglobin closely. (2) Duodenal ulcer: Code(s): K26.9 - Duodenal ulcer, unspecified as acute or chronic, without hemorrhage or perforation Status: Acute Assessment and Plan: Duodenal ulcerations are noted 1 of them had a visible vessel and adherent clot consistent with massive bleeding. This area is injected with epinephrine and cauterized. No additional bleeding noted at this time. We will continue pantoprazole. Monitor closely for signs of additional bleeding. (3) Pancreatic calcification: Code(s): K86.89 - Other specified diseases of pancreas Status: Acute Assessment and Plan: CT scan reveals pancreatic calcification consistent with possible chronic pancreatitis. This appears incidental at present. Continue monitor conservatively for now. (4) S/P AKA (above knee amputation) bilateral: Code(s): Z89.611 - Acquired absence of right leg above knee; Z89.612 - Acquired absence of left leg above knee Status: Acute (5) Bacterial enterocolitis: Code(s): A04.9 - Bacterial intestinal infection, unspecified Status: Acute Assessment and Plan: At the time of admission patient appears to have had colitis this is appears to be bacterial. C difficile is being excluded. Continue broad-spectrum antibiotic coverage for the immediate future. 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 Dark stool described. Patient became somewhat hypotensive. Patient has now been transfused and an EGD was performed which confirmed duodenal ulcer. Patient continues to complain of phantom will leg pain. Also complains of hip pain. Review of Systems Review of Systems: All systems reviewed & are unremarkable except as noted in HPI and below Exam Narrative: Physical exam reveals her to be alert. Uncomfortable because a hip pain. No vomiting noted. HEENT exam reveals no icterus. Lungs are clear. Heart without murmur. Abdomen bowel sounds present soft nontender rectal exam with maroon to dark stool. Objective Data Vital Signs Vital Signs: Vital Signs - 24 hr 07/10/21 16:00 07/10/21 18:00 07/10/21 20:00 Temperature 97.3 F L 97.0 F L Pulse Rate 43 L 87 89 Respiratory Rate 18 18 Blood Pressure 146/43 H 111/47 L Pulse Oximetry 98 100 07/10/21 22:00 07/11/21 00:00 07/11/21 02:00 Temperature 97.6 F Pulse Rate 97 114 H 126 H Respiratory Rate 20 Blood Pressure 90/58 L Pulse Oximetry 100 07/11/21 04:00 07/11/21 04:30 07/11/21 06:00 Temperature 97.5 F L Pulse Rate 122 H 127 H Respiratory Rate 24 H Blood Pressure 91/44 L 67/54 L Pulse Oximetry 92 07/11/21 06:36 07/11/21 06:37 07/11/21 07:15 Temperature Pulse Rate Respiratory Rate Blood Pressure 98/57 L 101/79 135/93 H Pulse Oximetry 07/11/21 07:45 07/11/21 08:00 07/11/21 09:34 Temperature 97.8 F 97.6 F Pulse Rate 128 H 113 H 113 H Respiratory Rate 24 H 20 20 Blood Pressure 67/54 L 93/47 L 102/53 L Pulse Oximetry 100 88 L 100 07/11/21 09:51 07/11/21 10:00 07/11/21 10:51 Temperature 97.7 F 99.1 F Pulse Rate 109 H 103 H 115 H Respiratory Rate 20 36 H Blood Pressure 104/47 L 99/37 L Pulse Oximetry 100 100 07/11/21 11:35 07/11/21 11:52 07/11/21 12:07 Temperature 98.4 F 98.4 F 98.4 F Pulse Rate 120 H 97 86 Respiratory Rate 20 20 20 Blood Pressure 104/50 L 125/56 L 126/63 Pulse Oximetry 92 100 100 07/11/21 12:52 Temperature 98.2 F Pulse Rat
--- NOTE | 2021-07-11 14:23 | SUR.PHASEII ---
Report called to [facility] on [facility] @ 2049.
--- NOTE | 2021-07-11 14:48 | PC.NURSE ---
Patient returned from GI lab.
[2021-07-11 14:50] LABS: Glucose Point of Care 193 mg/dl (65-105)
[2021-07-11 14:50] LABS: Glucose Point of Care 183 mg/dl (65-105)
[2021-07-11 16:17] LABS: Hematocrit 22.4 % (37.0-47.0); Hemoglobin 7.4 g/dL (12.0-15.0)
[2021-07-11] MEDS: MAGNESIUM SULF 1 GM/D5W 100 ML 1 GM/100 ML BAG IVPB (16:23)
[2021-07-11 16:25] LABS: Lactic Acid Reflex 0.6 mmol/L (0.7-2.1)
[2021-07-11] MEDS: HYDROcodone/acetaminophen (*CRX) 5-325 MG TABLET 1 TAB PO (17:13)
[2021-07-11] MEDS: GABAPENTIN 300 MG CAPSULE 600 MG PO ×2 (17:14→20:19)
[2021-07-11 17:36] LABS: Glucose Point of Care 209 mg/dl (65-105)
[2021-07-11] MEDS: INSULIN ASPART (*BKC) 100 UNITS/ML SUB-Q (18:28)
[2021-07-11] MEDS: ATORVASTATIN 40 MG TABLET PO (20:19)
[2021-07-11] MEDS: MORPHINE SULFATE (*CRX) 30 MG TABCR PO (20:20)
[2021-07-11] MEDS: CENTRAL LINE FLUSH 10 ML IV PUSH (20:21)
[2021-07-11] MEDS: ALPRAZolam (*CRX) 0.5 MG TABLET 1 MG PO (20:22)
[2021-07-11 22:05] LABS: Glucose Point of Care 274 mg/dl (65-105)
[2021-07-11 22:13] LABS: Hemoglobin 6.6 g/dL (12.0-15.0)
[2021-07-12] VITALS (18 sets, daily range): BP systolic 117–164; BP diastolic 54–79; PULSE 43–108; RESP 16–24; TEMP 35.9–37.2; O2SAT 97–100
[2021-07-12] MEDS: VANCOMYCIN ORAL 125 MG/2.5 ML SYRUP PO ×2 (01:52→05:00)
[2021-07-12] MEDS: metroNIDAZOLE 500 MG/ISO 100ML 500 MG/100 ML BAG 100 MG IVPB ×4 (04:59→20:19)
[2021-07-12] MEDS: GABAPENTIN 300 MG CAPSULE 600 MG PO (05:00)
[2021-07-12] MEDS: CENTRAL LINE FLUSH 10 ML IV PUSH ×3 (05:01→21:53)
[2021-07-12 05:27] LABS: Basophils Absolute Auto 0.1 K/mm3 (0.0-0.1); Basophils Percent Auto 0.9 % (0.2-1.2); Eosinophils Absolute Auto 0.1 K/mm3 (0-0.3); Eosinophils Percent Auto 0.9 % (0-4.4); Hematocrit 31.3 % (37.0-47.0); Hemoglobin 10.3 g/dL (12.0-15.0); Immature Granulocyte Absolute 0.17 K/mm3 (0.00-0.031); Immature Granulocyte Percent A 1.4 % (0-0.5); Lymphocytes Absolute Auto 2.74 K/mm3 (0.9-3.2); Lymphocytes Percent Auto 22.4 % (18.3-44.2); Mean Corpuscular HGB Conc 32.9 g/dl (32-36); Mean Corpuscular Hemoglobin 28.5 pg (26-34); Mean Corpuscular Volume 86.5 fl (80-100); Mean Platelet Volume 10.2 fl (7.4-10.4); Monocytes Absolute Auto 0.8 K/mm3 (0.1-0.6); Monocytes Percent Auto 6.8 % (2.6-8.5); Neutrophils Absolute Auto 8.3 K/mm3 (1.3-6.7); Neutrophils Percent Auto 67.6 % (45.5-73.1); Platelet Count Result 179 k/mm3 (150-375); Red Blood Count 3.62 M/mm3 (4.2-5.4); Red Cell Distribution Width 17.7 % (11.5-14.5); White Blood Count 12.2 K/mm3 (4.5-10.0)
[2021-07-12 05:45] LABS: Lactic Acid Reflex 0.7 mmol/L (0.7-2.1)
[2021-07-12 05:56] LABS: Alanine Aminotransferase 11 U/L (4-35); Albumin Level 2.5 g/dL (3.5-5.1); Alkaline Phosphatase 85 U/L (38-126); Anion Gap 3 mmol/L (8-16); Aspartate Amino Transferase 20 U/L (14-36); Bilirubin,Total 0.4 mg/dL (0.2-1.3); Blood Urea Nitrogen 11 mg/dL (7-17); CRP 1.7 mg/dL (<1.0); Calcium 7.6 mg/dL (8.4-10.2); Carbon Dioxide 19 mmol/L (22-30); Chloride 116 mmol/L (98-107); Estimated CRCL calculation 84 ml/min; Estimated Glomerular Filt Rate > 60; Glucose 238 mg/dL (65-110); Potassium 3.3 mmol/L (3.4-5.0); Sodium 138 mmol/L (137-145)
[2021-07-12 06:33] LABS: Vancomycin Trough < 5.0 ug/mL (10.0-20.0)
--- NOTE | 2021-07-12 08:26 | PCOTNOTE ---
Attempted to see for evaluation. Pt. on hold d/t not being consistently medically stable. Will follow-up when pt. is able to participate in evaluation.
--- NOTE | 2021-07-12 08:26 | WPDGIPROGNO ---
Progress Note: A&P Assessment and Plan (1) Duodenal ulcer: Code(s): K26.9 - Duodenal ulcer, unspecified as acute or chronic, without hemorrhage or perforation Status: Acute Assessment and Plan: Duodenal ulcer with visible vessel was cauterized yesterday and injected with epinephrine. Currently stable. Plan to advance diet today day. Continue PPI therapy long-term. Avoid NSAIDs. (2) Acute blood loss anemia: Code(s): D62 - Acute posthemorrhagic anemia Status: Acute Assessment and Plan: Anemia from blood loss. This is improved after transfusion. Continue to monitor with daily while hospitalized. (3) Pancreatic calcification: Code(s): K86.89 - Other specified diseases of pancreas Status: Acute Assessment and Plan: Patient has calcifications of pancreas on CT scan. Probably not clinically significant. Suggest she may have chronic pancreatitis. (4) CHF (congestive heart failure): Code(s): I50.9 - Heart failure, unspecified Status: Acute (5) S/P AKA (above knee amputation) bilateral: Code(s): Z89.611 - Acquired absence of right leg above knee; Z89.612 - Acquired absence of left leg above knee Status: Acute (6) Bacterial enterocolitis: Code(s): A04.9 - Bacterial intestinal infection, unspecified Status: Acute Assessment and Plan: Diarrhea secondary to enteritis. Agree with broad-spectrum antibiotics for 7-10 days. C difficile has been excluded. Subjective Date/time seen: 07/12/21 08:26 Patient alert more comfortable this morning. Denies abdominal pain. No additional diarrhea stools. Denies abdominal pain. Her hemoglobin is improved overnight. Review of Systems Review of Systems: All systems reviewed & are unremarkable except as noted in HPI and below Exam Narrative: Physical exam reveals patient be alert. Vital signs stable. HEENT exam reveals no icterus. Lungs are clear. Heart without murmur. Abdomen bowel sounds present soft nontender with no organomegaly. Bilateral above the knee amputations noted. Objective Data Vital Signs Vital Signs: Vital Signs - 24 hr 07/11/21 09:00 07/11/21 09:34 07/11/21 09:51 Temperature 97.6 F 97.7 F Pulse Rate 113 H 109 H Respiratory Rate 20 20 Blood Pressure 102/53 L 104/47 L Pulse Oximetry 100 100 100 07/11/21 10:00 07/11/21 10:51 07/11/21 11:35 Temperature 99.1 F 98.4 F Pulse Rate 103 H 115 H 120 H Respiratory Rate 36 H 20 Blood Pressure 99/37 L 104/50 L Pulse Oximetry 100 92 07/11/21 11:52 07/11/21 12:01 07/11/21 12:07 Temperature 98.4 F 97.9 F 98.4 F Pulse Rate 97 98 86 Respiratory Rate 20 18 20 Blood Pressure 125/56 L 124/59 L 126/63 Pulse Oximetry 100 98 100 07/11/21 12:52 07/11/21 14:11 07/11/21 14:21 Temperature 98.2 F 98.4 F Pulse Rate 100 58 L 100 Respiratory Rate 21 H 20 22 H Blood Pressure 145/70 H 157/57 H 157/58 H Pulse Oximetry 100 100 100 07/11/21 14:31 07/11/21 16:00 07/11/21 18:00 Temperature Pulse Rate 102 H 89 100 Respiratory Rate 22 H Blood Pressure 157/58 H Pulse Oximetry 100 100 07/11/21 20:00 07/11/21 22:00 07/11/21 22:49 Temperature 97.6 F 96.6 F L Pulse Rate 102 H 95 94 Respiratory Rate 18 18 Blood Pressure 93/50 L 104/61 Pulse Oximetry 95 98 07/11/21 23:05 07/12/21 00:00 07/12/21 00:05 Temperature 96.7 F L 97.0 F L Pulse Rate 98 96 101 H Respiratory Rate 18 18 20 Blood Pressure 122/65 146/70 H Pulse Oximetry 100 100 100 07/12/21 01:05 07/12/21 01:20 07/12/21 01:35 Temperature 98.2 F 96.8 F L 96.7 F L Pulse Rate 98 82 90 Respiratory Rate 24 H 18 18 Blood Pressure 164/72 H 164/72 H 141/54 H Pulse Oximetry 100 100 97 07/12/21 02:00 07/12/21 02:35 07/12/21 03:35 Temperature 98.0 F 98.2 F Pulse Rate 86 95 103 H Respiratory Rate 20 20 Blood Pressure 117/56 L 148/79 H Pulse Oximetry 100 98 07/12/21 04:00 07/12/21 06:00 Temperature Pulse Rate 108
[2021-07-12] MEDS: POTASSIUM CHLORIDE 20 MEQ PACKET (FOR LIQUID) 40 MEQ PO (08:34)
[2021-07-12] MEDS: SODIUM BICARBONATE 8.4% 50 MEQ/50 ML SYRINGE IV PUSH (08:36)
[2021-07-12] MEDS: INSULIN ASPART (*BKC) 100 UNITS/ML SUB-Q (08:39)
[2021-07-12 08:41] LABS: Glucose Point of Care 226 mg/dl (65-105)
[2021-07-12] MEDS: SILVERGEL (ELTA) 45 ML 1 APPLIC TOPICAL (08:44)
[2021-07-12] MEDS: VENLAFAXINE HCL XR 37.5 MG CAP 112.5 MG PO (08:45)
[2021-07-12] MEDS: MORPHINE SULFATE (*CRX) 30 MG TABCR PO ×2 (08:55→20:19)
[2021-07-12] MEDS: PANTOPRAZOLE 40 MG TABLET PO ×2 (10:11→20:20)
[2021-07-12] MEDS: HYDROcodone/acetaminophen (*CRX) 5-325 MG TABLET 1 TAB PO ×2 (10:21→16:27)
--- NOTE | 2021-07-12 10:27 | PCPTNOTE ---
Hold therapy today due to not medically stable at this time for therapy.
--- NOTE | 2021-07-12 11:52 | PM.IMPN ---
Progress Note: A&P Assessment and Plan (1) Shock: Code(s): R57.9 - Shock, unspecified Status: Acute Assessment and Plan: Patient presented with nausea, vomiting and diarrhea and found to have enterocolitis. In the ED on 07/08, she was noted to have shock with a blood pressure 73/49. She was fluid responsive. Hemoglobin was 15.9 to suggest hemoconcentration. She also had acute kidney injury related to dehydration. With IV hydration, blood pressure improved. It was felt that she had septic vs hypovolemic shock on presentation. Patient was refusing central line and PICC line at that time. 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 Hemoglobin has dropped to 5.1. It was felt patient now has hypovolemic shock from acute blood loss. She remains a full code. She was agreeable for PICC line which was placed. BP stablizied with IV fluids and blood transfusion. EGD showing duodenal ulcer felt to be source of the acute blood loss. BP remainiing stable now. Follow closely. 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 Hemoglobin was 15.9 on admission but suspect this was related to hemoconcentration. With IV fluids, hemoglobin did drop to 11.3 which is closer to her baseline. However her hemoglobin dropped to 5.1 related to the acute blood loss anemia. She received 2U PRBC on 07/11 but Hgb drifted down to 6.6 and she received 2 more units. Still having bloody stools but probably residual blood in GI tract. Continue Protonix; Carafate added. (3) Duodenal ulcer: Code(s): K26.9 - Duodenal ulcer, unspecified as acute or chronic, without hemorrhage or perforation Status: Acute Assessment and Plan: EGD on 07/11/2021 showing multiple superficial acute benign ulcers ranging from 3-10 mm in the duodenal bulb. One duodenal ulcer had a visible vessel with adherent clot. This was injected with epinephrine with success. The lesion was also cauterized. Continue to hold all antiplatelets and anticoagulation. Continue Protonix. Carafate added. (4) Acute blood loss anemia: Code(s): D62 - Acute posthemorrhagic anemia Status: Acute Assessment and Plan: As above (5) Sepsis: Qualifiers: Acute respiratory failure type: with hypoxia Sepsis acute organ dysfunction status: with acute organ dysfunction Sepsis type: sepsis due to unspecified organism Severe sepsis acute organ dysfunction type: acute respiratory failure Severe sepsis shock status: without septic shock Qualified Code(s): A41.9 - Sepsis, unspecified organism; R65.20 - Severe sepsis without septic shock; J96.01 - Acute respiratory failure with hypoxia Code(s): A41.9 - Sepsis, unspecified organism Status: Acute Assessment and Plan: Patient met criteria for sepsis on presentation related to the enterocolitis. Stool negative for C diff. Lactic acid was normal on admission. She did receive the appropriate amount fluid in the ED. Blood cultures are no growth to date. Continue current antibiotics except will stop oral Vanco. (6) Enterocolitis: Code(s): K52.9 - Noninfective gastroenteritis and colitis, unspecified Status: Acute Assessment and Plan: Patient presents with complaints of nausea, vomiting and diarrhea. CT abdomen pelvis suggesting enterocolitis. She was currently on IV Flagyl and cefepime. Oral vancomycin also was added. Stool for C diff for PCR testing is negative. The nausea and vomiting has resolved. White count better overall. Continue current treatment plan except jose stop oral Vanco. (7) DRU (acute kidney injury): Code(s): N17.9 - Acute kidney failure, unspecified Status: Acute Assessment and Plan:
[2021-07-12] MEDS: SUCRALFATE 1 GM TABLET PO ×3 (11:53→20:19)
[2021-07-12 12:02] LABS: Hematocrit 28.9 % (37.0-47.0); Hemoglobin 9.9 g/dL (12.0-15.0)
[2021-07-12 13:17] LABS: Glucose Point of Care 167 mg/dl (65-105)
[2021-07-12] MEDS: GABAPENTIN 400 MG CAPSULE 800 MG PO ×2 (13:26→16:27)
--- NOTE | 2021-07-12 14:44 | PC.NURSE ---
This patient, Isabel Jorgensen, was transferred to [[facility] ] on 07/12/21 at 1440. Personal belongings sent with patient. Report given to [[facility] ]. Appropriate documentation sent with patient.
--- NOTE | 2021-07-12 14:57 | PC.NURSE ---
This patient, Isabel Jorgensen, was received from IMU on 07/12/21 at 1445. Received report from MED Vargas. Patient/family oriented to unit policies and routines
[2021-07-12 16:27] LABS: Glucose Point of Care 189 mg/dl (65-105)
[2021-07-12] MEDS: ATORVASTATIN 40 MG TABLET PO (20:19)
[2021-07-12] MEDS: ALPRAZolam (*CRX) 0.5 MG TABLET 1 MG PO (20:37)
[2021-07-12] MEDS: INSULIN GLARGINE (*BKC) 100 UNITS/ML 30 UNITS SUB-Q (20:38)
[2021-07-12 20:51] LABS: Hematocrit 30.9 % (37.0-47.0); Hemoglobin 10.3 g/dL (12.0-15.0)
[2021-07-12 22:04] LABS: Glucose Point of Care 242 mg/dl (65-105)
[2021-07-13] VITALS (10 sets, daily range): BP systolic 111–118; BP diastolic 49–74; PULSE 61–101; RESP 18–20; TEMP 35.8–36.8; O2SAT 97–99
[2021-07-13] MEDS: MORPHINE SULFATE (*CRX) 15 MG TAB IR PO ×2 (01:39→16:18)
[2021-07-13] MEDS: ALPRAZolam (*CRX) 0.5 MG TABLET 1 MG PO ×2 (01:43→20:32)
[2021-07-13] MEDS: metroNIDAZOLE 500 MG/ISO 100ML 500 MG/100 ML BAG 100 MG IVPB (03:17)
[2021-07-13] MEDS: HYDROcodone/acetaminophen (*CRX) 5-325 MG TABLET 1 TAB PO (05:44)
[2021-07-13] MEDS: SUCRALFATE 1 GM TABLET PO ×4 (05:45→20:31)
[2021-07-13] MEDS: CENTRAL LINE FLUSH 10 ML IV PUSH ×3 (05:45→20:33)
[2021-07-13 06:23] LABS: Hematocrit 29.7 % (37.0-47.0); Hemoglobin 9.9 g/dL (12.0-15.0); Mean Corpuscular HGB Conc 33.3 g/dl (32-36); Mean Corpuscular Hemoglobin 28.7 pg (26-34); Mean Corpuscular Volume 86.1 fl (80-100); Mean Platelet Volume 10.5 fl (7.4-10.4); Platelet Count Result 172 k/mm3 (150-375); Red Blood Count 3.45 M/mm3 (4.2-5.4); Red Cell Distribution Width 17.6 % (11.5-14.5); White Blood Count 12.9 K/mm3 (4.5-10.0)
[2021-07-13 06:24] LABS: Albumin Level 2.4 g/dL (3.5-5.1); Anion Gap 4 mmol/L (8-16); Blood Urea Nitrogen 8 mg/dL (7-17); Calcium 7.3 mg/dL (8.4-10.2); Carbon Dioxide 21 mmol/L (22-30); Chloride 114 mmol/L (98-107); Estimated CRCL calculation 72 ml/min; Estimated Glomerular Filt Rate > 60; Glucose 168 mg/dL (65-110); Magnesium 1.7 mg/dL (1.6-2.3); Potassium 3.9 mmol/L (3.4-5.0); Sodium 139 mmol/L (137-145)
[2021-07-13 06:37] LABS: Phosphorus < 1.0 mg/dL (2.5-4.5)
[2021-07-13 08:26] LABS: Glucose Point of Care 200 mg/dl (65-105)
[2021-07-13] MEDS: VENLAFAXINE HCL XR 37.5 MG CAP 112.5 MG PO (08:26)
[2021-07-13] MEDS: GABAPENTIN 400 MG CAPSULE 800 MG PO ×3 (08:26→16:19)
[2021-07-13] MEDS: PANTOPRAZOLE 40 MG TABLET PO ×2 (08:27→20:32)
[2021-07-13] MEDS: SODIUM PHOSPHATE 20 MM in DEXTROSE 5% IN WATER 250 ML 50 MM IVPB (08:28)
[2021-07-13] MEDS: metroNIDAZOLE 250 MG TABLET PO ×4 (08:34→20:32)
[2021-07-13] MEDS: MORPHINE SULFATE (*CRX) 30 MG TABCR PO ×2 (08:37→20:32)
--- NOTE | 2021-07-13 09:56 | WPDGIPROGNO ---
Progress Note: A&P Assessment and Plan (1) Duodenal ulcer: Code(s): K26.9 - Duodenal ulcer, unspecified as acute or chronic, without hemorrhage or perforation Status: Acute Assessment and Plan: Patient with multiple duodenal ulcers. One had a visible vessel that is now cauterized. She is tolerating diet. No signs of additional bleeding. Plan to continue Protonix b.i.d.. Avoid NSAIDs. H pylori was negative. Now that hemoglobin is stable would agree with discharge when agreeable by primary care service. (2) Enterocolitis: Code(s): K52.9 - Noninfective gastroenteritis and colitis, unspecified Status: Acute Assessment and Plan: Patient's diarrhea likely bacterial. Agree with 7-10 day course of antibiotics. She may complete this with oral antibiotics after discharge. C difficile has been excluded. No follow-up unless diarrhea persists. (3) Insulin dependent diabetes mellitus: Status: Acute (4) Pancreatic calcification: Code(s): K86.89 - Other specified diseases of pancreas Status: Acute Assessment and Plan: Pancreatic calcifications on CT scanner incidental. Suggest she may have underlying pancreatic insufficiency but no significant clinical features of this as such. Will follow this conservatively. (5) S/P AKA (above knee amputation) bilateral: Code(s): Z89.611 - Acquired absence of right leg above knee; Z89.612 - Acquired absence of left leg above knee Status: Acute Subjective Date/time seen: 07/13/21 09:56 Patient alert and comfortable this morning. Sitting up in bed. Tolerating diet. Denies abdominal pain. No significant diarrhea reported. Review of Systems Review of Systems: All systems reviewed & are unremarkable except as noted in HPI and below Exam Narrative: On physical exam patient is alert. Vital signs stable. HEENT exam reveals no icterus. Lungs are clear. Heart without murmur. Abdomen bowel sounds present soft nontender with no organomegaly. Extremities with bilateral AKA a amputations. Objective Data Vital Signs Vital Signs: Vital Signs - 24 hr 07/12/21 10:00 07/12/21 12:00 07/12/21 14:00 Temperature 97.9 F Pulse Rate 89 91 89 Respiratory Rate 20 Blood Pressure 122/71 Pulse Oximetry 98 07/12/21 14:56 07/12/21 16:00 07/12/21 20:00 Temperature 97.2 F L Pulse Rate 96 91 87 Respiratory Rate 18 Blood Pressure Pulse Oximetry 100 07/12/21 22:00 07/13/21 00:00 07/13/21 04:00 Temperature 97.0 F L Pulse Rate 43 L 91 91 Respiratory Rate 16 Blood Pressure 132/66 Pulse Oximetry 99 07/13/21 05:39 Temperature 98.2 F Pulse Rate 87 Respiratory Rate 18 Blood Pressure 116/74 Pulse Oximetry 98 Intake/Output Intake/Output: Intake & Output 07/10/21 07/11/21 07/12/21 07/13/21 23:59 23:59 23:59 23:59 Intake Total 3860 1700 4795 550 Output Total 8789 288 1997 1500 Balance 2410 750 1720 -950 Meds/Results Medications: Active Medications Generic Name Dose Route Start Last Admin Trade Name Freq PRN Reason Stop Dose Admin Acetaminophen 650 mg 07/12/21 13:28 Acetaminophen 325 Mg Tablet PO Q6H PRN Mild Pain (1-3) Hydrocodone Bitart/Acetaminophen 1 tab 07/11/21 16:36 07/13/21 05:44 Hydrocodone/Acetaminophen (*Crx) 5-325 Mg Tablet PO 1 tab Q6H PRN Administration PAIN RATED 4-6 Albuterol 2 puff 07/10/21 09:41 Albuterol Sulfate (*Sp) Aerosol 1 Puff INHALATION Q6H PRN wheezing Alprazolam 1 mg 07/09/21 16:45 07/13/21 01:43 Alprazolam (*Crx) 0.5 Mg Tablet PO 1 mg BID PRN Administration Anxiety Atorvastatin Calcium 40 mg 07/09/21 21:00 07/12/21 20:19 Atorvastatin 40 Mg Tablet PO 40 mg HS LOPEZ Administration Dextrose 12.5 gm 07/09/21 16:44 Dextrose 50% 25 Gm/50 Ml Syringe IV PUSH PRN PRN Hypoglycemia Protocol Gabapentin 800 mg 07/12/21 13:00 07/13/21 08:26 Gabapentin 400 M
--- NOTE | 2021-07-13 12:18 | PM.IMPN ---
Progress Note: A&P Assessment and Plan (1) Shock: Code(s): R57.9 - Shock, unspecified Status: Acute Assessment and Plan: Patient presented with nausea, vomiting and diarrhea and found to have enterocolitis. In the ED on 07/08, she was noted to have shock with a blood pressure 73/49. She was fluid responsive. She was on Lasix 80mg daily on admission so consider dehydration component. Hemoglobin was 15.9 to suggest hemoconcentration. She also had acute kidney injury related to dehydration. With IV hydration, blood pressure improved and renal function has returned to normal. It was felt that she had septic vs hypovolemic shock on presentation. Patient was refusing central line and PICC line at that time. 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 Hemoglobin dropped to 5.1. It was felt patient now has hypovolemic shock from acute blood loss. She was agreeable for PICC line which was placed. BP stabilized with IV fluids and blood transfusion. EGD showing duodenal ulcer felt to be source of the acute blood loss. BP remaining stable now. Follow closely. Amandaeu to hold Lasix for now but will add back low dose beta bobby. Slowly advance her back to her home med regiment. 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 Hemoglobin was 15.9 on admission but suspect this was related to hemoconcentration. With IV fluids, hemoglobin did drop to 11.3 which is closer to her baseline. However her hemoglobin dropped to 5.1 related to the acute blood loss anemia. She received 2U PRBC on 07/11 but Hgb drifted down to 6.6 and she received 2 more units. Hgb stable now. Continue Protonix and Carafate. (3) Duodenal ulcer: Code(s): K26.9 - Duodenal ulcer, unspecified as acute or chronic, without hemorrhage or perforation Status: Acute Assessment and Plan: EGD on 07/11/2021 showing multiple superficial acute benign ulcers ranging from 3-10 mm in the duodenal bulb. One duodenal ulcer had a visible vessel with adherent clot. This was injected with epinephrine with success. The lesion was also cauterized. Continue to hold all antiplatelets and anticoagulation. Continue Protonix and Carafate. (4) Acute blood loss anemia: Code(s): D62 - Acute posthemorrhagic anemia Status: Acute Assessment and Plan: As above (5) Sepsis: Qualifiers: Sepsis type: sepsis due to unspecified organism Sepsis acute organ dysfunction status: with acute organ dysfunction Severe sepsis acute organ dysfunction type: acute respiratory failure Acute respiratory failure type: with hypoxia Severe sepsis shock status: without septic shock Qualified Code(s): A41.9 - Sepsis, unspecified organism; R65.20 - Severe sepsis without septic shock; J96.01 - Acute respiratory failure with hypoxia Code(s): A41.9 - Sepsis, unspecified organism Status: Acute Assessment and Plan: Patient met criteria for sepsis on presentation related to the enterocolitis. Stool negative for C diff. Lactic acid was normal on admission. She did receive the appropriate amount fluid in the ED. Blood cultures are no growth to date. Continue abx treatment. (6) Enterocolitis: Code(s): K52.9 - Noninfective gastroenteritis and colitis, unspecified Status: Acute Assessment and Plan: Patient presents with complaints of nausea, vomiting and diarrhea. CT abdomen pelvis suggesting enterocolitis. She was currently on IV Flagyl and cefepime. Oral vancomycin also was added. Stool for C diff for PCR testing is negative. The nausea and vomiting has resolved. White count stable. Will change to oral Flagyl. Change cefepime to omnicef (7) DRU (acute kidney injury): Co
[2021-07-13 12:20] LABS: Glucose Point of Care 196 mg/dl (65-105)
[2021-07-13] MEDS: SILVERGEL (ELTA) 45 ML 1 APPLIC TOPICAL (13:50)
[2021-07-13] MEDS: atenoloL 12.5 MG TABLET PO (13:53)
[2021-07-13] MEDS: POTASSIUM/PHOSPHORUS/SODIUM 1.5 GM PACKET 1 PACKET PO (16:21)
[2021-07-13 18:01] LABS: Glucose Point of Care 201 mg/dl (65-105)
[2021-07-13] MEDS: ATORVASTATIN 40 MG TABLET PO (20:31)
[2021-07-13] MEDS: CEFDINIR 300 MG CAPSULE PO (20:32)
[2021-07-13] MEDS: INSULIN GLARGINE (*BKC) 100 UNITS/ML 38 UNITS SUB-Q (20:33)
[2021-07-13] MEDS: ONDANSETRON INJ 4 MG/2 ML VIAL IV PUSH (20:37)
[2021-07-13 22:12] LABS: Glucose Point of Care 253 mg/dl (65-105)
[2021-07-14] VITALS (10 sets, daily range): BP systolic 100–115; BP diastolic 52–60; PULSE 60–89; RESP 18; TEMP 35.6–36.4; O2SAT 99–100
[2021-07-14] MEDS: MORPHINE SULFATE (*CRX) 15 MG TAB IR PO ×2 (02:03→07:48)
[2021-07-14] MEDS: SUCRALFATE 1 GM TABLET PO ×4 (06:05→20:40)
[2021-07-14] MEDS: CENTRAL LINE FLUSH 10 ML IV PUSH ×3 (06:05→20:41)
[2021-07-14 06:17] LABS: Hemoglobin 10.4 g/dL (12.0-15.0); Mean Corpuscular HGB Conc 32.5 g/dl (32-36); Mean Corpuscular Hemoglobin 28.4 pg (26-34); Mean Corpuscular Volume 87.4 fl (80-100); Mean Platelet Volume 10.1 fl (7.4-10.4); Platelet Count Result 196 k/mm3 (150-375); Red Blood Count 3.66 M/mm3 (4.2-5.4); Red Cell Distribution Width 17.5 % (11.5-14.5); White Blood Count 11.5 K/mm3 (4.5-10.0)
[2021-07-14 06:25] LABS: Albumin Level 2.6 g/dL (3.5-5.1); Anion Gap 1 mmol/L (8-16); Blood Urea Nitrogen 7 mg/dL (7-17); Calcium 7.7 mg/dL (8.4-10.2); Carbon Dioxide 23 mmol/L (22-30); Chloride 110 mmol/L (98-107); Estimated CRCL calculation 85 ml/min; Estimated Glomerular Filt Rate > 60; Glucose 121 mg/dL (65-110); Magnesium 1.7 mg/dL (1.6-2.3); Phosphorus 1.7 mg/dL (2.5-4.5); Sodium 134 mmol/L (137-145)
[2021-07-14] MEDS: atenoloL 12.5 MG TABLET PO (09:21)
[2021-07-14 09:22] LABS: Glucose Point of Care 149 mg/dl (65-105)
[2021-07-14] MEDS: CEFDINIR 300 MG CAPSULE PO ×2 (09:22→20:40)
[2021-07-14] MEDS: GABAPENTIN 400 MG CAPSULE 800 MG PO ×3 (09:22→17:24)
[2021-07-14] MEDS: PANTOPRAZOLE 40 MG TABLET PO ×2 (09:22→20:41)
[2021-07-14] MEDS: metroNIDAZOLE 250 MG TABLET PO ×4 (09:22→20:40)
[2021-07-14] MEDS: MORPHINE SULFATE (*CRX) 30 MG TABCR PO ×2 (09:23→20:40)
[2021-07-14] MEDS: SILVERGEL (ELTA) 45 ML 1 APPLIC TOPICAL (09:25)
[2021-07-14] MEDS: VENLAFAXINE HCL XR 37.5 MG CAP 112.5 MG PO (09:25)
--- NOTE | 2021-07-14 09:38 | WPDGIPROGNO ---
Progress Note: A&P Assessment and Plan (1) Duodenal ulcer: Code(s): K26.9 - Duodenal ulcer, unspecified as acute or chronic, without hemorrhage or perforation Status: Acute Assessment and Plan: Patient with multiple duodenal ulcers. One ulcer had visible vessel in required cautery. No additional bleeding reported. Plan to keep patient on PPI therapy in addition to Carafate. May want to follow CBC after discharge. (2) Acute blood loss anemia: Code(s): D62 - Acute posthemorrhagic anemia Status: Acute Assessment and Plan: Hemoglobin appears stable after recent cautery. Continue supportive care monitor intermittently till resolution this can be performed as an outpatient with CBC. (3) Enterocolitis: Code(s): K52.9 - Noninfective gastroenteritis and colitis, unspecified Status: Acute Assessment and Plan: Patient with diarrhea presentation. Appears to have infectious colitis. Continue broad-spectrum antibiotics after discharge. 7-10 day course of antibiotics advised. (4) S/P AKA (above knee amputation) bilateral: Code(s): Z89.611 - Acquired absence of right leg above knee; Z89.612 - Acquired absence of left leg above knee Status: Acute (5) Insulin dependent diabetes mellitus: Status: Acute Subjective Date/time seen: 07/14/21 09:38 Patient alert comfortable at present. Tolerating diet. Denies abdominal pain. Has had no additional diarrhea. Review of Systems Review of Systems: All systems reviewed & are unremarkable except as noted in HPI and below Exam Narrative: Patient alert comfortable this morning. HEENT exam reveals no icterus. Lungs are clear. Heart without murmur. Abdomen obese. Bowel sounds are present soft nontender with no organomegaly. Objective Data Vital Signs Vital Signs: Vital Signs - 24 hr 07/13/21 12:00 07/13/21 13:53 07/13/21 14:00 Temperature 96.5 F L Pulse Rate 98 98 61 Respiratory Rate 20 Blood Pressure 118/74 Pulse Oximetry 97 07/13/21 16:00 07/13/21 20:00 07/13/21 20:21 Temperature 98.3 F Pulse Rate 88 82 84 Respiratory Rate 18 Blood Pressure 111/49 L Pulse Oximetry 99 07/14/21 00:00 07/14/21 04:00 07/14/21 04:11 Temperature 96.1 F L Pulse Rate 79 75 80 Respiratory Rate 18 Blood Pressure 100/52 L Pulse Oximetry 100 07/14/21 09:21 Temperature Pulse Rate 80 Respiratory Rate Blood Pressure Pulse Oximetry Intake/Output Intake/Output: Intake & Output 07/11/21 07/12/21 07/13/21 07/14/21 23:59 23:59 23:59 23:59 Intake Total 1700 4795 990 200 Output Total 950 3075 2450 900 Balance 750 1720 -1460 -700 Meds/Results Medications: Active Medications Generic Name Dose Route Start Last Admin Trade Name Freq PRN Reason Stop Dose Admin Acetaminophen 650 mg 07/12/21 13:28 Acetaminophen 325 Mg Tablet PO Q6H PRN Mild Pain (1-3) Hydrocodone Bitart/Acetaminophen 1 tab 07/11/21 16:36 07/13/21 05:44 Hydrocodone/Acetaminophen (*Crx) 5-325 Mg Tablet PO 1 tab Q6H PRN Administration PAIN RATED 4-6 Albuterol 2 puff 07/10/21 09:41 Albuterol Sulfate (*Sp) Aerosol 1 Puff INHALATION Q6H PRN wheezing Alprazolam 1 mg 07/09/21 16:45 07/13/21 20:32 Alprazolam (*Crx) 0.5 Mg Tablet PO 1 mg BID PRN Administration Anxiety Atenolol 12.5 mg 07/13/21 12:35 07/14/21 09:21 Atenolol 12.5 Mg Tablet PO 12.5 mg DAILY LOPEZ Administration Atorvastatin Calcium 40 mg 07/09/21 21:00 07/13/21 20:31 Atorvastatin 40 Mg Tablet PO 40 mg HS LOPEZ Administration Cefdinir 300 mg 07/13/21 21:00 07/14/21 09:22 Cefdinir 300 Mg Capsule PO 300 mg Q12HR LOPEZ Administration Dextrose 12.5 gm 07/09/21 16:44 Dextrose 50% 25 Gm/50 Ml Syringe IV PUSH PRN PRN Hypoglycemia Protocol Gabapentin 800 mg 07/12/21 13:00 07/14/21 09:22 Gabapentin 400 Mg Capsule PO 800 mg TID LOPEZ A
--- NOTE | 2021-07-14 09:51 | PM.IMPN ---
Progress Note: A&P Assessment and Plan (1) Shock: Code(s): R57.9 - Shock, unspecified Status: Acute Assessment and Plan: Patient originally presented with nausea, vomiting and diarrhea and found to have enterocolitis. In the ED on 07/08, she was noted to have shock with a blood pressure 73/49. She was fluid responsive. She was on Lasix 80mg daily on admission so consider dehydration component. Hemoglobin was 15.9 to suggest hemoconcentration. She also had acute kidney injury related to dehydration. With IV hydration, blood pressure improved and renal function has returned to normal. It was felt that she had septic vs hypovolemic shock on presentation. Patient was refusing central line and PICC line at that time. In the melter supervisor hours of 07/11, patient's blood pressure dropped significantly associated with large bloody bowel movements. Hemoglobin dropped to 5.1. It was felt patient now has hypovolemic shock from acute blood loss. She was agreeable for PICC line which was placed. BP stabilized with IV fluids and blood transfusion. EGD showing duodenal ulcer felt to be source of the acute blood loss. BP remaining stable now. Follow closely. Continue to hold Lasix for now but will add back low dose beta bobby. Slowly advance her back to her home med regiment. Blood pressure is soft at 100/52 today. (2) GI bleed: Code(s): K92.2 - Gastrointestinal hemorrhage, unspecified Status: Acute Assessment and Plan: Patient developed multiple bloody bowel movements melter supervisor hours of 07/11. Hemoglobin was 15.9 on admission but suspect this was related to hemoconcentration. With IV fluids, hemoglobin did drop to 11.3 which is closer to her baseline. However her hemoglobin dropped to 5.1 related to the acute blood loss anemia. She received 2U PRBC on 07/11 but Hgb drifted down to 6.6 and she received 2 more units. Hgb stable now at 10.4 today. Continue Protonix and Carafate. (3) Duodenal ulcer: Code(s): K26.9 - Duodenal ulcer, unspecified as acute or chronic, without hemorrhage or perforation Status: Acute Assessment and Plan: EGD on 07/11/2021 showing multiple superficial acute benign ulcers ranging from 3-10 mm in the duodenal bulb. One duodenal ulcer had a visible vessel with adherent clot. This was injected with epinephrine with success. The lesion was also cauterized. Continue to hold all antiplatelets and anticoagulation. Continue Protonix and Carafate. (4) Acute blood loss anemia: Code(s): D62 - Acute posthemorrhagic anemia Status: Acute Assessment and Plan: As above (5) Sepsis: Qualifiers: Sepsis type: sepsis due to unspecified organism Sepsis acute organ dysfunction status: with acute organ dysfunction Severe sepsis acute organ dysfunction type: acute respiratory failure Acute respiratory failure type: with hypoxia Severe sepsis shock status: without septic shock Qualified Code(s): A41.9 - Sepsis, unspecified organism; R65.20 - Severe sepsis without septic shock; J96.01 - Acute respiratory failure with hypoxia Code(s): A41.9 - Sepsis, unspecified organism Status: Acute Assessment and Plan: Patient met criteria for sepsis on presentation related to the enterocolitis. Stool negative for C diff. Lactic acid was normal on admission. She did receive the appropriate amount fluid in the ED. Blood cultures are no growth to date. Continue abx treatment. (6) Enterocolitis: Code(s): K52.9 - Noninfective gastroenteritis and colitis, unspecified Status: Acute Assessment and Plan: Patient presents with complaints of nausea, vomiting and diarrhea. CT abdomen pelvis suggesting enterocolitis. She was currently on IV Flagyl and cefepime. Oral vancomycin also was added. Stool for C diff for PCR testing is negative. The nausea and vomiting has resolved. White count stable. Will change to oral Flagyl. Change
[2021-07-14] MEDS: ONDANSETRON INJ 4 MG/2 ML VIAL IV PUSH ×2 (13:49→20:54)
[2021-07-14] MEDS: POTASSIUM/PHOSPHORUS/SODIUM 1.5 GM PACKET 1 PACKET PO ×2 (13:59→17:26)
[2021-07-14 17:32] LABS: Glucose Point of Care 183 mg/dl (65-105)
[2021-07-14 17:32] LABS: Glucose Point of Care 130 mg/dl (65-105)
[2021-07-14] MEDS: ATORVASTATIN 40 MG TABLET PO (20:40)
[2021-07-14] MEDS: ALPRAZolam (*CRX) 0.5 MG TABLET 1 MG PO (20:40)
[2021-07-14] MEDS: INSULIN GLARGINE (*BKC) 100 UNITS/ML 38 UNITS SUB-Q (20:44)
[2021-07-14 22:12] LABS: Glucose Point of Care 204 mg/dl (65-105)
[2021-07-15] VITALS (8 sets, daily range): BP systolic 107–120; BP diastolic 53–57; PULSE 55–85; RESP 16–18; TEMP 35.9–36.5; O2SAT 98–100
[2021-07-15] MEDS: MORPHINE SULFATE (*CRX) 15 MG TAB IR PO ×3 (02:34→17:29)
[2021-07-15] MEDS: ONDANSETRON INJ 4 MG/2 ML VIAL IV PUSH ×2 (05:39→11:55)
[2021-07-15] MEDS: SUCRALFATE 1 GM TABLET PO ×4 (05:39→20:55)
[2021-07-15] MEDS: CENTRAL LINE FLUSH 10 ML IV PUSH ×2 (05:40→14:34)
[2021-07-15 07:49] LABS: Glucose Point of Care 150 mg/dl (65-105)
[2021-07-15] MEDS: CENTRAL LINE FLUSH 20 ML IV PUSH (09:12)
[2021-07-15] MEDS: metroNIDAZOLE 250 MG TABLET PO ×4 (09:27→20:55)
[2021-07-15] MEDS: GABAPENTIN 400 MG CAPSULE 800 MG PO ×3 (09:27→17:01)
[2021-07-15] MEDS: CEFDINIR 300 MG CAPSULE PO ×2 (09:27→20:55)
[2021-07-15] MEDS: PANTOPRAZOLE 40 MG TABLET PO ×2 (09:27→20:55)
[2021-07-15] MEDS: VENLAFAXINE HCL XR 37.5 MG CAP 112.5 MG PO (09:27)
[2021-07-15] MEDS: atenoloL 12.5 MG TABLET PO (09:27)
[2021-07-15] MEDS: SILVERGEL (ELTA) 45 ML 1 APPLIC TOPICAL (09:28)
[2021-07-15] MEDS: MORPHINE SULFATE (*CRX) 30 MG TABCR PO ×2 (09:31→20:57)
[2021-07-15 09:45] LABS: Albumin Level 2.4 g/dL (3.5-5.1); Anion Gap 4 mmol/L (8-16); Blood Urea Nitrogen 9 mg/dL (7-17); Calcium 7.6 mg/dL (8.4-10.2); Carbon Dioxide 23 mmol/L (22-30); Chloride 110 mmol/L (98-107); Estimated CRCL calculation 72 ml/min; Estimated Glomerular Filt Rate > 60; Glucose 203 mg/dL (65-110); Phosphorus 1.8 mg/dL (2.5-4.5); Sodium 137 mmol/L (137-145)
[2021-07-15] MEDS: POTASSIUM/PHOSPHORUS/SODIUM 1.5 GM PACKET 1 PACKET PO ×2 (11:19→17:01)
[2021-07-15 11:51] LABS: Glucose Point of Care 181 mg/dl (65-105)
[2021-07-15] MEDS: ALTEPLASE 2 MG VIAL (CATHFLO) IV PUSH (12:06)
--- NOTE | 2021-07-15 14:17 | PM.DS ---
DS: Admitting Diagnosis Discharge Date 07/15/21 Admitting Diagnosis Nausea and vomiting DS: Discharge Diagnosis Discharge Diagnosis (1) Shock: Code(s): R57.9 - Shock, unspecified Status: Acute Assessment and Plan: Patient presented with nausea, vomiting and diarrhea and found to have enterocolitis. In the ED on 07/08, she was noted to have shock with a blood pressure 73/49. She was fluid responsive. She was on Lasix 80mg daily on admission so consider dehydration component. Hemoglobin was 15.9 to suggest hemoconcentration. She also had acute kidney injury related to dehydration. With IV hydration, blood pressure improved and renal function returned to normal. It was felt that she had septic vs hypovolemic shock on presentation. Patient was refusing central line and PICC line at that time. In the wrong address clerk hours of 07/11, patient's blood pressure dropped significantly associated with large bloody bowel movements. Hemoglobin dropped to 5.1. It was felt patient developed acute hypovolemic shock from acute blood loss. She was agreeable for PICC line which was placed. BP stabilized with IV fluids and blood transfusion. EGD showing duodenal ulcer felt to be source of the acute blood loss. BP remained stable. (2) GI bleed: Code(s): K92.2 - Gastrointestinal hemorrhage, unspecified Status: Acute Assessment and Plan: Patient developed multiple bloody bowel movements wrong address clerk hours of 07/11. Hemoglobin was 15.9 on admission but suspect this was related to hemoconcentration. With IV fluids, hemoglobin did drop to 11.3 which is closer to her baseline. However her hemoglobin dropped to 5.1 related to the acute blood loss anemia. She received 2U PRBC on 07/11 but Hgb drifted down to 6.6 and she received 2 more units. Hgb stable in the 10 range now. Treated with Protonix and Carafate. (3) Duodenal ulcer: Code(s): K26.9 - Duodenal ulcer, unspecified as acute or chronic, without hemorrhage or perforation Status: Acute Assessment and Plan: EGD on 07/11/2021 showing multiple superficial acute benign ulcers ranging from 3-10 mm in the duodenal bulb. One duodenal ulcer had a visible vessel with adherent clot. This was injected with epinephrine with success. The lesion was also cauterized. Treated with Protonix and Carafate. (4) Acute blood loss anemia: Code(s): D62 - Acute posthemorrhagic anemia Status: Acute Assessment and Plan: As above (5) Sepsis: Qualifiers: Acute respiratory failure type: with hypoxia Sepsis acute organ dysfunction status: with acute organ dysfunction Sepsis type: sepsis due to unspecified organism Severe sepsis acute organ dysfunction type: acute respiratory failure Severe sepsis shock status: without septic shock Qualified Code(s): A41.9 - Sepsis, unspecified organism; R65.20 - Severe sepsis without septic shock; J96.01 - Acute respiratory failure with hypoxia Code(s): A41.9 - Sepsis, unspecified organism Status: Acute Assessment and Plan: Patient met criteria for sepsis on presentation related to the enterocolitis. Stool was negative for C diff. Lactic acid was normal on admission. She did receive the appropriate amount fluid in the ED. Blood cultures were negative. Treatedw ith abx. (6) Enterocolitis: Code(s): K52.9 - Noninfective gastroenteritis and colitis, unspecified Status: Acute Assessment and Plan: Patient presents with complaints of nausea, vomiting and diarrhea. CT abdomen pelvis suggesting enterocolitis. She was treated with IV Flagyl and cefepime. Oral vancomycin also was added. Stool for C diff for PCR testing was negative and oral Vanco stopped. The nausea and vomiting resolved. (7) DRU (acute kidney injury): Code(s): N17.9 - Acute kidney failure, unspecified Status: Acute Assessment and Plan: Patient with a normal baseline
[2021-07-15 15:54] LABS: EDCOVIDSCREEN Negative (Negative)
[2021-07-15 16:34] LABS: Glucose Point of Care 190 mg/dl (65-105)
[2021-07-15] MEDS: INSULIN GLARGINE (*BKC) 100 UNITS/ML 38 UNITS SUB-Q (20:51)
[2021-07-15] MEDS: ALPRAZolam (*CRX) 0.5 MG TABLET 1 MG PO (20:54)
[2021-07-15] MEDS: ATORVASTATIN 40 MG TABLET PO (20:55)
[2021-07-15 21:02] LABS: Glucose Point of Care 183 mg/dl (65-105)
--- NOTE | 2021-07-15 21:34 | PC.NURSE ---
2100 [facility] ARRIVED TO TRANSFER PATIENT. AFTER GOING OVER THE PT MEDICAL HX AND REASON NEEDED TO BE TRANSFERRED THEY DECIDED THE PT DID NOT QUALITY FOR A TRANSFER BY AMBULANCE DUE TO THE FACT THAT SHE WAS ALERT ORIENTED AND ABLE TO TRANSFER SELF INTO WHEELCHA[facility]. STATING INSURANCE WOULD NOT COVER THE AMBULANCE RIDE AND IT WOULD BE THE PTS RESPONSIBILITY TO PAY. CONTACTED PT DAUGHTER TO ASK IF SHE WAS ABLE TO PICK PT UP AND SHE TOLD ME SHE WAS UNABLE TO COME BECAUSE SHE HAS COVID. PT NOT WILLING TO SELF PAY FOR THE RIDE. LAMP INSPECTOR AWARE OF ISSUE AND STATED WE WILL HAVE TO WAIT UNTIL THE MORNING TO TALK WITH [facility] AND CARE COORDINATION.
[2021-07-16] MEDS: MORPHINE SULFATE (*CRX) 15 MG TAB IR PO (02:45)
[2021-07-16 04:46] VITALS: BP 117/47; PULSE 83; RESP 17; TEMP 35.8; O2SAT 99
[2021-07-16 06:00] VITALS: BP 114/44; PULSE 72; RESP 17; TEMP 36.2; O2SAT 100
[2021-07-16] MEDS: SUCRALFATE 1 GM TABLET PO (06:18)
--- NOTE | 2021-07-16 06:18 | PC.NURSE ---
0615 CONTACTED [facility] TO SEE IF THEY OFFER A SHUTTLE FROM THE FACILITY THAT WOULD BE AVAILABLE TODAY TO PICK PT UP. GREETING CARD WRITER I SPOKE WITH STATED I WOULD NEED TO TALK WITH MANAGEMENT ABOUT MAKING THOSE ARRANGEMENTS AND NO ONE WOULD BE IN UNTIL AFTER 0800. WILL PASS INFORMATION TO DAY SHIFT NURSE AT SHIFT CHANGE.
[2021-07-16 07:37] LABS: Glucose Point of Care 78 mg/dl (65-105)
[2021-07-16] MEDS: NEOMYCIN/POLYMYXIN/BACITRACIN OINTMENT PACKET 1 PACKET (08:56)
[2021-07-16 08:57] VITALS: PULSE 80
[2021-07-16] MEDS: PANTOPRAZOLE 40 MG TABLET PO (08:57)
[2021-07-16] MEDS: atenoloL 12.5 MG TABLET PO (08:57)
[2021-07-16] MEDS: GABAPENTIN 400 MG CAPSULE 800 MG PO (08:57)
[2021-07-16] MEDS: metroNIDAZOLE 250 MG TABLET PO (08:57)
[2021-07-16] MEDS: POTASSIUM/PHOSPHORUS/SODIUM 1.5 GM PACKET 1 PACKET PO (08:57)
[2021-07-16] MEDS: VENLAFAXINE HCL XR 37.5 MG CAP 112.5 MG PO (08:57)
[2021-07-16] MEDS: CEFDINIR 300 MG CAPSULE PO (08:57)
[2021-07-16] MEDS: MORPHINE SULFATE (*CRX) 30 MG TABCR PO (09:02)
[2021-07-16] MEDS: SILVERGEL (ELTA) 45 ML 1 APPLIC TOPICAL (09:03)
--- NOTE | 2021-07-16 10:17 | PC.NURSE ---
Called in prescriptions to [facility] (phone number [phone]). Prescriptions called in were: Flagyl, Protonix, Carafate, Silvergel and Cefdinir. Spoke with Barb at pharmacy. Patient was sent with scripts for Morphine.
--- NOTE | 2021-07-16 10:19 | WPDPN ---
Progress Note: A&P Assessment and Plan (1) Shock: Code(s): R57.9 - Shock, unspecified Status: Acute (2) GI bleed: Code(s): K92.2 - Gastrointestinal hemorrhage, unspecified Status: Acute (3) Duodenal ulcer: Code(s): K26.9 - Duodenal ulcer, unspecified as acute or chronic, without hemorrhage or perforation Status: Acute (4) Acute blood loss anemia: Code(s): D62 - Acute posthemorrhagic anemia Status: Acute (5) Sepsis: Qualifiers: Sepsis type: sepsis due to unspecified organism Sepsis acute organ dysfunction status: with acute organ dysfunction Severe sepsis acute organ dysfunction type: acute respiratory failure Acute respiratory failure type: with hypoxia Severe sepsis shock status: without septic shock Qualified Code(s): A41.9 - Sepsis, unspecified organism; R65.20 - Severe sepsis without septic shock; J96.01 - Acute respiratory failure with hypoxia Code(s): A41.9 - Sepsis, unspecified organism Status: Acute (6) Enterocolitis: Code(s): K52.9 - Noninfective gastroenteritis and colitis, unspecified Status: Acute (7) DRU (acute kidney injury): Code(s): N17.9 - Acute kidney failure, unspecified Status: Acute (8) Insulin dependent diabetes mellitus: Status: Acute Additional Plan Patient was held overnight because of transportation issues. This has been resolved. Plan discharge today. No change in the discharge instructions. All questions answered. She does state that [facility] won't be able to get her medications for a few days because they use mail-in Rx. Will call in her medications to a local pharmacy so she can have them the next few days prior to the mail order prescription arriving. Subjective Date/time seen: 07/16/21 10:19 Interval history: 65yo female with COPD, HTN, DM, bilateral AKA and systolic/diastolic CHF here for n/v and diarrhea found to have shock with enterocolitis. Patient was held overnight because of lack of transportation. No issues overnight. Her nausea is better today. She denies any chest pain or shortness of breath. Exam Narrative: AF 97.2 114/44 80 17 100% RA Gen - NARD sitting up in bed feeding herself breakfast Chest - CTA bilaterally CV - irregular regualr Abd - Soft, obese, +BS Ext - s/p bilateral AKA Psych -normal mood and affect Skin - warm and dry Objective Data Vital Signs Vital Signs: Vital Signs - 24 hr 07/15/21 14:00 07/15/21 16:00 07/15/21 20:00 Temperature 97.7 F Pulse Rate 85 83 55 L Respiratory Rate 18 16 Blood Pressure 119/53 L Pulse Oximetry 100 98 07/15/21 21:58 07/16/21 04:46 07/16/21 06:00 Temperature 96.7 F L 96.5 F L 97.2 F L Pulse Rate 55 L 83 72 Respiratory Rate 16 17 17 Blood Pressure 120/57 L 117/47 L 114/44 L Pulse Oximetry 98 99 100 07/16/21 08:57 Temperature Pulse Rate 80 Respiratory Rate Blood Pressure Pulse Oximetry Intake/Output Intake/Output: Intake & Output 07/13/21 07/14/21 07/15/21 07/16/21 23:59 23:59 23:59 23:59 Intake Total 990 1000 1260 1090 Output Total 2450 900 1500 1400 Balance -1460 100 -240 -310 Meds/Results Medications: Active Medications Generic Name Dose Route Start Last Admin Trade Name Freq PRN Reason Stop Dose Admin Acetaminophen 650 mg 07/14/21 09:50 Acetaminophen 325 Mg Tablet PO Q6H PRN Mild Pain (1-3) and headaches Hydrocodone Bitart/Acetaminophen 1 tab 07/11/21 16:36 07/13/21 05:44 Hydrocodone/Acetaminophen (*Crx) 5-325 Mg Tablet PO 1 tab Q6H PRN Administration PAIN RATED 4-6 Albuterol 2 puff 07/10/21 09:41 Albuterol Sulfate (*Sp) Aerosol 1 Puff INHALATION Q6H PRN wheezing Alprazolam 1 mg 07/09/21 16:45 07/15/21 20:54 Alprazolam (*Crx) 0.5 Mg Tablet PO 1 mg BID PRN Administration Anxiety Alteplase, Recombinant 2 mg 07/15/21 11:19 07/15/21 12:06 Alteplase 2 Mg Vial (Cathflo) IV PUSH 2 m
[2021-07-19 14:46] LABS: Pancreatic Elastase, Stool <15 mcg/g
--- NOTE | 2021-07-22 13:44 | PC.NURSE ---
Stool Panc elastase si low at <15. Dr. Haynes aware. Results faxed to Yamileth Perez.
== END 2021-07-16 10:20 | DRG 720 ==
LOC: ANHED 23:31 → ANHIMU 07-09 04:03 → ANH2MED 07-15 11:04 → ANHIMU 07-17 17:03
PROVIDERS: Emergency Medicine; Internal Medicine; Internal Medicine Gastroenterology; Physician Assistant; Admitting Provider Internal Medicine; Emergency Provider Emergency Medicine; PCP Nurse Practitioner Adult Health; Visit Provider Internal Medicine
PROC: 0DJ08ZZ Inspection of Upper Intestinal Tract, Via Natural or Artificial Opening Endoscopic (ICD-10-PCS; CPT 43235; principal; 2021-07-11 13:00)
DX: N17.9 Acute kidney failure, unspecified (principal); A04.9 Bacterial intestinal infection, unspecified; R65.20 Severe sepsis without septic shock; J96.01 Acute respiratory failure with hypoxia; I50.43 Acute on chronic combined systolic (congestive) and diastolic (congestive) heart failure; K26.0 Acute duodenal ulcer with hemorrhage; I95.89 Other hypotension; E86.1 Hypovolemia; I11.0 Hypertensive heart disease with heart failure; D62 Acute posthemorrhagic anemia; E11.51 Type 2 diabetes mellitus with diabetic peripheral angiopathy without gangrene; K21.9 Gastro-esophageal reflux disease without esophagitis; K86.89 Other specified diseases of pancreas; M79.7 Fibromyalgia; G89.29 Other chronic pain; E11.42 Type 2 diabetes mellitus with diabetic polyneuropathy; J44.9 Chronic obstructive pulmonary disease, unspecified; Z20.822 Contact with and (suspected) exposure to COVID-19; E86.0 Dehydration; A41.9 Sepsis, unspecified organism; F17.210 Nicotine dependence, cigarettes, uncomplicated; E78.5 Hyperlipidemia, unspecified; Z79.4 Long term (current) use of insulin; Z79.899 Other long term (current) drug therapy; Z89.611 Acquired absence of right leg above knee; Z89.612 Acquired absence of left leg above knee; Z99.3 Dependence on wheelchair
CPT/HCPCS: 36415; 36430; 36569; 51702; 71046; 74176; 76775; 80053; 80069; 80202; 82274; 82550; 82565; 82656; 82948; 83036; 83605; 83690; 83735; 85014; 85018; 85025; 85027; 85055; 85610; 86140; 86850; 86900; 86901; 86920; 87040; 87081; 87324; 87426; 87493; 96360; 96361; 96365; 96366; 96367; 96372; 96375; 96376; 97110; 97161; 97165; 97535; 99285; A9270; C1751; C9113; C9803; G0378; G0379; J0131; J0171; J0692; J1650; J1815; J1956; J2270; J2405; J2543; J2997; J3430; J3475; J7030; J7050; J7060; J7120; P9016

== ENCOUNTER 2021-09-09 16:05 | Inpatient (IN) | payer OTHER, SELFPAY ==
[2021-09-09] VITALS (25 sets, daily range): BP systolic 100–147; BP diastolic 62–84; PULSE 76–101; RESP 16–26; TEMP 36.4–37; O2SAT 93–100; BMI 36.2; BMI 55.6
--- NOTE | ~2021-09-09 | US_ITS ---
EXAMINATION: US retroperitoneal duplex ltd DATE: 09/10/2021 15:09 INDICATION: Flash pulmonary edema. Hypertension. TECHNIQUE: Multiple grayscale, color Doppler, and pulsed Doppler images of the kidneys and renal jenny tracey were obtained. COMPARISON: None. FINDINGS: The aorta peak systolic velocity is 95 cm/s. The right renal artery peak systolic velocity is 102 cm/ s in the proximal segment, 79 cm/s in the mid segment, and 94 cm/s in the distal segment. The left re nal artery peak systolic velocity is 47 cm/s in the proximal segment, 89 cm/s in the mid segment, and 67 cm/s in the distal segment. IMPRESSION: 1. No Doppler evidence of renal artery stenosis. Reviewed, dictated and finalized at location A. FINISHER
--- NOTE | ~2021-09-09 | CT_ITS ---
EXAMINATION: CT abdomen pelvis wo con DATE: 09/10/2021 15:05 INDICATION: Abdominal pain TECHNIQUE: Computed tomography (CT) of the abdomen and pelvis was performed without intravenous contr ast. The dose-length product (DLP) was 1311.02 mGy-cm. Automated exposure control and iterative recon struction technique were employed. COMPARISON: 07/08/2021 FINDINGS: Minimal dependent atelectasis is present in the lung bases. The heart size is normal. The l iver, spleen, gallbladder, and left adrenal gland are normal. A 12 mm low-density mass of the right a drenal gland is consistent with an adenoma. Punctate calcifications of the pancreas are consistent wi th chronic pancreatitis. The kidneys are unremarkable. The bladder is decompressed by a Gómez cathete r. There is calcified atherosclerosis of the aorta and many of the other arteries. No pathologically enlarged abdominal or pelvic lymph nodes are identified. There is no free intraperitoneal gas or evid ence of bowel obstruction. There are changes of bilateral hip arthroplasty. There is severe lumbar sp ondylosis. An endoluminal stents are noted in the common iliac arteries and the left external, common femoral common and superficial femoral arteries. IMPRESSION: 1. No CT correlate for the patient's symptoms. Reviewed, dictated and finalized at location A. NCE STAFF STAKER
--- NOTE | ~2021-09-09 | CT_ITS ---
EXAMINATION: CT brain wo con INDICATION: Altered mental status, unresponsive COMPARISON: 12/25/2020 TECHNIQUE: Standard unenhanced head CT. The dose-length product (DLP) was 756.67 mGy-cm. The mA was a djusted according to patient size. Iterative reconstruction technique was employed. FINDINGS: There is no acute intraparenchymal hemorrhage. No evidence of mass lesion. No evidence of a cute infarction. There is mild periventricular and subcortical hypodensity probably related to small vessel ischemic disease. There is mild prominence of the sulci and ventricles related to cerebral atr ophy. Intracranial calcified cerebral atherosclerosis is noted. There are no extra-axial collections. There is no mass effect or midline shift. The orbits and soft tissues are unremarkable. The visualiz ed sinuses and mastoid air cells are well aerated. IMPRESSION: 1. No acute intracranial abnormality. 2. Age related findings. Reviewed, dictated and finalized at location A. D CREW CHIEF
--- NOTE | ~2021-09-09 | XR_ITS ---
EXAMINATION: XR chest ET placement INDICATION: Respiratory failure TECHNIQUE: Portable AP chest at 1621 hours COMPARISON: 07/08/2021 FINDINGS: The endotracheal tube ends approximately 4.1 cm above the nino. The nasogastric tube is f ollowed as far as the stomach. Its tip is beyond the inferior margin of the radiograph. There are dif fuse interstitial opacities. No pleural effusion or pneumothorax is identified. The cardiomediastinal silhouette is normal for technique. IMPRESSION: 1. Diffuse interstitial opacities, likely pulmonary edema. Reviewed, dictated and finalized at location A. OYEE SERVICES MANAGER
--- NOTE | ~2021-09-09 | XR_ITS ---
EXAMINATION: XR chest 1V portable DATE: 09/11/2021 06:00 INDICATION: Congestive heart failure. TECHNIQUE: A single frontal view of the chest was obtained. COMPARISON: Chest single view 09/09/2021, CT abdomen and pelvis 09/10/2021 FINDINGS: There is a diffuse interstitial pattern in the lungs, consistent with mild pulmonary edema. No pleural effusion or pneumothorax. The heart size is normal. IMPRESSION: 1. Mild pulmonary edema. Reviewed, dictated and finalized at location A. NE MARKETING DIRECTOR IMPRESSION: 1. Mild pulmonary edema.
--- NOTE | 2021-09-09 16:13 | ECG_ITS ---
Measurements Intervals Donie Rate: 92 P: 57 AL: 140 QRS: 54 QRSD: 96 T: 130 QT: 403 QTc: 500 Interpretive Statements SINUS RHYTHM POSSIBLE LEFT ATRIAL ENLARGEMENT ST-T WAVE ABNORMALITY IN DIFFUSE LEADS- CONSIDER ISCHEMIA ABNORMAL ECG Electronically Signed On 09-09-2021 17:00:24 REEL CART OPERATOR by Yousuf Villasenor D.O.
--- NOTE | 2021-09-09 16:14 | ED.AMS ---
HPI - Altered Mental Status General Chief Complaint: Altered Mental Status Stated Complaint: unresponsive - intubated Time Seen by Provider: 09/09/21 16:13 Source: EMS Mode of arrival: EMS Limitations: altered mental status and clinical condition History of Present Illness HPI narrative: Patient is a 65-year-old female brought in by EMS and respiratory distress. Patient was found unresponsive at the assisted living facility, in agonal respirations, patient was intubated by EMS at the scene. Patient's blood sugar was 127 per EMS. Related Data Home Medications Medication Instructions Recorded Confirmed Humalog U-100 Insulin See Rx Instructions .ROUTE .COMPLEX 12/24/20 07/09/21 Lantus Solostar U-100 Insulin 50 units SUBCUT DAILY 12/24/20 07/09/21 albuterol sulfate [ProAir HFA] 2 puff INHALATION Q6H PRN 12/24/20 07/09/21 alprazolam 1 mg PO BID PRN 12/24/20 07/09/21 atorvastatin 40 mg PO HS 12/24/20 07/09/21 clopidogrel 75 mg PO DAILY 12/24/20 07/09/21 methocarbamol 1,500 mg PO TID PRN 12/24/20 07/09/21 nystatin See Rx Instructions .ROUTE .COMPLEX 12/24/20 07/09/21 gabapentin 800 mg PO TID 12/25/20 07/09/21 atenolol 25 mg PO DAILY 03/02/21 07/09/21 losartan 100 mg PO DAILY 07/09/21 07/09/21 venlafaxine 112.5 mg PO DAILY 07/09/21 07/09/21 Allergies Allergy/AdvReac Type Severity Reaction Status Date / Time metformin Allergy Unknown Verified 07/08/21 19:48 Sulfa (Sulfonamide Allergy Unknown Verified 07/08/21 19:48 Antibiotics) Review of Systems Review of Systems: ROS unobtainable: Yes unobtainable due to medical condition PMFSH Past Medical History Medical History Chronic pain COPD (chronic obstructive pulmonary disease) Depression Essential hypertension Fibromyalgia GERD (gastroesophageal reflux disease) Hyperlipidemia Insulin dependent diabetes mellitus Peripheral neuropathy Systolic CHF Surgical History Surgical History S/P AKA (above knee amputation) bilateral Family History Family History Mother Lung cancer Father Heart disease Other Unknown family medical history Social History Social History Social History: She resides at [facility]. Primary care provider: Yamileth Perez NP Code status: Full code (per senior care records) Surrogate decision maker: Ariana Addison (daughter) Smoking packs per day: 0.5 Smoking cigarettes per day: 10.0 Years smoked: 50 Smoking pack-years: 25.00 Smoking status: Current every day smoker Tobacco type: cigarettes Alcohol intake: never Substance use: never Gender identity (if verbalized by the patient): Female Spiritual care concerns: No Exam Const: Other: Severe distress, patient unresponsive HENMT: Head: normal to inspection and no contusions General nose exam: Normal nares present Face and sinus: normal facial exam Mouth: Yes Normal oral and palatal mucosa present and Yes moist mucous membranes Throat: posterior oropharynx normal Eyes: Conjunctivae: conjunctivae normal Pupils: Equal, round and reactive pupils present Neck: Neck: normal visual inspection Chest: Chest palpation & inspection: normal inspection of the chest Resp: Other: Agonal respiration Skin: General skin exam: normal color Neuro: Other: GCS: 3 Patient is intubated Extrem: Other: [id number] amputation bilateral lower extremities Course Vital Signs Vital signs: Vital Signs Pulse Rate 101 H 09/09/21 15:55 Respiratory Rate 24 H 09/09/21 15:55 Blood Pressure 100/64 09/09/21 15:55 Pulse Oximetry 100 09/09/21 15:55 Pulse Rate 82 09/09/21 17:40 Respiratory Rate 17 09/09/21 17:40 Blood Pressure 100/64 09/09/21 15:55 Pulse Oximetry 100 09/09/21 17:40 [facility] -
[2021-09-09 16:44] LABS: Alveolar/Arterial O2 Gradient 255.2 mmHg; Carboxyhemoglobin 2.4 % THb (0-2.0); Fractional Inspired Oxygen 100 %; HCO3 ABG 27.5 mEq/l (22.0-26.0); Methemoglobin ABG 0.3 %THb (0-1.5); Oxygen Content ABG 18.3 %vol (16.0-22.0); Oxygen Saturation ABG 99.7 % (95.0-100.0); Oxyhemoglobin 96.5 % THb (90.0-100.0); PO2 FiO2 Ratio Arterial Blood 3.93 %; Reduced Hemoglobin 0.8 %THb (0-5.0); Total Hemoglobin 12.7 g/dL (12.0-18.0); pH ABG 7.246 (7.350-7.450)
[2021-09-09 16:45] LABS: Device VENTILATOR; PCO2 ABG 64.8 mmHg (35.0-45.0); Site Drawn RIGHT RADIAL
[2021-09-09 16:46] LABS: Arterial Blood Gas PEEP 5 cmH2O; Arterial Blood Gas Tidal Volume 450 ml; Arterial Blood Gas Vent Mode CMV; Arterial Blood Gas Ventilator rate 20 /MIN
[2021-09-09 16:50] LABS: Basophils Absolute Auto 0.2 K/mm3 (0.0-0.1); Basophils Percent Auto 1.3 % (0.2-1.2); Eosinophils Absolute Auto 0.5 K/mm3 (0-0.3); Hematocrit 42.1 % (37.0-47.0); Hemoglobin 12.5 g/dL (12.0-15.0); Immature Granulocyte Absolute 0.13 K/mm3 (0.00-0.031); Immature Granulocyte Percent A 0.9 % (0-0.5); Lymphocytes Absolute Auto 5.17 K/mm3 (0.9-3.2); Lymphocytes Percent Auto 34.9 % (18.3-44.2); Mean Corpuscular HGB Conc 29.7 g/dl (32-36); Mean Corpuscular Volume 84.2 fl (80-100); Mean Platelet Volume 10.2 fl (7.4-10.4); Monocytes Percent Auto 6.6 % (2.6-8.5); Neutrophils Absolute Auto 7.9 K/mm3 (1.3-6.7); Neutrophils Percent Auto 53.3 % (45.5-73.1); Platelet Count Result 437 k/mm3 (150-375); Red Cell Distribution Width 15.5 % (11.5-14.5); White Blood Count 14.8 K/mm3 (4.5-10.0)
[2021-09-09 17:00] LABS: Prothrombin Time 12.4 Seconds (11.1-14.7)
[2021-09-09 17:01] LABS: Partial Thromboplastin Time 29.2 SECONDS (22.3-36.8)
[2021-09-09 17:09] LABS: Lactic Acid Reflex 2.3 mmol/L (0.7-2.1)
[2021-09-09 17:13] LABS: Alanine Aminotransferase 19 U/L (4-35); Albumin Level 3.6 g/dL (3.5-5.1); Alkaline Phosphatase 250 U/L (38-126); Anion Gap 8 mmol/L (8-16); Aspartate Amino Transferase 24 U/L (14-36); Bilirubin,Total 0.1 mg/dL (0.2-1.3); Blood Urea Nitrogen 11 mg/dL (7-17); Calcium 8.2 mg/dL (8.4-10.2); Carbon Dioxide 27 mmol/L (22-30); Chloride 107 mmol/L (98-107); Estimated CRCL calculation 59 ml/min; Estimated Glomerular Filt Rate > 60; Glucose 299 mg/dL (65-110); Potassium 3.6 mmol/L (3.4-5.0); Sodium 142 mmol/L (137-145)
[2021-09-09] MEDS: SODIUM CHLORIDE 0.9% IV 1,000 ML 100 ML IV CONT (17:15)
[2021-09-09 17:22] LABS: Hypochromasia 1+ (NORMAL); Platelet Estimate Increased (Adequate); Troponin I 0.019 ng/mL (0.000-0.034)
[2021-09-09 17:23] LABS: Anisocytosis 2+ (NORMAL)
--- NOTE | 2021-09-09 17:27 | PC.NURSE ---
Patient in room awake and following commands while intubated. Patient writing with dry erase board stating she wants ET tube removed. EDP Veangiea in room and states call ED Respiratory for patient to be extubated per patient request. Patient to be placed on BIPAP.
--- NOTE | 2021-09-09 17:30 | PC.NURSE ---
Per BRUNO Tobin, do not continue IV maintenance fluids.
--- NOTE | 2021-09-09 17:31 | PC.NURSE ---
Per BRUNO Tobin via verbal order read-back, give patient 1,000mg Tylenol IV.
--- NOTE | 2021-09-09 18:00 | PM.IMHP ---
H&P: HPI History of Present Illness Date/Time: 09/09/21 18:00 Chief Complaint: Shortness of breath. Narrative: This is a pleasant 65-year-old female with history of congestive heart failure, coronary artery disease, chronic obstructive pulmonary disease, insulin-dependent diabetes, and other comorbidities who presented to the emergency department today via EMS from assisted living at [facility] for evaluation of shortness of breath. Patient tells me that she was in her usual state of health when she awoke this morning. Not long prior to arrival she developed acute shortness of breath and ?chest congestion.? She called staff at [facility] for help and by the time they got to her room she was unresponsive and EMS was summoned. On their arrival she reportedly had agonal respirations and was unresponsive and thus she was intubated in the field. It is my understanding that her systolic blood pressure was 220/110 at that time as well. Within an hour of presenting to the emergency department, her sedation wore off and she was alert and following commands. In fact she was using a marker to write on a dry erase board. The decision was made to extubate her to BiPAP and she is resting comfortably at the time my evaluation. Chest x-ray on arrival showed diffuse interstitial opacities, likely pulmonary edema, and she is being admitted for diuresis. She denies fever, chills, sweats, chest pain, cold and flu symptoms, nausea, and vomiting. Review of Systems Review of Systems: Twelve systems were reviewed and are negative except for as per HPI. [facility] Past Medical History Medical History (Updated 09/09/21 @ 22:47 by Crista Hatch PA-C) Chronic obstructive pulmonary disease Chronic pain Secondary to phantom limb syndrome. Congestive heart failure Echocardiogram in December 2020 showed a mildly enlarged left ventricular chamber with moderate really does left ventricular systolic function with an estimated EF of 35 to 40%, severely increased left ventricular wall thickness, and grade 1 diastolic dysfunction. Depression Diverticulitis Duodenal ulcer (06/2021) Essential hypertension Fibromyalgia Gastroesophageal reflux disease Hyperlipidemia Hypertension Insulin dependent diabetes mellitus Peripheral neuropathy Surgical History Surgical History (Updated 09/09/21 @ 22:38 by Crista Hatch PA-C) History of above-knee amputation of both lower extremities History of bilateral hip arthroplasty History of cardiac catheterization (03/06/21) Right coronary dominant circulation with no significant coronary artery disease. Family History Family History Mother Lung cancer Father Heart disease Other Unknown family medical history Social History Social History (Updated 09/09/21 @ 22:38 by Crista Hatch PA-C) Social History: She resides at [facility]. Former light smoker. Primary care provider: Yamileth Perez NP Code status: Full code. Surrogate decision maker: Ariana Addison (daughter). Smoking packs per day: 0.5 Smoking cigarettes per day: 10.0 Years smoked: 50 Smoking pack-years: 25.00 Meds Home Medications and Allergies Home Medications Medication Instructions Recorded Confirmed Type Humalog U-100 Insulin See Rx Instructions .ROUTE .COMPLEX 12/24/20 07/09/21 History Lantus Solostar U-100 Insulin 50 units SUBCUT DAILY 12/24/20 07/09/21 History albuterol sulfate [ProAir HFA] 2 puff INHALATION Q6H PRN 12/24/20 07/09/21 History alprazolam 1 mg PO BID PRN 12/24/20 07/09/21 History atorvastatin 40 mg PO HS 12/24/20 07/09/21 History clopidogrel 75 mg PO DAILY 12/24/20 07/09/21 History nystatin See Rx Instructions .ROUTE .COMPLEX 12/24/20 07/09/21 History gabapentin 800 mg PO TID 12/25/20 07/09/21 History atenolol 25 mg PO DAILY 03/02/21 07/09/21 History furosemide 80 mg PO DAILY 30 Days #60 tablet 03/07/21 07/09/21 Rx sp
[2021-09-09] MEDS: FUROSEMIDE INJ 40 MG/4 ML VIAL 20 MG IV PUSH ×3 (18:29→23:11)
--- NOTE | 2021-09-09 19:19 | PC.NURSE ---
Assuming care of pt.
[2021-09-09 19:39] LABS: SARS-CoV-2 RNA PCR Negative
[2021-09-09 19:46] LABS: Reflex Lactic Acid Yes or No Add Lactic
[2021-09-09 20:49] LABS: Lactic Acid 1.4 mmol/L (0.7-2.1)
--- NOTE | 2021-09-09 21:26 | PC.NURSE ---
This patient, Isabel Jorgensen, was admitted to IMU status, and placed in IMU Room 206-01. Patient/family oriented to hospital policies and general routines including ID bracelet, bed and alarms, visiting hours, pain management, procedures, bathroom and other care routines, personal items, smoking policy, room service/diet, and visiting hours. Valuables list has been completed. Information on how to activate the Rapid Response Team has been discussed. Patient/Family are encouraged to report perceived risks to care and to ask questions if they do not understand what they are told or what they should do.
[2021-09-09 23:14] LABS: Alveolar/Arterial O2 Gradient 251.9 mmHg; Base Excess ABG -1.3 mEq/l (+/-2.0); Carboxyhemoglobin 0.3 % THb (0-2.0); Fractional Inspired Oxygen 70 %; HCO3 ABG 25.7 mEq/l (22.0-26.0); Methemoglobin ABG 0.5 %THb (0-1.5); Oxygen Content ABG 16.8 %vol (16.0-22.0); Oxygen Saturation ABG 99.2 % (95.0-100.0); Oxyhemoglobin 97.8 % THb (90.0-100.0); PCO2 ABG 53.4 mmHg (35.0-45.0); PO2 ABG 189.8 mmHg (80.0-100.0); PO2 FiO2 Ratio Arterial Blood 2.71 %; Reduced Hemoglobin 1.4 %THb (0-5.0); Site Drawn RIGHT RADIAL; Total Hemoglobin 11.9 g/dL (12.0-18.0); pH ABG 7.301 (7.350-7.450)
[2021-09-09 23:15] LABS: Device NON-INVASIVE VENT; Modified Allen's Test Pass; Non-Invasive Expiratory Pressure 5 CMH2O; Non-Invasive Inspiratory Pressure 12 CMH2O; Non-Invasive Vent Rate 16 /MIN
[2021-09-10] VITALS (21 sets, daily range): BP systolic 130–143; BP diastolic 48–91; PULSE 69–90; RESP 16–27; TEMP 35.8–36.8; O2SAT 94–100
[2021-09-10] LABS: Glucose Point of Care 145 mg/dl (65-105)
[2021-09-10] MEDS: POTASSIUM CHLORIDE 20 MEQ PACKET (FOR LIQUID) 40 MEQ PO (01:42)
[2021-09-10 02:28] LABS: Magnesium 1.6 mg/dL (1.6-2.3)
[2021-09-10 05:14] LABS: Hematocrit 34.9 % (37.0-47.0); Hemoglobin 10.5 g/dL (12.0-15.0); Mean Corpuscular HGB Conc 30.1 g/dl (32-36); Mean Corpuscular Hemoglobin 24.8 pg (26-34); Mean Corpuscular Volume 82.5 fl (80-100); Mean Platelet Volume 10.3 fl (7.4-10.4); Platelet Count Result 294 k/mm3 (150-375); Red Blood Count 4.23 M/mm3 (4.2-5.4); Red Cell Distribution Width 15.5 % (11.5-14.5); White Blood Count 10.4 K/mm3 (4.5-10.0)
[2021-09-10 05:30] LABS: Alanine Aminotransferase 15 U/L (4-35); Alkaline Phosphatase 201 U/L (38-126); Anion Gap 0 mmol/L (8-16); Aspartate Amino Transferase 20 U/L (14-36); Bilirubin,Total 0.2 mg/dL (0.2-1.3); Blood Urea Nitrogen 13 mg/dL (7-17); Calcium 8.1 mg/dL (8.4-10.2); Carbon Dioxide 32 mmol/L (22-30); Chloride 107 mmol/L (98-107); Estimated Glomerular Filt Rate > 60; Glucose 114 mg/dL (65-110); Magnesium 1.7 mg/dL (1.6-2.3); Potassium 4.3 mmol/L (3.4-5.0); Sodium 139 mmol/L (137-145)
[2021-09-10] MEDS: MAGNESIUM SULF 2 GM/WATER 50ML 2 GM/50 ML BAG IVPB (06:55)
[2021-09-10 08:27] LABS: Glucose Point of Care 135 mg/dl (65-105)
[2021-09-10] MEDS: atenoloL 25 MG TABLET PO (08:33)
[2021-09-10] MEDS: GABAPENTIN 400 MG CAPSULE 800 MG PO ×3 (08:33→17:23)
[2021-09-10] MEDS: LOSARTAN POTASSIUM 100 MG TABLET PO (08:33)
[2021-09-10] MEDS: CLOPIDOGREL BISULFATE 75 MG TABLET PO (08:34)
[2021-09-10] MEDS: FUROSEMIDE INJ 40 MG/4 ML VIAL IV PUSH ×2 (08:34→20:33)
[2021-09-10 12:35] LABS: Glucose Point of Care 171 mg/dl (65-105)
--- NOTE | 2021-09-10 13:11 | PM.IMPN ---
Progress Note: A&P Assessment and Plan (1) Flash pulmonary edema: Code(s): J81.0 - Acute pulmonary edema Status: Acute Assessment and Plan: Patient reports sudden onset of shortness of breath not long prior to arrival, likely precipitated by extreme hypertension (systolic reportedly greater than 220/110 on EMS arrival). She was found unresponsive. Chest x-ray shows diffuse pulmonary edema. She was started on furosemide 40 mg IV b.i.d. Will check renal duplex. Wean BiPAP. (2) Acute respiratory failure: Qualifiers: Respiratory failure complication: hypoxia Qualified Code(s): J96.01 - Acute respiratory failure with hypoxia Code(s): J96.00 - Acute respiratory failure, unspecified whether with hypoxia or hypercapnia Status: Acute Assessment and Plan: Secondary to above. Intubated in the field though extubated to BiPAP within a short amount of time as she was alert and following commands. Wean BiPAP as tolerated. (3) Acute exacerbation of congestive heart failure: Code(s): I50.9 - Heart failure, unspecified Status: Acute Assessment and Plan: CXR showing diffuse interstitial opacities c/w edema. Echo from December 2020 showing EF 35-40% with Grade I diastolic dysfunction. COVID swab negative. She was started on Lasix IV with good diuresis. Continue the same. Continue Atenolol and Cozaar for now. (4) Insulin dependent diabetes mellitus: Status: Acute Assessment and Plan: A1c 8.9 in June. The patient's blood glucose was reviewed on 09/10 Glucose remains well controlled. Continue AccuCheks covering with sliding scale. Hypoglycemia protocol available as needed. Resume half dose of basal insulin. Adjust as needed. (5) Suspected sleep apnea: Code(s): R29.818 - Other symptoms and signs involving the nervous system Status: Acute Assessment and Plan: Will wean off BiPAP today. Continue BiPAP at naps and at night. Will need apnea link before discharge or formal polysomnogram as an outpatient. (6) Hypertension: Code(s): I10 - Essential (primary) hypertension Status: Acute Assessment and Plan: Blood pressures were reportedly 220/110 per EMS but was 100/64 on admission here. Patient's blood pressure was reviewed on 09/10 Blood pressure remains well controlled. Will continue current medications. Continue Atenolol and Cozaar. (7) GI bleed: Code(s): K92.2 - Gastrointestinal hemorrhage, unspecified Status: Acute Assessment and Plan: Patient hospitalized in June for GI bleed. She was found to have an acute duodenal ulcer with bleeding. Will resume Protonix and Carafate. (8) Abdominal pain: Code(s): R10.9 - Unspecified abdominal pain Status: Acute Assessment and Plan: Minor abd pain on exam. CT Abd in June showing concerns for enterocolitis. Will repeat CT scan. (9) DVT prophylaxis: Code(s): Z29.9 - Encounter for prophylactic measures, unspecified Status: Acute Assessment and Plan: Heparin. Monitor HH closely Subjective Date/time seen: 09/10/21 13:11 Interval history: 65yo female with CAD, COPD, CHF and ongoing tobacco abuse here for sudden onset of SOB. No history of sleep apnea. Denies cough. She has sudden onset of shortness of breath that prompted this admission. At the facility, she called out and on nursing arrival, she was found unresponsive. Family in the room states patient has had these episodes before. Patient is on morphine chronically does not have access to extra medication. She is also on a muscle relaxer as well. She denies drug or alcohol use. She continues to smoke half a pack a day. Also been having diarrhea recently. Exam Narrative: AF 96.5 143/91 69 22 100% bipap Gen - NARD lying semi-recumbent in bed Chest - inspiraotry and expiratory coarse wheeze CV - RRR S1/S2. Tele showing linda Tidwell
[2021-09-10] MEDS: MORPHINE SULFATE (*CRX) 15 MG TAB IR PO ×2 (13:43→20:25)
[2021-09-10] MEDS: HEPARIN SODIUM 5,000 UNITS/ML VIAL 5000 UNITS SUB-Q ×2 (15:39→23:14)
[2021-09-10 16:07] LABS: Glucose Point of Care 183 mg/dl (65-105)
[2021-09-10] MEDS: SUCRALFATE 1 GM TABLET PO ×2 (17:23→20:25)
[2021-09-10] MEDS: ATORVASTATIN 40 MG TABLET PO (20:25)
[2021-09-10] MEDS: PANTOPRAZOLE 40 MG TABLET PO (20:25)
[2021-09-10] MEDS: INSULIN GLARGINE (*BKC) 100 UNITS/ML 25 UNITS SUB-Q (20:28)
[2021-09-10 20:44] LABS: Glucose Point of Care 324 mg/dl (65-105)
[2021-09-10] MEDS: ALPRAZolam (*CRX) 0.5 MG TABLET 1 MG PO (23:06)
[2021-09-11] VITALS (15 sets, daily range): BP systolic 125–149; BP diastolic 48–80; PULSE 64–88; RESP 16–20; TEMP 36.3–36.8; O2SAT 95–100
[2021-09-11 04:44] LABS: Alveolar/Arterial O2 Gradient 83.2 mmHg; Base Excess ABG 5.5 mEq/l (+/-2.0); Device NASAL CANNULA; Fractional Inspired Oxygen 28 %; HCO3 ABG 30.4 mEq/l (22.0-26.0); Modified Allen's Test Pass; Oxygen Content ABG 18.8 %vol (16.0-22.0); Oxygen Saturation ABG 92.9 % (95.0-100.0); Oxyhemoglobin 91.5 % THb (90.0-100.0); PCO2 ABG 45.2 mmHg (35.0-45.0); PO2 ABG 63.1 mmHg (80.0-100.0); PO2 FiO2 Ratio Arterial Blood 2.25 %; Site Drawn RIGHT RADIAL; Total Hemoglobin 14.6 g/dL (12.0-18.0); pH ABG 7.446 (7.350-7.450)
[2021-09-11 05:04] LABS: Basophils Absolute Auto 0.1 K/mm3 (0.0-0.1); Basophils Percent Auto 0.9 % (0.2-1.2); Eosinophils Absolute Auto 0.2 K/mm3 (0-0.3); Eosinophils Percent Auto 2.1 % (0-4.4); Hematocrit 35.3 % (37.0-47.0); Hemoglobin 10.7 g/dL (12.0-15.0); Immature Granulocyte Absolute 0.04 K/mm3 (0.00-0.031); Immature Granulocyte Percent A 0.4 % (0-0.5); Lymphocytes Absolute Auto 2.58 K/mm3 (0.9-3.2); Lymphocytes Percent Auto 24.1 % (18.3-44.2); Mean Corpuscular HGB Conc 30.3 g/dl (32-36); Mean Corpuscular Hemoglobin 25.1 pg (26-34); Mean Corpuscular Volume 82.9 fl (80-100); Mean Platelet Volume 9.9 fl (7.4-10.4); Monocytes Absolute Auto 0.8 K/mm3 (0.1-0.6); Monocytes Percent Auto 7.1 % (2.6-8.5); Neutrophils Percent Auto 65.4 % (45.5-73.1); Platelet Count Result 291 k/mm3 (150-375); Red Blood Count 4.26 M/mm3 (4.2-5.4); Red Cell Distribution Width 15.9 % (11.5-14.5); White Blood Count 10.7 K/mm3 (4.5-10.0)
[2021-09-11 05:10] LABS: Alanine Aminotransferase 14 U/L (4-35); Albumin Level 3.2 g/dL (3.5-5.1); Alkaline Phosphatase 198 U/L (38-126); Anion Gap 1 mmol/L (8-16); Aspartate Amino Transferase 18 U/L (14-36); Bilirubin,Total 0.3 mg/dL (0.2-1.3); Blood Urea Nitrogen 17 mg/dL (7-17); Calcium 8.1 mg/dL (8.4-10.2); Carbon Dioxide 33 mmol/L (22-30); Chloride 99 mmol/L (98-107); Estimated Glomerular Filt Rate > 60; Glucose 204 mg/dL (65-110); Magnesium 1.7 mg/dL (1.6-2.3); Phosphorus 3.2 mg/dL (2.5-4.5); Potassium 3.5 mmol/L (3.4-5.0); Sodium 133 mmol/L (137-145)
[2021-09-11] MEDS: HEPARIN SODIUM 5,000 UNITS/ML VIAL 5000 UNITS SUB-Q ×3 (07:31→20:55)
[2021-09-11] MEDS: SUCRALFATE 1 GM TABLET PO ×3 (07:31→20:55)
[2021-09-11] MEDS: TOLNAFTATE 1% POWDER 45 GM BTL 1 APPLIC TOPICAL (09:03)
[2021-09-11] MEDS: PANTOPRAZOLE 40 MG TABLET PO ×2 (09:03→20:56)
[2021-09-11] MEDS: LOSARTAN POTASSIUM 100 MG TABLET PO (09:03)
[2021-09-11] MEDS: VENLAFAXINE HCL XR 37.5 MG CAP 112.5 MG PO (09:03)
[2021-09-11] MEDS: GABAPENTIN 400 MG CAPSULE 800 MG PO ×3 (09:03→16:47)
[2021-09-11 09:04] LABS: Glucose Point of Care 185 mg/dl (65-105)
[2021-09-11] MEDS: atenoloL 25 MG TABLET PO (09:04)
[2021-09-11] MEDS: CLOPIDOGREL BISULFATE 75 MG TABLET PO (09:04)
[2021-09-11] MEDS: MORPHINE SULFATE (*CRX) 15 MG TAB IR PO ×2 (09:05→20:54)
[2021-09-11] MEDS: ALPRAZolam (*CRX) 0.5 MG TABLET 1 MG PO ×2 (09:06→16:56)
[2021-09-11] MEDS: FUROSEMIDE INJ 40 MG/4 ML VIAL IV PUSH ×2 (09:06→20:55)
[2021-09-11 12:58] LABS: Glucose Point of Care 186 mg/dl (65-105)
--- NOTE | 2021-09-11 14:22 | PM.IMPN ---
Progress Note: A&P Assessment and Plan (1) Flash pulmonary edema: Code(s): J81.0 - Acute pulmonary edema Status: Acute Assessment and Plan: Patient reports sudden onset of shortness of breath not long prior to arrival, likely precipitated by extreme hypertension (systolic reportedly greater than 220/110 on EMS arrival). Conversely, the elevated BP could be in response to the respiratory failure. She was found unresponsive. Chest x-ray shows diffuse pulmonary edema. She was started on furosemide 40 mg IV b.i.d. with good response. Renal duplex showing no ALINE. Repeat CXR today showing mild pulmonary edema. Continue to follow. (2) Acute respiratory failure: Qualifiers: Respiratory failure complication: hypoxia Qualified Code(s): J96.01 - Acute respiratory failure with hypoxia Code(s): J96.00 - Acute respiratory failure, unspecified whether with hypoxia or hypercapnia Status: Acute Assessment and Plan: Secondary to above. Intubated in the field though extubated to BiPAP within a short amount of time as she was alert and following commands. Weaned BiPAP to sleep. Wean o2 as toerlated. (3) Acute exacerbation of congestive heart failure: Code(s): I50.9 - Heart failure, unspecified Status: Acute Assessment and Plan: Acute on Chronic systolic and diastolic CHF. CXR showing diffuse interstitial opacities c/w edema. Echo from December 2020 showing EF 35-40% with Grade I diastolic dysfunction. COVID swab negative. She was started on Lasix IV and continues to have good diuresis. Continue the same today. Continue Cozaar but change to Coreg. (4) Insulin dependent diabetes mellitus: Status: Acute Assessment and Plan: A1c 8.9 in June. The patient's blood glucose was reviewed on 09/11 Glucose higher today. Continue AccuCheks covering with sliding scale. Hypoglycemia protocol available as needed. Advance Lantus (5) Suspected sleep apnea: Code(s): R29.818 - Other symptoms and signs involving the nervous system Status: Acute Assessment and Plan: Weaned off BiPAP during the day. Continue BiPAP at naps and at night. Will hold BiPAP for apnea link before discharge once she is off O2. (6) Hypertension: Code(s): I10 - Essential (primary) hypertension Status: Acute Assessment and Plan: Blood pressures were reportedly 220/110 per EMS but was 100/64 on admission here. Patient's blood pressure was reviewed on 09/11 Blood pressure remains well controlled. Will continue current medications with Cozaar. Change to Coreg (7) GI bleed: Code(s): K92.2 - Gastrointestinal hemorrhage, unspecified Status: Acute Assessment and Plan: Patient hospitalized in June for GI bleed. She was found to have an acute duodenal ulcer with bleeding. Continue Protonix and Carafate. (8) Abdominal pain: Code(s): R10.9 - Unspecified abdominal pain Status: Acute Assessment and Plan: No abd pain on exam today. CT Abd/pelvis showing no acute findings. Eating okay. Follow. (9) DVT prophylaxis: Code(s): Z29.9 - Encounter for prophylactic measures, unspecified Status: Acute Assessment and Plan: Heparin. HH stable. Monitor HH closely Subjective Date/time seen: 09/11/21 14:22 Interval history: 65yo female with CAD, COPD, CHF and ongoing tobacco abuse here for sudden onset of SOB. Wore BiPAP last night. Remains on 2L. She complains of hip and back pain which is more chronic pain. No CP or SOB. Eating okay. No n/v. Exam Narrative: AF 97.8 146/57 88 20 98% 2L Gen - NARD lying flat in bed left side down Chest - inspiratory rhonchi bibasilar L>R CV - RRR S1/S2. Tele showing bigeminy Abd - Soft, NT/ND, Positive BS - Gómez secured draining clear yellow urine Ext - bilateral AKA. mild LE edema Psych - Nml mood and affect Skin - Warm and dry Objective Data Vital Si
[2021-09-11] MEDS: INSULIN ASPART (*BKC) 100 UNITS/ML SUB-Q (16:47)
[2021-09-11 16:51] LABS: Glucose Point of Care 262 mg/dl (65-105)
[2021-09-11] MEDS: POTASSIUM CHLORIDE 20 MEQ TABLET PO (17:00)
[2021-09-11 20:52] LABS: Glucose Point of Care 146 mg/dl (65-105)
[2021-09-11] MEDS: ATORVASTATIN 40 MG TABLET PO (20:56)
[2021-09-11] MEDS: carvediloL 6.25 MG TABLET PO (20:56)
[2021-09-11] MEDS: INSULIN GLARGINE (*BKC) 100 UNITS/ML 35 UNITS SUB-Q (20:59)
[2021-09-12] VITALS (12 sets, daily range): BP systolic 133–170; BP diastolic 51–64; PULSE 63–83; RESP 18–20; TEMP 36.1–36.7; O2SAT 91–100
--- NOTE | 2021-09-12 | ECHO_ITS ---
Patient Info Name: Isabel Jorgensen Age: 65 years : 1955 Gender: Female Ht: 50 in Wt: 182 lbs BSA: 1.78 m2 HR: 71 bpm BP: 148 / 58 mmHg Heart Rhythm: Sinus Rhythm Technical Quality: Fair Exam Date: 09/12/2021 2:57 PM Exam Location: [facility] Pulmonary Exam Room: 231 Patient Status: Inpatient Admit Date: 09/09/2021 Staff Ordering Physician: Jeffrey Haynes MD Buddhist Monk: Jessica Mejia RDCS Attending Provider: Refugio Jarquin MD Exam Type: CA echo doppler color flow Study Info Indications - chf Complete two-dimensional, color flow and Doppler transthoracic echocardiogram is performed. Summary 1. Complete two-dimensional, color flow and Doppler transthoracic echocardiogram is performed. 2. Left ventricular chamber dimension is mildly enlarged. 3. Left ventricular systolic function is moderately reduced, estimated at 35-40%. 4. There is mildly increased left ventricular wall thickness. 5. Left ventricular septal wall motion is abnormal with septal motion related to bundle branch block. 6. The left ventricular diastolic function is grade I diastolic dysfunction. 7. Left atrial chamber dimension is moderately enlarged. 8. There is mild mitral valve regurgitation. 9. There is no aortic valve stenosis. Left Ventricle Left ventricular chamber dimension is mildly enlarged. Left ventricular systolic function is moderately reduced, estimated at 35-40%. There is mildly increased left ventricular wall thickness. Left ventricular septal wall motion is abnormal with septal motion related to bundle branch block. The left ventricular diastolic function is grade I diastolic dysfunction. Right Ventricle Right ventricular chamber dimension is not well visualized. Left Atria Left atrial chamber dimension is moderately enlarged. Right Atria Right atrial chamber dimension is normal. Aortic Valve The aortic valve is not well visualized. There is mild aortic valve sclerosis. There is no aortic valve stenosis. There is trace aortic valve regurgitation. Pulmonic Valve The pulmonic valve is not well visualized. Mitral Valve The mitral valve has thickened leaflets. There is mild mitral valve regurgitation. The mitral valve annulus is severely calcified. Tricuspid Valve The tricuspid valve leaflets are normal. There is trace tricuspid valve regurgitation. No pulmonary hypertension, estimated pulmonary arterial systolic pressure is 17 mmHg. Pericardium/Pleural The pericardium appears epicardial fat pad. There is no pericardial effusion. Inferior Vena Cava Normal inferior vena cava with >50% collapse upon inspiration consistent with normal right atrial pressure, 5 mmHg. Aorta The aortic root size at the sinus of Valsalva is normal. There is mild aortic atherosclerosis. Left Ventricular Outflow Tract Name Value Normal LVOT 2D LVOT Diameter 2.0 cm LVOT Doppler LVOT Peak Gradient 5 mmHg LVOT Mean Gradient 3 mmHg LVOT VTI 25 cm LVOT VTI/AV VTI Ratio 0.9
[2021-09-12 05:02] LABS: Hematocrit 36.5 % (37.0-47.0); Hemoglobin 11.1 g/dL (12.0-15.0); Mean Corpuscular HGB Conc 30.4 g/dl (32-36); Mean Corpuscular Hemoglobin 25.1 pg (26-34); Mean Corpuscular Volume 82.4 fl (80-100); Mean Platelet Volume 10.6 fl (7.4-10.4); Platelet Count Result 306 k/mm3 (150-375); Red Blood Count 4.43 M/mm3 (4.2-5.4); Red Cell Distribution Width 15.9 % (11.5-14.5); White Blood Count 9.9 K/mm3 (4.5-10.0)
[2021-09-12 05:24] LABS: Anion Gap 3 mmol/L (8-16); Blood Urea Nitrogen 16 mg/dL (7-17); Calcium 8.4 mg/dL (8.4-10.2); Carbon Dioxide 30 mmol/L (22-30); Chloride 100 mmol/L (98-107); Estimated Glomerular Filt Rate > 60; Glucose 159 mg/dL (65-110); Magnesium 1.7 mg/dL (1.6-2.3); Potassium 3.7 mmol/L (3.4-5.0); Sodium 133 mmol/L (137-145)
[2021-09-12] MEDS: MORPHINE SULFATE (*CRX) 15 MG TAB IR PO ×2 (05:26→16:43)
[2021-09-12] MEDS: HEPARIN SODIUM 5,000 UNITS/ML VIAL 5000 UNITS SUB-Q ×3 (05:27→20:06)
[2021-09-12] MEDS: SUCRALFATE 1 GM TABLET PO ×4 (05:27→20:06)
[2021-09-12 09:07] LABS: Glucose Point of Care 156 mg/dl (65-105)
[2021-09-12] MEDS: VENLAFAXINE HCL XR 37.5 MG CAP 112.5 MG PO (09:50)
[2021-09-12] MEDS: carvediloL 6.25 MG TABLET PO (09:50)
[2021-09-12] MEDS: GABAPENTIN 400 MG CAPSULE 800 MG PO ×3 (09:50→16:31)
[2021-09-12] MEDS: CLOPIDOGREL BISULFATE 75 MG TABLET PO (09:51)
[2021-09-12] MEDS: FUROSEMIDE INJ 40 MG/4 ML VIAL IV PUSH ×2 (09:51→20:05)
[2021-09-12] MEDS: LOSARTAN POTASSIUM 100 MG TABLET PO (09:51)
[2021-09-12] MEDS: PANTOPRAZOLE 40 MG TABLET PO ×2 (09:51→20:05)
[2021-09-12] MEDS: INSULIN ASPART (*BKC) 100 UNITS/ML SUB-Q ×2 (12:15→17:00)
[2021-09-12 13:08] LABS: Glucose Point of Care 216 mg/dl (65-105)
--- NOTE | 2021-09-12 13:46 | PM.IMPN ---
Progress Note: A&P Assessment and Plan (1) Flash pulmonary edema: Code(s): J81.0 - Acute pulmonary edema Status: Acute Assessment and Plan: Patient reports sudden onset of shortness of breath not long prior to EMS arrival, likely precipitated by extreme hypertension (systolic reportedly greater than 220/110 on EMS arrival). Conversely, the elevated BP could be in response to the respiratory failure. She was found unresponsive. Chest x-ray shows diffuse pulmonary edema. She was started on furosemide 40 mg IV b.i.d. with good response. Renal duplex showing no ALINE. Repeat CXR 09/11 showing mild pulmonary edema. Continue to follow. (2) Acute respiratory failure: Qualifiers: Respiratory failure complication: hypoxia Qualified Code(s): J96.01 - Acute respiratory failure with hypoxia Code(s): J96.00 - Acute respiratory failure, unspecified whether with hypoxia or hypercapnia Status: Acute Assessment and Plan: Secondary to above. Intubated in the field though extubated to BiPAP within a short amount of time in the ED as she was alert and following commands. Wean O2 as tolerated. ApneaLink tonight (3) Acute exacerbation of congestive heart failure: Code(s): I50.9 - Heart failure, unspecified Status: Acute Assessment and Plan: Acute on Chronic systolic and diastolic CHF. CXR showing diffuse interstitial opacities c/w edema. Echo from December 2020 showing EF 35-40% with Grade I diastolic dysfunction. COVID swab negative. She was started on Lasix IV and continues to have good diuresis. Continue the same today but change to oral Lasix tomorrow. Continue Cozaar and Coreg. Repeat echo (4) Insulin dependent diabetes mellitus: Status: Acute Assessment and Plan: A1c 8.9 in June. The patient's blood glucose was reviewed on 09/12 Glucose better this morning at 159. Continue AccuCheks covering with sliding scale. Hypoglycemia protocol available as needed. Continue Lantus (5) Suspected sleep apnea: Code(s): R29.818 - Other symptoms and signs involving the nervous system Status: Acute Assessment and Plan: Weaned off BiPAP during the day. Continue BiPAP at naps and at night as she tolerates. Will hold BiPAP for apnea link tonight. (6) Hypertension: Code(s): I10 - Essential (primary) hypertension Status: Acute Assessment and Plan: Blood pressures were reportedly 220/110 per EMS but was 100/64 on admission here. Patient's blood pressure was reviewed on 09/12 Blood pressure higher then it should be. Will continue current medications with Bryanna and Jaime. Advance Coreg (7) GI bleed: Code(s): K92.2 - Gastrointestinal hemorrhage, unspecified Status: Acute Assessment and Plan: Patient hospitalized in June for GI bleed. She was found to have an acute duodenal ulcer with bleeding. HH stbale. Continue Protonix and Carafate. (8) Abdominal pain: Code(s): R10.9 - Unspecified abdominal pain Status: Acute Assessment and Plan: No abd pain on exam today. CT Abd/pelvis showing no acute findings. Eating okay. Follow. (9) DVT prophylaxis: Code(s): Z29.9 - Encounter for prophylactic measures, unspecified Status: Acute Assessment and Plan: Heparin. HH stable. Monitor HH closely Subjective Date/time seen: 09/12/21 13:46 Interval history: 65yo female with CAD, COPD, CHF and ongoing tobacco abuse here for sudden onset of SOB. Slept poorly. Had some fleeting chest pain last night. Did not wear the mask last night. She menses she had a left heart catheterization back in February which showed no significant coronary disease. Exam Narrative: AF 96.9 148/58 63 18 91% 2L Gen - NARD Chest -clear to auscultation bilaterally CV - RRR S1/S2. Tele showing bigeminy Abd - Soft, NT/ND, Positive BS - Gómez secured draining clear yellow urine Ext - bilateral AK
[2021-09-12] MEDS: MAGNESIUM SULF 2 GM/WATER 50ML 2 GM/50 ML BAG IVPB (14:22)
[2021-09-12 17:13] LABS: Glucose Point of Care 214 mg/dl (65-105)
[2021-09-12] MEDS: ALPRAZolam (*CRX) 0.5 MG TABLET 1 MG PO (20:05)
[2021-09-12] MEDS: carvediloL 12.5 MG TABLET PO (20:06)
[2021-09-12] MEDS: INSULIN GLARGINE (*BKC) 100 UNITS/ML 35 UNITS SUB-Q (20:07)
[2021-09-12] MEDS: ATORVASTATIN 40 MG TABLET PO (20:23)
[2021-09-12 20:25] LABS: Glucose Point of Care 228 mg/dl (65-105)
[2021-09-13] VITALS: BP 131/59; PULSE 72; PULSE 73; RESP 20; TEMP 35.6; O2SAT 95
[2021-09-13 04:00] VITALS: BP 130/56; PULSE 74; PULSE 76; RESP 20; TEMP 36.7; O2SAT 97
[2021-09-13 05:03] LABS: Hematocrit 36.8 % (37.0-47.0); Hemoglobin 11.2 g/dL (12.0-15.0)
[2021-09-13 05:16] LABS: Anion Gap 3 mmol/L (8-16); Blood Urea Nitrogen 18 mg/dL (7-17); Calcium 8.4 mg/dL (8.4-10.2); Carbon Dioxide 32 mmol/L (22-30); Chloride 100 mmol/L (98-107); Estimated Glomerular Filt Rate > 60; Glucose 199 mg/dL (65-110); Potassium 3.5 mmol/L (3.4-5.0); Sodium 135 mmol/L (137-145)
--- NOTE | 2021-09-13 05:25 | PC.NURSE ---
This patient, Isabel Jorgensen, was transferred to [ [facility]] on 09/13/21 at 0525. Personal belongings sent with patient. Report given to [ Waldo]. Appropriate documentation sent with patient.
--- NOTE | 2021-09-13 05:39 | ADMGEN ---
This patient, Isabel Jorgensen, was admitted to [facility] Surg Room 331-02 from IMU. Patient/family oriented to hospital policies and general routines including ID bracelet, bed and alarms, visiting hours, pain management, procedures, bathroom and other care routines, personal items, smoking policy, room service/diet, and visiting hours. Information on how to activate the Rapid Response Team has been discussed. Patient/Family are encouraged to report perceived risks to care and to ask questions if they do not understand what they are told or what they should do.
[2021-09-13] MEDS: HEPARIN SODIUM 5,000 UNITS/ML VIAL 5000 UNITS SUB-Q ×2 (06:54→12:54)
[2021-09-13] MEDS: SUCRALFATE 1 GM TABLET PO ×3 (06:54→18:57)
[2021-09-13 08:00] VITALS: PULSE 74
[2021-09-13 08:31] LABS: Glucose Point of Care 181 mg/dl (65-105)
[2021-09-13] MEDS: MORPHINE SULFATE (*CRX) 15 MG TAB IR PO ×2 (09:51→18:59)
[2021-09-13] MEDS: FUROSEMIDE INJ 40 MG/4 ML VIAL IV PUSH (09:52)
[2021-09-13] MEDS: GABAPENTIN 400 MG CAPSULE 800 MG PO ×3 (09:52→18:56)
[2021-09-13] MEDS: VENLAFAXINE HCL XR 37.5 MG CAP 112.5 MG PO (09:52)
[2021-09-13] MEDS: LOSARTAN POTASSIUM 100 MG TABLET PO (09:52)
[2021-09-13] MEDS: carvediloL 12.5 MG TABLET PO (09:52)
[2021-09-13] MEDS: PANTOPRAZOLE 40 MG TABLET PO (09:52)
[2021-09-13] MEDS: CLOPIDOGREL BISULFATE 75 MG TABLET PO (09:53)
[2021-09-13 11:42] LABS: Glucose Point of Care 251 mg/dl (65-105)
[2021-09-13] MEDS: INSULIN ASPART (*BKC) 100 UNITS/ML SUB-Q (12:54)
--- NOTE | 2021-09-13 12:58 | PM.DS ---
DS: Admitting Diagnosis Discharge Date 09/13/21 Admitting Diagnosis Acute respiratory failure DS: Discharge Diagnosis Discharge Diagnosis (1) Flash pulmonary edema: Code(s): J81.0 - Acute pulmonary edema Status: Acute Assessment and Plan: Patient reports sudden onset of shortness of breath not long prior to EMS arrival, likely precipitated by extreme hypertension (systolic reportedly greater than 220/110 on EMS arrival). Conversely, the elevated BP could be in response to the respiratory failure. She was found unresponsive. She was intubated in the field and jesica to the ED for evaluation. Chest x-ray shows diffuse pulmonary edema. She was started on furosemide 40 mg IV b.i.d. with good response. Renal duplex showing no ALINE. Repeat CXR 09/11 showing mild pulmonary edema. Able to be weaned to room air. (2) Acute respiratory failure: Qualifiers: Respiratory failure complication: hypoxia Qualified Code(s): J96.01 - Acute respiratory failure with hypoxia Code(s): J96.00 - Acute respiratory failure, unspecified whether with hypoxia or hypercapnia Status: Acute Assessment and Plan: Secondary to above. COVID swab negative. Intubated in the field though extubated to BiPAP within a short amount of time in the ED as she was alert and following commands. Related to pulmonary edema. She is not sure she has been taking the diuretic therapy. ApneaLink is positive. She was treated with IV diuretics with good response. She was able to be weaned to room air. (3) Acute exacerbation of congestive heart failure: Code(s): I50.9 - Heart failure, unspecified Status: Acute Assessment and Plan: Acute on chronic systolic and diastolic CHF. CXR showing diffuse interstitial opacities c/w edema. Echo showing EF 35-40% with Grade I diastolic dysfunction. EF showing no change from prior Echo. She was started on Lasix IV and had a good diuresis. Respiratory symptoms resolved. Her atenolol was changed to Coreg. We continued her Cozaar. (4) Insulin dependent diabetes mellitus: Status: Acute Assessment and Plan: A1c 8.9 in June. The patient's blood glucose was monitored closely with AccuCheks covering with sliding scale. Hypoglycemia protocol was available as needed. We continued her Lantus. (5) Suspected sleep apnea: Code(s): R29.818 - Other symptoms and signs involving the nervous system Status: Acute Assessment and Plan: She was on continuous BiPAP after extubation in the ED. We weaned her off BiPAP during the day. We held BiPAP last night and she discharge. Plan for a formal sleep study after discharge. Had an ApneaLink. AHI was 42 with RI 44. This was done on room air. Continue BiPAP at naps and at night after discharge (6) Hypertension: Code(s): I10 - Essential (primary) hypertension Status: Acute Assessment and Plan: Blood pressures were reportedly 220/110 per EMS but was 100/64 on admission here possibly related to sedation. Patient's blood pressure was monitored closely and medications were adjusted. (7) GI bleed: Code(s): K92.2 - Gastrointestinal hemorrhage, unspecified Status: Acute Assessment and Plan: Patient hospitalized in June for GI bleed. She was found to have an acute duodenal ulcer with bleeding. HH remained stable. We continued Protonix and Carafate. (8) Abdominal pain: Code(s): R10.9 - Unspecified abdominal pain Status: Acute Assessment and Plan: Abd pain resolved during her hospital course. CT Abd/pelvis showing no acute findings. Eating okay. (9) Tobacco abuse: Code(s): Z72.0 - Tobacco use Status: Acute Assessment and Plan: She was educated about the benefits of smoking cessation DS: Summary Hospital Course Reason for hospitalization: 65yo female with CAD, COPD, CHF and ongoing tobacco abuse here for sudd
[2021-09-13 14:49] VITALS: PULSE 72; O2SAT 94
[2021-09-13 16:26] LABS: Glucose Point of Care 183 mg/dl (65-105)
[2021-09-13 17:06] LABS: EDCOVIDSCREEN Negative (Negative)
== END 2021-09-13 19:30 | DRG 194 ==
LOC: ANHED 18:09 → ANHIMU 09-10 12:57 → ANH3MEDSUR 09-13 13:22 → ANHIMU 09-16 13:13
PROVIDERS: Internal Medicine; Physician Assistant; Admitting Provider Family Medicine; Emergency Provider Emergency Medicine; PCP Nurse Practitioner Adult Health; Visit Provider Internal Medicine
DX: J81.0 Acute pulmonary edema (principal); J44.9 Chronic obstructive pulmonary disease, unspecified; G89.29 Other chronic pain; Z20.822 Contact with and (suspected) exposure to COVID-19; F32.9 Major depressive disorder, single episode, unspecified; I11.0 Hypertensive heart disease with heart failure; M79.7 Fibromyalgia; K21.9 Gastro-esophageal reflux disease without esophagitis; I50.43 Acute on chronic combined systolic (congestive) and diastolic (congestive) heart failure; J96.01 Acute respiratory failure with hypoxia; E78.5 Hyperlipidemia, unspecified; E11.42 Type 2 diabetes mellitus with diabetic polyneuropathy; Z87.11 Personal history of peptic ulcer disease; Z79.4 Long term (current) use of insulin; Z79.899 Other long term (current) drug therapy; Z80.1 Family history of malignant neoplasm of trachea, bronchus and lung; Z82.49 Family history of ischemic heart disease and other diseases of the circulatory system; Z87.891 Personal history of nicotine dependence; Z79.891 Long term (current) use of opiate analgesic; Z79.51 Long term (current) use of inhaled steroids; Z88.2 Allergy status to sulfonamides; Z88.8 Allergy status to other drugs, medicaments and biological substances; R29.818 Other symptoms and signs involving the nervous system; R10.9 Unspecified abdominal pain; Z29.9 Encounter for prophylactic measures, unspecified; I25.10 Atherosclerotic heart disease of native coronary artery without angina pectoris
CPT/HCPCS: 36415; 36600; 70450; 71045; 74176; 80048; 80053; 82375; 82805; 82948; 83050; 83605; 83735; 84100; 84443; 84484; 85014; 85018; 85025; 85027; 85610; 85730; 87426; 93005; 93306; 93976; 94002; 94003; 94762; 96374; 97161; 99291; A9270; C9803; J0131; J1644; J1815; J1940; J2543; J3475; J7030; U0003; U0005

== ENCOUNTER 2022-09-29 14:49 | Inpatient (IN) | payer OTHER, SELFPAY ==
[2022-09-29] VITALS (26 sets, daily range): BP systolic 91–127; BP diastolic 51–90; PULSE 66–84; RESP 13–22; TEMP 36.5–37.1; O2SAT 93–99; BMI 58.4
--- NOTE | ~2022-09-29 | XR_ITS ---
EXAMINATION: XR chest 1V portable DATE: 09/29/2022 15:22 INDICATION: Hypoxia. TECHNIQUE: A single frontal view of the chest was obtained. COMPARISON: Chest single view 09/11/2021, CT abdomen and pelvis 09/10/2021 FINDINGS: The chest demonstrates clear lungs without pneumonia, pleural effusion, or pneumothorax. Th e heart size is normal. IMPRESSION: 1. No acute cardiopulmonary disease. Reviewed, dictated and finalized at location A. CREWMAN
--- NOTE | ~2022-09-29 | XR_ITS ---
EXAMINATION: XR chest 1V portable DATE: 10/03/2022 07:58 INDICATION: Pneumonia. Chronic obstructive pulmonary disease. TECHNIQUE: A single frontal view of the chest was obtained. COMPARISON: Chest single view 09/29/2022, chest CT 09/29/2022 FINDINGS: There are mild airspace opacities in the lower lung zones. No pleural effusion or pneumotho rax. The heart size is normal. IMPRESSION: 1. Mild airspace opacities in the lower lung zones, consistent with atelectasis versus pneumonia. Reviewed, dictated and finalized at location A. STACKER
--- NOTE | ~2022-09-29 | CT_ITS ---
EXAMINATION: CTA chest PE protocol DATE: 09/29/2022 18:01 INDICATION: hypoxia, chest pain TECHNIQUE: Computed tomography angiography (CTA) of the chest was performed with 100 mL Omnipaque-350 intravenous contrast timed to evaluate the pulmonary arteries. Coronal maximum intensity projection 3D-reconstructions were created by the technologist. The dose-length product (DLP) was 710.97 mGy-cm. Automated exposure control and iterative reconstruction technique were employed. iCOMPARISON: CT chest 12/25/2020. FINDINGS: Lung parenchyma and airways: Airway debris in multiple bilateral lower lobe bronchi. Bronchial wall t hickening. Scattered areas of peripheral reticular, groundglass, and tree-in-bud opacities. Pleura: Unremarkable. Thoracic inlet, axillae and chest wall: Unremarkable. Thoracic aorta: Calcified and noncalcified plaque in the aortic arch. Mediastinum: Food debris within the esophagus. Heart and pericardium: Aortic and mitral valve calcifications. Coronary artery calcifications: Mild. Upper abdomen: No significant finding. Bones: No acute osseous finding. Pulmonary arteries: Study quality: Adequate. No pulmonary emboli detected. IMPRESSION: No CT evidence of acute pulmonary embolus. Pulmonary opacities may represent respiratory bronchioliti s, possibly with a component of aspiration. Reviewed, dictated and finalized at location K. RCYCLE FABRICATOR IMPRESSION: No CT evidence of acute pulmonary embolus. Pulmonary opacities may represent re spiratory bronchiolitis, possibly with a component of aspiration.
--- NOTE | ~2022-09-29 | US_ITS ---
EXAMINATION: US renal BI DATE: 10/02/2022 16:10 INDICATION: Renal failure. TECHNIQUE: Multiple ultrasound grayscale images of the kidneys were obtained. COMPARISON: CT abdomen and pelvis 09/10/2021 FINDINGS: The right kidney measures 10.3 x 5.6 x 4.5 cm. The left kidney measures 10.2 x 5.8 x 4.9 cm. The kidn eys demonstrate normal parenchymal echogenicity. There is no hydronephrosis. The bladder is decompres sed. IMPRESSION: 1. Normal kidneys. No hydronephrosis. Reviewed, dictated and finalized at location A. N IRONER OPERATOR
--- NOTE | 2022-09-29 15:08 | ECG_ITS ---
Measurements Intervals Shelly Rate: 79 P: 22 VA: 148 QRS: 57 QRSD: 94 T: -46 QT: 399 QTc: 460 Interpretive Statements SINUS RHYTHM ST-T WAVE ABNORMALITY IN INFERIOR LEADS- CONSIDER ISCHEMIA BASELINE ARTIFACT- I, II, III, AVR, AVL, AVF ABNORMAL ECG COMPARED TO ECG 09/09/2021 16:18:29 NO SIGNIFICANT CHANGES Electronically Signed On 09-29-2022 16:45:57 HISTORICAL INTERPRETER by Yousuf Villasenor D.O.
--- NOTE | 2022-09-29 15:28 | ED.GENADULT ---
HPI - General Adult General Chief complaint: Shortness of Breath/Dyspnea Stated complaint: low O2 Time Seen by Provider: 09/29/22 15:02 Source: patient, EMS and RN notes reviewed Mode of arrival: EMS Limitations: no limitations History of Present Illness HPI narrative: This is a 66 year old female with history of COPD, CHF, DM, bilateral LE AKA who presents from [facility] for evaluation of weakness. Patient states that she was trying to transfer from her wheelchair to her bed and she fell. She normally does not have issue with transferring but she has been weak for 2-3 days. She reports worsening cough but denies shortness of breath. She may have chest pain with cough. She reports having episode of emesis x 1 with coughing. EMS was called for lift assist to [facility] and they found that her oxygen saturation was 80% on room air. She was placed on 3 L NC. She denies chronic oxygen use. Related Data Home Medications Medication Instructions Recorded Confirmed Humalog U-100 Insulin See Rx Instructions .Route .COMPLEX 12/24/20 09/09/21 Lantus Solostar U-100 Insulin 50 units subcut HS 12/24/20 09/09/21 albuterol sulfate 90 mcg/actuation 2 puff inhalation Q6H PRN wheezing 12/24/20 09/09/21 aerosol inhaler (ProAir HFA) atorvastatin 40 mg tablet 40 mg PO HS 12/24/20 09/09/21 clopidogrel 75 mg tablet 75 mg PO DAILY 12/24/20 09/09/21 nystatin 100,000 unit/gram topical See Rx Instructions .Route .COMPLEX 12/24/20 09/09/21 cream gabapentin 400 mg capsule 800 mg PO TID 12/25/20 09/09/21 venlafaxine 37.5 mg 112.5 mg PO DAILY 07/09/21 09/09/21 capsule,extended release 24 hr Allergies Allergy/AdvReac Type Severity Reaction Status Date / Time metformin Allergy Unknown Verified 09/29/22 15:38 Sulfa (Sulfonamide Allergy Unknown Verified 09/29/22 15:38 Antibiotics) Review of Systems Constitutional: Constitutional: Reports fatigue and Reports weakness Cardiovascular: Cardiovascular: Denies syncope, Denies rapid heart rate, Denies irregular heart rhythm, Denies leg edema and Denies dyspnea Respiratory: Respiratory: Denies chest congestion, Reports cough, Denies hemoptysis, Denies excessive phlegm production and Reports dyspnea Gastrointestinal: Gastrointestinal: Denies abdominal pain, Denies hematochezia, Denies diarrhea, Reports nausea and Reports vomiting Genitourinary: Genitourinary: Denies hematuria and Denies dysuria Musculoskeletal: Musculoskeletal: Denies joint swelling, Denies loss of height and Denies muscle weakness Neurologic: Denies syncope, Denies focal weakness and Reports weakness PMFSH Past Medical History Medical History Chronic obstructive pulmonary disease Chronic pain Secondary to phantom limb syndrome. Congestive heart failure Echocardiogram in December 2020 showed a mildly enlarged left ventricular chamber with moderate really does left ventricular systolic function with an estimated EF of 35 to 40%, severely increased left ventricular wall thickness, and grade 1 diastolic dysfunction. Depression Diverticulitis Duodenal ulcer (06/2021) Essential hypertension Fibromyalgia Gastroesophageal reflux disease Hyperlipidemia Hypertension Insulin dependent diabetes mellitus Peripheral neuropathy Surgical History Surgical History History of above-knee amputation of both lower extremities History of bilateral hip arthroplasty History of cardiac catheterization (03/06/21) Right coronary dominant circulation with no significant coronary artery disease. Family History Family History Mother Lung cancer Father Heart disease Other Unknown family medical history Social History Social History Social History: She resides at [facility]. Former light smoker
[2022-09-29] MEDS: ALBUTEROL SULFATE NEB 2.5 MG/3 ML INH 10 MG INHALATION (15:36)
[2022-09-29] MEDS: IPRATROPIUM BR 0.02% INH SOLN 0.5 MG/2.5 ML VIAL 1 MG INHALATION (15:36)
[2022-09-29 15:39] LABS: Alveolar/Arterial O2 Gradient 95.8 mmHg; Base Excess ABG -2.5 mEq/l (+/-2.0); Carboxyhemoglobin 1.7 % THb (0-2.0); Fractional Inspired Oxygen 32 %; HCO3 ABG 25.2 mEq/l (22.0-26.0); Methemoglobin ABG 0.3 %THb (0-1.5); Oxygen Content ABG 15.2 %vol (16.0-22.0); Oxygen Saturation ABG 89.7 % (95.0-100.0); Oxyhemoglobin 89.3 % THb (90.0-100.0); PCO2 ABG 56.9 mmHg (35.0-45.0); PO2 ABG 65.8 mmHg (80.0-100.0); PO2 FiO2 Ratio Arterial Blood 2.06 %; Reduced Hemoglobin 8.7 %THb (0-5.0); Total Hemoglobin 12.1 g/dL (12.0-18.0)
[2022-09-29] MEDS: SODIUM CHLORIDE 0.9% IV 500 ML 999 ML IV CONT (15:39)
[2022-09-29] MEDS: methylPREDNISolone SOD SUCC 125 MG VIAL IV PUSH (15:39)
[2022-09-29 15:42] LABS: Device NASAL CANNULA; Modified Allen's Test Pass; Site Drawn RIGHT RADIAL; pH ABG 7.264 (7.350-7.450)
[2022-09-29 16:01] LABS: Basophils Absolute Auto 0.1 K/mm3 (0.0-0.1); Basophils Percent Auto 0.7 % (0.2-1.2); Eosinophils Absolute Auto 0.2 K/mm3 (0-0.3); Hematocrit 38.6 % (37.0-47.0); Hemoglobin 11.2 g/dL (12.0-15.0); Immature Granulocyte Absolute 0.07 K/mm3 (0.00-0.031); Immature Granulocyte Percent A 0.4 % (0-0.5); Lymphocytes Absolute Auto 1.41 K/mm3 (0.9-3.2); Lymphocytes Percent Auto 8.9 % (18.3-44.2); Mean Corpuscular Hemoglobin 23.5 pg (26-34); Mean Corpuscular Volume 81.1 fl (80-100); Mean Platelet Volume 9.8 fl (7.4-10.4); Monocytes Absolute Auto 1.4 K/mm3 (0.1-0.6); Monocytes Percent Auto 8.9 % (2.6-8.5); Neutrophils Absolute Auto 12.7 K/mm3 (1.3-6.7); Neutrophils Percent Auto 80.1 % (45.5-73.1); Platelet Count Result 292 k/mm3 (150-375); Red Blood Count 4.76 M/mm3 (4.2-5.4); White Blood Count 15.9 K/mm3 (4.5-10.0)
[2022-09-29 16:04] LABS: Alanine Aminotransferase 14 U/L (6-35); Albumin Level 3.3 g/dL (3.5-5.1); Alkaline Phosphatase 234 U/L (38-126); Anion Gap 5 mmol/L (8-16); Aspartate Amino Transferase 16 U/L (14-36); Bilirubin,Total 0.6 mg/dL (0.2-1.3); Blood Urea Nitrogen 21 mg/dL (7-17); Carbon Dioxide 28 mmol/L (22-30); Chloride 102 mmol/L (98-107); Estimated Glomerular Filt Rate 35; Glucose 113 mg/dL (65-110); INR 1.3; Magnesium 1.9 mg/dL (1.6-2.3); Potassium 4.4 mmol/L (3.4-5.0); Prothrombin Time 15.6 Seconds (11.1-14.7); Sodium 135 mmol/L (137-145)
[2022-09-29 16:05] LABS: Lactic Acid Reflex 1.1 mmol/L (0.7-2.0); Partial Thromboplastin Time 32.1 SECONDS (22.3-36.8)
[2022-09-29 16:18] LABS: NT Pro B Type Natriuretic Pept 2800 pg/mL (19.9-100)
[2022-09-29 16:24] LABS: Platelet Estimate Adequate (Adequate); Schistocytes None Seen (NORMAL)
[2022-09-29 16:25] LABS: Anisocytosis 2+ (NORMAL); Hypochromasia 1+ (NORMAL); Troponin I 0.028 ng/mL (0.000-0.034)
[2022-09-29 16:48] LABS: Influenza A QL RT-PCR Negative (Negative); Influenza B QL RT-PCR Negative (Negative); SARS-CoV-2 RNA PCR Negative
[2022-09-29 19:12] LABS: Glucose Point of Care 166 mg/dl (65-105)
[2022-09-29] MEDS: ALBUTEROL SULFATE NEB 2.5 MG/3 ML INH INHALATION (20:14)
[2022-09-29] MEDS: IPRATROPIUM BR 0.02% INH SOLN 0.5 MG/2.5 ML VIAL INHALATION (20:14)
[2022-09-29 21:31] LABS: Alveolar/Arterial O2 Gradient 145.6 mmHg; Base Excess ABG -4.1 mEq/l (+/-2.0); Carboxyhemoglobin 1.2 % THb (0-2.0); Fractional Inspired Oxygen 40 %; HCO3 ABG 23.8 mEq/l (22.0-26.0); Methemoglobin ABG 0.3 %THb (0-1.5); Oxygen Saturation ABG 92.2 % (95.0-100.0); PCO2 ABG 56.8 mmHg (35.0-45.0); PO2 ABG 74.3 mmHg (80.0-100.0); PO2 FiO2 Ratio Arterial Blood 1.86 %; Reduced Hemoglobin 6.5 %THb (0-5.0); Total Hemoglobin 12.3 g/dL (12.0-18.0)
[2022-09-29 21:33] LABS: Modified Allen's Test Unable to perform; Site Drawn RIGHT RADIAL; pH ABG 7.241 (7.350-7.450)
[2022-09-29 21:34] LABS: Device NON-INVASIVE VENT; Non-Invasive Expiratory Pressure 6 CMH2O; Non-Invasive Inspiratory Pressure 14 CMH2O; Non-Invasive Vent Rate 14 /MIN
--- NOTE | 2022-09-29 23:25 | ADMGEN ---
This patient, Isabel Jorgensen, was admitted to IMU Room 213-01. Patient/family oriented to hospital policies and general routines including ID bracelet, bed and alarms, visiting hours, pain management, procedures, bathroom and other care routines, personal items, smoking policy, room service/diet, and visiting hours. Information on how to activate the Rapid Response Team has been discussed. Patient/Family are encouraged to report perceived risks to care and to ask questions if they do not understand what they are told or what they should do.
[2022-09-29] MEDS: SODIUM CHLORIDE 0.9% IV 1,000 ML 100 ML IV CONT (23:47)
--- NOTE | 2022-09-29 23:58 | PM.IMHP ---
H&P: HPI History of Present Illness Date/Time: 09/29/22 22:00 Chief Complaint: Weakness Narrative: 65-year-old female with a past medical history of combined systolic and diastolic heart failure, coronary artery disease, COPD, continuous tobacco use, insulin-dependent diabetes mellitus and peripheral vascular disease who presented to the ER via EMS after they were called out for lift assist. When EMS arrived to the patient's home at assisted living they noted the patient's oxygen saturations were in the low 80s. The patient does not usually use oxygen. Denies patient denies having any difficulty with breathing at the time of my evaluation but after further questioning did admit that she has been wheezing more than usual. She has not had any increased cough from baseline. But has been having some mild production of yellow sputum. She is still smoking about a pack of cigarettes per day. She has had 1 episode of posttussive emesis. At the time of my evaluation could not remember exactly why she was brought to the ER. She does not remember having difficulty transferring from her bed to her wheelchair but that is evidently why she called EMS out originally. She denies having any swelling of her body or extremities. She does keep track of her weight. She reports that she has been having great appetite. She states that she knows that she eats too much. She has has some cough productive of yellow sputum. She denies having fevers or chills. She does not think she has had any ill contacts. She has been afebrile since presentation. She denies any urinary symptoms but has not been able to produce urine despite being in the hospital for about 6 hours. Multiple bladder scans have been performed in the patient only had 300 mL in her bladder after 8 hours of being hospitalized. She reports that she intermittently has some loose stools but this is not beyond her baseline. She thinks that her last bowel movement was yesterday. She denies any hematochezia or melena. She reports that she chronically snores loudly. She has never had a sleep study. She reports that she has smoked as much as a pack of cigarettes per day and still smokes half a pack to 1 pack per day. She has 2 daughters. Review of Systems Review of Systems: 12 systems were reviewed with pertinent positives and negatives per HPI. Except as documented in the HPI, all other systems were reviewed and are negative. 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 Congestive heart failure Echocardiogram in December 2020 showed a mildly enlarged left ventricular chamber with moderate really does left ventricular systolic function with an estimated EF of 35 to 40%, severely increased left ventricular wall thickness, and grade 1 diastolic dysfunction. Depression Diverticulitis Duodenal ulcer (06/2021) Essential hypertension Fibromyalgia Gastroesophageal reflux disease Hyperlipidemia Hypertension Insulin dependent diabetes mellitus Nonischemic cardiomyopathy Peripheral neuropathy Surgical History Surgical History History of above-knee amputation of both lower extremities History of bilateral hip arthroplasty History of cardiac catheterization (03/06/21) Right coronary dominant circulation with no significant coronary artery disease. Family History Family History (Updated 09/30/22 @ 06:39 by Cassia Sanderson DO) Mother Lung cancer Father Heart disease Sibling Cirrhosis Social History Social History Social History: She resides at [facility]. Former light smoker. Primary care provider: Yamileth Perez NP Code status: Full code. Surrogate decision maker: Ariana Addison
[2022-09-30] VITALS (26 sets, daily range): BP systolic 127–153; BP diastolic 51–65; PULSE 66–79; RESP 18–615; TEMP 36–36.4; O2SAT 92–100
[2022-09-30] MEDS: methylPREDNISolone SOD SUCC 125 MG VIAL 60 MG IV PUSH ×3 (00:49→14:23)
[2022-09-30] MEDS: SODIUM CHLORIDE 0.9% IV 1,000 ML 250 ML IV CONT (02:02)
[2022-09-30] MEDS: ALBUTEROL SULFATE NEB 2.5 MG/3 ML INH INHALATION ×3 (02:45→23:15)
[2022-09-30] MEDS: IPRATROPIUM BR 0.02% INH SOLN 0.5 MG/2.5 ML VIAL INHALATION ×5 (02:45→23:16)
[2022-09-30 03:49] LABS: Alveolar/Arterial O2 Gradient 140.9 mmHg; Base Excess ABG -4.3 mEq/l (+/-2.0); Carboxyhemoglobin 0.3 % THb (0-2.0); Fractional Inspired Oxygen 40 %; HCO3 ABG 23.5 mEq/l (22.0-26.0); Methemoglobin ABG 0.4 %THb (0-1.5); Oxygen Content ABG 16.1 %vol (16.0-22.0); Oxygen Saturation ABG 93.8 % (95.0-100.0); Oxyhemoglobin 93.6 % THb (90.0-100.0); PCO2 ABG 55.5 mmHg (35.0-45.0); PO2 ABG 80.5 mmHg (80.0-100.0); PO2 FiO2 Ratio Arterial Blood 2.01 %; Reduced Hemoglobin 5.7 %THb (0-5.0); Total Hemoglobin 12.2 g/dL (12.0-18.0)
[2022-09-30 03:50] LABS: Device NON-INVASIVE VENT; Modified Allen's Test Unable to perform; Site Drawn RIGHT RADIAL; pH ABG 7.245 (7.350-7.450)
[2022-09-30 03:51] LABS: Non-Invasive Expiratory Pressure 8 CMH2O; Non-Invasive Inspiratory Pressure 16 CMH2O; Non-Invasive Vent Rate 20 /MIN
[2022-09-30] MEDS: ATORVASTATIN 40 MG TABLET PO ×2 (04:26→21:26)
[2022-09-30] MEDS: GABAPENTIN 400 MG CAPSULE 800 MG PO ×3 (04:26→16:47)
[2022-09-30 04:53] LABS: Basophils Absolute Auto 0.1 K/mm3 (0.0-0.1); Basophils Percent Auto 0.5 % (0.2-1.2); Eosinophils Absolute Auto 0.2 K/mm3 (0-0.3); Eosinophils Percent Auto 1.4 % (0-4.4); Hematocrit 40.9 % (37.0-47.0); Hemoglobin 11.5 g/dL (12.0-15.0); Immature Granulocyte Absolute 0.13 K/mm3 (0.00-0.031); Immature Granulocyte Percent A 0.9 % (0-0.5); Lymphocytes Absolute Auto 0.72 K/mm3 (0.9-3.2); Lymphocytes Percent Auto 4.9 % (18.3-44.2); Mean Corpuscular HGB Conc 28.1 g/dl (32-36); Mean Corpuscular Hemoglobin 23.5 pg (26-34); Mean Corpuscular Volume 83.6 fl (80-100); Mean Platelet Volume 9.8 fl (7.4-10.4); Monocytes Absolute Auto 0.3 K/mm3 (0.1-0.6); Monocytes Percent Auto 1.9 % (2.6-8.5); Neutrophils Absolute Auto 13.4 K/mm3 (1.3-6.7); Neutrophils Percent Auto 90.4 % (45.5-73.1); Platelet Count Result 256 k/mm3 (150-375); Red Blood Count 4.89 M/mm3 (4.2-5.4); Red Cell Distribution Width 16.9 % (11.5-14.5); White Blood Count 14.8 K/mm3 (4.5-10.0)
[2022-09-30 05:01] LABS: Anion Gap 6 mmol/L (8-16); Blood Urea Nitrogen 28 mg/dL (7-17); Calcium 8.1 mg/dL (8.4-10.2); Carbon Dioxide 20 mmol/L (22-30); Chloride 103 mmol/L (98-107); Estimated Glomerular Filt Rate 45; Glucose 241 mg/dL (65-110); Sodium 129 mmol/L (137-145)
[2022-09-30] MEDS: SUCRALFATE 1 GM TABLET PO ×4 (05:24→21:25)
[2022-09-30] MEDS: MORPHINE SULFATE (*CRX) 15 MG TAB IR PO ×2 (05:24→16:46)
[2022-09-30] MEDS: ALBUTEROL SULFATE NEB 2.5 MG/3 ML INH 5 MG INHALATION ×2 (07:37→13:53)
[2022-09-30 07:49] LABS: Alveolar/Arterial O2 Gradient 146.8 mmHg; Base Excess ABG -5.1 mEq/l (+/-2.0); Fractional Inspired Oxygen 40 %; HCO3 ABG 22.6 mEq/l (22.0-26.0); Oxygen Content ABG 16.4 %vol (16.0-22.0); Oxygen Saturation ABG 92.9 % (95.0-100.0); Oxyhemoglobin 93.7 % THb (90.0-100.0); PCO2 ABG 53.8 mmHg (35.0-45.0); PO2 ABG 76.5 mmHg (80.0-100.0); PO2 FiO2 Ratio Arterial Blood 1.91 %; Total Hemoglobin 12.4 g/dL (12.0-18.0)
[2022-09-30 07:52] LABS: Expiratory Pressure 8 cmH2O; Inspiratory Pressure 18 cmH2O; Modified Allen's Test Pass; Site Drawn RIGHT RADIAL; pH ABG 7.242 (7.350-7.450)
[2022-09-30 07:53] LABS: Device BIPAP
[2022-09-30 08:17] LABS: Glucose Point of Care 223 mg/dl (65-105)
[2022-09-30] MEDS: ENOXAPARIN 30 MG/0.3 ML SYRINGE SUB-Q (10:40)
[2022-09-30] MEDS: NICOTINE (*PBKC) 21 MG PATCH 1 PATCH TRANSDERM (10:41)
[2022-09-30] MEDS: POTASSIUM CHLORIDE 20 MEQ TABLET.ER PO (10:42)
[2022-09-30] MEDS: SPIRONOLACTONE 25 MG TABLET PO (10:42)
[2022-09-30] MEDS: VENLAFAXINE HCL XR 37.5 MG CAP 112.5 MG PO (10:46)
[2022-09-30] MEDS: LOSARTAN POTASSIUM 100 MG TABLET PO (10:47)
[2022-09-30] MEDS: CLOPIDOGREL BISULFATE 75 MG TABLET PO (10:47)
[2022-09-30] MEDS: TOLNAFTATE 1% POWDER 45 GM BTL 1 APPLIC TOPICAL ×2 (10:47→21:27)
--- NOTE | 2022-09-30 11:03 | PM.IMPN ---
Progress Note: A&P Assessment and Plan (1) Acute respiratory failure with hypoxia: Code(s): J96.01 - Acute respiratory failure with hypoxia Status: Acute Assessment and Plan: Patient has acute hypoxic respiratory failure on top of chronic hypercapnic respiratory failure likely due to COPD exacerbation and possibly undiagnosed PAVITHRA. She has chronic hypercapnic respiratory failure with baseline pCO2 45 giving a normal pH (in Aug 2021). Continue scheduled nebulizer treatments and steroid therapy.? She has been placed on BiPAP but her pCO2 is really not changing.? She is clinically better to suggest this is more chronic for her. Will make further adjustments to the patient's BiPAP.? Patient has been consistently messing with her mask and this is interfering with her tidal volumes.?Pulmonary consult. CTA chest noted. Spech therapy to evaluate. Add Unasyn. (2) COPD with exacerbation: Code(s): J44.1 - Chronic obstructive pulmonary disease with (acute) exacerbation Status: Acute Assessment and Plan: As above (3) Acute kidney injury: Code(s): N17.9 - Acute kidney failure, unspecified Status: Acute Assessment and Plan: Baseline creatinine is normal as of August 2021. Creatinine was 1.5 on admission. She is on Lasix and spironolactone at home. With IV fluids, creatinine has improved today. Potassium is 5.0 today. Will hold spironolactone and supplemental potassium. Serum bicarb was normal on admission but has dropped to 20. This is probably related to the acute kidney injury. She is not having nausea for vomiting to suggest DKA. Will let IV fluids run out given her hx of CHF. Will monitor closely and we are still waiting UA with reflex culture. (4) Suspected sleep apnea: Code(s): R29.818 - Other symptoms and signs involving the nervous system Status: Acute Assessment and Plan: Some of the patient's chronic hypercapnia is likely due to untreated obstructive sleep apnea.? Patient is on BiPAP as discussed above. (5) Insulin dependent diabetes mellitus: Status: Acute Assessment and Plan: The patient's blood glucose was reviewed on 09/30 Glucose remains poorly controlled. Continue AccuCheks covering with sliding scale. Hypoglycemia protocol available as needed. Continue current medications. Check A1c. (6) Tobacco abuse: Code(s): Z72.0 - Tobacco use Status: Acute Assessment and Plan: Benefits of smoking cessation have been discussed with the patient. Subjective Date/time seen: 09/30/22 11:03 Interval history: 66yo female with combined systolic and diastolic CHF, CAD, COPD, continuous tobacco use,DM and PAD who presented to the ER via EMS after they were called out for lift assist.? When EMS arrived to the patient's home at assisted living they noted the patient's oxygen saturations were in the low 80s.?? She feels better today. Prior to admission, she did have a nonproductive cough and wheezing. She states that she ?slid down off my bed? but no head trauma or injury. She does not wear BiPAP or CPAP at home. She is not on oxygen home. She states that she has never been diagnosed with sleep apnea. No complaints of chest pain. Exam Narrative: AF 97.1 153/54 72 22 99% bipap Gen - NARD sitting up in bed Chest - left base inspiratory crackles with inspiratory rhonchi and end expiratory wheezes CV - RRR S1/S2. Tele showing occasional bigeminy. Abd - Soft, NT/ND, Positive BS Ext -status post bilateral [id number] amputations Neuro - Alert and oriented. Nonfocal exam. Psych - Nml mood and affect Skin - Warm and dry Objective Data Vital Signs Vital Signs: Vital Signs - 24 hr 09/29/22 14:54 09/29/22 15:09 09/29/22 15:09 Temperature 98.8 F Pulse Rate 76 Respiratory Rate 22 H Blood Pressure 103/90 Pulse Oximetry 94 95 Oxygen Delivery Nasal Cannula Nasal Cannula Oxygen Flow Rate 3
[2022-09-30 11:41] LABS: Appearance Urine Clear (Clear); Bacteria Urine Rare /hpf; Bilirubin Urine Negative (Negative); Blood Urine Negative (Negative); Color Urine Yellow (Yellow); Glucose Urine UA Negative (Negative); Ketones Urine Negative (Negative); Leukocyte Esterase Ur Negative LEU/UL (Negative); Need Manual Microscopic Reviewed; Nitrate Urine Negative (Negative); Protein Urine 3+ mg/dL (Negative); Squamous Epithelial Cell Urine Moderate /hpf (Few); WBC Urine 0-5 /hpf; pH Urine 5.5 (5.0-9.0)
[2022-09-30 11:43] LABS: Glucose Point of Care 214 mg/dl (65-105)
[2022-09-30 11:44] LABS: Specific Grav Ur 1.061 (1.001-1.035)
[2022-09-30 11:45] LABS: Add Urine Microscopic? YES
[2022-09-30] MEDS: ALPRAZolam (*CRX) 0.5 MG TABLET 1 MG PO ×2 (12:42→23:25)
[2022-09-30] MEDS: AMPICILLIN SULB 3 GM/NS 100 ML 3 GM/100 ML VIAL IVPB ×3 (12:43→23:25)
[2022-09-30] MEDS: INSULIN ASPART (*BKC) 100 UNITS/ML SUB-Q ×2 (12:46→16:47)
--- NOTE | 2022-09-30 13:01 | PCSTNOTE ---
Please refer to the Bedside Swallow Evaluation in the EMR. Please note, silent aspiration cannot be ruled out at bedside.
--- NOTE | 2022-09-30 14:07 | PM.CNPUL ---
Assessment and Plan Assessment and plan (1) COPD with exacerbation: Code(s): J44.1 - Chronic obstructive pulmonary disease with (acute) exacerbation Status: Acute Assessment and Plan: Patient with a 51 pack year tobacco use, carries a history of COPD, I have no PFTs. The patient has no bullous emphysema on her CT angiogram of the chest from 09/29/2022. the patient was on no home oxygen and was maintained on albuterol p.r.n. at home Currently the patient presents with 2 weeks worsening congestion, cough, wheezing and production of yellow to green phlegm. Her white blood cell count was 15.[address] angiogram of the chest was negative for PE and had peripheral base tree-in-bud infiltrates and ground-glass infiltrates. Patient has had an acute respiratory acidosis on admission with a pH of 7.26/57/66 on 3 L nasal cannula. Her serum bicarb on admission was 28. The patient is 30% better and back to her baseline and the wheezing has resolved with Solu-Medrol, bronchodilators and Unasyn started on 09/30/2022. I agree with continuing treatment for COPD exacerbation and I will decrease the Solu-Medrol to 20 mg IV q.6 hours, I will change the nebulizers to albuterol 2.5 mg nebulized q.4 hours and ipratropium 0.5 mg nebulized Q 4 hours. The patient has been started on Unasyn. The patient has tree-in-bud infiltrates likely from a viral bronchiolitis and I will send a an extended respiratory pathogen panel to [facility]. Her covert and influenza RT PCR studies are negative. Currently she is tolerating 2 L nasal cannula. Tonight I will continue BiPAP rate of 22, pressures 18/6, 2nd I time, rise of 3, 28%. Patient's blood gas appeared to be acute respiratory failure rather than chronic respiratory failure and I will not commit her to long-term non invasive ventilation at this time. Will follow with you. History of Present Illness History of Present Illness Consult date: 09/30/22 Chief complaint: Acute Respiratory Failure Narrative: 09/30/2022: This is a new pulmonary consult for acute hypoxemic and hypercarbic respiratory failure 66-year-old with a history of COPD, coronary artery disease, systolic and diastolic heart failure, diabetes, peripheral vascular disease status post bilateral lower extremity AKA and tobacco use. On 09/29/2022 EMS was called to the patient's assisted living facility for weakness, and her oxygen saturations were in the 80s. she had wheezing and some production of yellow phlegm. she had expiratory wheezes on exam her saturations on 3 L nasal cannula were 94% her white blood cell count was 15.9 with 1.0% eosinophils, her creatinine was 1.5, his serum bicarbonate was 28 her lactic acid was 1.1, her BNP was 2800, her troponin was negative and she had an ABG on 3 L nasal cannula with a pH of 7.26/57/66. chest x-ray was with no acute cardiopulmonary disease. CT angiogram demonstrated no pulmonary embolism, peripheral reticular, ground-glass and tree-in-bud opacities. COVID and influenza RT PCR studies were negative. Patient was treated for COPD exacerbation and pneumonia with steroids, bronchodilators and Unasyn for possible aspiration pneumonia. patient was started on BiPAP and this was increased to 18/8 and 40% and repeat blood gas on these settings was 7.24/54/77. Patient smokes tobacco from age 15 to 2 days ago at 1 pack per day for a total of 51 pack years. Patient was exposed to secondhand smoke from both parents but none currently. Patient denies occupational exposures. 09/30/2022: Currently The patient was awake and alert and wearing BiPAP 18/6 and 25% FiO2 and her blood gas was 7.35/42/64. I attempted to place the patient on a noninvasive ventilator with AVAPS mode but she said the BiPAP was more comfortable. The patient said she was breathing better and requested the BiPAP off. I placed the patient on 2 L nasal cannula and her saturations were 96%. The patient told
[2022-09-30 15:19] LABS: Fractional Inspired Oxygen 25 %; HCO3 ABG 22.6 mEq/l (22.0-26.0); Oxygen Content ABG 15.3 %vol (16.0-22.0); Oxygen Saturation ABG 91.3 % (95.0-100.0); Oxyhemoglobin 91.4 % THb (90.0-100.0); PCO2 ABG 42.3 mmHg (35.0-45.0); PO2 FiO2 Ratio Arterial Blood 2.56 %; Total Hemoglobin 11.9 g/dL (12.0-18.0); pH ABG 7.345 (7.350-7.450)
[2022-09-30 15:20] LABS: Device BIPAP; Modified Allen's Test Pass; Site Drawn LEFT BRACHIAL
[2022-09-30 15:22] LABS: Expiratory Pressure 6 cmH2O; Inspiratory Pressure 18 cmH2O
[2022-09-30 15:47] LABS: Potassium 4.8 mmol/L (3.4-5.0)
[2022-09-30 16:07] LABS: Glucose Point of Care 358 mg/dl (65-105)
[2022-09-30] MEDS: methocarbamoL 750 MG TABLET 1500 MG PO ×2 (16:49→21:26)
[2022-09-30] MEDS: methylPREDNISolone SOD SUCC 40 MG VIAL 20 MG IV PUSH ×2 (18:11→23:24)
[2022-09-30 20:42] LABS: Glucose Point of Care 388 mg/dl (65-105)
[2022-09-30] MEDS: INSULIN GLARGINE (*BKC) 100 UNITS/ML 50 UNITS SUB-Q (21:37)
[2022-09-30] MEDS: INSULIN ASPART (*BKC) 100 UNITS/ML 6 UNITS SUB-Q (21:37)
[2022-10-01] VITALS (26 sets, daily range): BP systolic 118–156; BP diastolic 50–89; PULSE 62–81; RESP 18–22; TEMP 35.9–36.4; O2SAT 93–99
[2022-10-01] MEDS: MORPHINE SULFATE (*CRX) 15 MG TAB IR PO ×2 (03:35→18:33)
[2022-10-01] MEDS: ALBUTEROL SULFATE NEB 2.5 MG/3 ML INH INHALATION ×5 (03:40→20:03)
[2022-10-01] MEDS: IPRATROPIUM BR 0.02% INH SOLN 0.5 MG/2.5 ML VIAL INHALATION ×5 (03:40→20:03)
[2022-10-01 05:30] LABS: Hemoglobin 11.4 g/dL (12.0-15.0); Mean Corpuscular HGB Conc 29.2 g/dl (32-36); Mean Corpuscular Hemoglobin 23.4 pg (26-34); Mean Corpuscular Volume 79.9 fl (80-100); Mean Platelet Volume 10.4 fl (7.4-10.4); Platelet Count Result 318 k/mm3 (150-375); Red Blood Count 4.88 M/mm3 (4.2-5.4); Red Cell Distribution Width 16.8 % (11.5-14.5); White Blood Count 17.3 K/mm3 (4.5-10.0)
[2022-10-01 05:40] LABS: Hemoglobin A1C 7.9 % (<5.7)
[2022-10-01 05:54] LABS: Alanine Aminotransferase 15 U/L (6-35); Albumin Level 3.3 g/dL (3.5-5.1); Alkaline Phosphatase 233 U/L (38-126); Anion Gap 4 mmol/L (8-16); Aspartate Amino Transferase 19 U/L (14-36); Bilirubin,Total 0.4 mg/dL (0.2-1.3); Blood Urea Nitrogen 42 mg/dL (7-17); Calcium 8.2 mg/dL (8.4-10.2); Carbon Dioxide 27 mmol/L (22-30); Chloride 99 mmol/L (98-107); Estimated CRCL calculation 39 ml/min; Estimated Glomerular Filt Rate 38; Glucose 332 mg/dL (65-110); Magnesium 2.2 mg/dL (1.6-2.3); Potassium 5.2 mmol/L (3.4-5.0); Sodium 130 mmol/L (137-145)
[2022-10-01 05:54] LABS: Band Neutrophils Percent 8 % (0-6); Eosinophils Absolute Manual 0.51 K/mm3 (0.02-0.5); Eosinophils Percent Manual 3 % (0-4); Lymphocytes Absolute Manual 0.51 K/mm3 (1.1-4.5); Monocytes Absolute Manual 0.51 K/mm3 (0.1-0.90); Monocytes Percent Manual 3 % (3-9); Neutrophils Absolute Manual 15.74 K/mm3 (1.7-7.2); Neutrophils Percent Manual 83 % (46-73); Total Cells Counted 100
[2022-10-01 05:55] LABS: Platelet Estimate Adequate (Adequate); Schistocytes None Seen (NORMAL)
[2022-10-01 05:56] LABS: Anisocytosis 1+ (NORMAL); Hypersegmented Neutrophils Present; Macrocytosis 1+ (NORMAL); Microcytosis 1+ (NORMAL); Smudge Cells PRESENT
[2022-10-01] MEDS: methylPREDNISolone SOD SUCC 40 MG VIAL 20 MG IV PUSH ×3 (06:00→18:09)
[2022-10-01] MEDS: SUCRALFATE 1 GM TABLET PO ×4 (06:00→22:11)
[2022-10-01] MEDS: AMPICILLIN SULB 3 GM/NS 100 ML 3 GM/100 ML VIAL IVPB ×3 (06:00→18:06)
[2022-10-01 08:15] LABS: Glucose Point of Care 303 mg/dl (65-105)
[2022-10-01] MEDS: INSULIN ASPART (*BKC) 100 UNITS/ML SUB-Q ×3 (09:45→18:08)
[2022-10-01] MEDS: CLOPIDOGREL BISULFATE 75 MG TABLET PO (09:58)
[2022-10-01] MEDS: VENLAFAXINE HCL XR 37.5 MG CAP 112.5 MG PO (09:58)
[2022-10-01] MEDS: ENOXAPARIN 30 MG/0.3 ML SYRINGE SUB-Q (09:58)
[2022-10-01] MEDS: GABAPENTIN 400 MG CAPSULE 800 MG PO ×3 (09:58→18:07)
[2022-10-01] MEDS: LOSARTAN POTASSIUM 100 MG TABLET PO (09:59)
[2022-10-01] MEDS: NICOTINE (*PBKC) 21 MG PATCH 1 PATCH TRANSDERM (09:59)
[2022-10-01] MEDS: TOLNAFTATE 1% POWDER 45 GM BTL 1 APPLIC TOPICAL ×2 (10:12→22:17)
--- NOTE | 2022-10-01 10:36 | PM.PNPUL ---
Progress Note: A&P Assessment and Plan (1) COPD with exacerbation: Code(s): J44.1 - Chronic obstructive pulmonary disease with (acute) exacerbation Status: Acute Assessment and Plan: Patient with a 51 pack year tobacco use, carries a history of COPD, I have no PFTs. The patient has no bullous emphysema on her CT angiogram of the chest from 09/29/2022. the patient was on no home oxygen and was maintained on albuterol p.r.n. at home 09/30 Currently the patient presents with 2 weeks worsening congestion, cough, wheezing and production of yellow to green phlegm. Her white blood cell count was 15.[address] angiogram of the chest was negative for PE and had peripheral base tree-in-bud infiltrates and ground-glass infiltrates. Patient has had an acute respiratory acidosis on admission with a pH of 7.26/57/66 on 3 L nasal cannula. Her serum bicarb on admission was 28. The patient is 30% better and back to her baseline and the wheezing has resolved with Solu-Medrol, bronchodilators and Unasyn started on 09/30/2022. The patient has tree-in-bud infiltrates likely from a viral bronchiolitis and I will send a an extended respiratory pathogen panel to [facility]. Her covid and influenza RT PCR studies are negative. Currently she is tolerating 2 L nasal cannula. Plan: I agree with continuing treatment for COPD exacerbation and I will decrease the Solu-Medrol to 20 mg IV q.6 hours, I will change the nebulizers to albuterol 2.5 mg nebulized q.4 hours and ipratropium 0.5 mg nebulized Q 4 hours. The patient has been started on Unasyn. Tonight I will continue BiPAP rate of 22, pressures 18/6, I time 1 second, rise of 3, 28%. Patient's blood gas with acute respiratory failure rather than chronic respiratory failure and I will not commit her to long-term non invasive ventilation at this time. 10/01 Patient continues to improve and states that she is 80-90% back to her baseline. Her cough is better, she still has green and yellow phlegm. She has expiratory wheezes on exam. Blood culture with gram-positive cocci started on vancomycin. The patient said she slept well without BiPAP last night and the respiratory therapist note says she refused BiPAP. Patient is on 2 L nasal cannula with saturations 92%. Plan: Continue Solu-Medrol 20 mg IV q.6 hours, albuterol and ipratropium nebulizers q.4 hours, continue Unasyn (started 09/30) and vancomycin (started 10/01). Repeat blood cultures. Patient states the BiPAP mask is uncomfortable and at this time will discontinue BiPAP. Will check an ABG later during this hospitalization to assess for chronic hypercarbic respiratory failure. Will follow with you. Subjective Date/time seen: 10/01/22 10:36 Interval history: ?09/30/2022:? This is a new pulmonary consult for? acute? hypoxemic and hypercarbic respiratory failure ?66-year-old with a history of COPD,? coronary artery disease, systolic and diastolic heart failure, diabetes, peripheral vascular disease? status post bilateral lower extremity AKA and tobacco use. ? On 09/29/2022 EMS was called to the patient's? assisted living facility for weakness, and her oxygen saturations were in the 80s.? she had wheezing and some production of yellow phlegm.? she had expiratory wheezes on exam her saturations on 3 L nasal cannula were 94% her white blood cell count was 15.9 with 1.0% eosinophils, her creatinine was 1.5, his serum bicarbonate was 28 her lactic acid was 1.1, her BNP was 2800, her troponin was negative and she had an ABG on 3 L nasal cannula with a pH of 7.26/57/66.? chest x-ray was with no acute cardiopulmonary disease.? CT angiogram demonstrated no pulmonary embolism,? peripheral reticular, ground-glass and tree-in-bud opacities.? COVID and influenza RT PCR studies were negative. ? Patient was treated for COPD exacerbation and pneumonia with steroids, bronchodilators and Unasyn for possible aspiration pneumonia.? patient was started on BiPAP and th
[2022-10-01 13:51] LABS: Glucose Point of Care 460 mg/dl (65-105)
--- NOTE | 2022-10-01 14:28 | PM.IMPN ---
Progress Note: A&P Assessment and Plan (1) Acute respiratory failure with hypoxia: Code(s): J96.01 - Acute respiratory failure with hypoxia Status: Acute Assessment and Plan: Patient has acute on chronic hypoxic hypercapnic respiratory failure likely due to COPD exacerbation and possibly undiagnosed PAVITHRA. She has chronic hypercapnic respiratory failure with baseline pCO2 45 giving a normal pH (in Aug 2021). Continue scheduled nebulizer treatments and steroid therapy.? She has been placed on BiPAP but her pCO2 is really not changing.? She is clinically better to suggest this is more chronic for her. Will make further adjustments to the patient's BiPAP.? Patient has been consistently messing with her mask and this is interfering with her tidal volumes.?Pulmonary consult. CTA chest noted. Spech therapy to evaluate. Added Unasyn (2) COPD with exacerbation: Code(s): J44.1 - Chronic obstructive pulmonary disease with (acute) exacerbation Status: Acute Assessment and Plan: As above (3) Acute kidney injury: Code(s): N17.9 - Acute kidney failure, unspecified Status: Acute Assessment and Plan: Baseline creatinine is normal as of August 2021. Creatinine was 1.5 on admission. She is on Lasix and spironolactone at home. With IV fluids, creatinine has improved. hold spironolactone and supplemental potassium. serum bicarb was normal on admission but has dropped to 20. This is probably related to the acute kidney injury. She is not having nausea for vomiting to suggest DKA. IV fluids run out given her hx of CHF. Will monitor closely and we are still waiting UA with reflex culture. (4) Suspected sleep apnea: Code(s): R29.818 - Other symptoms and signs involving the nervous system Status: Acute Assessment and Plan: Some of the patient's chronic hypercapnia is likely due to untreated obstructive sleep apnea.?Patient is on BiPAP as discussed above. (5) Insulin dependent diabetes mellitus: Status: Acute Assessment and Plan: Glucose remains poorly controlled. Continue AccuCheks covering with sliding scale. Hypoglycemia protocol available as needed. Continue current medications. A1c 7.9 (6) Tobacco abuse: Code(s): Z72.0 - Tobacco use Status: Acute Assessment and Plan: Benefits of smoking cessation have been discussed with the patient. Subjective Date/time seen: 10/01/22 14:28 Interval history: 66 yo female with combined systolic and diastolic CHF, CAD, COPD, continuous tobacco use,DM and PAD who presented to the ER via EMS after they were called out for lift assist.? When EMS arrived to the patient's home at assisted living they noted the patient's oxygen saturations were in the low 80s.?? No overnight events. Feeling better. Still has some mild cough and wheezing. Review of Systems Review of Systems: All systems reviewed & are unremarkable except as noted in HPI and below Exam Narrative: Gen - NARD sitting up in bed Chest - left base inspiratory crackles with mild end-expiratory wheezes CV - RRR S1/S2. Tele showing occasional bigeminy. Abd - Soft, NT/ND, Positive BS Ext -status post bilateral [id number] amputations Neuro - Alert and oriented. Nonfocal exam. Psych - Nml mood and affect Skin - Warm and dry Objective Data Vital Signs Vital Signs: Vital Signs - 24 hr 09/30/22 15:07 09/30/22 16:27 09/30/22 16:27 Temperature Pulse Rate 69 Respiratory Rate 527 H Blood Pressure Pulse Oximetry 93 96 96 Oxygen Delivery BiPAP Nasal Cannula Nasal Cannula Oxygen Flow Rate 2 Fraction of Inspired Oxygen 28 09/30/22 16:00 09/30/22 18:00 09/30/22 16:00 Temperature 97.4 F L Pulse Rate 71 74 Respiratory Rate 26 H Blood Pressure 139/62 Pulse Oximetry 95 92 Oxygen Delivery Nasal Cannula Oxygen Flow Rate 3 Fraction of Inspired Oxygen 09/30/22 16:00 09/30/22
[2022-10-01 17:05] LABS: Glucose Point of Care 341 mg/dl (65-105)
[2022-10-01] MEDS: INSULIN ASPART (*BKC) 100 UNITS/ML 12 UNITS SUB-Q (18:08)
[2022-10-01] MEDS: methocarbamoL 750 MG TABLET 1500 MG PO (18:35)
[2022-10-01 20:18] LABS: Glucose Point of Care 288 mg/dl (65-105)
[2022-10-01] MEDS: INSULIN GLARGINE (*BKC) 100 UNITS/ML 50 UNITS SUB-Q (22:11)
[2022-10-01] MEDS: ATORVASTATIN 40 MG TABLET PO (22:11)
[2022-10-02] VITALS (21 sets, daily range): BP systolic 145–178; BP diastolic 56–68; PULSE 67–84; RESP 16–22; TEMP 35.9–36.7; O2SAT 87–96
[2022-10-02] MEDS: AMPICILLIN SULB 3 GM/NS 100 ML 3 GM/100 ML VIAL IVPB ×2 (00:26→06:04)
[2022-10-02] MEDS: ALPRAZolam (*CRX) 0.5 MG TABLET 1 MG PO ×3 (00:26→23:45)
[2022-10-02] MEDS: methylPREDNISolone SOD SUCC 40 MG VIAL 20 MG IV PUSH ×5 (00:27→23:35)
[2022-10-02] MEDS: IPRATROPIUM BR 0.02% INH SOLN 0.5 MG/2.5 ML VIAL INHALATION ×5 (02:23→21:14)
[2022-10-02] MEDS: ALBUTEROL SULFATE NEB 2.5 MG/3 ML INH INHALATION ×5 (02:23→21:14)
[2022-10-02] MEDS: methocarbamoL 750 MG TABLET 1500 MG PO ×4 (02:45→23:46)
[2022-10-02 05:15] LABS: Estimated CRCL calculation 33 ml/min; Estimated Glomerular Filt Rate 30
[2022-10-02] MEDS: SUCRALFATE 1 GM TABLET PO ×4 (06:05→21:23)
[2022-10-02 07:42] LABS: Glucose Point of Care 279 mg/dl (65-105)
[2022-10-02] MEDS: INSULIN ASPART (*BKC) 100 UNITS/ML SUB-Q ×3 (08:55→17:24)
[2022-10-02] MEDS: INSULIN ASPART (*BKC) 100 UNITS/ML 12 UNITS SUB-Q (08:55)
[2022-10-02] MEDS: MORPHINE SULFATE (*CRX) 15 MG TAB IR PO ×2 (09:02→17:23)
[2022-10-02] MEDS: NICOTINE (*PBKC) 21 MG PATCH 1 PATCH TRANSDERM (09:02)
--- NOTE | 2022-10-02 09:33 | PCOTNOTE ---
Attempted OT evaluation, after initially being agreeable to participate, patient declines reporting to much pain, will participate later . Will follow, RN notified
[2022-10-02] MEDS: VENLAFAXINE HCL XR 37.5 MG CAP 112.5 MG PO (10:04)
[2022-10-02] MEDS: GABAPENTIN 400 MG CAPSULE 800 MG PO ×3 (10:05→17:22)
[2022-10-02] MEDS: CLOPIDOGREL BISULFATE 75 MG TABLET PO (10:05)
[2022-10-02] MEDS: ENOXAPARIN 30 MG/0.3 ML SYRINGE SUB-Q (10:05)
[2022-10-02] MEDS: TOLNAFTATE 1% POWDER 45 GM BTL 1 APPLIC TOPICAL ×2 (10:06→21:23)
[2022-10-02] MEDS: LOSARTAN POTASSIUM 100 MG TABLET PO (10:06)
--- NOTE | 2022-10-02 10:59 | PM.IMPN ---
Progress Note: A&P Assessment and Plan (1) Acute respiratory failure with hypoxia: Code(s): J96.01 - Acute respiratory failure with hypoxia Status: Acute Assessment and Plan: Patient has acute on chronic hypoxic hypercapnic respiratory failure likely due to COPD exacerbation and possibly undiagnosed PAVITHRA. She has chronic hypercapnic respiratory failure with baseline pCO2 45 giving a normal pH (in Aug 2021). Continue scheduled nebulizer treatments and steroid therapy.? She has been placed on BiPAP but her pCO2 is really not changing.? She is clinically better to suggest this is more chronic for her. Will make further adjustments to the patient's BiPAP.? Patient has been consistently messing with her mask and this is interfering with her tidal volumes.?Pulmonary consult. CTA chest noted. Speech therapy to evaluate. Added Unasyn (2) COPD with exacerbation: Code(s): J44.1 - Chronic obstructive pulmonary disease with (acute) exacerbation Status: Acute Assessment and Plan: As above (3) Acute kidney injury: Code(s): N17.9 - Acute kidney failure, unspecified Status: Acute Assessment and Plan: Baseline creatinine is normal as of August 2021. Creatinine was 1.5 on admission. She is on Lasix and spironolactone at home. With IV fluids, creatinine has improved. hold spironolactone and supplemental potassium. serum bicarb was normal on admission but has dropped to 20. This is probably related to the acute kidney injury. She is not having nausea for vomiting to suggest DKA. IV fluids run out given her hx of CHF. Will monitor closely and we are still waiting UA with reflex culture. Creatinine bumped up again to 1.7. Will hold losartan. Spironolactone on hold. Monitor urine output check urinalysis and renal ultrasound (4) Suspected sleep apnea: Code(s): R29.818 - Other symptoms and signs involving the nervous system Status: Acute Assessment and Plan: Some of the patient's chronic hypercapnia is likely due to untreated obstructive sleep apnea.?Patient is on BiPAP as discussed above. (5) Insulin dependent diabetes mellitus: Status: Acute Assessment and Plan: Glucose remains poorly controlled. Continue AccuCheks covering with sliding scale. Hypoglycemia protocol available as needed. Continue current medications. A1c 7.9 Added 12 units with meals. (6) Tobacco abuse: Code(s): Z72.0 - Tobacco use Status: Acute Assessment and Plan: Benefits of smoking cessation have been discussed with the patient. Subjective Date/time seen: 10/02/22 10:59 Interval history: 66 yo female with combined systolic and diastolic CHF, CAD, COPD, continuous tobacco use,DM and PAD who presented to the ER via EMS after they were called out for lift assist.? When EMS arrived to the patient's home at assisted living they noted the patient's oxygen saturations were in the low 80s.?? 10/02/2022: no overnight events. Oxygen requirement the same. Breathing is better. Still requires 2 L oxygen. Reports back pain and leg pain which is chronic. Takes morphine for this home. Review of Systems Review of Systems: All systems reviewed & are unremarkable except as noted in HPI and below Exam Narrative: Gen - NARD sitting up in bed Chest - left base inspiratory crackles with mild end-expiratory wheezes CV - RRR S1/S2. Tele showing occasional bigeminy. Abd - Soft, NT/ND, Positive BS Ext -status post bilateral [id number] amputations Neuro - Alert and oriented. Nonfocal exam. Psych - Nml mood and affect Skin - Warm and dry Objective Data Vital Signs Vital Signs: Vital Signs - 24 hr 10/01/22 12:00 10/01/22 13:19 10/01/22 13:32 Temperature 96.8 F L Pulse Rate 72 69 76 Respiratory Rate 22 H 18 18 Blood Pressure 145/56 H Pulse Oximetry 96 Oxygen Delivery Oxygen Flow Rate 10/01/22 12:00 10/01/22 12:00 10/01/22 1
[2022-10-02 11:54] LABS: Alanine Aminotransferase 15 U/L (6-35); Albumin Level 3.1 g/dL (3.5-5.1); Alkaline Phosphatase 210 U/L (38-126); Anion Gap 3 mmol/L (8-16); Aspartate Amino Transferase 16 U/L (14-36); Bilirubin,Total 0.4 mg/dL (0.2-1.3); Blood Urea Nitrogen 48 mg/dL (7-17); Calcium 8.2 mg/dL (8.4-10.2); Carbon Dioxide 27 mmol/L (22-30); Chloride 101 mmol/L (98-107); Estimated CRCL calculation 35 ml/min; Estimated Glomerular Filt Rate 32; Glucose 296 mg/dL (65-110); Magnesium 2.3 mg/dL (1.6-2.3); Potassium 4.8 mmol/L (3.4-5.0); Sodium 131 mmol/L (137-145)
[2022-10-02 12:03] LABS: Glucose Point of Care 339 mg/dl (65-105)
[2022-10-02 12:13] LABS: Basophils Absolute Auto 0.1 K/mm3 (0.0-0.1); Basophils Percent Auto 0.4 % (0.2-1.2); Eosinophils Percent Auto 0.1 % (0-4.4); Hematocrit 38.8 % (37.0-47.0); Hemoglobin 11.4 g/dL (12.0-15.0); Immature Granulocyte Absolute 0.41 K/mm3 (0.00-0.031); Immature Granulocyte Percent A 2.6 % (0-0.5); Lymphocytes Absolute Auto 0.66 K/mm3 (0.9-3.2); Lymphocytes Percent Auto 4.2 % (18.3-44.2); Mean Corpuscular HGB Conc 29.4 g/dl (32-36); Mean Corpuscular Hemoglobin 23.2 pg (26-34); Monocytes Absolute Auto 0.5 K/mm3 (0.1-0.6); Neutrophils Absolute Auto 14.1 K/mm3 (1.3-6.7); Neutrophils Percent Auto 89.7 % (45.5-73.1); Nucleated Red Blood Cells Perc 0.2 % (0.0-0.2); Platelet Count Result 321 k/mm3 (150-375); Red Blood Count 4.91 M/mm3 (4.2-5.4); Red Cell Distribution Width 16.8 % (11.5-14.5); White Blood Count 15.7 K/mm3 (4.5-10.0)
[2022-10-02] MEDS: INSULIN ASPART (*BKC) 100 UNITS/ML 15 UNITS SUB-Q ×2 (12:42→17:24)
[2022-10-02 13:00] LABS: Platelet Estimate Adequate (Adequate)
[2022-10-02 13:01] LABS: Hypochromasia 1+ (NORMAL); Schistocytes None Seen (NORMAL)
[2022-10-02 14:17] LABS: Appearance Urine Clear (Clear); Bacteria Urine None Seen /hpf; Bilirubin Urine Negative (Negative); Blood Urine Negative (Negative); Color Urine Yellow (Yellow); Glucose Urine UA Negative (Negative); Ketones Urine Negative (Negative); Leukocyte Esterase Ur Negative LEU/UL (NEGATIVE); Nitrate Urine Negative (Negative); Non Pathogenic Casts 0-2; Protein Urine 2+ mg/dL (Negative); Specific Grav Ur 1.019 (1.001-1.035); Squamous Epithelial Cell Urine None seen /hpf (Few); Urobilinogen Urine 0.2 mg/dL (<2.0); WBC Urine 0-5 /hpf (0-3)
[2022-10-02 14:23] LABS: Urea Random Urine 723 MG/DL
[2022-10-02 14:35] LABS: Sodium Urine Random 20 meq/L
--- NOTE | 2022-10-02 15:00 | PM.PNPUL ---
Progress Note: A&P Assessment and Plan (1) COPD with exacerbation: Code(s): J44.1 - Chronic obstructive pulmonary disease with (acute) exacerbation Status: Acute Assessment and Plan: Patient with a 51 pack year tobacco use, carries a history of COPD, I have no PFTs. The patient has no bullous emphysema on her CT angiogram of the chest from 09/29/2022. the patient was on no home oxygen and was maintained on albuterol p.r.n. at home 09/30 Currently the patient presents with 2 weeks worsening congestion, cough, wheezing and production of yellow to green phlegm. Her white blood cell count was 15.[address] angiogram of the chest was negative for PE and had peripheral base tree-in-bud infiltrates and ground-glass infiltrates. Patient has had an acute respiratory acidosis on admission with a pH of 7.26/57/66 on 3 L nasal cannula. Her serum bicarb on admission was 28. The patient is 30% better and back to her baseline and the wheezing has resolved with Solu-Medrol, bronchodilators and Unasyn started on 09/30/2022. Unasyn started for possible aspiration The patient has tree-in-bud infiltrates likely from a viral bronchiolitis and I will send a an extended respiratory pathogen panel to [facility]. Her covid and influenza RT PCR studies are negative. Currently she is tolerating 2 L nasal cannula. Plan: I agree with continuing treatment for COPD exacerbation and I will decrease the Solu-Medrol to 20 mg IV q.6 hours, I will change the nebulizers to albuterol 2.5 mg nebulized q.4 hours and ipratropium 0.5 mg nebulized Q 4 hours. The patient has been started on Unasyn. Tonight I will continue BiPAP rate of 22, pressures 18/6, I time 1 second, rise of 3, 28%. Patient's blood gas with acute respiratory failure rather than chronic respiratory failure and I will not commit her to long-term non invasive ventilation at this time. 10/01 Patient continues to improve and states that she is 80-90% back to her baseline. Her cough is better, she still has green and yellow phlegm. She has expiratory wheezes on exam. Blood culture with gram-positive cocci started on vancomycin. The patient said she slept well without BiPAP last night and the respiratory therapist note says she refused BiPAP. Patient is on 2 L nasal cannula with saturations 92%. Plan: Continue Solu-Medrol 20 mg IV q.6 hours, albuterol and ipratropium nebulizers q.4 hours, continue Unasyn (started 09/30) and vancomycin (started 10/01). Repeat blood cultures. Patient states the BiPAP mask is uncomfortable and at this time will discontinue BiPAP. Will check an ABG later during this hospitalization to assess for chronic hypercarbic respiratory failure. 10/02 Patient continues to improve and states that she has 90% back to her normal. She still has a cough with green phlegm. She has wheezes on exam. Blood cultures demonstrated Staph epi in the vancomycin was discontinued. She has not worn BiPAP in the last 48 hours. She is on 2 L nasal cannula saturation 96%. Her creatinine is 1.7. Plan: Continue Solu-Medrol 20 mg IV q.6, today is day 4 steroids, continue albuterol and ipratropium nebulizers q.4 hours. continue Unasyn day 3. Discussed with Dr. Powell. Will follow with you. Subjective Date/time seen: 10/02/22 15:00 Interval history: ?09/30/2022:? This is a new pulmonary consult for? acute? hypoxemic and hypercarbic respiratory failure ?66-year-old with a history of COPD,? coronary artery disease, systolic and diastolic heart failure, diabetes, peripheral vascular disease? status post bilateral lower extremity AKA and tobacco use. ? On 09/29/2022 EMS was called to the patient's? assisted living facility for weakness, and her oxygen saturations were in the 80s.? she had wheezing and some production of yellow phlegm.? she had expiratory wheezes on exam her saturations on 3 L nasal cannula were 94% her white blood cell count was 15.9 with 1.0% eosinophils, her creatin
[2022-10-02 15:09] LABS: Eosinophil Urine None Seen % (None Seen); Urine Eos QC 2nd Tech Confirmed
[2022-10-02 15:13] LABS: Add Urine Microscopic? YES
[2022-10-02 17:01] LABS: Glucose Point of Care 246 mg/dl (65-105)
--- NOTE | 2022-10-02 20:00 | PC.NURSE ---
This patient, Isabel Jorgensen, was transferred to [[facility]-] on 10/02/22 at 1999. Personal belongings sent with patient. Report given to [[facility]]. Appropriate documentation sent with patient.
[2022-10-02] MEDS: AMOXICILLIN/CLAVULANATE K 875-125 MG TAB 1 TABLET PO (21:23)
[2022-10-02] MEDS: ATORVASTATIN 40 MG TABLET PO (21:23)
[2022-10-02] MEDS: INSULIN GLARGINE (*BKC) 100 UNITS/ML 50 UNITS SUB-Q (21:23)
[2022-10-02 22:48] LABS: Glucose Point of Care 224 mg/dl (65-105)
[2022-10-03] VITALS (17 sets, daily range): BP systolic 154–181; BP diastolic 57–63; PULSE 66–85; RESP 14–20; TEMP 36.4–36.7; O2SAT 84–98
[2022-10-03] MEDS: methylPREDNISolone SOD SUCC 40 MG VIAL 20 MG IV PUSH (06:27)
[2022-10-03 07:12] LABS: Potassium 4.4 mmol/L (3.4-5.0)
[2022-10-03 08:08] LABS: Glucose Point of Care 121 mg/dl (65-105)
[2022-10-03] MEDS: IPRATROPIUM BR 0.02% INH SOLN 0.5 MG/2.5 ML VIAL INHALATION ×4 (08:14→20:10)
[2022-10-03] MEDS: ALBUTEROL SULFATE NEB 2.5 MG/3 ML INH INHALATION ×4 (08:14→20:10)
[2022-10-03] MEDS: SUCRALFATE 1 GM TABLET PO ×4 (08:24→21:18)
[2022-10-03] MEDS: methocarbamoL 750 MG TABLET 1500 MG PO ×2 (08:37→17:44)
[2022-10-03] MEDS: INSULIN ASPART (*BKC) 100 UNITS/ML 15 UNITS SUB-Q ×3 (08:37→17:34)
[2022-10-03] MEDS: MORPHINE SULFATE (*CRX) 15 MG TAB IR PO ×2 (08:37→17:43)
[2022-10-03] MEDS: CLOPIDOGREL BISULFATE 75 MG TABLET PO (08:38)
[2022-10-03] MEDS: ENOXAPARIN 30 MG/0.3 ML SYRINGE SUB-Q (08:38)
[2022-10-03] MEDS: NICOTINE (*PBKC) 21 MG PATCH 1 PATCH TRANSDERM (08:38)
--- NOTE | 2022-10-03 08:38 | PM.IMPN ---
Progress Note: A&P Assessment and Plan (1) Acute respiratory failure with hypoxia: Code(s): J96.01 - Acute respiratory failure with hypoxia Status: Acute Assessment and Plan: Patient has acute on chronic hypoxic hypercapnic respiratory failure likely due to COPD exacerbation and possibly undiagnosed PAVITHRA. She has chronic hypercapnic respiratory failure with baseline pCO2 45 giving a normal pH (in Aug 2021). Continue scheduled nebulizer treatments and steroid therapy.? She has been placed on BiPAP but her pCO2 is really not changing.? She is clinically better to suggest this is more chronic for her. Will make further adjustments to the patient's BiPAP.? Patient has been consistently messing with her mask and this is interfering with her tidal volumes.?Pulmonary consult. CTA chest noted. Speech therapy to evaluate. Added Unasyn. Unasyn changed to Augmentin for total 7 days course. Oxygen requirement remains stable 10/03/2022 Respiratory panel ordered by Pulmonary pending Steroid switched to oral Home oxygen evaluation in a.m. try to wean down oxygen today (2) COPD with exacerbation: Code(s): J44.1 - Chronic obstructive pulmonary disease with (acute) exacerbation Status: Acute Assessment and Plan: As above (3) Acute kidney injury: Code(s): N17.9 - Acute kidney failure, unspecified Status: Acute Assessment and Plan: Baseline creatinine is normal as of August 2021. Creatinine was 1.5 on admission. She is on Lasix and spironolactone at home. With IV fluids, creatinine has improved. hold spironolactone and supplemental potassium. serum bicarb was normal on admission but has dropped to 20. This is probably related to the acute kidney injury. She is not having nausea for vomiting to suggest DKA. IV fluids run out given her hx of CHF. Will monitor closely and we are still waiting UA with reflex culture. Creatinine bumped up again to 1.7. Will hold losartan. Spironolactone on hold. Renal ultrasound negative for hydronephrosis Recheck and monitor urine output 10/03/2022 renal function stable. (4) Suspected sleep apnea: Code(s): R29.818 - Other symptoms and signs involving the nervous system Status: Acute Assessment and Plan: Some of the patient's chronic hypercapnia is likely due to untreated obstructive sleep apnea.?Patient is on BiPAP as discussed above. See is off BiPAP Needs outpatient sleep study Apnea link 09/13/2021 with AHI 42.4 (5) Insulin dependent diabetes mellitus: Status: Acute Assessment and Plan: Glucose remains poorly controlled. Continue AccuCheks covering with sliding scale. Hypoglycemia protocol available as needed. Continue current medications. A1c 7.9 Added 12 units with meals. Uptitrated to 15 units with meals Blood sugar much better continue to trend Accu-Cheks may need to back off on long-acting. Titrate with Solu Medrol dosing (6) Tobacco abuse: Code(s): Z72.0 - Tobacco use Status: Acute Assessment and Plan: Benefits of smoking cessation have been discussed with the patient. Subjective Date/time seen: 10/03/22 08:38 Interval history: 66 yo female with combined systolic and diastolic CHF, CAD, COPD, continuous tobacco use,DM and PAD who presented to the ER via EMS after they were called out for lift assist.? When EMS arrived to the patient's home at assisted living they noted the patient's oxygen saturations were in the low 80s.?? 10/02/2022: no overnight events. Oxygen requirement the same. Breathing is better. Still requires 2 L oxygen. Reports back pain and leg pain which is chronic. Takes morphine for this home. 10/03/2022: No overnight events reported. Oxygen requirement remains stable at 2 L oxygen. Remains afebrile. MRSA negative blood culture 08/30 for staph epidermidis. Repeat blood cultures been negative. Sputum culture not obtained respiratory panel is pending. Rae
[2022-10-03] MEDS: GABAPENTIN 400 MG CAPSULE 800 MG PO ×3 (08:39→17:35)
[2022-10-03] MEDS: AMOXICILLIN/CLAVULANATE K 875-125 MG TAB 1 TABLET PO ×2 (08:39→21:17)
[2022-10-03] MEDS: TOLNAFTATE 1% POWDER 45 GM BTL 1 APPLIC TOPICAL ×2 (08:39→21:23)
[2022-10-03 08:51] LABS: Basophils Percent Auto 0.1 % (0.2-1.2); Hemoglobin 12.5 g/dL (12.0-15.0); Immature Granulocyte Absolute 0.91 K/mm3 (0.00-0.031); Immature Granulocyte Percent A 5.1 % (0-0.5); Lymphocytes Absolute Auto 1.42 K/mm3 (0.9-3.2); Mean Corpuscular HGB Conc 28.4 g/dl (32-36); Mean Corpuscular Hemoglobin 23.5 pg (26-34); Mean Corpuscular Volume 82.7 fl (80-100); Mean Platelet Volume 9.9 fl (7.4-10.4); Monocytes Absolute Auto 1.1 K/mm3 (0.1-0.6); Neutrophils Absolute Auto 14.4 K/mm3 (1.3-6.7); Neutrophils Percent Auto 80.8 % (45.5-73.1); Nucleated Red Blood Cells Perc 0.1 % (0.0-0.2); Platelet Count Result 335 k/mm3 (150-375); Red Blood Count 5.32 M/mm3 (4.2-5.4); Red Cell Distribution Width 17.1 % (11.5-14.5); White Blood Count 17.8 K/mm3 (4.5-10.0)
[2022-10-03] MEDS: VENLAFAXINE HCL XR 37.5 MG CAP 112.5 MG PO (09:33)
[2022-10-03] MEDS: carvediloL 12.5 MG TABLET PO ×2 (09:33→21:18)
--- NOTE | 2022-10-03 09:46 | PM.PNPUL ---
Progress Note: A&P Assessment and Plan (1) COPD with exacerbation: Code(s): J44.1 - Chronic obstructive pulmonary disease with (acute) exacerbation Status: Acute Assessment and Plan: Patient with a 51 pack year tobacco use, carries a history of COPD, I have no PFTs. The patient has no bullous emphysema on her CT angiogram of the chest from 09/29/2022. the patient was on no home oxygen and was maintained on albuterol p.r.n. at home 09/30 Currently the patient presents with 2 weeks worsening congestion, cough, wheezing and production of yellow to green phlegm. Her white blood cell count was 15.[address] angiogram of the chest was negative for PE and had peripheral base tree-in-bud infiltrates and ground-glass infiltrates. Patient has had an acute respiratory acidosis on admission with a pH of 7.26/57/66 on 3 L nasal cannula. Her serum bicarb on admission was 28. The patient is 30% better and back to her baseline and the wheezing has resolved with Solu-Medrol, bronchodilators and Unasyn started on 09/30/2022. Unasyn started for possible aspiration The patient has tree-in-bud infiltrates likely from a viral bronchiolitis and I will send a an extended respiratory pathogen panel to [facility]. Her covid and influenza RT PCR studies are negative. Currently she is tolerating 2 L nasal cannula. Plan: I agree with continuing treatment for COPD exacerbation and I will decrease the Solu-Medrol to 20 mg IV q.6 hours, I will change the nebulizers to albuterol 2.5 mg nebulized q.4 hours and ipratropium 0.5 mg nebulized Q 4 hours. The patient has been started on Unasyn. Tonight I will continue BiPAP rate of 22, pressures 18/6, I time 1 second, rise of 3, 28%. Patient's blood gas with acute respiratory failure rather than chronic respiratory failure and I will not commit her to long-term non invasive ventilation at this time. 10/01 Patient continues to improve and states that she is 80-90% back to her baseline. Her cough is better, she still has green and yellow phlegm. She has expiratory wheezes on exam. Blood culture with gram-positive cocci started on vancomycin. The patient said she slept well without BiPAP last night and the respiratory therapist note says she refused BiPAP. Patient is on 2 L nasal cannula with saturations 92%. Plan: Continue Solu-Medrol 20 mg IV q.6 hours, albuterol and ipratropium nebulizers q.4 hours, continue Unasyn (started 09/30) and vancomycin (started 10/01). Repeat blood cultures. Patient states the BiPAP mask is uncomfortable and at this time will discontinue BiPAP. Will check an ABG later during this hospitalization to assess for chronic hypercarbic respiratory failure. 10/02 Patient continues to improve and states that she has 90% back to her normal. She still has a cough with green phlegm. She has wheezes on exam. Blood cultures demonstrated Staph epi in the vancomycin was discontinued. She has not worn BiPAP in the last 48 hours. She is on 2 L nasal cannula saturation 96%. Her creatinine is 1.7. Plan: Continue Solu-Medrol 20 mg IV q.6, today is day 4 steroids, continue albuterol and ipratropium nebulizers q.4 hours. continue Unasyn day 3. 10/03 Breathing back at her baseline. The cough is much improved. She has no wheezing on exam. currently she is on room air with saturations 95%. Chest x-ray today with mild bibasilar interstitial infiltrates with no change from 09/29/2022. White blood cell count is 17.8. Plan: I will change the patient to prednisone 40 mg p.o. today. Today is day 5 of steroids and she has recieved medrol 20 this AM. I will check an ABG on room air to assess the degree of her hypercarbia. I will perform an overnight oximetry on room air and a home O2 assessment in anticipation of discharge home on 10/04/2022. Switched to Augmentin and today is day 4 of antibiotics if she remains stable overnight and is pay discharged home on 10/04 on these pulmonary medications
[2022-10-03 10:16] LABS: Base Excess ABG 0.3 mEq/l (+/-2.0); Fractional Inspired Oxygen 21 %; HCO3 ABG 26.8 mEq/l (22.0-26.0); Oxygen Content ABG 16.3 %vol (16.0-22.0); PCO2 ABG 50.8 mmHg (35.0-45.0); PO2 ABG 51.9 mmHg (80.0-100.0); PO2 FiO2 Ratio Arterial Blood 2.47 %; Total Hemoglobin 13.3 g/dL (12.0-18.0)
[2022-10-03 10:18] LABS: Alanine Aminotransferase 15 U/L (6-35); Albumin Level 3.2 g/dL (3.5-5.1); Alkaline Phosphatase 205 U/L (38-126); Anion Gap 2 mmol/L (8-16); Aspartate Amino Transferase 15 U/L (14-36); Bilirubin,Total 0.5 mg/dL (0.2-1.3); Blood Urea Nitrogen 42 mg/dL (7-17); Calcium 8.1 mg/dL (8.4-10.2); Carbon Dioxide 26 mmol/L (22-30); Chloride 109 mmol/L (98-107); Creatine Kinase 60 U/L (30-135); Estimated CRCL calculation 42 ml/min; Estimated Glomerular Filt Rate 41; Glucose 133 mg/dL (65-110); Magnesium 2.4 mg/dL (1.6-2.3); Sodium 137 mmol/L (137-145)
[2022-10-03 10:19] LABS: Modified Allen's Test Pass; Oxygen Saturation ABG 84.3 % (95.0-100.0); Oxyhemoglobin 87.1 % THb (90.0-100.0); Site Drawn RIGHT RADIAL
[2022-10-03 10:30] LABS: Potassium 4.3 mmol/L (3.4-5.0)
--- NOTE | 2022-10-03 11:03 | PCRCNOTE ---
HOME O2 EVAL COMPLETE, 1L CONTINUOUS. SET UP WITH [facility]. PHONE NUMBER [phone]. TANK DELIVERED TO ROOM FOR DISCHARGE.
--- NOTE | 2022-10-03 11:22 | HOMEO2EVAL ---
Evaluation was performed at [facility] Home Oxygen Evaluation RC: Home Oxygen (O2) Evaluation Start: 10/03/22 09:57 Freq: ONCE Status: Active Protocol: RPE Activity Type Activity Date Activity User E-sign Co-sign Detail Recorded Client Recorded Date Recorded By Document 10/03/22 10:35 DJO [email or web address] 10/03/22 10:55 DJO Document 10/03/22 10:40 DJO [email or web address] 10/03/22 10:55 DJO Document 10/03/22 10:45 DJO [email or web address] 10/03/22 10:55 DJO Document 10/03/22 10:55 DJO [email or web address] 10/03/22 10:55 DJO 10/03/22 10/03/22 10/03/22 10:35 10:40 10:45 Home O2 Evaluation [Oxygen] -Test Phase Resting Resting Exercise -Oxygen Delivery Room Air Nasal Cannula -Oxygen Flow Rate (L/min) 1 1 [Pulse Oximetry] -Pulse Oximetry (90-100 %) 88 L 92 92 [Pulse Rate] -Pulse Rate (60-100 beats/min) 75 74 79 [Comments] -Home Oxygen Evaluation Comments PT NON AMBULATORY, SHE DID SOME ACTIVITY IN BED [Charges] -Treatment Charges O2 Evaluation - Inpatient 10/03/22 10:55 Home O2 Evaluation [Oxygen] -Test Phase Resting -Oxygen Delivery Nasal Cannula -Oxygen Flow Rate (L/min) 1 [Pulse Oximetry] -Pulse Oximetry (90-100 %) 92 [Pulse Rate] -Pulse Rate (60-100 beats/min) 74 [Comments] -Home Oxygen Evaluation Comments [Charges] -Treatment Charges
[2022-10-03 11:32] LABS: Glucose Point of Care 139 mg/dl (65-105)
[2022-10-03 16:47] LABS: Glucose Point of Care 159 mg/dl (65-105)
[2022-10-03] MEDS: ALPRAZolam (*CRX) 0.5 MG TABLET 1 MG PO (17:44)
[2022-10-03] MEDS: ATORVASTATIN 40 MG TABLET PO (21:17)
[2022-10-03] MEDS: INSULIN GLARGINE (*BKC) 100 UNITS/ML 40 UNITS SUB-Q (21:21)
[2022-10-03 21:30] LABS: Glucose Point of Care 152 mg/dl (65-105)
[2022-10-04] VITALS (14 sets, daily range): BP systolic 155–164; BP diastolic 55–66; PULSE 58–85; RESP 14–20; TEMP 36.1–37; O2SAT 93–97
[2022-10-04] MEDS: ALPRAZolam (*CRX) 0.5 MG TABLET 1 MG PO ×2 (00:35→16:36)
[2022-10-04] MEDS: methocarbamoL 750 MG TABLET 1500 MG PO ×3 (00:35→16:35)
[2022-10-04] MEDS: SUCRALFATE 1 GM TABLET PO ×4 (06:03→20:50)
[2022-10-04 06:19] LABS: Basophils Percent Auto 0.1 % (0.2-1.2); Eosinophils Absolute Auto 0.2 K/mm3 (0-0.3); Eosinophils Percent Auto 0.9 % (0-4.4); Hematocrit 43.1 % (37.0-47.0); Hemoglobin 12.6 g/dL (12.0-15.0); Immature Granulocyte Percent A 6.4 % (0-0.5); Lymphocytes Absolute Auto 3.86 K/mm3 (0.9-3.2); Lymphocytes Percent Auto 20.6 % (18.3-44.2); Mean Corpuscular HGB Conc 29.2 g/dl (32-36); Mean Corpuscular Hemoglobin 23.1 pg (26-34); Mean Corpuscular Volume 79.1 fl (80-100); Mean Platelet Volume 9.7 fl (7.4-10.4); Monocytes Absolute Auto 1.8 K/mm3 (0.1-0.6); Monocytes Percent Auto 9.3 % (2.6-8.5); Neutrophils Absolute Auto 11.8 K/mm3 (1.3-6.7); Neutrophils Percent Auto 62.7 % (45.5-73.1); Platelet Count Result 353 k/mm3 (150-375); Red Blood Count 5.45 M/mm3 (4.2-5.4); Red Cell Distribution Width 17.1 % (11.5-14.5); White Blood Count 18.8 K/mm3 (4.5-10.0)
[2022-10-04 06:41] LABS: Alanine Aminotransferase 14 U/L (6-35); Alkaline Phosphatase 168 U/L (38-126); Anion Gap 2 mmol/L (8-16); Aspartate Amino Transferase 14 U/L (14-36); Bilirubin,Total 0.4 mg/dL (0.2-1.3); Blood Urea Nitrogen 39 mg/dL (7-17); Calcium 7.9 mg/dL (8.4-10.2); Carbon Dioxide 27 mmol/L (22-30); Chloride 110 mmol/L (98-107); Estimated CRCL calculation 49 ml/min; Estimated Glomerular Filt Rate 50; Glucose 45 mg/dL (65-110); Magnesium 2.4 mg/dL (1.6-2.3); Potassium 3.8 mmol/L (3.4-5.0); Sodium 139 mmol/L (137-145)
[2022-10-04 07:21] LABS: Glucose Point of Care 44 mg/dl (65-105)
[2022-10-04 07:21] LABS: Glucose Point of Care 64 mg/dl (65-105)
[2022-10-04 07:51] LABS: Glucose Point of Care 83 mg/dl (65-105)
[2022-10-04] MEDS: ALBUTEROL SULFATE NEB 2.5 MG/3 ML INH INHALATION ×4 (07:51→19:51)
[2022-10-04] MEDS: IPRATROPIUM BR 0.02% INH SOLN 0.5 MG/2.5 ML VIAL INHALATION ×4 (07:52→19:52)
[2022-10-04] MEDS: VENLAFAXINE HCL XR 37.5 MG CAP 112.5 MG PO (09:53)
[2022-10-04] MEDS: GABAPENTIN 400 MG CAPSULE 800 MG PO ×3 (09:53→16:36)
[2022-10-04] MEDS: carvediloL 12.5 MG TABLET PO ×2 (09:54→20:51)
[2022-10-04] MEDS: AMOXICILLIN/CLAVULANATE K 875-125 MG TAB 1 TABLET PO ×2 (09:54→20:50)
[2022-10-04] MEDS: MORPHINE SULFATE (*CRX) 15 MG TAB IR PO ×2 (09:54→16:47)
[2022-10-04] MEDS: CLOPIDOGREL BISULFATE 75 MG TABLET PO (09:54)
[2022-10-04] MEDS: ENOXAPARIN 30 MG/0.3 ML SYRINGE SUB-Q (09:54)
[2022-10-04] MEDS: NICOTINE (*PBKC) 21 MG PATCH 1 PATCH TRANSDERM (09:55)
[2022-10-04] MEDS: TOLNAFTATE 1% POWDER 45 GM BTL 1 APPLIC TOPICAL ×2 (09:55→20:51)
--- NOTE | 2022-10-04 10:41 | P.PNPL_ITS ---
Progress Note: A&P Assessment and Plan (1) COPD with exacerbation: Code(s): J44.1 - Chronic obstructive pulmonary disease with (acute) exacerbation Status: Acute Assessment and Plan: Patient with a 51 pack year tobacco use, carries a history of COPD, I have no PFTs. The patient has no bullous emphysema on her CT angiogram of the chest from 09/29/2022. the patient was on no home oxygen and was maintained on albuterol p.r.n. at home 09/30 Currently the patient presents with 2 weeks worsening congestion, cough, wheezing and production of yellow to green phlegm. Her white blood cell count was 15.[address] angiogram of the chest was negative for PE and had peripheral base tree-in-bud infiltrates and ground-glass infiltrates. Patient has had an acute respiratory acidosis on admission with a pH of 7.26/57/66 on 3 L nasal cannula. Her serum bicarb on admission was 28. The patient is 30% better and back to her baseline and the wheezing has resolved with Solu-Medrol, bronchodilators and Unasyn started on 09/30/2022. Unasyn started for possible aspiration The patient has tree-in-bud infiltrates likely from a viral bronchiolitis and I will send a an extended respiratory pathogen panel to [facility]. Her covid and influenza RT PCR studies are negative. Currently she is tolerating 2 L nasal cannula. Plan: I agree with continuing treatment for COPD exacerbation and I will decrease the Solu-Medrol to 20 mg IV q.6 hours, I will change the nebulizers to albuterol 2.5 mg nebulized q.4 hours and ipratropium 0.5 mg nebulized Q 4 hours. The patient has been started on Unasyn. Tonight I will continue BiPAP rate of 22, pressures 18/6, I time 1 second, rise of 3, 28%. Patient's blood gas with acute respiratory failure rather than chronic respiratory failure and I will not commit her to long-term non invasive ventilation at this time. 10/01 Patient continues to improve and states that she is 80-90% back to her baseline. Her cough is better, she still has green and yellow phlegm. She has expiratory wheezes on exam. Blood culture with gram-positive cocci started on vancomycin. The patient said she slept well without BiPAP last night and the respiratory therapist note says she refused BiPAP. Patient is on 2 L nasal cannula with saturations 92%. Plan: Continue Solu-Medrol 20 mg IV q.6 hours, albuterol and ipratropium nebulizers q.4 hours, continue Unasyn (started 09/30) and vancomycin (started 10/01). Repeat blood cultures. Patient states the BiPAP mask is uncomfortable and at this time will discontinue BiPAP. Will check an ABG later during this hospitalization to assess for chronic hypercarbic respiratory failure. 10/02 Patient continues to improve and states that she has 90% back to her normal. She still has a cough with green phlegm. She has wheezes on exam. Blood cultures demonstrated Staph epi in the vancomycin was discontinued. She has not worn BiPAP in the last 48 hours. She is on 2 L nasal cannula saturation 96%. Her creatinine is 1.7. Plan: Continue Solu-Medrol 20 mg IV q.6, today is day 4 steroids, continue albuterol and ipratropium nebulizers q.4 hours. continue Unasyn day 3. 10/03 Breathing back at her baseline. The cough is much improved. She has no wheezing on exam. currently she is on room air with saturations 95%. Chest x- ray today with mild bibasilar interstitial infiltrates with no change from 09/29/2022. White blood cell count is 17.8. Plan: I will change the patient to prednisone 40 mg p.o. today. Today is day 5 of steroids and she has recieved medrol 20 this AM. I will check an ABG on room air to assess the degree of her hypercarbia. I will perform an overnight oximetry on [facility]
[2022-10-04 11:48] LABS: Glucose Point of Care 66 mg/dl (65-105)
--- NOTE | 2022-10-04 14:50 | PM.IMPN ---
Progress Note: A&P Assessment and Plan (1) Acute respiratory failure with hypoxia: Code(s): J96.01 - Acute respiratory failure with hypoxia Status: Acute Assessment and Plan: Patient has acute on chronic hypoxic hypercapnic respiratory failure likely due to COPD exacerbation and possibly undiagnosed PAVITHRA. She has chronic hypercapnic respiratory failure with baseline pCO2 45 giving a normal pH (in Aug 2021). Continue scheduled nebulizer treatments and steroid therapy.? She has been placed on BiPAP but her pCO2 is really not changing.? She is clinically better to suggest this is more chronic for her. Will make further adjustments to the patient's BiPAP.? Patient has been consistently messing with her mask and this is interfering with her tidal volumes.?Pulmonary consult. CTA chest noted. Speech therapy to evaluate. Added Unasyn. Unasyn changed to Augmentin for total 7 days course. Oxygen requirement remains stable 10/03/2022 Respiratory panel ordered by Pulmonary pending Steroid switched to oral Home oxygen evaluation see with need for oxygen 1 L with rest and activity (2) COPD with exacerbation: Code(s): J44.1 - Chronic obstructive pulmonary disease with (acute) exacerbation Status: Acute Assessment and Plan: As above (3) Acute kidney injury: Code(s): N17.9 - Acute kidney failure, unspecified Status: Acute Assessment and Plan: Baseline creatinine is normal as of August 2021. Creatinine was 1.5 on admission. She is on Lasix and spironolactone at home. With IV fluids, creatinine has improved. hold spironolactone and supplemental potassium. serum bicarb was normal on admission but has dropped to 20. This is probably related to the acute kidney injury. She is not having nausea for vomiting to suggest DKA. IV fluids run out given her hx of CHF. Will monitor closely and we are still waiting UA with reflex culture. Creatinine bumped up again to 1.7. Will hold losartan. Spironolactone on hold. Renal ultrasound negative for hydronephrosis Recheck and monitor urine output 10/03/2022 renal function stable. (4) Suspected sleep apnea: Code(s): R29.818 - Other symptoms and signs involving the nervous system Status: Acute Assessment and Plan: Some of the patient's chronic hypercapnia is likely due to untreated obstructive sleep apnea.?Patient is on BiPAP as discussed above. she is off BiPAP Apnea link 09/13/2021 with AHI 42.4 Need sleep study as an outpatient basis She will need oxygen 3 L via nasal cannula at night (5) Insulin dependent diabetes mellitus: Status: Acute Assessment and Plan: Glucose remains poorly controlled. Continue AccuCheks covering with sliding scale. Hypoglycemia protocol available as needed. Continue current medications. A1c 7.9 Added 12 units with meals. Uptitrated to 15 units with meals Blood sugar much better continue to trend Accu-Cheks may need to back off on long-acting. Titrate with Solu Medrol dosing Down to prednisone now Discontinued Steroid (6) Tobacco abuse: Code(s): Z72.0 - Tobacco use Status: Acute Assessment and Plan: Benefits of smoking cessation have been discussed with the patient. Subjective Date/time seen: 10/04/22 14:50 Interval history: 66 yo female with combined systolic and diastolic CHF, CAD, COPD, continuous tobacco use,DM and PAD who presented to the ER via EMS after they were called out for lift assist.? When EMS arrived to the patient's home at assisted living they noted the patient's oxygen saturations were in the low 80s.?? 10/02/2022: no overnight events. Oxygen requirement the same. Breathing is better. Still requires 2 L oxygen. Reports back pain and leg pain which is chronic. Takes morphine for this home. 10/03/2022: No overnight events reported. Oxygen requirement remains stable at 2 L oxygen. Remains afebrile. MRSA negative blood culture
[2022-10-04 16:50] LABS: Glucose Point of Care 95 mg/dl (65-105)
[2022-10-04 20:29] LABS: Glucose Point of Care 169 mg/dl (65-105)
[2022-10-04] MEDS: ATORVASTATIN 40 MG TABLET PO (20:51)
[2022-10-05] VITALS (7 sets, daily range): BP systolic 142–167; BP diastolic 51–74; PULSE 67–79; RESP 16–18; TEMP 36.2–36.7; O2SAT 95–97
[2022-10-05] MEDS: methocarbamoL 750 MG TABLET 1500 MG PO ×2 (00:09→07:52)
[2022-10-05] MEDS: MORPHINE SULFATE (*CRX) 15 MG TAB IR PO ×2 (00:09→07:52)
[2022-10-05] MEDS: ALPRAZolam (*CRX) 0.5 MG TABLET 1 MG PO (00:10)
[2022-10-05] MEDS: ALBUTEROL SULFATE NEB 2.5 MG/3 ML INH INHALATION ×2 (00:16→15:26)
[2022-10-05] MEDS: IPRATROPIUM BR 0.02% INH SOLN 0.5 MG/2.5 ML VIAL INHALATION ×2 (00:16→15:26)
--- NOTE | 2022-10-05 03:03 | PC.NURSE ---
Daylight Savings Time For Daylight Savings Time Ending in the Fall - Clocks are moved back. For Daylight Savings Time Beginning in the Spring - Clocks are moved ahead. For [facility], the time of change occurs at 0200 hrs. Time is taken from the server service assistant. This entry on the patient's chart recognizes the change in time reflected during documentation. Example: 2 entries for vital signs may be charted for 0200 hrs.
[2022-10-05] MEDS: SUCRALFATE 1 GM TABLET PO ×2 (06:04→10:06)
[2022-10-05 06:15] LABS: Basophils Absolute Auto 0.1 K/mm3 (0.0-0.1); Basophils Percent Auto 0.6 % (0.2-1.2); Eosinophils Absolute Auto 0.3 K/mm3 (0-0.3); Eosinophils Percent Auto 1.9 % (0-4.4); Hematocrit 41.6 % (37.0-47.0); Hemoglobin 12.4 g/dL (12.0-15.0); Lymphocytes Absolute Auto 2.59 K/mm3 (0.9-3.2); Lymphocytes Percent Auto 18.4 % (18.3-44.2); Mean Corpuscular HGB Conc 29.8 g/dl (32-36); Mean Corpuscular Hemoglobin 23.7 pg (26-34); Mean Corpuscular Volume 79.4 fl (80-100); Mean Platelet Volume 9.3 fl (7.4-10.4); Monocytes Percent Auto 6.9 % (2.6-8.5); Neutrophils Absolute Auto 9.5 K/mm3 (1.3-6.7); Neutrophils Percent Auto 67.2 % (45.5-73.1); Platelet Count Result 260 k/mm3 (150-375); Red Blood Count 5.24 M/mm3 (4.2-5.4); White Blood Count 14.1 K/mm3 (4.5-10.0)
[2022-10-05 06:27] LABS: Alanine Aminotransferase 14 U/L (6-35); Albumin Level 2.9 g/dL (3.5-5.1); Alkaline Phosphatase 146 U/L (38-126); Anion Gap -1 mmol/L (8-16); Aspartate Amino Transferase 13 U/L (14-36); Bilirubin,Total 0.4 mg/dL (0.2-1.3); Blood Urea Nitrogen 32 mg/dL (7-17); Calcium 7.7 mg/dL (8.4-10.2); Carbon Dioxide 31 mmol/L (22-30); Chloride 104 mmol/L (98-107); Estimated CRCL calculation 63 ml/min; Estimated Glomerular Filt Rate > 60; Glucose 102 mg/dL (65-110); Magnesium 2.2 mg/dL (1.6-2.3); Potassium 4.1 mmol/L (3.4-5.0); Sodium 134 mmol/L (137-145)
[2022-10-05] MEDS: GABAPENTIN 400 MG CAPSULE 800 MG PO ×2 (07:51→12:01)
[2022-10-05] MEDS: carvediloL 12.5 MG TABLET PO (07:52)
[2022-10-05] MEDS: VENLAFAXINE HCL XR 37.5 MG CAP 112.5 MG PO (07:52)
[2022-10-05] MEDS: AMOXICILLIN/CLAVULANATE K 875-125 MG TAB 1 TABLET PO (07:52)
[2022-10-05] MEDS: CLOPIDOGREL BISULFATE 75 MG TABLET PO (07:53)
[2022-10-05] MEDS: ENOXAPARIN 30 MG/0.3 ML SYRINGE SUB-Q (07:53)
[2022-10-05] MEDS: TOLNAFTATE 1% POWDER 45 GM BTL 1 APPLIC TOPICAL (07:54)
[2022-10-05] MEDS: NICOTINE (*PBKC) 21 MG PATCH 1 PATCH TRANSDERM (08:01)
[2022-10-05 08:08] LABS: Glucose Point of Care 94 mg/dl (65-105)
--- NOTE | 2022-10-05 10:03 | PM.DS ---
DS: Admitting Diagnosis Discharge Date 10/05/2022 Admitting Diagnosis Shortness of breath DS: Discharge Diagnosis Discharge Diagnosis (1) Acute respiratory failure with hypoxia: Code(s): J96.01 - Acute respiratory failure with hypoxia Status: Acute (2) COPD with exacerbation: Code(s): J44.1 - Chronic obstructive pulmonary disease with (acute) exacerbation Status: Acute (3) Acute kidney injury: Code(s): N17.9 - Acute kidney failure, unspecified Status: Acute (4) Suspected sleep apnea: Code(s): R29.818 - Other symptoms and signs involving the nervous system Status: Acute (5) Insulin dependent diabetes mellitus: Status: Acute (6) Tobacco abuse: Code(s): Z72.0 - Tobacco use Status: Acute DS: Summary Hospital Course Hospital Course: # acute on chronic hypoxic hypercapnic respiratory failure with hypoxia: Patient has acute on chronic hypoxic hypercapnic respiratory failure likely due to COPD exacerbation and possibly undiagnosed PAVITHRA. She has chronic hypercapnic respiratory failure with baseline pCO2 45 giving a normal pH (in Aug 2021). Continue scheduled nebulizer treatments and steroid therapy.? She has been placed on BiPAP but her pCO2 is really not changing.? She is clinically better to suggest this is more chronic for her. Will make further adjustments to the patient's BiPAP.? Patient has been consistently messing with her mask and this is interfering with her tidal volumes.?Pulmonary consulted. CTA chest noted. Speech therapy to evaluate.? Added Unasyn.? Unasyn changed to Augmentin for total 7 days course.? Oxygen requirement remains stable 10/03/2022 Respiratory panel ordered by Pulmonary pending Steroid switched to oral and completed the course during the hospital stay Home oxygen evaluation? see with need for oxygen 1 L with rest and activity Home oxygen at night required at 3 L by nasal cannula. Home oxygen was arranged prior to the discharge # COPD exacerbation: See above # acute kidney injury: Baseline creatinine is normal as of August 2021.? Creatinine was 1.5 on admission.? She is on Lasix and spironolactone at home.? With IV fluids, creatinine has improved. hold spironolactone and supplemental potassium. serum bicarb was normal on admission but has dropped to 20.? This is probably related to the acute kidney injury.? She is not having nausea for vomiting to suggest DKA. IV fluids run out given her hx of CHF. Will monitor closely and we are still waiting UA with reflex culture. Creatinine bumped up again during the hospital stay to 1.7.? Held losartan and spironolactone.? Renal ultrasound negative for hydronephrosis Recheck and monitor urine output 10/03/2022 renal function back to normal and stable # suspect sleep apnea: Some of the patient's chronic hypercapnia is likely due to untreated obstructive sleep apnea.?Patient is on BiPAP as discussed above. ? she is off BiPAP Apnea link 09/13/2021 with AHI 42.4 Need sleep study as an outpatient basis She will need oxygen 3 L via nasal cannula at night # insulin dependent diabetes mellitus: Glucose remains poorly controlled.? A1c of 7.9. Likely due to steroid induced hyperglycemia as well Continue AccuCheks covering with sliding scale.? Hypoglycemia protocol available as needed.? Continue current medications.? Adjusted insulin regimen. However with lowering steroid had episodes of hypoglycemia. Backed up on insulin with stabilization. She will be resumed back on her home doses at discharge. She is advised to continue to monitor blood sugar and to lower her insulin # tobacco abuse: Benefits of smoking cessation have been discussed with the patient. Time Spent with Patient Time attestation: Total time spent providing and/or coordinating discharge services: 45 minutes Exam Narrative: Gen - NARD sitting up in bed Chest - left base inspiratory crackles with mild Rhonchi CV - RRR S1/S2. Tele showi
[2022-10-05 11:59] LABS: Glucose Point of Care 125 mg/dl (65-105)
[2022-10-15 12:48] LABS: Reference Lab Test Result Not Detected
== END 2022-10-05 15:55 | disposition home or self-care (01) | DRG 140 ==
LOC: ANHED 16:00 → ANHIMU 22:53 → ANH3MEDSUR 10-05 10:03 → ANHIMU 10-07 14:16
PROVIDERS: Internal Medicine; Internal Medicine Interventional Cardiology; Internal Medicine Pulmonary Disease; Admitting Provider Internal Medicine; Emergency Provider General Practice; PCP Nurse Practitioner Adult Health; Visit Provider Internal Medicine
DX: J44.1 Chronic obstructive pulmonary disease with (acute) exacerbation (principal); J96.21 Acute and chronic respiratory failure with hypoxia; N17.9 Acute kidney failure, unspecified; E87.4 Mixed disorder of acid-base balance; E11.51 Type 2 diabetes mellitus with diabetic peripheral angiopathy without gangrene; E11.42 Type 2 diabetes mellitus with diabetic polyneuropathy; J96.22 Acute and chronic respiratory failure with hypercapnia; I50.42 Chronic combined systolic (congestive) and diastolic (congestive) heart failure; I11.0 Hypertensive heart disease with heart failure; M79.7 Fibromyalgia; E11.649 Type 2 diabetes mellitus with hypoglycemia without coma; I25.10 Atherosclerotic heart disease of native coronary artery without angina pectoris; G47.33 Obstructive sleep apnea (adult) (pediatric); F17.210 Nicotine dependence, cigarettes, uncomplicated; E78.5 Hyperlipidemia, unspecified; Z20.822 Contact with and (suspected) exposure to COVID-19; Z96.643 Presence of artificial hip joint, bilateral; E66.9 Obesity, unspecified; Z68.33 Body mass index [BMI] 33.0-33.9, adult; Z89.612 Acquired absence of left leg above knee; Z89.611 Acquired absence of right leg above knee
CPT/HCPCS: 36415; 36600; 71045; 71275; 76775; 80048; 80053; 81001; 82375; 82550; 82565; 82570; 82805; 82948; 83036; 83050; 83605; 83735; 83880; 84132; 84300; 84484; 84540; 85025; 85610; 85730; 85999; 87040; 87077; 87081; 87186; 87636; 92610; 93005; 94002; 94003; 94618; 94640; 96361; 96374; 96376; 97161; 97165; 99285; A9270; G0378; G0379; J0295; J1650; J1815; J2920; J2930; J3370; J7030; J7040; Q9967

== ENCOUNTER 2022-11-06 06:03 | Inpatient (IN) | payer OTHER, SELFPAY ==
[2022-11-06] VITALS (81 sets, daily range): BP systolic 0–171; BP diastolic 0–91; PULSE 0–99; RESP 0–35; TEMP 34.8–36.3; O2SAT 93–100
--- NOTE | ~2022-11-06 | CT_ITS ---
EXAMINATION: CT chest abdomen pelvis wo con DATE: 11/06/2022 07:56 INDICATION: Cardiac arrest status post return of circulation. TECHNIQUE: Computed tomography (CT) of the chest, abdomen, and pelvis was performed without intraveno us contrast. Automated exposure control and iterative reconstruction technique were employed. The dos e-length product was 1903.62 mGy-cm. COMPARISON: Chest CT 09/29/22 FINDINGS: CHEST CT: There are airspace opacities in all lobes with air bronchograms in the lower lobes, right middle lobe , and right upper lobe. There are groundglass opacities and septal thickening in all lobes. There are small pleural effusions. The heart size is normal. No pericardial effusion. The nasogastric tube tip is in the stomach. The endotracheal tube tip is in expected position above the nino. There are old healed bilateral rib fractures. There are acute fractures of right fourth, fifth, sixth, seventh, an d eighth ribs and left second, third, fourth, fifth, sixth, and seventh ribs. There is subcutaneous f at stranding in right anterior superior chest, likely inflammation or hematoma. There is severe thora cic spondylosis. There is a benign bone island in T4 vertebral body. ABDOMEN/PELVIS CT: The liver, gallbladder, spleen, and adrenal glands are normal. There are calcifications in the pancre as, consistent with chronic pancreatitis. The kidneys are normal. There is no urolithiasis. A rectal tube is noted. There is a catheter in the bladder. There is diffuse mild wall thickening of the colon . There are no pathologically enlarged lymph nodes. There is no free intraperitoneal fluid. There is a left inguinal hernia containing fat. Body wall edema is noted. There is a small hematoma superficia l to right common femoral artery. There is a mildly enlarged right inguinal lymph node, likely reacti ve. There are stents in the common iliac arteries and external iliac arteries. There is severe lumbar spondylosis. There are bilateral hip arthroplasties. There is a stent in left superficial femoral ar ayla. IMPRESSION: 1. Diffuse lung disease, likely a combination of pulmonary edema and severe pneumonia. 2. Small pleural effusions. 3. Acute bilateral rib fractures. 4. Diffuse wall thickening of the colon, consistent with interstitial edema versus pancolitis. Reviewed, dictated and finalized at location A. IMPRESSION: 1. Diffuse lung disease, likely a combination of pulmonary edema and severe pne umonia. 2. Small pleural effusions. 3. Acute bilateral rib fractures. 4. Diffuse wall thickening of the colon, consistent with interstitial edema srinivas josé pancolitis.
--- NOTE | ~2022-11-06 | CT_ITS ---
Non-contrast Head CT History: Status post cardiac arrest COMPARISON: 09/09/2021 Technique: Axial non-contrast imaging of the brain was performed. Dose reduction technique was used on this scan by utilizing automated exposure control and iterative reconstruction technique. The dose -length product (DLP) was 681.00 mGy-cm. Findings: There is very poor delineation of graff-white distinction, suspicious for global anoxic/hypo xic encephalopathy. No intracranial hemorrhage identified. The ventricles and subarachnoid spaces are normal in size. The calvarium appears normal. The visualized paranasal sinuses and mastoid air sade ls are clear. Impression: Diffusely poor delineation of graff-white distinction is suspicious for global anoxic/hypoxic encephal opathy. Consider MR to further evaluate. No intracranial hemorrhage. Reviewed, dictated and finalized at [facility]. Impression: Diffusely poor delineation of graff-white distinction is suspicious for global a noxic/hypoxic encephalopathy. Consider MR to further evaluate. No intracranial hemorrhage.
--- NOTE | ~2022-11-06 | XR_ITS ---
Portable chest x-ray Comparison: 10/03/2022 Clinical History: Cardiac arrest, intubation Findings: Endotracheal tube and NG tube are in satisfactory positions. There is extensive hazy right lung consolidation, with minimal haziness in the central left lung. No pleural effusion. No pneumoth orax evident. Cardiomediastinal silhouette is stable. Questionable fractures of the right third, fou rth, fifth ribs.. Impression: Support tubes in place, as above. Moderate central pulmonary edema, with asymmetric increased involvement of the right lung as compared to the left. Questionable fractures of the right third, fourth, fifth ribs. No pneumothorax. Reviewed, dictated and finalized at location . Impression: Support tubes in place, as above. Moderate central pulmonary edema, with asymmetric increased involvement of the right lung as compared to the left. Questionable fractures of the right third, fourth, fifth ribs. No pneumothorax.
--- NOTE | 2022-11-06 06:13 | ECG_ITS ---
Measurements Intervals [place] Rate: 126 P: MD: 0 QRS: 38 QRSD: 132 T: 240 QT: 275 QTc: 399 Interpretive Statements ATRIAL FLUTTER/TACHYCARDIA WITH RAPID VENTRICULAR RESPONSE INTRAVENTRICULAR CONDUCTION DELAY ST AND T-WAVE ABNORMALITIES CONSIDER MYOCARDIAL ISCHEMIA IN ANTEROLATERAL LEADS ABNORMAL ECG COMPARED TO ECG 09/29/2022 15:12:52 ATRIAL FLUTTER NOW PRESENT INTRAVENTRICULAR CONDUCTION DELAY NOW PRESENT Electronically Signed On 11-07-2022 16:13:46 CDT by Romel Ambrosio M.D.
--- NOTE | 2022-11-06 06:15 | ED.GENADULT ---
HPI - General Adult General Chief complaint: Cardiac Arrest/CPR <Jeffrey Swann MD - Last Filed: 11/06/22 07:15> Stated complaint: cardiac arrest <Jeffrey Swann MD - Last Filed: 11/06/22 07:15> Time Seen by Provider: 11/06/22 06:13 <Jeffrey Swann MD - Last Filed: 11/06/22 07:15> History of Present Illness HPI narrative: Patient is a 67-year-old female who presents the emergency department with chief complaint of cardiac arrest. Patient has history of flash pulmonary edema and history of bilateral below-knee amputations. Patient presents today with complaints of shortness of breath and was found to collapse at the nurses station at the nursing facility where she is at the patient was found to be in cardiac arrest and also was found to be hypoglycemic. The patient received dextrose by EMS and ACLS protocols were initiated. <Jeffrey Swann MD - Last Filed: 11/06/22 07:15> Related Data Home medications: Home Medications Medication Instructions Recorded Confirmed Humalog U-100 Insulin See Rx Instructions .Route .COMPLEX 12/24/20 09/30/22 albuterol sulfate 90 mcg/actuation 2 puff inhalation Q6H PRN wheezing 12/24/20 09/30/22 aerosol inhaler (ProAir HFA) atorvastatin 40 mg tablet 40 mg PO HS 12/24/20 09/30/22 clopidogrel 75 mg tablet 75 mg PO DAILY 12/24/20 09/30/22 nystatin 100,000 unit/gram topical See Rx Instructions .Route .COMPLEX 12/24/20 09/30/22 cream gabapentin 400 mg capsule 800 mg PO TID 12/25/20 09/30/22 venlafaxine 37.5 mg 112.5 mg PO DAILY 07/09/21 09/30/22 capsule,extended release 24 hr methocarbamol 750 mg tablet 1,500 mg PO TID PRN Muscle Spasm 09/30/22 09/30/22 potassium chloride 20 mEq 20 meq PO DAILY 09/30/22 09/30/22 tablet,extended release(part/cryst) sucralfate 1 gram tablet 1 g PO TIDHS 09/30/22 09/30/22 Lantus Solostar U-100 Insulin 54 units subcut HS 10/02/22 alprazolam 0.5 mg tablet 0.5 mg PO BID PRN anxiety 10/21/22 morphine 30 mg tablet,extended 30 mg PO Q12H 10/21/22 release <Jeffrey Swann MD - Last Filed: 11/06/22 07:15> Allergies/adverse reactions: Allergies Allergy/AdvReac Type Severity Reaction Status Date / Time metformin Allergy Unknown Verified 10/21/22 14:06 Sulfa (Sulfonamide Allergy Unknown Verified 10/21/22 14:06 Antibiotics) <Jeffrey Swann MD - Last Filed: 11/06/22 07:15> Review of Systems Review of Systems: Review of systems not obtained due to patient's altered mental status and postcardiac arrest intubation Nursing and ancillary documentation was reviewed. <Jeffrey Swann MD - Last Filed: 11/06/22 07:15> [facility] Past Medical History Medical History: Medical History Chronic hypercapnic respiratory failure Chronic obstructive pulmonary disease Chronic pain Secondary to phantom limb syndrome. Congestive heart failure Echocardiogram in December 2020 showed a mildly enlarged left ventricular chamber with moderate really does left ventricular systolic function with an estimated EF of 35 to 40%, severely increased left ventricular wall thickness, and grade 1 diastolic dysfunction. Depression Diverticulitis Duodenal ulcer (06/2021) Essential hypertension Fibromyalgia Gastroesophageal reflux disease Hyperlipidemia Hypertension Insulin dependent diabetes mellitus Nonischemic cardiomyopathy Peripheral neuropathy <Jeffrey Swann MD - Last Filed: 11/06/22 07:15> Surgical History Surgical History: Surgical History History of above-knee amputation of both lower extremities History of bilateral hip arthroplasty History of cardiac catheterization (03/06/21) Right coronary dominant circulation with no significant coronary artery disease. <Jeffrey Swann MD - Last Filed: 11/06/22 07:15> Family History
[2022-11-06 06:36] LABS: Glucose Point of Care 304 mg/dl (65-105)
[2022-11-06 06:41] LABS: Hematocrit 44.5 % (37.0-47.0); Hemoglobin 12.1 g/dL (12.0-15.0); Mean Corpuscular HGB Conc 27.2 g/dl (32-36); Mean Corpuscular Hemoglobin 23.9 pg (26-34); Mean Corpuscular Volume 87.9 fl (80-100); Mean Platelet Volume 10.4 fl (7.4-10.4); Platelet Count Result 303 k/mm3 (150-375); Red Blood Count 5.06 M/mm3 (4.2-5.4); Red Cell Distribution Width 17.4 % (11.5-14.5); White Blood Count 14.8 K/mm3 (4.5-10.0)
[2022-11-06] MEDS: NOREPINEPHRINE 8 MG/D5W 250 ML 8 MG/250 ML BAG 9.38 MG IV CONT (06:51)
[2022-11-06 07:00] LABS: INR 1.4; Partial Thromboplastin Time 50.7 SECONDS (22.3-36.8); Prothrombin Time 16.4 Seconds (11.1-14.7)
[2022-11-06] MEDS: SODIUM CHLORIDE 0.9% IV 1,000 ML 999 ML IV CONT (07:02)
[2022-11-06 07:03] LABS: Alanine Aminotransferase 19 U/L (6-35); Alkaline Phosphatase 191 U/L (38-126); Anion Gap 14 mmol/L (8-16); Aspartate Amino Transferase 25 U/L (14-36); Bilirubin,Total 0.4 mg/dL (0.2-1.3); Blood Urea Nitrogen 15 mg/dL (7-17); Calcium 8.3 mg/dL (8.4-10.2); Carbon Dioxide 23 mmol/L (22-30); Chloride 100 mmol/L (98-107); Estimated Glomerular Filt Rate > 60; Glucose 333 mg/dL (65-110); Magnesium 2.5 mg/dL (1.6-2.3); Potassium 4.3 mmol/L (3.4-5.0); Sodium 137 mmol/L (137-145)
[2022-11-06 07:12] LABS: Band Neutrophils Percent 3 % (0-6); Metamyelocytes Percent 1 %; Monocytes Absolute Manual 0.88 K/mm3 (0.1-0.90); Monocytes Percent Manual 6 % (3-9); Myelocytes Percent 2 %; Neutrophils Absolute Manual 6.36 K/mm3 (1.7-7.2); Neutrophils Percent Manual 40 % (46-73); Platelet Estimate Adequate (Adequate); Total Cells Counted 100
[2022-11-06 07:13] LABS: Ovalocytes 1+ (NORMAL); Schistocytes None Seen (NORMAL)
[2022-11-06 07:14] LABS: Influenza A QL RT-PCR Negative (Negative); Influenza B QL RT-PCR Negative (Negative); SARS-CoV-2 RNA PCR Negative
[2022-11-06 07:14] LABS: Poikilocytosis 1+ (NORMAL)
[2022-11-06 07:15] LABS: Anisocytosis 1+ (NORMAL); Atypical Lymphocytes Present; Burr Cells 1+ (NORMAL)
--- NOTE | 2022-11-06 07:19 | PC.NURSE ---
Addendum entered by Ino Araya RN 11/06/22 07:33: 0720: Report to Niraj JOVEL. Addendum entered by Ino Araya RN 11/06/22 07:30: 0610: Dr. Swann intubated pt. 7.0 tube, 26 at the lip. 0600: pt arrived to ED w/ IGEL in place. Original Note: Code sheet: 0600: pt arrived to ED, CPR in progress. 0603: pulse check, no pulse, resumed cpr. 0604: 1mg epi administered IO. EMS established IO sloop captain. 0605: 1amp of bicarbonate administered. 0607: pulse check, received ROSC.
[2022-11-06 07:24] LABS: NT Pro B Type Natriuretic Pept 5090 pg/mL (19.9-100); Troponin I 0.154 ng/mL (0.000-0.034)
[2022-11-06 07:39] LABS: Lactic Acid Reflex 12.3 mmol/L (0.7-2.0)
[2022-11-06 08:08] LABS: Alveolar/Arterial O2 Gradient 569.9 mmHg; Fractional Inspired Oxygen 100 %; HCO3 ABG 21.4 mEq/l (22.0-26.0); Oxygen Saturation ABG 92.1 % (95.0-100.0); Oxyhemoglobin 90.7 % THb (90.0-100.0); PO2 ABG 80.7 mmHg (80.0-100.0); PO2 FiO2 Ratio Arterial Blood 0.81 %; Total Hemoglobin 12.5 g/dL (12.0-18.0)
[2022-11-06 08:10] LABS: Device VENTILATOR; PCO2 ABG 62.4 mmHg (35.0-45.0); Site Drawn LEFT BRACHIAL; pH ABG 7.153 (7.350-7.450)
[2022-11-06 08:11] LABS: Arterial Blood Gas PEEP 5 cmH2O; Arterial Blood Gas Tidal Volume 420 ml; Arterial Blood Gas Vent Mode CMV; Arterial Blood Gas Ventilator rate 15 /MIN
--- NOTE | 2022-11-06 08:27 | PC.NURSE ---
Still no urine output at this time
[2022-11-06] MEDS: PIPERACILLIN/TAZOBACTAM SOD 4.5 GM in SODIUM CHLORIDE 0.9% IV 100 ML 200 ML IVPB (08:49)
[2022-11-06] MEDS: SODIUM CHLORIDE 0.9% IV 1,000 ML 150 ML IV CONT (09:17)
--- NOTE | 2022-11-06 09:34 | PC.NURSE ---
Per Dr. Posey, pausing levophed at this time. Pt BP 128/71
[2022-11-06 09:36] LABS: Reflex Lactic Acid Yes or No Add Lactic
--- NOTE | 2022-11-06 09:49 | PC.NURSE ---
Levophed resumed at this time
[2022-11-06 10:00] LABS: Lactic Acid 2.7 mmol/L (0.7-2.0)
[2022-11-06 10:16] LABS: Troponin I 0.262 ng/mL (0.000-0.034)
--- NOTE | 2022-11-06 10:57 | WPDCNINT ---
Assessment and Plan Assessment and plan (1) Acute respiratory failure with hypoxia: Code(s): J96.01 - Acute respiratory failure with hypoxia Status: Acute Assessment and Plan: Acute Respiratory failure secondary to combination of bilateral pneumonia, COPD, CHF, bilateral rib fractures Currently intubated in the ER and on mechanical ventilation ABG and PCXR reviewed (2) CHF (congestive heart failure): Code(s): I50.9 - Heart failure, unspecified Status: Acute Assessment and Plan: CT scan shows pulmonary edema. BNP 5090 Echo 09/17 Summary ? 1. Complete two-dimensional, color flow and Doppler transthoracic echocardiogram is performed. ? 2. Left ventricular chamber dimension is mildly enlarged. ? 3. Left ventricular systolic function is moderately reduced, estimated at 35-40%. ? 4. There is mildly increased left ventricular wall thickness. ? 5. Left ventricular septal wall motion is abnormal with septal motion related to bundle branch block. ? 6. The left ventricular diastolic function is grade I diastolic dysfunction. ? 7. Left atrial chamber dimension is moderately enlarged. ? 8. There is mild mitral valve regurgitation. ? 9. There is no aortic valve stenosis. (3) Pneumonia: Code(s): J18.9 - Pneumonia, unspecified organism Status: Acute Assessment and Plan: CT scan shows diffuse bilateral consolidation which could be community-acquired versus aspiration after cardiac arrest (4) Fracture of multiple ribs of both sides: Code(s): S22.43XA - Multiple fractures of ribs, bilateral, initial encounter for closed fracture Status: Acute Assessment and Plan: Secondary to rib fractures (5) Shock: Code(s): R57.9 - Shock, unspecified Status: Acute Assessment and Plan: Currently on Levophed (6) COPD with exacerbation: Code(s): J44.1 - Chronic obstructive pulmonary disease with (acute) exacerbation Status: Acute Assessment and Plan: Baseline history of COPD secondary to heavy smoking in the past (7) Cardiac arrest: Code(s): I46.9 - Cardiac arrest, cause unspecified Status: Acute Assessment and Plan: Likely secondary to hypoxia which is probably combination of pneumonia, COPD and congestive heart failure Patient also hypoglycemic on presentation (8) Anoxic brain injury: Code(s): G93.1 - Anoxic brain damage, not elsewhere classified Status: Acute Assessment and Plan: Patient unresponsive to pain and has dilated fixed pupils on exam. CT scan of the head shows Diffusely poor delineation of graff-white distinction is suspicious for global anoxic/hypoxic encephalopathy (9) Colitis: Code(s): K52.9 - Noninfective gastroenteritis and colitis, unspecified Status: Acute Assessment and Plan: CT scan shows diffuse colitis which is likely secondary to ischemia and hypertension Plan Patient was accompanied by her daughters in the ER and ER physician updated them with patient's status and findings of the workup. I again had a prolonged discussion with both daughters and their families in the waiting room. I explained them the patient has pneumonia congestive heart failure and COPD which was likely the cause of respiratory failure which led to a cardiac arrest and now patient has evidence of anoxic brain injury in the light of her abnormal CT scan,, fixed dilated pupils, response to pain and no cough gag reflex. Patient also has evidence of diffuse colitis which is likely secondary to ischemia. We had a prolonged discussion regarding current treatment plan, guarded prognosis, possibility of prolonged medical billing assistant neurological injury which may require prolonged mechanical ventilation and goals of care. Patient was already in custodial and was bed-bound used wheelchair to ambulate due to her BKA and did not had a good quality of life. Patient's both daughter believe the patient would not want to co
--- NOTE | 2022-11-06 10:59 | PM.IMHP ---
H&P: HPI History of Present Illness Date/Time: 11/06/22 10:59 Chief Complaint: Cardiopulmonary arrest Narrative: 67yo female with CHF, CAD, DM and PAD [facility] after being found down in cardiac arrest. Patient intubated and unresponsive. Per EMS notes, patient was complaining of difficulty breathing and she was found unresponsive with agonal breathing but palpable pulse. Cardiac arrest began 5 minutes prior to EMS arrival. EMS found patient in cardiac arrest and CPR started. Sinus bracycardia after 28 minutes but pulse lost again; return of pulse 13 minutes later. Patient was intubated in the field. She was brought to the ED. In the ED, pulse lost again and CPR was continued with successful ROSC. Please see Code Blue sheet for details. WBC was elevated at 14K. ABG 7.15/62/81 on MV. Lactic acid 12.3. Troponin elevated. EKG showing AFlutter with ST depression in the anteriolateral leads. CT Ch/A/P showing diffuse lung disease c/w pulmonary edema and/or severe PNA, rib fracture, diffuse wall thickening of the colon. CT brain showing diffusely poor delineation of graff-white distinction. She was treated with IV fluids, IV abx and pressors. She was admitted to the ICU for further care. Review of Systems Review of Systems: ROS unobtainable: Yes unobtainable due to medical condition PMFSH Past Medical History Medical History Chronic hypercapnic respiratory failure Chronic obstructive pulmonary disease Chronic pain Secondary to phantom limb syndrome. Congestive heart failure Echocardiogram in December 2020 showed a mildly enlarged left ventricular chamber with moderate really does left ventricular systolic function with an estimated EF of 35 to 40%, severely increased left ventricular wall thickness, and grade 1 diastolic dysfunction. Depression Diverticulitis Duodenal ulcer (06/2021) Essential hypertension Fibromyalgia Gastroesophageal reflux disease Hyperlipidemia Hypertension Insulin dependent diabetes mellitus Nonischemic cardiomyopathy Peripheral neuropathy Surgical History Surgical History History of above-knee amputation of both lower extremities History of bilateral hip arthroplasty History of cardiac catheterization (03/06/21) Right coronary dominant circulation with no significant coronary artery disease. Family History Family History Mother Lung cancer Father Heart disease Sibling Cirrhosis Social History Social History Social History: She resides at [facility]. Former light smoker. Primary care provider: Yamileth Perez NP Code status: Full code. Surrogate decision maker: Ariana Addison (daughter). Smoking packs per day: 0.5 Smoking cigarettes per day: 10.0 Years smoked: 51 Smoking pack-years: 25.50 Smoking status: Unknown if ever smoked Tobacco type: cigarettes Alcohol intake: never Substance use: never Lack of Transportation: No Lack of Food: Never True Current Housing: I Have Housing Concerned About Future Housing: No Difficulty Paying Gas/Electric Bills: No Difficulty Paying for Meds: No Currently Unemployed: No Education: High School Diploma/GED Difficulty w/ Childcare or Family Care: No Living arrangements: assisted living Spiritual care concerns: No Meds Home Medications and Allergies Home Medications Medication Instructions Recorded Confirmed Type Humalog U-100 Insulin See Rx Instructions .Route .COMPLEX 12/24/20 11/06/22 History albuterol sulfate 90 mcg/actuation 2 puff inhalation Q6H PRN wheezing 12/24/20 11/06/22 History aerosol inhaler (ProAir HFA) atorvastatin 40 mg tablet 40 mg PO HS 12/24/20 11/06/22 History clopidogrel 75 mg tablet 75 mg PO DAILY 12/24/20
--- NOTE | 2022-11-06 12:24 | ADMIMU ---
This patient, Isabel Jorgensen, was admitted to IMU status, and placed in Intensive Care Unit-3. Patient/family oriented to hospital policies and general routines including ID bracelet, bed and alarms, visiting hours, pain management, procedures, bathroom and other care routines, personal items, smoking policy, room service/diet, and visiting hours. Valuables list has been completed. Information on how to activate the Rapid Response Team has been discussed. Patient/Family are encouraged to report perceived risks to care and to ask questions if they do not understand what they are told or what they should do.
[2022-11-06] MEDS: MORPHINE SULFATE INJ (*CRX) 10 MG/ML AMP 5 MG IV PUSH (16:59)
[2022-11-06] MEDS: LORazepam INJ (*CRX) 2 MG/ML VIAL IV PUSH (16:59)
--- NOTE | 2022-11-06 17:46 | PC.NURSE ---
Assessment completed by Jayme JOVEL , absent breath and heart tones noted , asystole on the monitor. Family at bedside , Dr Haynes notified .
--- NOTE | 2022-11-06 18:39 | PM.DDS ---
Discharge Summary Date and Time Date of : 11/06/22 Time of : 17:33 Provider Pronounced By: Nikki Felder Probable Cause of Probable Cause of : Cardiopulmonary arrest related to pneumonia Summary Hospital Course: 67yo female with CHF, CAD, DM and PAD [facility] after being found down in cardiac arrest. Patient intubated and unresponsive. Per EMS notes, patient was complaining of difficulty breathing and she was found unresponsive with agonal breathing but palpable pulse. Cardiac arrest began 5 minutes prior to EMS arrival. EMS found patient in cardiac arrest and CPR started. Sinus bracycardia after 28 minutes but pulse lost again; return of pulse 13 minutes later. Patient was intubated in the field. She was brought to the ED. In the ED, pulse lost again and CPR was continued with successful ROSC. Please see Code Blue sheet for details.? WBC was elevated at 14K. ABG 7.15/62/81 on MV. Lactic acid 12.3. Troponin elevated. EKG showing AFlutter with ST depression in the anteriolateral leads. CT Ch/A/P showing diffuse lung disease c/w pulmonary edema and/or severe PNA, rib fracture, diffuse wall thickening of the colon. CT brain showing diffusely poor delineation of graff-white distinction. She was treated with IV fluids, IV abx and pressors. She was admitted to the ICU for further care. Options were discussed with the family.? Family opted to proceed with comfort measures.? Patient was made comfortable and was extubated. She on 11/06/22. Additional Data Confirmation of as documented by pronouncing clinician: Pupillary Reflex, Palpable Pulses, Response to Stimuli, Heart Tones and Breath Sounds Name of Provider Notified: Dr. 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
== END 2022-11-06 17:33 | disposition expired | DRG 133 ==
LOC: ANHED 08:53 → ANHICU 09:59
PROVIDERS: Emergency Medicine; Admitting Provider Internal Medicine; Emergency Provider Emergency Medicine; PCP Emergency Medicine; Visit Provider Internal Medicine
DX: J96.21 Acute and chronic respiratory failure with hypoxia (principal); I46.9 Cardiac arrest, cause unspecified; R57.9 Shock, unspecified; G93.1 Anoxic brain damage, not elsewhere classified; J18.9 Pneumonia, unspecified organism; I11.0 Hypertensive heart disease with heart failure; J44.0 Chronic obstructive pulmonary disease with (acute) lower respiratory infection; I50.9 Heart failure, unspecified; E11.42 Type 2 diabetes mellitus with diabetic polyneuropathy; M96.A3 Multiple fractures of ribs associated with chest compression and cardiopulmonary resuscitation; I42.8 Other cardiomyopathies; E78.5 Hyperlipidemia, unspecified; E11.9 Type 2 diabetes mellitus without complications; K52.9 Noninfective gastroenteritis and colitis, unspecified; K21.9 Gastro-esophageal reflux disease without esophagitis; K57.30 Diverticulosis of large intestine without perforation or abscess without bleeding; M79.7 Fibromyalgia; G54.6 Phantom limb syndrome with pain; F32.A Depression, unspecified; Z20.822 Contact with and (suspected) exposure to COVID-19; Z89.512 Acquired absence of left leg below knee; Z89.511 Acquired absence of right leg below knee; Z79.02 Long term (current) use of antithrombotics/antiplatelets; Z79.4 Long term (current) use of insulin
CPT/HCPCS: 36415; 36600; 51702; 70450; 71250; 74176; 80053; 82805; 82948; 83605; 83735; 83880; 84484; 85025; 85610; 85730; 87040; 87081; 87147; 87181; 87186; 87636; 93005; 96360; 99285; C1751; J0171; J1956; J2060; J2270; J2543; J7030